=== PATIENT | female | born 1945 | race Caucasian/White ===

== ENCOUNTER 2016-06-09 12:40 | Inpatient (IN) | payer MEDICAID, MEDICARE ==
--- NOTE | 2016-06-09 13:51 | C.PDOC ---
History Of Present Illness <Heather Castillo - Last Filed: 06/09/16 23:10> <Billy Smith - Last Filed: 06/10/16 15:13> 70 y/o female with dm and htn, with hx of poor vascular circulation in lower extremities (has stent in right leg and heart), s/p catheterization of right leg 3 weeks ago at [facility], presents with worsening pain in right foot. pt has had pain and cold feeling in right foot for 3 weeks, not better with Tylenol #3. pt sts she was told she needs an operation in right leg , has no appts set up. (Heather Castillo) History Per: Patient, Family History/Exam Limitations: no limitations Onset/Duration Of Symptoms: Days (21) Recent travel outside of the [place]: No <Heather Castillo - Last Filed: 06/09/16 23:10> <Billy Smith - Last Filed: 06/10/16 15:13> Time Seen by Provider: 06/09/16 13:18 Chief Complaint (Nursing): Lower Extremity Problem/Injury Past Medical History Reviewed: Historical Data, Nursing Documentation, Vital Signs - Medical History PMH: Diabetes, HTN Other PMH: poor circulation Surgical History: Coronary Stent (STENTS B/L LEGS) Other Surgeries: stent in right leg Family History: States: Unknown Family Hx - Social History Hx Tobacco Use: Yes Hx Alcohol Use: No Hx Substance Use: No - Immunization History Hx Tetanus Toxoid Vaccination: Yes Hx Influenza Vaccination: Yes Hx Pneumococcal Vaccination: Yes <Heather Castillo - Last Filed: 06/09/16 23:10> Vital Signs: Last Vital Signs Temp 98.1 F 06/10/16 08:00 Pulse 64 06/10/16 08:00 Resp 20 06/10/16 08:00 BP 132/73 06/10/16 10:10 Pulse Ox 99 06/10/16 08:00 Review Of Systems Constitutional: Negative for: Fever, Chills Cardiovascular: Negative for: Chest Pain Respiratory: Negative for: Cough, Shortness of Breath Gastrointestinal: Negative for: Abdominal Pain Musculoskeletal: Positive for: Foot Pain (right). Negative for: Neck Pain, Leg Pain Skin: Negative for: Rash Neurological: Positive for: Numbness (right leg). Negative for: Weakness <Heather Castillo - Last Filed: 06/09/16 23:10> Physical Exam - Physical Exam Appears: Non-toxic, No Acute Distress Skin: Normal Color, Warm, Dry Head: Atraumatic, Normacephalic Cardiovascular: Rhythm Regular, No Murmur Respiratory: Normal Breath Sounds, No Rales, No Rhonchi, No Wheezing Gastrointestinal/Abdominal: Soft, No Tenderness, No Guarding, No Rebound Extremity: Normal ROM, Other (right foot erythematous, cold, no dp pulse palpated, tender to touch. no right calf tenderness. left lower ext with + 1 dp pulse, normal temp, non tender. ) <Heather Castillo - Last Filed: 06/09/16 23:10> ED Course And Treatment - Laboratory Results Result Diagrams: 06/09/16 14:19 06/09/16 15:08 O2 Sat by Pulse Oximetry: 98 <Heather Castillo - Last Filed: 06/09/16 23:10> - Laboratory Results Result Diagrams: 06/09/16 14:19 06/09/16 15:08 <Billy Smith - Last Filed: 06/10/16 15:13> Medical Decision Making <Heather Castillo - Last Filed: 06/09/16 23:10> <Billy Smith - Last Filed: 06/10/16 15:13> Medical Decision Makin70 y/o female with cold right foot with no palpable pulse; will get arterial and venous duplex studies , labs, vascular consult. vascular has seen patient. discussed with Dr Valadez, will admit to his service with vascular consult (Heather Castillo) Disposition Discussed With : Neftali Malave - Disposition Disposition Time: 18:00 <Heather Castillo - Last Filed: 06/09/16 23:10> <Billy Smith - Last Filed: 06/10/16 15:13> - Disposition Disposition: HOSPITALIZED Condition: SERIOUS - Clinical Impression Clinical Impression: Arterial occlusion, lower extremity
[2016-06-09] MEDS ORDERED: Oxycodone/Acetaminophen 5/325 mg Tab PO STA (13:53)
[2016-06-09 14:14] LABS: VENOUS BLOOD GAS BASE EXCESS 1.5 mmol/L (0.0-2.0); VENOUS BLOOD GAS PCO2 43 mmHg (40-60)
[2016-06-09 14:28] LABS: BASO # 0.1 K/uL (0.0-0.2); EOS # 0.1 K/uL (0.0-0.7); EOS % 0.9 % (0.0-4.0); HEMATOCRIT 43.2 % (34.0-47.0); LYMPH # 1.6 K/uL (1.0-4.3); LYMPH % 22.3 % (20.0-40.0); MEAN CELL VOLUME 78.5 fL (81.0-99.0); MEAN CORPUSCULAR HEMOGLOBIN 25.4 pg (27.0-31.0); MEAN CORPUSCULAR HGB CONC 32.3 g/dL (33.0-37.0); MEAN PLATELET VOLUME 8.8 fL (7.2-11.7); MONO # 0.5 K/uL (0.0-0.8); MONO % 6.8 % (0.0-10.0); RED CELL DISTRIBUTION WIDTH 14.2 % (11.5-14.5); WHITE BLOOD COUNT 7.4 K/uL (4.8-10.8)
[2016-06-09 15:19] LABS: CHLORIDE 97 mmol/L (98-107); POTASSIUM 4.1 mmol/L (3.6-5.2); SODIUM 137 mmol/L (132-148)
[2016-06-09 15:22] LABS: BLOOD UREA NITROGEN 17 mg/dL (7-17); CARBON DIOXIDE 24 mmol/L (22-30); GFR AFRICAN-AMERICAN > 60; GLUCOSE,RANDOM 266 mg/dL (65-105)
[2016-06-09 15:23] LABS: CALCIUM 9.3 mg/dl (8.6-10.4)
[2016-06-09] MEDS ORDERED: Heparin25000 units/250ml 1/2NS 250 ML IV ONE (15:53)
--- NOTE | 2016-06-09 16:47 | CP.PCM.CON ---
History of Present Illness - History of Present Illness History of Present Illness: Surgery Consult note fo Dr. Castillo Pt is a 70yoF with PMHx of Diabetes, HTN, PVD and PSHx: coronary and bilateral lower extremity stents presented to the ED today for worsening pain in the right foot x 3 weeks. Pt states that her foot also feels cold. Three weeks ago she had a catheterization (at [facility]) of right leg and was told she needed an operation to help with blood flow to her leg. Right lower extremity arterial duplex US showed occluded R femoral stent and right popliteal artery. Surgery was consulted to eval for possible treatment for her PVD, arterial occlusions. PMHx: DM, HTN, PVD SHx: coronary and bilateral lower extremity stents Social hx: Smoke 1/2 ppd x 53 yrs (26.5 pack years), drink ETOH occasionally, and denied drug use. 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 Family hx: non contributory PMD: Dr. Carballo Home meds: ASA, Plavix, Genumet, Amaryl, Vorapaxar Allergies: NKDA Review of Systems - Constitutional Constitutional: absent: Chills, Fever - EENT Eyes: absent: Change in Vision Ears: absent: Decreased Hearing - Cardiovascular Cardiovascular: absent: Chest Pain, Chest Pain at Rest, Dyspnea, Dyspnea on Exertion, Leg Edema, Pedal Edema - Respiratory Respiratory: absent: Dyspnea, Dyspnea on Exertion - Gastrointestinal Gastrointestinal: absent: Abdominal Pain, Nausea, Vomiting - Genitourinary Genitourinary: absent: Difficulty Urinating, Dysuria - Musculoskeletal Musculoskeletal: Numbness, Tingling. absent: Muscle Weakness Additional comments: Pain in right toes, that travels up to right calf. Pain worse with walking, but improves with rest. Pt has pain at night when lying in bed, awakens from sleep, improves with dangling over side of bed. Pt states feels cool to touch - Integumentary Integumentary: Change in Hair (decreased hair growth on leg). absent: Rash, Skin Pain Past Patient History - Past Social History Smoking Status: Heavy Smoker > 10 Cigarettes Daily - CARDIAC Hx Hypertension: Yes - ENDOCRINE/METABOLIC Hx Diabetes Mellitus Type 2: Yes - PSYCHIATRIC Hx Substance Use: No - SURGICAL HISTORY Hx Coronary Stent: Yes (STENTS B/L LEGS) - ANESTHESIA Hx Anesthesia Reactions: No Meds Allergies/Adverse Reactions: Allergies Allergy/AdvReac Type Severity Reaction Status Date / Time No Known Allergies Allergy Verified 06/09/16 12:46 - Medications Medications: Current Medications Heparin Sodium/Sodium Chloride (Heparin 87078 Units/250ml 1/2 Normal Saline) 250 mls @ 4.491 mls/hr IV .Q24H ONE PRN Reason: 9 UNITS/KG/HR Stop: 06/10/16 15:52 Last Admin: 06/09/16 16:37 Dose: 4.491 mls/hr Physical Exam - Constitutional Appears: Non-toxic, No Acute Distress - Head Exam Head Exam: ATRAUMATIC, NORMAL INSPECTION, NORMOCEPHALIC - Eye Exam Eye Exam: EOMI Pupil Exam: PERRL - ENT Exam ENT Exam: Mucous Membranes Moist - Respiratory Exam Respiratory Exam: Clear to Auscultation Bilateral, NORMAL BREATHING PATTERN - Cardiovascular Exam Cardiovascular Exam: REGULAR RHYTHM, +S1, +S2 - GI/Abdominal Exam GI & Abdominal Exam: Normal Bowel Sounds, Soft. absent: Tenderness - Extremities Exam Additional comments: Chelo's sign negative. decreased hair growth on right side, cool to touch. Tenderness to palpation all over dorsal foot, worst with palpation of digits. - Neurological Exam Neurological exam: Alert, Oriented x3 Additional comments: Light touch intact throughout both extremities. Sharp/dull intact. Proprioception intact in RLE. - Skin Skin Exam: Dry Additional comments: Cool to touch, decreased hair growth Results - Vital Signs Recent Vital Signs: Last Vital Signs Temp 97.7 F 06/09/16 15:22 Pulse 68 06/09/16 15:22 Resp 18 06/09/16 15:22 BP 139/81 06/09/16 15:22 Pulse Ox 98 06/09/16 15:22 - Labs Result Diagrams: 06/09/16 14:19 06/09/16 15:08 Labs: Laboratory Results - last 24 hr 06/09/16 06/09/16 06/09/16 13:43 14:10 14:19 WBC 7.4 RBC 5.50 H Hgb 14.0 Hct 43.2 MCV 78.5 L MCH 25.4 L MCHC 32.3 L RDW 14.2 Plt Count 332 MPV 8.8 Neut % (Auto) 69.0 Lymph % (Auto) 22.3 Piute % (Auto) 6.8 Eos % (Auto) 0.9 Baso % (Auto) 1.0 Neut # 5.1 Lymph # 1.6 Piute # 0.5 Eos # 0.1 Baso # 0.1 PT INR APTT pO2 42 VBG pH 7.40 VBG pCO2 43 VBG HCO3 25.6 VBG Total CO2 27.9 VBG O2 Sat (Calc) 81.9 H VBG Base Excess 1.5 VBG Potassium 8.7 H* Sodium 132.0 Chloride 104.0 Glucose 319 H Lactate 2.7 H Crit Value Called To fallon Moralez Crit Value Called By stacy Echols,shipping order clerk Crit Value Read Back Y Blood Gas Notified Time 1415 Potassium Carbon Dioxide Anion Gap BUN Creatinine Est GFR ( Amer) Est GFR (Non-Af Amer) POC Glucose (mg/dL) 260 H Random Glucose Calcium Venous Blood Potassium 8.7 H* Stool Occult Blood 06/09/16 06/09/16 15:08 15:54 WBC RBC Hgb Hct MCV MCH MCHC RDW Plt Count MPV Neut % (Auto) Lymph % (Auto) Piute % (Auto) Eos % (Auto) Baso % (Auto) Neut # Lymph # Piute # Eos # Baso # PT 11.2 INR 1.0 APTT 31 pO2 VBG pH VBG pCO2 VBG HCO3 VBG Total CO2 VBG O2 Sat (Calc) VBG Base Excess VBG Potassium Sodium 137 Chloride 97 L Glucose Lactate Crit Value Called To Crit Value Called By Crit Value Read Back Blood Gas Notified Time Potassium 4.1 Carbon Dioxide 24 Anion Gap 20 BUN 17 Creatinine 0.5 L Est GFR ( Amer) > 60 Est GFR (Non-Af Amer) > 60 POC Glucose (mg/dL) Random Glucose 266 H Calcium 9.3 Venous Blood Potassium Stool Occult Blood Negative Assessment & Plan - Assessment and Plan (Free Text) Assessment: 70 yo F with hx of PVD with occluded femoral stent and popliteal arteries. Plan: Admit for observation CT Angio with ileo-femoral runoff. Angiogram tomorrow with possible stenting NPO after midnight
--- NOTE | 2016-06-09 18:02 | CP.PCM.HP ---
History of Present Illness - History of Present Illness History of Present Illness: CC: "my right toes hurt" HPI: Pt is a 70yoF with PMHx of Diabetes, HTN, PVD and PSHx: coronary and bilateral lower extremity stents presented to the ED today for worsening pain in the right foot x 3 weeks. Pt states that her foot also feels cold. Three weeks ago she had a catheterization (at [facility]) of right leg and was told she needed an operation to help with blood flow to her leg. Right lower extremity arterial duplex US showed occluded R femoral stent and right popliteal artery. Surgery was consulted to eval for possible treatment for her PVD, arterial occlusions. Patient denies fever, chills, chest pain, SOB, abdominal pain, nausea, vomiting, diarrhea, constipation, dysuria. PMHx: DM, HTN, PVD SHx: coronary and bilateral lower extremity stents Social hx: Smoke 1/2 ppd x 53 yrs (26.5 pack years), drink ETOH occasionally, and denied drug use. 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 Family hx: non contributory PMD: Dr. Carballo Home meds: ASA, Plavix, Genumet, Amaryl, Vorapaxar Allergies: NKDA Present on Admission - Present on Admission Any Indicators Present on Admission: No Review of Systems - Constitutional Constitutional: absent: Chills, Fever - EENT Eyes: absent: Change in Vision Ears: absent: Dizziness - Cardiovascular Cardiovascular: absent: Chest Pain, Dyspnea - Respiratory Respiratory: absent: Cough, Dyspnea - Gastrointestinal Gastrointestinal: absent: Abdominal Pain, Constipation, Diarrhea, Nausea, Vomiting - Genitourinary Genitourinary: absent: Dysuria - Musculoskeletal Musculoskeletal: absent: Back Pain Additional comments: right toe pain - Integumentary Integumentary: Change in Hair (decreased hair on legs), Dry Skin. absent: Rash - Neurological Neurological: absent: Dizziness, Headaches - Endocrine Endocrine: absent: Fatigue, Palpitations - Hematologic/Lymphatic Hematologic: absent: Easy Bleeding, Easy Bruising Past Patient History - Past Medical History & Family History Past Medical History?: Yes Past Family History: Reviewed and not pertinent - Past Social History Smoking Status: Heavy Smoker > 10 Cigarettes Daily Alcohol: Occasional Drugs: Denies - CARDIAC Hx Hypertension: Yes - ENDOCRINE/METABOLIC Hx Diabetes Mellitus Type 2: Yes - PSYCHIATRIC Hx Substance Use: No - SURGICAL HISTORY Hx Coronary Stent: Yes (STENTS B/L LEGS) - ANESTHESIA Hx Anesthesia Reactions: No Meds Allergies/Adverse Reactions: Allergies Allergy/AdvReac Type Severity Reaction Status Date / Time No Known Allergies Allergy Verified 06/09/16 12:46 Physical Exam - Constitutional Appears: Non-toxic, No Acute Distress - Head Exam Head Exam: NORMAL INSPECTION - Eye Exam Eye Exam: EOMI - ENT Exam ENT Exam: Mucous Membranes Moist - Respiratory Exam Respiratory Exam: Clear to Auscultation Bilateral, NORMAL BREATHING PATTERN. absent: Rales, Rhonchi, Wheezes - Cardiovascular Exam Cardiovascular Exam: REGULAR RHYTHM, +S1, +S2. absent: Gallop, Rubs, Systolic Murmur - GI/Abdominal Exam GI & Abdominal Exam: Normal Bowel Sounds, Soft. absent: Distended, Firm, Guarding, Tenderness - Extremities Exam Extremities exam: Negative for: pedal edema Additional comments: no pedal pulse in right foot Cold right toes Warm left toes Decreased hair growth in both legs No rashes No change in pigmentation - Neurological Exam Neurological exam: Alert, Oriented x3 - Psychiatric Exam Psychiatric exam: Normal Affect, Normal Mood - Skin Skin Exam: Dry, Intact Results - Vital Signs Recent Vital Signs: Last Vital Signs Temp 97.7 F 06/09/16 15:22 Pulse 68 06/09/16 15:22 Resp 18 06/09/16 15:22 BP 139/81 06/09/16 15:22 Pulse Ox 98 06/09/16 17:29 - Labs Result Diagrams: 06/09/16 14:19 06/09/16 15:08 Assessment & Plan - Assessment and Plan (Free Text) Assessment: 1. PVD Right lower extremity arterial duplex ultrasound - occluded right femoral stent and right popliteal artery For Angiogram tomorrow Anticoagulation and vascular management as per vascular surgery No heparin drip per Dr. Anna Castillo - vascular surgery - help appreciated ASA 81mg PO daily Morphine 2mg IVP Q4H PRN pain, moderate NS 50cc/hr 2. Blockage of femoral artery stent and popliteal artery Management as per Dr. Castillo 3. HTN Continue home amlodipine - benazepril 5-20mg PO daily 4. DM Holding home janumet and home glimepiride RISS F/U accuchecks 5. Elevated Lactic Acid LA 2.7 F/U LA in 4 hours 5. Prophylaxis Protonix 40mg PO daily ASA 81mg PO daily DVT prophylaxis per surgery
[2016-06-09] MEDS ORDERED: Iodixanol 320 mg/ml 150 ml Bottle IV ONE (18:31)
[2016-06-09 18:42] VITALS: RESP 20
[2016-06-09] MEDS: Pantoprazole 40 mg EC Tab PO SCH (21:40)
[2016-06-09] MEDS: (Novolin R) Insulin Human Regular 100 units/ml vial SC SCH (21:40)
[2016-06-10] MEDS: (Novolin R) Insulin Human Regular 100 units/ml vial SC SCH ×4 (08:48→22:22)
--- NOTE | 2016-06-10 09:41 | CP.PCM.PN ---
Subjective - Date & Time of Evaluation Date of Evaluation: 06/10/16 Time of Evaluation: 09:41 - Subjective Subjective: PGY-1 note for medicine service Pt seen and examined at bedside. Pt states that her right foot hurts and feels cold still. She has been NPO for procedure today. Denies any other complaints including chest pain, palpitations, sob, nausea or vomiting. Objective - Vital Signs/Intake and Output Vital Signs (last 24 hours): Temp Pulse Resp BP Pulse Ox 98.1 F 64 20 132/73 99 06/10/16 08:00 06/10/16 08:00 06/10/16 08:00 06/10/16 08:00 06/10/16 08:00 Intake and Output: 06/10/16 06/10/16 06:59 18:59 Intake Total 250 Balance 250 - Medications Medications: Current Medications Amlodipine Besylate (Norvasc) 5 mg PO DAILY [facility] Aspirin (Aspirin Chewable) 81 mg PO DAILY [facility] Enalapril Maleate (Vasotec) 10 mg PO DAILY [facility] Insulin Human Regular (Novolin R) 0 unit SC ACHS [facility] PRN Reason: Protocol Last Admin: 06/10/16 08:48 Dose: Not Given Morphine Sulfate (Morphine) 2 mg IVP Q4H PRN PRN Reason: Pain, moderate (4-7) Pantoprazole Sodium (Protonix Ec Tab) 40 mg PO DAILY [facility] Last Admin: 06/09/16 21:40 Dose: 40 mg Rosuvastatin Calcium (Crestor) 5 mg PO HS [facility] Last Admin: 06/09/16 21:43 Dose: 5 mg - Labs Labs: PT 11.2 SECONDS (9.7-12.2) 06/09/16 15:08 INR 1.0 06/09/16 15:08 APTT 31 SECONDS (21-34) 06/09/16 15:08 - Constitutional Appears: Non-toxic, No Acute Distress - Head Exam Head Exam: ATRAUMATIC, NORMOCEPHALIC - Eye Exam Eye Exam: Normal appearance Pupil Exam: PERRL - ENT Exam ENT Exam: Mucous Membranes Moist - Respiratory Exam Respiratory Exam: Clear to Ausculation Bilateral, NORMAL BREATHING PATTERN - GI/Abdominal Exam GI & Abdominal Exam: Soft, Normal Bowel Sounds - Extremities Exam Additional comments: right foot cool to touch and tender to palpation. Sensation intact. Muscle strength 5/5 b/l - Neurological Exam Neurological Exam: Alert, Awake - Skin Skin Exam: Intact, Warm Assessment and Plan - Assessment and Plan (Free Text) Assessment: PVD - Right lower extremity arterial duplex ultrasound (06/09) - occluded right femoral stent and right popliteal artery - CT Angio abd/pelvis with runnoff (06/09) - Occluded superficial femoral artery stent. Widespread vascular disease, please see full report - Vascular surgery (Anna) consulted - help appreciated - No heparin drip - OR today for stent angioplasty vs bypass - ASA 81mg PO daily - Plavix 75 mg Daily - Morphine 2mg IVP Q4H PRN pain, moderate Blockage of femoral artery stent and popliteal artery - Management as per Dr. Castillo - see above HTN - Continue home amlodipine - Added Enalepril 5-20mg PO daily DM - Holding home janumet and home glimepiride - RISS - F/U accuchecks Elevated Lactic Acid - LA 2.7 -> 1.8 Prophylaxis - Protonix 40mg PO daily - ASA 81mg PO daily - DVT prophylaxis per surgery
[2016-06-10] MEDS: Pantoprazole 40 mg EC Tab PO SCH (09:45)
--- NOTE | 2016-06-10 10:44 | RAD ---
HISTORY: pre-op COMPARISON: Chest x-ray performed 11/17/15 TECHNIQUE: Chest, one view. FINDINGS: LUNGS: No focal consolidation. Please note that chest x-ray has limited sensitivity for the detection of pulmonary masses. PLEURA: No significant pleural effusion identified. No definite pneumothorax . CARDIOVASCULAR: Heart size appears within normal limits. OSSEOUS STRUCTURES: Osseous demineralization. Degenerative changes of the spine. Acromioclavicular arthropathy. VISUALIZED UPPER ABDOMEN: Unremarkable. OTHER FINDINGS: None. IMPRESSION: No focal consolidation, significant pleural effusion, or definite pneumothorax identified.
--- NOTE | 2016-06-10 12:38 | CT ---
PROCEDURE: CT Angiography Abdomen, Pelvis and Lower Extremity with Contrast HISTORY: PVD COMPARISON: None. TECHNIQUE: Technique: CT angiography of the abdomen, pelvis and bilateral lower extremities performed in the arterial phase of enhancement. Coronal and sagittal reformats, and well as rotating MIP images of the vessels generated at the workstation. Intravenous contrast dose: 100 cc of Visipaque Radiation dose: Total exam DLP = 1012 mGy-cm. FINDINGS: CT ANGIOGRAPHY: ABDOMINAL AORTA:: The aorta is normal in caliber. There is a moderate amount of aortic calcification. There is no stenosis or aneurysm MAJOR AORTIC BRANCHES: Celiac [place]: Unremarkable. Superior mesenteric artery: Unremarkable. Inferior mesenteric artery: Unremarkable. Renal arteries: Unremarkable. PELVIC ARTERIES: Right Common Iliac: Unremarkable. Right External Iliac: Unremarkable. Right Internal Iliac: Unremarkable. Left Common Iliac: Unremarkable. Left External Iliac: Unremarkable. Left Internal Iliac: Unremarkable. RIGHT LOWER EXTREMITY ARTERIES: Right Common Femoral: Unremarkable. Right Superficial Femoral: There is a femoral graft extending from the femoral bifurcation to the popliteal. There is no enhancement within the lumen of the graft. Right Profunda Femoris: Unremarkable. Right Popliteal:There is reconstitution of the popliteal. Right Anterior Tibial: Segmental occlusion Right Tibioperoneal Trunk: Unremarkable. Right Posterior Tibial: Segmental occlusion Right Peroneal: Segmental occlusion Right dorsalis pedis : Unremarkable. LEFT LOWER EXTREMITY ARTERIES: Left Common Femoral: Unremarkable. Left Superficial Femoral: Multiple short segment distal stenoses can be seen as well as calcifications but there is no evidence of occlusion Left Profunda Femoris: Unremarkable. Left Popliteal: Unremarkable. Left Anterior Tibial: Multiple short segment stenosis or occlusion Left Tibioperoneal Trunk: Unremarkable. Left Posterior Tibial: Multiple short segment occlusions Left Peronea: Unremarkable. Left Dorsalis pedis: Unremarkable. NON-ANGIOGRAPHIC ASPECT OF THE EXAM: LOWER THORAX: Unremarkable. LIVER: Unremarkable. No gross lesion or ductal dilatation. GALLBLADDER AND BILE DUCTS: Unremarkable. PANCREAS: Unremarkable. No gross lesion or ductal dilatation. SPLEEN: Unremarkable. ADRENALS: Unremarkable. No mass. KIDNEYS AND URETERS: Unremarkable. No hydronephrosis. No solid mass. STOMACH AND BOWEL: Unremarkable. No obstruction. No gross mural thickening. APPENDIX: Normal appendix. PERITONEUM: Unremarkable. No free fluid. No free air. LYMPH NODES: Unremarkable. No enlarged lymph nodes. BLADDER: Unremarkable. REPRODUCTIVE: Unremarkable. BONES: No acute fracture. OTHER FINDINGS: None. IMPRESSION: Occluded right femoral popliteal graft Bilateral occlusive disease below the knees. See comments
[2016-06-10] MEDS ORDERED: Propofol 10 mg/ml Inj (20 ML) ONE ×3 (12:41→16:12)
[2016-06-10] MEDS ORDERED: Midazolam 2 MG/2 ML VIAL ONE (12:41)
[2016-06-10] MEDS ORDERED: Lidocaine Hydrochloride 5 ML INJ ONE (12:42)
[2016-06-10] MEDS ORDERED: Iodixanol 320 mg/ml 150 ml Bottle IV ONE (13:47)
--- NOTE | 2016-06-10 14:27 | VASCLAB ---
PROCEDURE: Right Lower Extremity Venous Duplex Exam. HISTORY: Leg pain, diminished pulse PRIORS: None. TECHNIQUE: Right common femoral, femoral, popliteal and posterior tibial, peroneal and great saphenous veins were evaluated. Flow was assessed with color Doppler, compressibility, assessment of phasic flow and augmentation response. Report prepared by ROBBIN Torres, RVT FINDINGS: RIGHT: 1. Common Femoral Vein: 1.1. Compressibility - Fully compressible: Thrombus - None: Flow - Phasic: Augmentation -Normal: Reflux - None. 2. Femoral Vein: 2.1. Compressibility - Fully compressible: Thrombus - None: Flow - Phasic: Augmentation -Normal: Reflux - None. 3. Popliteal Vein: 3.1. Compressibility - Fully compressible: Thrombus - None: Flow - Phasic: Augmentation -Normal: Reflux - None. 4. Posterior Tibial Vein: 4.1. Compressibility - Fully compressible: Thrombus - None: Flow - Phasic: Augmentation -Normal: Reflux - None. 5. Peroneal Vein: 5.1. Compressibility - Fully compressible: Thrombus - None: Flow - Phasic: Augmentation -Normal: Reflux - None. 6. Great Saphenous Vein: 6.1. Compressibility - Fully compressible: Thrombus -None: Flow - Phasic: Augmentation - Normal: Reflux - None. OTHER FINDINGS: IMPRESSION: No evidence of deep or superficial vein thrombosis of the right lower extremity with excellent venous flow. Normal valve function noted of the right side. Normal venous flow noted in the left common femoral vein.
--- NOTE | 2016-06-10 14:31 | VASCLAB ---
PROCEDURE: HISTORY: Right foot cold, no pulse palpated COMPARISON: None available. TECHNIQUE: Grayscale and duplex Doppler evaluation of the right common femoral, femoral, profunda femoral, popliteal, posterior tibial, anterior tibial and dorsalis pedis arteries was performed. Report prepared by Haile Luu, BS, RVT FINDINGS: RIGHT LOWER EXTREMITY: * Common Femoral Artery: Peak Systolic Velocity - 112: Doppler Waveform: Biphasic: Plaque description - Calcific * Profunda Femoral Artery: Peak Systolic Velocity - 199: Doppler Waveform: Biphasic.: Plaque description - Calcific * Femoral Artery o Proximal Segment: Peak Systolic Velocity - 0: Doppler Waveform: Absent: Plaque description - Calcific o Middle Segment: Peak Systolic Velocity - 0: Doppler Waveform: Absent: Plaque description - Calcific o Distal Segment: Peak Systolic Velocity - 0: Doppler Waveform: Absent: Plaque description - Calcific * Popliteal Artery o Proximal Segment: Peak Systolic Velocity - 18: Doppler Waveform: Monophasic: Plaque description - Calcific o Middle Segment: Peak Systolic Velocity - 24: Doppler Waveform: Monophasic: Plaque description - Calcific o Distal Segment: Peak Systolic Velocity - 35: Doppler Waveform: Monophasic: Plaque description - Calcific * Posterior Tibial Artery: Peak Systolic Velocity - 0: Doppler Waveform: Absent: Plaque description - Calcific * Anterior Tibial Artery: Peak Systolic Velocity - 19: Doppler Waveform: Monophasic: Plaque description - Calcific * Dorsalis Pedis Artery: Peak Systolic Velocity - 13: Doppler Waveform: Monophasic: Plaque description - Calcific OTHER FINDINGS: CALLI Castillo notified about the findings. IMPRESSION: RIGHT: Occlusion of right SFA stent with reconstitution of popliteal artery. CT angiogram from 06/09/2016 showed occlusion of right SFA stent to popliteal artery. PT is occluded. However, the peroneal and AT are patent.
--- NOTE | 2016-06-10 16:46 | PCM.SURG1 ---
Surgeon's Initial Post Op Note - Surgeon's Notes Surgeon: martine Rental Clerk Tool And Equipment: 0 Type of Anesthesia: IV Sedation Anesthesia Administered By: sang Pre-Operative Diagnosis: rest pain right foot pvd Operative Findings: occluded stents right leg. open popliteal with only peroneal run off. small PT in foot Post-Operative Diagnosis: same Operation Performed: aortofemoral angio via left groin with selective catherization of right leg. pathway atherectomy and stent right sfa. atherctomy and balloon 2mm right peroneal. perclose left groin. final films showed extravastion in tp trunk Specimen/Specimens Removed: 0 Estimated Blood Loss: EBL {In ML}: 55 Blood Products Given: N/A Drains Used: No Drains Post-Op Condition: Fair Date of Surgery/Procedure: 06/10/16 Time of Surgery/Procedure: 16:47
[2016-06-10] MEDS ORDERED: Dextrose 5%/0.45% NS 1,000 ML IV SCH ×2 (17:00→22:45)
[2016-06-10] MEDS ORDERED: HYDROmorphone 0.5 mg/0.5 ml ISec IVP PRN (17:05)
--- NOTE | 2016-06-10 17:34 | VAS ---
DATE: 06/10/2016 PREOPERATIVE DIAGNOSIS: Severe rest pain, right foot; failed stents, right leg. PROCEDURE CARRIED OUT: Aortofemoral angiogram with selective catheterization of right femoral artery , pathway atherectomy of occluded stents. Balloon angioplasty and stent placement of the right super ficial femoral artery, atherectomy of the tibioperoneal trunk and balloon angioplasty of the tibioper reeves trunk. Perclose closure, left groin. INDICATIONS: The patient is an elderly woman with rest pain in the right foot, severe, requiring her to come to the hospital. OPERATIVE FINDINGS: The previously placed stents were occluded from the origin of the superficial fe moral artery to the popliteal artery distally. Initially, this was crossed relatively easily. The p Ammado atherectomy device was used. There was good result; however, there was persistent and tight s tenosis of the proximal portion of the stents. We deployed a 7 x 20 mm stent here with excellent cos metic results. However, we still had poor flow and at this point, it was showing that there was occl usion of the previously patent peroneal artery distally. We were able to wire this with an 0.014 wir e. I opened this up. We then used an atherectomy device and the initial results were quite good. H owever, on completion films, there was some extravasation in the tibioperoneal trunk. At that point, we abandoned further attempts at the procedure and deployed a Perclose device in the left groin. FINDINGS: The aorta and renal arteries are free of significant occlusive disease. Both common, inte rnal and external iliac arteries were patent. There were minor degrees of stenosis on both sides. T he common femoral artery was then patent on the right as well as on the left. On the left, the super ficial femoral artery, popliteal artery were patent. There was tibial disease, primarily on the left . There is only the peroneal artery being seen distally. On the right side, the peroneal artery was the major vessel to the foot and there was only a twig of a posterior tibial seen at the ankle. Sub sequent to the performance of the diagnostic arteriogram, a stiff-angled guidewire was advanced over the aortic bifurcation and a 7-[place]or[place] sheath positioned where we then carried out the previously ment ioned procedures of the atherectomy, stent placement and variety of other procedures. However, altho ugh we were able to not demonstrate any residual areas of stenosis in the occluded stent area, there was not brisk flow from despite numerous attempts at plain balloons, etc. and atherectomy devices wer e unable to completely get brisk flow through this. Perhaps it was due to sheath which was removed, but still even after this had been removed to a ore proximal location, no good flow. As I said, the final films did show some extravasation in the tibioperoneal trunk which will be treated with close o bservation. OPERATION CARRIED OUT: Aortofemoral angiogram with selective catheterization of right femoral artery . Atherectomy and stenting of the right superficial femoral artery, atherectomy and balloon angiopla sty of the tibioperoneal trunk. Cody Castillo Jr., MD cc: [phone] TT: 06/10/2016 17:33:39 Confirmation # [id number] Dictation # [id number] tn
[2016-06-10] MEDS ORDERED: DiphenhydrAMINE 50 mg/ml Inj IVP PRN (17:39)
[2016-06-10] MEDS ORDERED: Morphine 4 MG/ML VIAL IVP PRN (22:27)
[2016-06-11 07:18] LABS: CHLORIDE 101 mmol/L (98-107); SODIUM 138 mmol/L (132-148)
[2016-06-11 07:19] LABS: POTASSIUM 3.6 mmol/L (3.6-5.2)
[2016-06-11 07:21] LABS: ALB/GLOB RATIO 1.4 (1.0-2.1); ALKALINE PHOSPHATASE 57 U/L (38-126); AST/SGOT 28 U/L (14-36); BILIRUBIN,TOTAL < 0.1 mg/dL (0.2-1.3); BLOOD UREA NITROGEN 14 mg/dL (7-17); CALCIUM 7.8 mg/dl (8.6-10.4); CARBON DIOXIDE 23 mmol/L (22-30); GFR AFRICAN-AMERICAN > 60; GLUCOSE,RANDOM 281 mg/dL (65-105); TOTAL PROTEIN 5.9 g/dL (6.3-8.3)
[2016-06-11 07:22] LABS: ALT/SGPT 21 U/L (9-52)
[2016-06-11 07:41] LABS: BASO % 0.2 % (0.0-2.0); LYMPH # 1.4 K/uL (1.0-4.3); LYMPH % 11.3 % (20.0-40.0); MEAN CELL VOLUME 78.7 fL (81.0-99.0); MEAN CORPUSCULAR HEMOGLOBIN 25.6 pg (27.0-31.0); MEAN CORPUSCULAR HGB CONC 32.5 g/dL (33.0-37.0); MEAN PLATELET VOLUME 8.8 fL (7.2-11.7); MONO # 0.8 K/uL (0.0-0.8); MONO % 6.3 % (0.0-10.0); RED CELL DISTRIBUTION WIDTH 14.2 % (11.5-14.5)
[2016-06-11 07:44] LABS: WHITE BLOOD COUNT 12.8 K/uL (4.8-10.8)
[2016-06-11] MEDS: (Novolin R) Insulin Human Regular 100 units/ml vial SC SCH ×4 (08:15→21:45)
[2016-06-11] MEDS: Sodium Chloride 0.9% 1,000 ML IV SCH ×2 (08:17→08:51)
--- NOTE | 2016-06-11 08:52 | CP.PCM.PN ---
Subjective - Date & Time of Evaluation Date of Evaluation: 06/11/16 Time of Evaluation: 10:35 - Subjective Subjective: PGY-1 note for General Surgery, Dr. Castillo Pt S&E. POD#1 aortofemoral angioplasty. Pt reported increased pain in right lower extremity overnight and was given morphine. Bedside doppler showed good DP /PT pulses overnight. Pt reports pain better controlled this AM. Admits voiding without issue. Denies abdominal pain, N/V/D/C. Objective - Vital Signs/Intake and Output Vital Signs (last 24 hours): Temp Pulse Resp BP Pulse Ox 97.9 F 108 H 20 136/82 97 06/11/16 07:41 06/11/16 07:41 06/11/16 07:41 06/11/16 07:41 06/11/16 07:41 Intake and Output: 06/11/16 06/11/16 06:59 18:59 Intake Total 1420 Output Total 1600 Balance -180 - Medications Medications: Current Medications Amlodipine Besylate (Norvasc) 5 mg PO DAILY [facility] Last Admin: 06/10/16 09:46 Dose: Not Given Aspirin (Aspirin Chewable) 81 mg PO DAILY [facility] Last Admin: 06/10/16 09:44 Dose: Not Given Clopidogrel Bisulfate (Plavix) 75 mg PO DAILY [facility] Enalapril Maleate (Vasotec) 10 mg PO DAILY [facility] Last Admin: 06/10/16 10:10 Dose: 10 mg Sodium Chloride (Sodium Chloride 0.9%) 1,000 mls @ 70 mls/hr IV .[id number] [facility] Last Admin: 06/11/16 08:51 Dose: 70 mls/hr Dextrose/Sodium Chloride (Dextrose 5%/0.45% Ns 1000 Ml) 1,000 mls @ 75 mls/hr IV .[id number] [facility] Last Admin: 06/10/16 22:57 Dose: 75 mls/hr Insulin Human Regular (Novolin R) 0 unit SC ACHS [facility] PRN Reason: Protocol Last Admin: 06/11/16 08:15 Dose: 6 unit Morphine Sulfate (Morphine) 2 mg IVP Q4H PRN PRN Reason: Pain, moderate (4-7) Last Admin: 06/10/16 22:11 Dose: 2 mg Morphine Sulfate (Morphine) 4 mg IVP Q4 PRN PRN Reason: Pain, severe (8-10) Pantoprazole Sodium (Protonix Ec Tab) 40 mg PO DAILY [facility] Last Admin: 06/10/16 09:45 Dose: Not Given Rosuvastatin Calcium (Crestor) 5 mg PO HS [facility] Last Admin: 06/10/16 22:58 Dose: Not Given - Labs Labs: 06/11/16 07:03 06/11/16 07:03 PT 11.2 SECONDS (9.7-12.2) 06/09/16 15:08 INR 1.0 06/09/16 15:08 APTT 31 SECONDS (21-34) 06/09/16 15:08 - Constitutional Appears: Non-toxic, No Acute Distress - Head Exam Head Exam: ATRAUMATIC, NORMOCEPHALIC - Eye Exam Eye Exam: Normal appearance Pupil Exam: PERRL - ENT Exam ENT Exam: Mucous Membranes Moist - Respiratory Exam Respiratory Exam: NORMAL BREATHING PATTERN - GI/Abdominal Exam GI & Abdominal Exam: Soft, Normal Bowel Sounds - Extremities Exam Extremities Exam: Pedal Edema (slight edema on RLE, non-pitting) Additional comments: right foot cool to touch. Dopplers show DP/PT pulses. Sensation intact. muscle strength 5/5 in b/l LE. - Neurological Exam Neurological Exam: Alert, Awake, Oriented x3 Assessment and Plan - Assessment and Plan (Free Text) Assessment: POD#1 angioplasty of RLE Vein mapping of b/l LE ordered. ECHO ordered, spoke with Medical team about needing cardio clearance for potential bypass Follow up cardiac reccommendations David Severino, PGY-1 d/w Dr. Castillo
[2016-06-11] MEDS: Pantoprazole 40 mg EC Tab PO SCH (11:39)
--- NOTE | 2016-06-11 12:55 | CON ---
DATE: 06/11/2016 HISTORY OF PRESENT ILLNESS: This is a 70-year-old female with history of peripheral vascula r disease and has bilateral lower extremity stent ____ in the past. The patient came to the Emergenc y Room with history of severe right leg pain, which was worsening. This has been happening for the l ast 3 weeks. The patient also claimed that her foot was feeling cold. Three weeks ago she had a cat heterization at [facility] for right leg and was told she needed an operation to help with b lood flow to her right leg. Also, arterial duplex ultrasound shows right femoral occluded stent. No history of chest pain or shortness of breath. REVIEW OF SYSTEMS: CARDIOVASCULAR: Negative for chest pain. RESPIRATORY: Negative for shortness of breath. GASTROINTESTINAL: Negative for nausea, vomiting, abdominal pain. CENTRAL NERVOUS SYSTEM: No focal neurological complaints offered. No right leg pain and tenderness present. No swelling. No fever. GENITOURINARY: No urinary complaints. PSYCHIATRIC: The patient is stable. All other systems are negative. PAST MEDICAL HISTORY: History of hypertension, diabetes, peripheral vascular disease. The patient h as coronary and bilateral lower extremity stents. SOCIAL HISTORY: The patient is smoking half pack per day for a long time. Occasional ETOH present. FAMILY HISTORY: No known inherited disease. ALLERGIES: No known allergy. MEDICATIONS: Aspirin, Plavix, Janumet, Amaryl and ____. PHYSICAL EXAMINATION: GENERAL: This is a 70-year-old female, alert, oriented, and comfortable. VITAL SIGNS: Temperature 97.7, pulse 68, respiration 18, and blood pressure 139/81 mmHg, pulse ox is 98% at room air. HEENT: Normal. NECK: JVP is flat. Carotids, no bruit. LUNGS: No rales, no wheezing. HEART: S1, S2 normal. No gallop, no murmur. ABDOMEN: Soft, nontender, no organomegaly. CENTRAL NERVOUS SYSTEM: No focal neurological deficit. EXTREMITIES: Right leg slightly cold. No swelling. No cellulitis. LABORATORY DATA: On admission, blood sugar is 266. White cell count is slightly elevated. EKG is n o acute ST-T changes. Chest x-ray within normal limits. IMPRESSION: Peripheral vascular disease. The right leg femoral artery stent occlusion, possible ear ly gangrene, coronary artery disease, diabetes, hypertension. SUGGESTIONS: Agree with present management. The patient needs echocardiogram prior to the clearance . Other workup as needed. Johnnie Spann MD cc: [phone] TT: 06/11/2016 12:54:08 Confirmation # [id number] Dictation # [id number] mickey
[2016-06-11] MEDS ORDERED: Tramadol 25 mg PO PRN (13:18)
[2016-06-11] MEDS: oxyCODONE 20 mg ER Tab (oxyCONTIN) PO SCH ×2 (14:03→21:43)
--- NOTE | 2016-06-11 17:20 | CP.PCM.PN ---
Subjective - Date & Time of Evaluation Date of Evaluation: 06/11/16 Time of Evaluation: 17:16 - Subjective Subjective: PGY-1 note for medicine service Pt seen and examined at bedside. Pt states that she has some right leg pain and swelling POD#1 from aortofemoral angioplasty. She has no other complaints. Denies fevers, chill, chest pain, sob, nausea or vomiting. Objective - Vital Signs/Intake and Output Vital Signs (last 24 hours): Temp Pulse Resp BP Pulse Ox 97.9 F 108 H 20 136/82 97 06/11/16 07:41 06/11/16 07:41 06/11/16 07:41 06/11/16 11:38 06/11/16 07:41 Intake and Output: 06/11/16 06/11/16 06:59 18:59 Intake Total 1420 810 Output Total 1600 300 Balance -180 510 - Medications Medications: Current Medications Amlodipine Besylate (Norvasc) 5 mg PO DAILY [facility] Last Admin: 06/11/16 11:37 Dose: 5 mg Aspirin (Aspirin Chewable) 81 mg PO DAILY [facility] Last Admin: 06/11/16 11:38 Dose: 81 mg Clopidogrel Bisulfate (Plavix) 75 mg PO DAILY [facility] Last Admin: 06/11/16 11:37 Dose: 75 mg Enalapril Maleate (Vasotec) 10 mg PO DAILY [facility] Last Admin: 06/11/16 11:38 Dose: 10 mg Sodium Chloride (Sodium Chloride 0.9%) 1,000 mls @ 70 mls/hr IV .[id number] [facility] Last Admin: 06/11/16 08:51 Dose: 70 mls/hr Insulin Glargine (Lantus) 10 unit SC [facility] Insulin Human Regular (Novolin R) 0 unit SC [facility] PRN Reason: Protocol Last Admin: 06/11/16 11:33 Dose: 8 unit Oxycodone HCl (Oxycontin Extended Release Tab) 20 mg PO Q12 [facility] Last Admin: 06/11/16 14:03 Dose: 20 mg Pantoprazole Sodium (Protonix Ec Tab) 40 mg PO DAILY [facility] Last Admin: 06/11/16 11:39 Dose: 40 mg Rosuvastatin Calcium (Crestor) 5 mg PO HS [facility] Last Admin: 06/10/16 22:58 Dose: Not Given Tramadol HCl (Ultram) 25 mg PO TID PRN PRN Reason: pain - Labs Labs: 06/11/16 07:03 06/11/16 07:03 PT 11.2 SECONDS (9.7-12.2) 06/09/16 15:08 INR 1.0 06/09/16 15:08 APTT 31 SECONDS (21-34) 06/09/16 15:08 - Constitutional Appears: Non-toxic, No Acute Distress - Head Exam Head Exam: ATRAUMATIC, NORMOCEPHALIC - Eye Exam Eye Exam: Normal appearance - ENT Exam ENT Exam: Mucous Membranes Moist - Respiratory Exam Respiratory Exam: Clear to Ausculation Bilateral, NORMAL BREATHING PATTERN - Cardiovascular Exam Cardiovascular Exam: +S1, +S2 - GI/Abdominal Exam GI & Abdominal Exam: Soft, Normal Bowel Sounds - Extremities Exam Additional comments: Right LE is swollen and tender to palpation. - Neurological Exam Neurological Exam: Alert, Awake - Skin Skin Exam: Dry, Warm Assessment and Plan - Assessment and Plan (Free Text) Assessment: PVD - POD#1 aortofemoral angioplasty - Vascular surgery (Anna) consulted - help appreciated - Vein mapping of b/l LE ordered - Needs cardio clearance for possible bypass - Cardio consulted - Royce - william appreciated - Right lower extremity arterial duplex ultrasound (06/09) - occluded right femoral stent and right popliteal artery - CT Angio abd/pelvis with runnoff (06/09) - Occluded superficial femoral artery stent. Widespread vascular disease, please see full report - ASA 81mg PO daily - Plavix 75 mg Daily - oxycontin 20mg Q12h for pain - Ultram 50mg PRN Blockage of femoral artery stent and popliteal artery - Management as per Dr. Castillo - see above HTN - Continue home amlodipine - Added Enalepril 5-20mg PO daily DM - Holding home janumet and home glimepiride - RISS - Lantus 10 HS - F/U accuchecks Elevated Lactic Acid - LA 2.7 -> 1.8 Prophylaxis - Protonix 40mg PO daily - ASA 81mg PO daily - DVT prophylaxis per surgery
--- NOTE | 2016-06-11 17:25 | VASCLAB ---
PROCEDURE: Lower Extremity Vein mapping. HISTORY: Possible Bypass PRIORS: None. TECHNIQUE: Bilateral common femoral, femoral, popliteal and posterior tibial, peroneal and great saphenous veins were evaluated. Flow was assessed with color Doppler, compressibility, assessment of phasic flow and augmentation response. Report prepared by Haile Luu, ROBBIN, RVT FINDINGS: RIGHT: 1. Common Femoral Vein: Compressibility - Fully compressible: Thrombus - None : Flow - Phasic: Augmentation -Normal: Reflux - None. 2. Femoral Vein:Compressibility - Fully compressible: Thrombus - None 3. Popliteal Vein: Compressibility - Fully compressible: Thrombus - None 4. Posterior Tibial Vein: Compressibility - Fully compressible: Thrombus - None 5. Peroneal Vein:Compressibility - Fully compressible: Thrombus - None 6. Greater Saphenous Vein: Compressibility - Fully compressible: Thrombus - None 6.1. Thigh - Proximal Diameter: 0.66cm. Mid Diameter: 0.33cm. Distal Diameter: 0.28cm. Knee - Diameter 0.31cm 7. 7.1. Calf - Proximal Diameter: 0.21cm. Mid Diameter:0.22cm. Distal Diameter: 0.26cm 7.2. Ankle - Diameter: 0.29cm LEFT: 1. Common Femoral Vein: Compressibility - Fully compressible: Thrombus - None : Flow - Phasic: Augmentation -Normal: Reflux - None. 2. Femoral Vein:Compressibility - Fully compressible: Thrombus - None 3. Popliteal Vein: Compressibility - Fully compressible: Thrombus - None 4. Posterior Tibial Vein: Compressibility - Fully compressible: Thrombus - None 5. Peroneal Vein:Compressibility - Fully compressible: Thrombus - None 6. Greater Saphenous Vein: Compressibility - Fully compressible: Thrombus - None 6.1. Thigh - Proximal Diameter: 0.46cm. Mid Diameter: 0.26cm. Distal Diameter: 0.23cm. Knee - Diameter 0.24cm 7. 7.1. Calf - Proximal Diameter: 0.17cm. Mid Diameter:0.23cm. Distal Diameter: 0.19cm 7.2. Ankle - Diameter: 0.30cm OTHER FINDINGS: Right: None. Left: None. IMPRESSION: Right: Diameter measurements of the right greater saphenous vein are measured between 0.21cm and 0.66cm. Left: Diameter measurements of the left greater saphenous vein are measured between 0.17cm and 0.46cm.
--- NOTE | 2016-06-11 17:42 | CP.PCM.CON ---
History of Present Illness - History of Present Illness History of Present Illness: 70 yo female with long h/o smoking, T2D/HTN/PAD, presented with right leg pain. H/o PAD, s/p right SFA stent placement at [facility] in 2014, occluded on evaluation during this admission. Underwent a peripheral vascular procedure with in-stent [employer]IST and popliteal/peroneal [employer]IST. Single vessel run-off to the right foot with extravasation of contrast from proximal peroneal artery. Plans for fem-peroneal bypass. The patient has not had any cardiac work-up for many years. Prior to developing right leg pain, used to walk without exertional symptoms. Review of Systems - Review of Systems Review of Systems: All others are negative except HPI Past Patient History - Past Medical History & Family History Past Medical History?: Yes - Past Social History Smoking Status: Heavy Smoker > 10 Cigarettes Daily - CARDIAC Hx Hypertension: Yes - ENDOCRINE/METABOLIC Hx Diabetes Mellitus Type 2: Yes - MUSCULOSKELETAL/RHEUMATOLOGICAL Hx Falls: No - PSYCHIATRIC Hx Substance Use: No - SURGICAL HISTORY Hx Coronary Stent: Yes (STENTS B/L LEGS) - ANESTHESIA Hx Anesthesia: Yes Hx Anesthesia Reactions: No Meds Allergies/Adverse Reactions: Allergies Allergy/AdvReac Type Severity Reaction Status Date / Time No Known Allergies Allergy Verified 06/09/16 12:46 - Medications Medications: Current Medications Amlodipine Besylate (Norvasc) 5 mg PO DAILY [facility] Last Admin: 06/11/16 11:37 Dose: 5 mg Aspirin (Aspirin Chewable) 81 mg PO DAILY [facility] Last Admin: 06/11/16 11:38 Dose: 81 mg Clopidogrel Bisulfate (Plavix) 75 mg PO DAILY [facility] Last Admin: 06/11/16 11:37 Dose: 75 mg Enalapril Maleate (Vasotec) 10 mg PO DAILY [facility] Last Admin: 06/11/16 11:38 Dose: 10 mg Sodium Chloride (Sodium Chloride 0.9%) 1,000 mls @ 70 mls/hr IV .[id number] [facility] Last Admin: 06/11/16 08:51 Dose: 70 mls/hr Insulin Glargine (Lantus) 10 unit SC HS [facility] Insulin Human Regular (Novolin R) 0 unit SC ACHS [facility] PRN Reason: Protocol Last Admin: 06/11/16 11:33 Dose: 8 unit Oxycodone HCl (Oxycontin Extended Release Tab) 20 mg PO Q12 [facility] Last Admin: 06/11/16 14:03 Dose: 20 mg Pantoprazole Sodium (Protonix Ec Tab) 40 mg PO DAILY [facility] Last Admin: 06/11/16 11:39 Dose: 40 mg Rosuvastatin Calcium (Crestor) 5 mg PO HS [facility] Last Admin: 06/10/16 22:58 Dose: Not Given Tramadol HCl (Ultram) 25 mg PO TID PRN PRN Reason: pain Physical Exam - Constitutional Appears: Well, Non-toxic, No Acute Distress - Head Exam Head Exam: ATRAUMATIC, NORMOCEPHALIC - Eye Exam Eye Exam: EOMI, PERRL - ENT Exam ENT Exam: Mucous Membranes Moist - Neck Exam Neck exam: Negative for: Lymphadenopathy - Respiratory Exam Respiratory Exam: Clear to Auscultation Bilateral - Cardiovascular Exam Cardiovascular Exam: REGULAR RHYTHM, +S1, +S2. absent: JVD, Systolic Murmur - GI/Abdominal Exam GI & Abdominal Exam: Normal Bowel Sounds. absent: Tenderness - Extremities Exam Extremities exam: Positive for: pedal edema, tenderness (right leg calf tenderness with erythema and trace edema). Negative for: pedal pulses present ( right leg distal pulses non-palp) - Neurological Exam Neurological exam: Alert, CN II-XII Intact, Oriented x3 - Psychiatric Exam Psychiatric exam: Normal Affect, Normal Mood - Skin Skin Exam: Normal Color, Warm Results - Vital Signs Recent Vital Signs: Last Vital Signs Temp 98.5 F 06/11/16 17:00 Pulse 92 H 06/11/16 17:00 Resp 20 06/11/16 17:00 BP 164/72 H 06/11/16 17:00 Pulse Ox 96 06/11/16 17:00 - Labs Result Diagrams: 06/11/16 07:03 06/11/16 07:03 Labs: Laboratory Results - last 24 hr 06/10/16 06/10/16 06/11/16 18:19 21:33 07:03 WBC 12.8 H D RBC 4.44 Hgb 11.4 D Hct 35.0 MCV 78.7 L MCH 25.6 L MCHC 32.5 L RDW 14.2 Plt Count 274 MPV 8.8 Neut % (Auto) 82.2 H Lymph % (Auto) 11.3 L [place] % (Auto) 6.3 Eos % (Auto) 0.0 Baso % (Auto) 0.2 Neut # 10.6 H Lymph # 1.4 [place] # 0.8 Eos # 0.0 Baso # 0.0 Sodium 138 Potassium 3.6 Chloride 101 Carbon Dioxide 23 Anion Gap 18 BUN 14 Creatinine 0.5 L Est GFR ( Amer) > 60 Est GFR (Non-Af Amer) > 60 POC Glucose (mg/dL) 232 H 374 H Random Glucose 281 H Calcium 7.8 L Total Bilirubin < 0.1 L AST 28 ALT 21 Alkaline Phosphatase 57 Total Protein 5.9 L Albumin 3.4 L D Globulin 2.5 Albumin/Globulin Ratio 1.4 06/11/16 06/11/16 06/11/16 07:10 11:12 16:56 WBC RBC Hgb Hct MCV MCH MCHC RDW Plt Count MPV Neut % (Auto) Lymph % (Auto) [place] % (Auto) Eos % (Auto) Baso % (Auto) Neut # Lymph # [place] # Eos # Baso # Sodium Potassium Chloride Carbon Dioxide Anion Gap BUN Creatinine Est GFR ( Amer) Est GFR (Non-Af Amer) POC Glucose (mg/dL) 305 H 375 H 146 H Random Glucose Calcium Total Bilirubin AST ALT Alkaline Phosphatase Total Protein Albumin Globulin Albumin/Globulin Ratio Assessment & Plan (1) Arterial occlusion, lower extremity Assessment and Plan: Cont with current management Plan for fem-peroneal bypass Status: Acute (2) Preoperative cardiovascular examination Assessment and Plan: Patient with risk factors for CAD CAD equivalent with PAD Heavy smoker T2D Will order nuclear stress test for risk stratification F/u echo Status: Acute
[2016-06-11] MEDS: (Lantus) Insulin Glargine, Recombinant SC SCH ×2 (21:45→21:50)
--- NOTE | 2016-06-12 07:55 | CP.PCM.PN ---
Subjective - Date & Time of Evaluation Date of Evaluation: 06/12/16 Time of Evaluation: 07:53 - Subjective Subjective: Vasc Sx: Dr Castillo Pt S&E. [place]. Still complaining of right leg pain. No other complaints. Pt scheduled for nuclear stress test for cardiac risk assessment Objective - Vital Signs/Intake and Output Vital Signs (last 24 hours): Temp Pulse Resp BP Pulse Ox 98.7 F 90 20 135/76 95 06/11/16 23:23 06/12/16 01:46 06/11/16 23:23 06/11/16 23:23 06/11/16 23:23 Intake and Output: 06/12/16 06/12/16 06:59 18:59 Intake Total 0 Balance 0 - Medications Medications: Current Medications Amlodipine Besylate (Norvasc) 5 mg PO DAILY [facility] Last Admin: 06/11/16 11:37 Dose: 5 mg Aspirin (Aspirin Chewable) 81 mg PO DAILY [facility] Last Admin: 06/11/16 11:38 Dose: 81 mg Clopidogrel Bisulfate (Plavix) 75 mg PO DAILY [facility] Last Admin: 06/11/16 11:37 Dose: 75 mg Enalapril Maleate (Vasotec) 10 mg PO DAILY [facility] Last Admin: 06/11/16 11:38 Dose: 10 mg Sodium Chloride (Sodium Chloride 0.9%) 1,000 mls @ 70 mls/hr IV .[id number] [facility] Last Admin: 06/11/16 08:51 Dose: 70 mls/hr Insulin Glargine (Lantus) 10 unit SC HS [facility] Last Admin: 06/11/16 21:50 Dose: 5 u Insulin Human Regular (Novolin R) 0 unit SC ACHS [facility] PRN Reason: Protocol Last Admin: 06/11/16 21:45 Dose: Not Given Oxycodone HCl (Oxycontin Extended Release Tab) 20 mg PO Q12 [facility] Last Admin: 06/11/16 21:43 Dose: 20 mg Pantoprazole Sodium (Protonix Ec Tab) 40 mg PO DAILY [facility] Last Admin: 06/11/16 11:39 Dose: 40 mg Rosuvastatin Calcium (Crestor) 5 mg PO HS [facility] Last Admin: 06/11/16 21:46 Dose: 5 mg Tramadol HCl (Ultram) 25 mg PO TID PRN PRN Reason: pain - Labs Labs: 06/11/16 07:03 06/11/16 07:03 PT 11.2 SECONDS (9.7-12.2) 06/09/16 15:08 INR 1.0 06/09/16 15:08 APTT 31 SECONDS (21-34) 06/09/16 15:08 - Constitutional Appears: Non-toxic, No Acute Distress - Respiratory Exam Respiratory Exam: absent: Accessory Muscle Use, Respiratory Distress - GI/Abdominal Exam GI & Abdominal Exam: Soft. absent: Distended - Extremities Exam Additional comments: right LE tenderness unaffected by palpation - Neurological Exam Neurological Exam: Alert, Awake, Oriented x3 Assessment and Plan - Assessment and Plan (Free Text) Assessment: 70F w/ acute thrombosis s/p R fem stent Plan: pt for nuclear stress test for pre-op risk assessment will need venous mapping - ordered plan for fem-peroneal bypass sometime next week will d/w Dr Anna Cortez, PGY2
[2016-06-12] MEDS: (Novolin R) Insulin Human Regular 100 units/ml vial SC SCH ×4 (08:11→21:55)
[2016-06-12] MEDS: Pantoprazole 40 mg EC Tab PO SCH (10:40)
[2016-06-12] MEDS: oxyCODONE 20 mg ER Tab (oxyCONTIN) PO SCH ×2 (10:40→21:52)
--- NOTE | 2016-06-12 11:18 | CP.PCM.PN ---
Subjective - Date & Time of Evaluation Date of Evaluation: 06/12/16 Time of Evaluation: 11:16 - Subjective Subjective: CONDITION REMAINS SAME. PVD. DM. Objective - Vital Signs/Intake and Output Vital Signs (last 24 hours): Temp Pulse Resp BP Pulse Ox 98.4 F 94 H 20 138/64 96 06/12/16 08:38 06/12/16 08:38 06/12/16 08:38 06/12/16 10:41 06/12/16 08:38 Intake and Output: 06/12/16 06/12/16 06:59 18:59 Intake Total 0 Balance 0 - Medications Medications: Current Medications Amlodipine Besylate (Norvasc) 5 mg PO DAILY [facility] Last Admin: 06/12/16 10:40 Dose: 5 mg Aspirin (Aspirin Chewable) 81 mg PO DAILY [facility] Last Admin: 06/12/16 10:41 Dose: 81 mg Clopidogrel Bisulfate (Plavix) 75 mg PO DAILY [facility] Last Admin: 06/12/16 10:41 Dose: 75 mg Enalapril Maleate (Vasotec) 10 mg PO DAILY [facility] Last Admin: 06/12/16 10:41 Dose: 10 mg Sodium Chloride (Sodium Chloride 0.9%) 1,000 mls @ 70 mls/hr IV .[id number] [facility] Last Admin: 06/11/16 08:51 Dose: 70 mls/hr Insulin Glargine (Lantus) 10 unit SC HS [facility] Last Admin: 06/11/16 21:50 Dose: 5 u Insulin Human Regular (Novolin R) 0 unit SC ACHS [facility] PRN Reason: Protocol Last Admin: 06/12/16 08:11 Dose: 3 unit Oxycodone HCl (Oxycontin Extended Release Tab) 20 mg PO Q12 [facility] Last Admin: 06/12/16 10:40 Dose: 20 mg Pantoprazole Sodium (Protonix Ec Tab) 40 mg PO DAILY [facility] Last Admin: 06/12/16 10:40 Dose: 40 mg Rosuvastatin Calcium (Crestor) 5 mg PO HS [facility] Last Admin: 06/11/16 21:46 Dose: 5 mg Tramadol HCl (Ultram) 25 mg PO TID PRN PRN Reason: pain - Labs Labs: 06/11/16 07:03 06/11/16 07:03 PT 11.2 SECONDS (9.7-12.2) 06/09/16 15:08 INR 1.0 06/09/16 15:08 APTT 31 SECONDS (21-34) 06/09/16 15:08 - Constitutional Appears: No Acute Distress, Chronically Ill - Eye Exam Eye Exam: Normal appearance, PERRL - ENT Exam ENT Exam: Normal Exam - Respiratory Exam Respiratory Exam: Clear to Ausculation Bilateral, NORMAL BREATHING PATTERN - Cardiovascular Exam Cardiovascular Exam: REGULAR RHYTHM, +S1, +S2 - GI/Abdominal Exam GI & Abdominal Exam: Soft, Normal Bowel Sounds - Extremities Exam Extremities Exam: Full ROM, Normal Capillary Refill, Normal Inspection. absent : Joint Swelling, Pedal Edema - Back Exam Back Exam: NORMAL INSPECTION - Neurological Exam Neurological Exam: Alert, Awake, CN II-XII Intact, Normal Gait, Oriented x3 - Psychiatric Exam Psychiatric exam: Normal Affect, Normal Mood Assessment and Plan - Assessment and Plan (Free Text) Assessment: PVD. CAD. Plan: CHECK ECHO.
[2016-06-12] MEDS ORDERED: (Lantus) Insulin Glargine, Recombinant SC SCH (13:05)
--- NOTE | 2016-06-12 13:51 | CP.PCM.PN ---
Subjective - Date & Time of Evaluation Date of Evaluation: 06/12/16 Time of Evaluation: 08:45 - Subjective Subjective: Medicine Note- Hospitalist Service Patient was seen and examined at bedside. Patient reports that she has very severe pain in her right foot, constant 10/10 pain. No additional acute complaints at this time. No events overnight, per nursing. Objective - Vital Signs/Intake and Output Vital Signs (last 24 hours): Temp Pulse Resp BP Pulse Ox 98.4 F 94 H 20 138/64 96 06/12/16 08:38 06/12/16 08:38 06/12/16 08:38 06/12/16 10:41 06/12/16 08:38 Intake and Output: 06/12/16 06/12/16 06:59 18:59 Intake Total 0 Balance 0 - Medications Medications: Current Medications Amlodipine Besylate (Norvasc) 5 mg PO DAILY [facility] Last Admin: 06/12/16 10:40 Dose: 5 mg Aspirin (Aspirin Chewable) 81 mg PO DAILY [facility] Last Admin: 06/12/16 10:41 Dose: 81 mg Clopidogrel Bisulfate (Plavix) 75 mg PO DAILY [facility] Last Admin: 06/12/16 10:41 Dose: 75 mg Enalapril Maleate (Vasotec) 10 mg PO DAILY [facility] Last Admin: 06/12/16 10:41 Dose: 10 mg Sodium Chloride (Sodium Chloride 0.9%) 1,000 mls @ 70 mls/hr IV .[id number] [facility] Last Admin: 06/11/16 08:51 Dose: 70 mls/hr Insulin Glargine (Lantus) 12 unit SC HS [facility] Insulin Human Regular (Novolin R) 0 unit SC ACHS [facility] PRN Reason: Protocol Last Admin: 06/12/16 11:57 Dose: 3 unit Oxycodone HCl (Oxycontin Extended Release Tab) 20 mg PO Q12 [facility] Last Admin: 06/12/16 10:40 Dose: 20 mg Pantoprazole Sodium (Protonix Ec Tab) 40 mg PO DAILY [facility] Last Admin: 06/12/16 10:40 Dose: 40 mg Rosuvastatin Calcium (Crestor) 5 mg PO HS [facility] Last Admin: 06/11/16 21:46 Dose: 5 mg Tramadol HCl (Ultram) 25 mg PO TID PRN PRN Reason: pain - Labs Labs: 06/11/16 07:03 06/11/16 07:03 PT 11.2 SECONDS (9.7-12.2) 06/09/16 15:08 INR 1.0 06/09/16 15:08 APTT 31 SECONDS (21-34) 06/09/16 15:08 - Constitutional Appears: Non-toxic, No Acute Distress - Head Exam Head Exam: ATRAUMATIC, NORMAL INSPECTION, NORMOCEPHALIC - Eye Exam Pupil Exam: NORMAL ACCOMODATION - ENT Exam ENT Exam: Mucous Membranes Moist - Respiratory Exam Respiratory Exam: Clear to Ausculation Bilateral, NORMAL BREATHING PATTERN. absent: Prolonged Expiratory Phase, Rales, Rhonchi, Wheezes - Cardiovascular Exam Cardiovascular Exam: REGULAR RHYTHM, +S1, +S2 - GI/Abdominal Exam GI & Abdominal Exam: Soft, Normal Bowel Sounds. absent: Tenderness, Diminished Bowel Sounds, Hypoactive Bowel Sounds, Pulsatile Mass - Extremities Exam Extremities Exam: Normal Capillary Refill Additional comments: r lower extremity tender to palpation, erythematous compared to left. - Neurological Exam Neurological Exam: Alert, Awake, CN II-XII Intact, Oriented x3 - Psychiatric Exam Psychiatric exam: Normal Affect, Normal Mood - Skin Skin Exam: Dry, Intact, Normal Color, Warm Assessment and Plan - Assessment and Plan (Free Text) Assessment: PVD - POD#2 aortofemoral angioplasty - Vascular surgery (Anna) consulted - help appreciated - Vein mapping of b/l LE ordered - Needs cardio clearance for possible bypass- scheduled for Nuclear Stress test on Tuesday, f/u Echo - Cardio consulted - Royce - william appreciated - Right lower extremity arterial duplex ultrasound (06/09) - occluded right femoral stent and right popliteal artery - CT Angio abd/pelvis with runnoff (06/09) - Occluded superficial femoral artery stent. Widespread vascular disease, please see full report - ASA 81mg PO daily - Plavix 75 mg Daily - oxycontin 20mg Q12h for pain - Ultram 50mg Q8h PRN Blockage of femoral artery stent and popliteal artery - Management as per Dr. Castillo - see above HTN - Continue home amlodipine - Enalapril 10mg PO Daily DM - Holding home janumet and home glimepiride - RISS- changed RISS to high dose protocol - Increased Lantus to 12U HS - F/U accuchecks Elevated Lactic Acid - LA 2.7 -> 1.8 Prophylaxis - Protonix 40mg PO daily - ASA 81mg PO daily - DVT prophylaxis per surgery
[2016-06-12] MEDS: Sodium Chloride 0.9% 1,000 ML IV SCH (15:25)
[2016-06-12] MEDS: POLYETHYLENE GLYCOL 3350 17 GM/Dose PACKET PO SCH (17:40)
--- NOTE | 2016-06-13 01:37 | CP.PCM.PN ---
<Monse Diaz - Last Filed: 06/13/16 01:34> Subjective - Date & Time of Evaluation Date of Evaluation: 06/13/16 Time of Evaluation: 01:34 - Subjective Subjective: Internal medicine progress note for Dr. Malave-Monse Diaz, PGY-1 Pt S & E at bedside. Pt reports continued, severe R lower extremity pain, no other complaints at this time. Is eating ok. Sleeping ok. Denies N/V/F/C, SOB, CP, abdominal pain. No events per nursing. Objective - Vital Signs/Intake and Output Vital Signs (last 24 hours): Temp Pulse Resp BP Pulse Ox 98.2 F 90 20 140/62 97 06/12/16 16:00 06/12/16 16:00 06/12/16 16:00 06/12/16 16:00 06/12/16 16:00 Intake and Output: 06/12/16 06/13/16 18:59 06:59 Intake Total 300 300 Balance 300 300 - Medications Medications: Current Medications Amlodipine Besylate (Norvasc) 5 mg PO DAILY [facility] Last Admin: 06/12/16 10:40 Dose: 5 mg Aspirin (Aspirin Chewable) 81 mg PO DAILY [facility] Last Admin: 06/12/16 10:41 Dose: 81 mg Clopidogrel Bisulfate (Plavix) 75 mg PO DAILY [facility] Last Admin: 06/12/16 10:41 Dose: 75 mg Enalapril Maleate (Vasotec) 10 mg PO DAILY [facility] Last Admin: 06/12/16 10:41 Dose: 10 mg Sodium Chloride (Sodium Chloride 0.9%) 1,000 mls @ 70 mls/hr IV .[id number] [facility] Last Admin: 06/12/16 15:25 Dose: Not Given Insulin Glargine (Lantus) 12 unit SC HS [facility] Last Admin: 06/12/16 21:56 Dose: 12 unit Insulin Human Regular (Novolin R) 0 unit SC ACHS [facility] PRN Reason: Protocol Last Admin: 06/12/16 21:55 Dose: Not Given Oxycodone HCl (Oxycontin Extended Release Tab) 20 mg PO Q12 [facility] Last Admin: 06/12/16 21:52 Dose: 20 mg Pantoprazole Sodium (Protonix Ec Tab) 40 mg PO DAILY [facility] Last Admin: 06/12/16 10:40 Dose: 40 mg Polyethylene Glycol (Miralax) 17 gm PO DAILY [facility] Last Admin: 06/12/16 17:40 Dose: 17 gm Rosuvastatin Calcium (Crestor) 5 mg PO HS [facility] Last Admin: 06/12/16 21:53 Dose: 5 mg Tramadol HCl (Ultram) 50 mg PO Q8H PRN PRN Reason: pain - Labs Labs: 06/11/16 07:03 06/11/16 07:03 PT 11.2 SECONDS (9.7-12.2) 06/09/16 15:08 INR 1.0 06/09/16 15:08 APTT 31 SECONDS (21-34) 06/09/16 15:08 - Constitutional Appears: Non-toxic, No Acute Distress - Head Exam Head Exam: ATRAUMATIC, NORMAL INSPECTION, NORMOCEPHALIC - Eye Exam Eye Exam: EOMI, Normal appearance, PERRL Pupil Exam: NORMAL ACCOMODATION, PERRL - ENT Exam ENT Exam: Mucous Membranes Moist, Normal Exam - Neck Exam Neck Exam: Full ROM, Normal Inspection - Respiratory Exam Respiratory Exam: Clear to Ausculation Bilateral, NORMAL BREATHING PATTERN. absent: Accessory Muscle Use, Chest Wall Tenderness, Rales, Rhonchi, Wheezes - Cardiovascular Exam Cardiovascular Exam: REGULAR RHYTHM, +S1, +S2 - GI/Abdominal Exam GI & Abdominal Exam: Soft, Normal Bowel Sounds. absent: Tenderness - Extremities Exam Extremities Exam: Normal Capillary Refill, Tenderness (over right lower extremity) - Neurological Exam Neurological Exam: Alert, Awake, CN II-XII Intact, Oriented x3 - Psychiatric Exam Psychiatric exam: Normal Affect, Normal Mood - Skin Skin Exam: Dry, Intact, Normal Color, Warm Assessment and Plan - Assessment and Plan (Free Text) Assessment: PVD - POD#3 aortofemoral angioplasty - Right lower extremity arterial duplex ultrasound (06/09) - occluded right femoral stent and right popliteal artery - CT Angio abd/pelvis with runnoff (06/09) - Occluded superficial femoral artery stent. Widespread vascular disease, please see full report - ASA 81mg PO daily - Plavix 75 mg Daily - oxycontin 20mg Q12h for pain - Ultram 50mg Q8h PRN - Cards rec- FU Echo- report pending - Surgery recs- nuclear stress test for pre-op risk assessment, venous mapping, plan for fem-peroneal bypass next week (wk of 06/14) - Venous mapping w/findings of R greater saphenous vein diameter b/w 0.21cm - 0.66cm; L greater saphenous vein diameter b/w 0.17cm - 0.46 cm- please see full report for details Blockage of femoral artery stent and popliteal artery - Management as per Dr. Castillo - see above HTN - Continue home amlodipine - Enalapril 10mg PO Daily DM - Holding home janumet and home glimepiride - RISS- changed RISS to high dose protocol - Increased Lantus to 12U HS - F/U accuchecks Elevated Lactic Acid - LA 2.7 -> 1.8 Prophylaxis - Protonix 40mg PO daily - ASA 81mg PO daily - DVT prophylaxis per surgery Will DW attending <Cadence Silver V - Last Filed: 06/14/16 08:29> Objective - Vital Signs/Intake and Output Vital Signs (last 24 hours): Temp Pulse Resp BP Pulse Ox 98 F 78 20 135/68 99 06/14/16 00:00 06/14/16 00:00 06/14/16 00:00 06/14/16 00:00 06/14/16 00:00 Intake and Output: 06/14/16 06/14/16 06:59 18:59 Intake Total 350 Balance 350 - Medications Medications: Current Medications Amlodipine Besylate (Norvasc) 5 mg PO DAILY [facility] Last Admin: 06/13/16 10:07 Dose: 5 mg Aspirin (Aspirin Chewable) 81 mg PO DAILY [facility] Last Admin: 06/13/16 10:07 Dose: 81 mg Clopidogrel Bisulfate (Plavix) 75 mg PO DAILY [facility] Last Admin: 06/13/16 10:06 Dose: 75 mg Enalapril Maleate (Vasotec) 10 mg PO DAILY [facility] Last Admin: 06/13/16 10:06 Dose: 10 mg Insulin Glargine (Lantus) 12 unit SC HS [facility] Last Admin: 06/12/16 21:56 Dose: 12 unit Insulin Human Regular (Novolin R) 0 unit SC ACHS [facility] PRN Reason: Protocol Last Admin: 06/14/16 07:56 Dose: Not Given Oxycodone HCl (Oxycontin Extended Release Tab) 20 mg PO Q12 [facility] Last Admin: 06/13/16 22:20 Dose: 20 mg Pantoprazole Sodium (Protonix Ec Tab) 40 mg PO DAILY [facility] Last Admin: 06/13/16 10:07 Dose: 40 mg Polyethylene Glycol (Miralax) 17 gm PO DAILY [facility] Last Admin: 06/13/16 10:07 Dose: 17 gm Rosuvastatin Calcium (Crestor) 5 mg PO HS [facility] Last Admin: 06/13/16 22:20 Dose: 5 mg Tramadol HCl (Ultram) 50 mg PO Q8H PRN PRN Reason: pain - Labs Labs: 06/11/16 07:03 06/11/16 07:03 PT 11.2 SECONDS (9.7-12.2) 06/09/16 15:08 INR 1.0 06/09/16 15:08 APTT 31 SECONDS (21-34) 06/09/16 15:08 Attending/Attestation - Attestation I have personally seen and examined this patient.: Yes I have fully participated in the care of the patient.: Yes I have reviewed all pertinent clinical information, including history, physical exam and plan: Yes Notes (Text): This is a late computer entry for 06/13/16. Patient seen, examined, and case discussed with day time resident. Patient is NPO for nuclear stress test for preop assessment. Cardiology (dr Thompson) on the case; Dr Kelsy kumar (cardiology) is not consulted on the case nor part of Dr Crane's group; ignore his clearance since patient is going for stress test in AM. Echo: EF is normal; mild-mod pulm HTN. Lantus in anticipation for stress test tomorrow. Assessment/Plan Peripheral Vascular Disease - POD#3 aortofemoral angioplasty - Right lower extremity arterial duplex ultrasound (06/09) - occluded right femoral stent and right popliteal artery - CT Angio abd/pelvis with runnoff (06/09) - Occluded superficial femoral artery stent. Widespread vascular disease, please see full report - ASA 81mg PO daily - Plavix 75 mg Daily - oxycontin 20mg Q12h for pain - Ultram 50mg Q8h PRN - Cardiology (Dr. Thompson) on the case; ignore Dr. Kelsy Kumar; not part of the group. - Surgery recs- nuclear stress test for pre-op risk assessment tomorrow, venous mapping, plan for fem-peroneal bypass next week if medically cleared - Venous mapping w/findings of R greater saphenous vein diameter b/w 0.21cm - 0.66cm; L greater saphenous vein diameter b/w 0.17cm - 0.46 cm- please see full report for details Blockage of femoral artery stent and popliteal artery - Management as per Dr. Castillo - see above Hypertension - Norvasc 5mg PO daily - Enalapril 10mg PO Daily Diabetes mellitus - Held home janumet and home glimepiride - RISS- changed RISS to high dose protocol - held Lantus to 12U HS for stress test tomorrow: resume after completion of test - F/U accuchecks Elevated Lactic Acid - LA 2.7 -> 1.8 Prophylaxis - Protonix 40mg PO daily - ASA 81mg PO daily - DVT prophylaxis per surgery
[2016-06-13] MEDS: Sodium Chloride 0.9% 1,000 ML IV SCH ×2 (02:50→17:40)
[2016-06-13] MEDS: (Novolin R) Insulin Human Regular 100 units/ml vial SC SCH ×4 (08:10→22:22)
--- NOTE | 2016-06-13 08:42 | CARD ---
APPROVED REPORT EXAM: Two-dimensional and M-mode echocardiogram with Doppler and color Doppler. Other Information Quality : GoodRhythm : INDICATION Dizziness and Vertigo Pre-Op RISK FACTORS Hypertension M-Mode DIMENSIONS RVDd0.62 (2.1-3.2cm)Left Atrium (MM)3.09 (2.5-4.0cm) IVSd0.52 (0.7-1.1cm)Aortic Root2.51 (2.2-3.7cm) LVDd4.56 (4.0-5.6cm)Aortic Cusp Exc.1.66 (1.5-2.0cm) PWd0.78 (0.7-1.1cm)FS (%) 41 % LVDs2.67 (2.0-3.8cm)LVEF (%)72 (>50%) Mitral Valve MV E Iilhvxct14.0cm/sMV A Lvzhklnt279.3cm/sE/A ratio0.6 TDI E/Lateral E'0.0E/Medial E'0.0 Tricuspid Valve TR Peak Ochxdviu343ih/sTR Peak Gr.[id number] LEFT VENTRICLE The left ventricle is normal size. There is normal left ventricular wall thickness. The left ventricular function is normal. The left ventricular ejection fraction is within the normal range. There is normal LV segmental wall motion. Transmitral Doppler flow pattern is Grade I-abnormal relaxation pattern. No left ventricle thrombus noted on this study. There is no ventricular septal defect visualized. There is no left ventricular aneurysm. There is no mass noted in the left ventricle. RIGHT VENTRICLE The right ventricle is normal size. There is normal right ventricular wall thickness. The right ventricular systolic function is normal. ATRIA The left atrium size is normal. The right atrium size is normal. The interatrial septum is intact with no evidence for an atrial septal defect. AORTIC VALVE The AV is NWV No aortic regurgitation is present. There is no aortic valvular stenosis. There is no aortic valvular vegetation. MITRAL VALVE The mitral valve is normal in structure. There is no evidence of mitral valve prolapse. There is no mitral valve stenosis. Mitral regurgitation is trace. TRICUSPID VALVE The tricuspid valve is normal in structure and function. There is trace to mild tricuspid regurgitation. There is mild pulmonary hypertension. PAP is 40-45 There is no tricuspid valve prolapse or vegetation. There is no tricuspid valve stenosis. PULMONIC VALVE The pulmonary valve is normal in structure. There is mild pulmonic valvular regurgitation. There is no pulmonic valvular stenosis. GREAT VESSELS The aortic root is normal in size. The ascending aorta is normal in size. The pulmonary artery is normal. The IVC is normal in size and collapses >50% with inspiration. PERICARDIAL EFFUSION The pericardium appears normal. There is no pleural effusion. <Conclusion> The left ventricular ejection fraction is within the normal range. Transmitral Doppler flow pattern is Grade I-abnormal relaxation pattern. The AV is NWV Mitral regurgitation is trace. There is trace to mild tricuspid regurgitation. There is mild pulmonary hypertension. PAP is 40-45 There is mild pulmonic valvular regurgitation.
--- NOTE | 2016-06-13 09:19 | CARD ---
APPROVED REPORT EKG Measurement Heart [id number] NM [id number] <Conclusion> Normal sinus rhythm Normal ECG
[2016-06-13] MEDS: oxyCODONE 20 mg ER Tab (oxyCONTIN) PO SCH ×2 (10:06→22:20)
[2016-06-13] MEDS: Pantoprazole 40 mg EC Tab PO SCH (10:07)
[2016-06-13] MEDS: POLYETHYLENE GLYCOL 3350 17 GM/Dose PACKET PO SCH (10:07)
--- NOTE | 2016-06-13 10:33 | CP.PCM.PN ---
Subjective - Date & Time of Evaluation Date of Evaluation: 06/13/16 Time of Evaluation: 08:00 - Subjective Subjective: Vascular Surgery Pt S&E, NAEO. R LE pain improved, less swelling per Pt. No other C/O. Objective - Vital Signs/Intake and Output Vital Signs (last 24 hours): Temp Pulse Resp BP Pulse Ox 98.4 F 82 20 132/68 96 06/13/16 08:03 06/13/16 08:03 06/13/16 08:03 06/13/16 10:06 06/13/16 08:03 Intake and Output: 06/13/16 06/13/16 06:59 18:59 Intake Total 420 Balance 420 - Medications Medications: Current Medications Amlodipine Besylate (Norvasc) 5 mg PO DAILY [facility] Last Admin: 06/13/16 10:07 Dose: 5 mg Aspirin (Aspirin Chewable) 81 mg PO DAILY [facility] Last Admin: 06/13/16 10:07 Dose: 81 mg Clopidogrel Bisulfate (Plavix) 75 mg PO DAILY [facility] Last Admin: 06/13/16 10:06 Dose: 75 mg Enalapril Maleate (Vasotec) 10 mg PO DAILY [facility] Last Admin: 06/13/16 10:06 Dose: 10 mg Sodium Chloride (Sodium Chloride 0.9%) 1,000 mls @ 70 mls/hr IV .[id number] [facility] Last Admin: 06/13/16 02:50 Dose: Not Given Insulin Glargine (Lantus) 12 unit SC [facility] Last Admin: 06/12/16 21:56 Dose: 12 unit Insulin Human Regular (Novolin R) 0 unit SC [facility] PRN Reason: Protocol Last Admin: 06/13/16 08:10 Dose: 2 unit Oxycodone HCl (Oxycontin Extended Release Tab) 20 mg PO Q12 [facility] Last Admin: 06/13/16 10:06 Dose: 20 mg Pantoprazole Sodium (Protonix Ec Tab) 40 mg PO DAILY [facility] Last Admin: 06/13/16 10:07 Dose: 40 mg Polyethylene Glycol (Miralax) 17 gm PO DAILY [facility] Last Admin: 06/13/16 10:07 Dose: 17 gm Rosuvastatin Calcium (Crestor) 5 mg PO HS [facility] Last Admin: 06/12/16 21:53 Dose: 5 mg Tramadol HCl (Ultram) 50 mg PO Q8H PRN PRN Reason: pain - Labs Labs: 06/11/16 07:03 06/11/16 07:03 PT 11.2 SECONDS (9.7-12.2) 06/09/16 15:08 INR 1.0 06/09/16 15:08 APTT 31 SECONDS (21-34) 06/09/16 15:08 - Constitutional Appears: Non-toxic, No Acute Distress - Head Exam Head Exam: ATRAUMATIC, NORMOCEPHALIC - Eye Exam Eye Exam: EOMI - Respiratory Exam Respiratory Exam: NORMAL BREATHING PATTERN. absent: Respiratory Distress - GI/Abdominal Exam GI & Abdominal Exam: Soft. absent: Distended - Back Exam Additional comments: Mild edema of R LE, and tenderness unaffected by palpation - Neurological Exam Neurological Exam: Alert, Awake - Skin Skin Exam: Dry, Warm Assessment and Plan - Assessment and Plan (Free Text) Assessment: 70F w/ acute thrombosis s/p R fem stent Plan: Pt for nuclear stress test for pre-op risk assessment F/U venous mapping Planing for fem-peroneal bypass sometime this coming week if cleared D/W Dr. Anna Reddy PGY3
--- NOTE | 2016-06-13 16:49 | CP.PCM.PN ---
Subjective - Date & Time of Evaluation Date of Evaluation: 06/13/16 Time of Evaluation: 12:30 - Subjective Subjective: CARDIAC STABLE. PVD. ECHO WNL. CLEARED FOR SURGERY. Objective - Vital Signs/Intake and Output Vital Signs (last 24 hours): Temp Pulse Resp BP Pulse Ox 97.8 F 71 20 135/66 96 06/13/16 16:00 06/13/16 16:00 06/13/16 16:00 06/13/16 16:00 06/13/16 16:00 Intake and Output: 06/13/16 06/13/16 06:59 18:59 Intake Total 420 350 Balance 420 350 - Medications Medications: Current Medications Amlodipine Besylate (Norvasc) 5 mg PO DAILY [facility] Last Admin: 06/13/16 10:07 Dose: 5 mg Aspirin (Aspirin Chewable) 81 mg PO DAILY [facility] Last Admin: 06/13/16 10:07 Dose: 81 mg Clopidogrel Bisulfate (Plavix) 75 mg PO DAILY [facility] Last Admin: 06/13/16 10:06 Dose: 75 mg Enalapril Maleate (Vasotec) 10 mg PO DAILY [facility] Last Admin: 06/13/16 10:06 Dose: 10 mg Sodium Chloride (Sodium Chloride 0.9%) 1,000 mls @ 70 mls/hr IV .[id number] [facility] Last Admin: 06/13/16 02:50 Dose: Not Given Insulin Glargine (Lantus) 12 unit SC HS [facility] Last Admin: 06/12/16 21:56 Dose: 12 unit Insulin Human Regular (Novolin R) 0 unit SC ACHS [facility] PRN Reason: Protocol Last Admin: 06/13/16 12:20 Dose: 10 unit Oxycodone HCl (Oxycontin Extended Release Tab) 20 mg PO Q12 [facility] Last Admin: 06/13/16 10:06 Dose: 20 mg Pantoprazole Sodium (Protonix Ec Tab) 40 mg PO DAILY [facility] Last Admin: 06/13/16 10:07 Dose: 40 mg Polyethylene Glycol (Miralax) 17 gm PO DAILY [facility] Last Admin: 06/13/16 10:07 Dose: 17 gm Rosuvastatin Calcium (Crestor) 5 mg PO HS [facility] Last Admin: 06/12/16 21:53 Dose: 5 mg Tramadol HCl (Ultram) 50 mg PO Q8H PRN PRN Reason: pain - Labs Labs: 06/11/16 07:03 06/11/16 07:03 PT 11.2 SECONDS (9.7-12.2) 06/09/16 15:08 INR 1.0 06/09/16 15:08 APTT 31 SECONDS (21-34) 06/09/16 15:08 - Constitutional Appears: Chronically Ill - Eye Exam Eye Exam: Normal appearance, PERRL - ENT Exam ENT Exam: Normal Exam - Respiratory Exam Respiratory Exam: Clear to Ausculation Bilateral, NORMAL BREATHING PATTERN - Cardiovascular Exam Cardiovascular Exam: REGULAR RHYTHM, +S1, +S2 - GI/Abdominal Exam GI & Abdominal Exam: Soft, Normal Bowel Sounds - Neurological Exam Neurological Exam: Alert, Awake, CN II-XII Intact, Normal Gait, Oriented x3 - Psychiatric Exam Psychiatric exam: Normal Affect, Normal Mood Assessment and Plan - Assessment and Plan (Free Text) Assessment: CAD STABLE. PVD. Plan: CLEARED FOR SURGERY.
[2016-06-14] MEDS ORDERED: Aminophylline 25 mg/ml Inj ONE (07:37)
[2016-06-14] MEDS: (Novolin R) Insulin Human Regular 100 units/ml vial SC SCH ×4 (07:56→21:48)
--- NOTE | 2016-06-14 08:34 | CP.PCM.PN ---
Subjective - Date & Time of Evaluation Date of Evaluation: 06/14/16 Time of Evaluation: 08:31 - Subjective Subjective: PGY-1 note for General Surgery, Dr. Castillo Pt S&E, NAEO. RLE pain markedly decreased per patient. She also reports swelling in the extremity has also improved. She denies other complaints at this time. Objective - Vital Signs/Intake and Output Vital Signs (last 24 hours): Temp Pulse Resp BP Pulse Ox 98 F 78 20 135/68 99 06/14/16 00:00 06/14/16 00:00 06/14/16 00:00 06/14/16 00:00 06/14/16 00:00 Intake and Output: 06/14/16 06/14/16 06:59 18:59 Intake Total 350 Balance 350 - Medications Medications: Current Medications Amlodipine Besylate (Norvasc) [address] [facility] Last Admin: 06/13/16 10:07 Dose: 5 mg Aspirin (Aspirin Chewable) [address] [facility] Last Admin: 06/13/16 10:07 Dose: 81 mg Clopidogrel Bisulfate (Plavix) [address] [facility] Last Admin: 06/13/16 10:06 Dose: 75 mg Enalapril Maleate (Vasotec) [address] [facility] Last Admin: 06/13/16 10:06 Dose: 10 mg Insulin Glargine (Lantus) [address] [facility] Last Admin: 06/12/16 21:56 Dose: 12 unit Insulin Human Regular (Novolin R) 0 unit SC [facility] PRN Reason: Protocol Last Admin: 06/14/16 07:56 Dose: Not Given Oxycodone HCl (Oxycontin Extended Release Tab) [address] [facility] Last Admin: 06/13/16 22:20 Dose: 20 mg Pantoprazole Sodium (Protonix Ec Tab) [address] [facility] Last Admin: 06/13/16 10:07 Dose: 40 mg Polyethylene Glycol (Miralax) [address] [facility] Last Admin: 06/13/16 10:07 Dose: 17 gm Rosuvastatin Calcium (Crestor) [address] [facility] Last Admin: 06/13/16 22:20 Dose: 5 mg Tramadol HCl (Ultram) 50 mg PO Q8H PRN PRN Reason: pain - Labs Labs: 06/11/16 07:03 06/11/16 07:03 PT 11.2 SECONDS (9.7-12.2) 06/09/16 15:08 INR 1.0 06/09/16 15:08 APTT 31 SECONDS (21-34) 06/09/16 15:08 - Constitutional Appears: Non-toxic, No Acute Distress - Head Exam Head Exam: ATRAUMATIC, NORMAL INSPECTION, NORMOCEPHALIC - Eye Exam Eye Exam: EOMI, Normal appearance - Respiratory Exam Respiratory Exam: NORMAL BREATHING PATTERN - GI/Abdominal Exam GI & Abdominal Exam: Soft. absent: Tenderness - Extremities Exam Additional comments: Mild edema in right lower extremity, with tenderness to palpation. Both improved since admission. DP and PT pulses intact - Neurological Exam Neurological Exam: Alert, Awake, Oriented x3 - Skin Skin Exam: Dry, Warm Assessment and Plan - Assessment and Plan (Free Text) Assessment: Pt for nuclear stress test this AM Awaiting final clearance per Cardiology. Planning for fem-peroneal bypass this week will D/W Dr. Anna Severino, PGY-1
[2016-06-14 08:43] LABS: BASO % 0.4 % (0.0-2.0); EOS # 0.2 K/uL (0.0-0.7); EOS % 1.8 % (0.0-4.0); HEMATOCRIT 28.6 % (34.0-47.0); LYMPH # 1.2 K/uL (1.0-4.3); LYMPH % 12.9 % (20.0-40.0); MEAN CELL VOLUME 78.7 fL (81.0-99.0); MEAN CORPUSCULAR HEMOGLOBIN 26.2 pg (27.0-31.0); MEAN CORPUSCULAR HGB CONC 33.3 g/dL (33.0-37.0); MEAN PLATELET VOLUME 8.8 fL (7.2-11.7); MONO # 0.9 K/uL (0.0-0.8); MONO % 9.7 % (0.0-10.0); RED CELL DISTRIBUTION WIDTH 13.7 % (11.5-14.5); WHITE BLOOD COUNT 9.4 K/uL (4.8-10.8)
[2016-06-14 08:59] LABS: CHLORIDE 96 mmol/L (98-107); POTASSIUM 3.7 mmol/L (3.6-5.2); SODIUM 137 mmol/L (132-148)
[2016-06-14 09:02] LABS: ALB/GLOB RATIO 1.3 (1.0-2.1); ALKALINE PHOSPHATASE 61 U/L (38-126); AST/SGOT 120 U/L (14-36); BILIRUBIN,TOTAL 0.4 mg/dL (0.2-1.3); BLOOD UREA NITROGEN 17 mg/dL (7-17); CALCIUM 8.5 mg/dl (8.6-10.4); CARBON DIOXIDE 24 mmol/L (22-30); GFR AFRICAN-AMERICAN > 60; GLUCOSE,RANDOM 156 mg/dL (65-105); TOTAL PROTEIN 6.5 g/dL (6.3-8.3)
[2016-06-14 09:03] LABS: ALT/SGPT 44 U/L (9-52)
--- NOTE | 2016-06-14 09:56 | CP.PCM.PN ---
Subjective - Date & Time of Evaluation Date of Evaluation: 06/14/16 Time of Evaluation: 09:54 - Subjective Subjective: Complains of leg pain, for stress test. Objective - Vital Signs/Intake and Output Vital Signs (last 24 hours): Temp Pulse Resp BP Pulse Ox 98 F 78 20 135/68 99 06/14/16 00:00 06/14/16 00:00 06/14/16 00:00 06/14/16 00:00 06/14/16 00:00 Intake and Output: 06/14/16 06/14/16 06:59 18:59 Intake Total 350 Balance 350 - Medications Medications: Current Medications Amlodipine Besylate (Norvasc) 5 mg PO DAILY [facility] Last Admin: 06/13/16 10:07 Dose: 5 mg Aspirin (Aspirin Chewable) 81 mg PO DAILY [facility] Last Admin: 06/13/16 10:07 Dose: 81 mg Clopidogrel Bisulfate (Plavix) 75 mg PO DAILY [facility] Last Admin: 06/13/16 10:06 Dose: 75 mg Enalapril Maleate (Vasotec) 10 mg PO DAILY [facility] Last Admin: 06/13/16 10:06 Dose: 10 mg Insulin Glargine (Lantus) 12 unit SC HS [facility] Last Admin: 06/12/16 21:56 Dose: 12 unit Insulin Human Regular (Novolin R) 0 unit SC [facility] PRN Reason: Protocol Last Admin: 06/14/16 07:56 Dose: Not Given Oxycodone HCl (Oxycontin Extended Release Tab) 20 mg PO Q12 [facility] Last Admin: 06/13/16 22:20 Dose: 20 mg Pantoprazole Sodium (Protonix Ec Tab) 40 mg PO DAILY [facility] Last Admin: 06/13/16 10:07 Dose: 40 mg Polyethylene Glycol (Miralax) 17 gm PO DAILY [facility] Last Admin: 06/13/16 10:07 Dose: 17 gm Rosuvastatin Calcium (Crestor) 5 mg PO HS [facility] Last Admin: 06/13/16 22:20 Dose: 5 mg Tramadol HCl (Ultram) 50 mg PO Q8H PRN PRN Reason: pain - Labs Labs: 06/14/16 08:30 06/14/16 08:30 PT 11.2 SECONDS (9.7-12.2) 06/09/16 15:08 INR 1.0 06/09/16 15:08 APTT 31 SECONDS (21-34) 06/09/16 15:08 - Constitutional Appears: Older Than Stated Age - Head Exam Head Exam: ATRAUMATIC - Eye Exam Eye Exam: EOMI Pupil Exam: NORMAL ACCOMODATION - ENT Exam ENT Exam: Mucous Membranes Moist - Neck Exam Neck Exam: Normal Inspection - Respiratory Exam Respiratory Exam: Clear to Ausculation Bilateral, NORMAL BREATHING PATTERN - Cardiovascular Exam Cardiovascular Exam: REGULAR RHYTHM - Exam External exam: NORMAL EXTERNAL EXAM - Extremities Exam Extremities Exam: Full ROM, Normal Inspection - Back Exam Back Exam: NORMAL INSPECTION - Neurological Exam Neurological Exam: Alert, Awake, CN II-XII Intact - Psychiatric Exam Psychiatric exam: Anxious Assessment and Plan - Assessment and Plan (Free Text) Assessment: 1. Pt underwent nuclear stress tet. Iages pending. 2. BP is good. 3. PAD, for surgery if stress test is not very abnormal. On plavvix.
[2016-06-14] MEDS: Pantoprazole 40 mg EC Tab PO SCH (11:48)
[2016-06-14] MEDS: oxyCODONE 20 mg ER Tab (oxyCONTIN) PO SCH ×2 (11:49→21:52)
[2016-06-14] MEDS: POLYETHYLENE GLYCOL 3350 17 GM/Dose PACKET PO SCH (11:51)
--- NOTE | 2016-06-14 12:50 | CP.PCM.PN ---
Subjective - Date & Time of Evaluation Date of Evaluation: 06/14/16 Time of Evaluation: 12:48 - Subjective Subjective: CAD. PVD. STRESS TEST DONE TODAY BY DR. MORENO Objective - Vital Signs/Intake and Output Vital Signs (last 24 hours): Temp Pulse Resp BP Pulse Ox 98 F 78 20 135/68 99 06/14/16 00:00 06/14/16 00:00 06/14/16 00:00 06/14/16 11:48 06/14/16 00:00 Intake and Output: 06/14/16 06/14/16 06:59 18:59 Intake Total 350 Balance 350 - Medications Medications: Current Medications Amlodipine Besylate (Norvasc) 5 mg PO DAILY [facility] Last Admin: 06/14/16 11:48 Dose: 5 mg Aspirin (Aspirin Chewable) 81 mg PO DAILY [facility] Last Admin: 06/14/16 11:48 Dose: 81 mg Clopidogrel Bisulfate (Plavix) 75 mg PO DAILY [facility] Last Admin: 06/14/16 11:49 Dose: 75 mg Enalapril Maleate (Vasotec) 10 mg PO DAILY [facility] Last Admin: 06/14/16 11:48 Dose: 10 mg Insulin Glargine (Lantus) 12 unit SC HS [facility] Last Admin: 06/12/16 21:56 Dose: 12 unit Insulin Human Regular (Novolin R) 0 unit SC A[facility]S [facility] PRN Reason: Protocol Last Admin: 06/14/16 11:57 Dose: 10 unit Oxycodone HCl (Oxycontin Extended Release Tab) 20 mg PO Q12 [facility] Last Admin: 06/14/16 11:49 Dose: 20 mg Pantoprazole Sodium (Protonix Ec Tab) 40 mg PO DAILY [facility] Last Admin: 06/14/16 11:48 Dose: 40 mg Polyethylene Glycol (Miralax) 17 gm PO DAILY [facility] Last Admin: 06/14/16 11:51 Dose: Not Given Rosuvastatin Calcium (Crestor) 5 mg PO HS [facility] Last Admin: 06/13/16 22:20 Dose: 5 mg Tramadol HCl (Ultram) 50 mg PO Q8H PRN PRN Reason: pain - Labs Labs: 06/14/16 08:30 06/14/16 08:30 PT 11.2 SECONDS (9.7-12.2) 06/09/16 15:08 INR 1.0 06/09/16 15:08 APTT 31 SECONDS (21-34) 06/09/16 15:08 - Constitutional Appears: No Acute Distress, Chronically Ill - Eye Exam Eye Exam: Normal appearance, PERRL - ENT Exam ENT Exam: Normal Exam - Respiratory Exam Respiratory Exam: Clear to Ausculation Bilateral, NORMAL BREATHING PATTERN - Cardiovascular Exam Cardiovascular Exam: REGULAR RHYTHM, +S1, +S2 - GI/Abdominal Exam GI & Abdominal Exam: Soft, Normal Bowel Sounds - Back Exam Back Exam: NORMAL INSPECTION - Neurological Exam Neurological Exam: Alert, Awake, CN II-XII Intact, Normal Gait, Oriented x3 Assessment and Plan - Assessment and Plan (Free Text) Assessment: PVD. CAD. Plan: STRESS REPORT AWAITING.
--- NOTE | 2016-06-14 13:42 | CP.PCM.PN ---
<Brad Painting - Last Filed: 06/14/16 17:06> Subjective - Date & Time of Evaluation Date of Evaluation: 06/14/16 Time of Evaluation: 13:40 - Subjective Subjective: PGY-1 note for medicine service Pt seen and examined at bedside. She is for stress test today. Pt very irritated by current situation, refused exam at first. Admits to less pain in the RLE. Denies chest pain, sob, palpitations, nausea or vomiting. Objective - Vital Signs/Intake and Output Vital Signs (last 24 hours): Temp Pulse Resp BP Pulse Ox 98 F 78 20 135/68 99 06/14/16 00:00 06/14/16 00:00 06/14/16 00:00 06/14/16 11:48 06/14/16 00:00 Intake and Output: 06/14/16 06/14/16 06:59 18:59 Intake Total 350 Balance 350 - Medications Medications: Current Medications Amlodipine Besylate (Norvasc) 5 mg PO DAILY [facility] Last Admin: 06/14/16 11:48 Dose: 5 mg Aspirin (Aspirin Chewable) 81 mg PO DAILY [facility] Last Admin: 06/14/16 11:48 Dose: 81 mg Clopidogrel Bisulfate (Plavix) 75 mg PO DAILY [facility] Last Admin: 06/14/16 11:49 Dose: 75 mg Enalapril Maleate (Vasotec) 10 mg PO DAILY [facility] Last Admin: 06/14/16 11:48 Dose: 10 mg Insulin Glargine (Lantus) 12 unit SC [facility] Last Admin: 06/12/16 21:56 Dose: 12 unit Insulin Human Regular (Novolin R) 0 unit SC [facility] PRN Reason: Protocol Last Admin: 06/14/16 11:57 Dose: 10 unit Oxycodone HCl (Oxycontin Extended Release Tab) 20 mg PO Q12 [facility] Last Admin: 06/14/16 11:49 Dose: 20 mg Pantoprazole Sodium (Protonix Ec Tab) 40 mg PO DAILY [facility] Last Admin: 06/14/16 11:48 Dose: 40 mg Polyethylene Glycol (Miralax) 17 gm PO DAILY [facility] Last Admin: 06/14/16 11:51 Dose: Not Given Rosuvastatin Calcium (Crestor) 5 mg PO [facility] Last Admin: 06/13/16 22:20 Dose: 5 mg Tramadol HCl (Ultram) 50 mg PO Q8H PRN PRN Reason: pain - Labs Labs: 06/14/16 08:30 06/14/16 08:30 PT 11.2 SECONDS (9.7-12.2) 06/09/16 15:08 INR 1.0 06/09/16 15:08 APTT 31 SECONDS (21-34) 06/09/16 15:08 - Constitutional Appears: Non-toxic - Head Exam Head Exam: ATRAUMATIC, NORMOCEPHALIC - ENT Exam ENT Exam: Mucous Membranes Moist - Respiratory Exam Respiratory Exam: Clear to Ausculation Bilateral, NORMAL BREATHING PATTERN - Cardiovascular Exam Cardiovascular Exam: +S1, +S2 - GI/Abdominal Exam GI & Abdominal Exam: Soft, Normal Bowel Sounds - Extremities Exam Additional comments: Some swelling and tender to palpation over RLE - Neurological Exam Neurological Exam: Alert, Awake - Skin Skin Exam: Dry, Warm Assessment and Plan - Assessment and Plan (Free Text) Assessment: PVD - POD#4 aortofemoral angioplasty - Surgery (Tiffanie recs- venous mapping, plan for fem-peroneal bypass this week pending cardio clearance - Cardiology consult ( Kelsy Crane) - Nuclear stress test today - Cleared for surgery if stress test not too abnormal per cardio - ASA 81mg PO daily - Plavix 75 mg Daily - oxycontin 20mg Q12h for pain - Ultram 50mg Q8h PRN Imaging - Right lower extremity arterial duplex ultrasound (06/09) - occluded right femoral stent and right popliteal artery - CT Angio abd/pelvis with runnoff (06/09) - Occluded superficial femoral artery stent. Widespread vascular disease, please see full report - Venous mapping w/findings of R greater saphenous vein diameter b/w 0.21cm - 0.66cm; L greater saphenous vein diameter b/w 0.17cm - 0.46 cm- please see full report for details Blockage of femoral artery stent and popliteal artery - Management as per Dr. Castillo - see above HTN - Continue home amlodipine - Enalapril 10mg PO Daily DM - Holding home janumet and home glimepiride - RISS- changed RISS to high dose protocol - Increased Lantus to 12U HS - F/U accuchecks Elevated Lactic Acid - LA 2.7 -> 1.8 Prophylaxis - Protonix 40mg PO daily - ASA 81mg PO daily - Plavix <Macedo,Peter H - Last Filed: 06/14/16 17:13> Objective - Vital Signs/Intake and Output Vital Signs (last 24 hours): Temp Pulse Resp BP Pulse Ox 97.9 F 94 H 20 106/66 100 06/14/16 15:00 06/14/16 15:00 06/14/16 15:00 06/14/16 15:00 06/14/16 15:00 Intake and Output: 06/14/16 06/14/16 06:59 18:59 Intake Total 350 250 Balance 350 250 - Medications Medications: Current Medications Amlodipine Besylate (Norvasc) 5 mg PO DAILY [facility] Last Admin: 06/14/16 11:48 Dose: 5 mg Aspirin (Aspirin Chewable) 81 mg PO DAILY [facility] Last Admin: 06/14/16 11:48 Dose: 81 mg Clopidogrel Bisulfate (Plavix) 75 mg PO DAILY [facility] Last Admin: 06/14/16 11:49 Dose: 75 mg Enalapril Maleate (Vasotec) 10 mg PO DAILY [facility] Last Admin: 06/14/16 11:48 Dose: 10 mg Insulin Aspart (Novolog) 10 unit SC ACTID [facility] Insulin Glargine (Lantus) 12 unit SC HS [facility] Last Admin: 06/12/16 21:56 Dose: 12 unit Insulin Human Regular (Novolin R) 0 unit SC ACHS [facility] PRN Reason: Protocol Last Admin: 06/14/16 11:57 Dose: 10 unit Oxycodone HCl (Oxycontin Extended Release Tab) 20 mg PO Q12 [facility] Last Admin: 06/14/16 11:49 Dose: 20 mg Pantoprazole Sodium (Protonix Ec Tab) 40 mg PO DAILY [facility] Last Admin: 06/14/16 11:48 Dose: 40 mg Polyethylene Glycol (Miralax) 17 gm PO DAILY [facility] Last Admin: 06/14/16 11:51 Dose: Not Given Rosuvastatin Calcium (Crestor) 5 mg PO HS [facility] Last Admin: 06/13/16 22:20 Dose: 5 mg Tramadol HCl (Ultram) 50 mg PO Q8H PRN PRN Reason: pain - Labs Labs: 06/14/16 08:30 06/14/16 08:30 PT 11.2 SECONDS (9.7-12.2) 06/09/16 15:08 INR 1.0 06/09/16 15:08 APTT 31 SECONDS (21-34) 06/09/16 15:08 Attending/Attestation - Attestation I have personally seen and examined this patient.: Yes I have fully participated in the care of the patient.: Yes I have reviewed all pertinent clinical information, including history, physical exam and plan: Yes Notes (Text): Medical Attending: Patient was seen and examined by me. Agree with the above note by the resident. The patient was with family members when we saw her. She was not in any acute distress. Reviewed previous notes, she is currently pending the results of nuclear stress test. If the results are ok she may be able to undergo further surgical treatment for the severe PVD she has of the right lower extremity. From what I understand she may need a fem-peroneal bypass sometime this coming week. thank you Duglas Macedo
[2016-06-14] MEDS: (Novolog) Insulin Aspart, Recombinant 100 u/ml 10 ml vial SC SCH (17:14)
--- NOTE | 2016-06-14 22:25 | CARD ---
APPROVED REPORT Protocol: PHARMACOLOGICAL Test Type: LEXISCAN Test Indications: CP Target HR: 152 bpm Resting ECG: LOW VOLTAGE, NSR Resting Heart Rate: 80 bpm Resting Blood Pressure: 140/78mmHg submaximum (85%): 129 bpm TEST SUMMARY [id number]:01..1.071/.0. PREINFSNHYPERV.17:[id number]/78.0. INFUSIONDOSE 101:000.00.01.0109/.0. INFUSIONDOSE 201:000.00.01.0118/.0. INFUSIONDOSE 301:000.00.01.0110/.0. INFUSIONDOSE 401:[id number]/78.0. INFUSIONDOSE 500:[id number]/78.0. [id number]:470.00.01.086/.0. PROCEDURE Pharmacologic stress testing was performed using Dobutamine with a maximal infusion of mcg/mg/min. Reversal agent aminophyline 100 mg, given intravenously for Headache. POST EXERCISE Reason for Termination: END OF PROTOCOL Target HR: No Max HR: 100 bpm 77% of Maximum Predicted HR: 152 bpm Exercise duration: 04:20 min:sec, 0 Stage Exercise capacity: 1.0METs Max Blood Pressure: 140/78mmHg Blood Pressure response to exercise: BLUNTED Heart Rate response to exercise: GOOD Chest Pain: No, none Angina index: 0 Arrhythmia: No, none ST Change: No, none Deviation: 0 mm EXAM: Myocardial Perfusion REST/STRESS Imaging Protocol The imaging protocol used to acquire images was Rest Tc-99m/stress Tc-99m 1 day Rest Spect myocardial perfusion imaging was performed in supine position 45 minutes following the injection of 12.8 mCi of Tc-99 Myoview. Gated Stress Spect was performed 45 minutes after intravenous 32.6 mCi Tc-99 Myoview injection. The images were gated to evaluate regional wall motion and calculate ventricular ejection fraction.Images were reconstructed using backfilter projection method in short horizontal and verticle long axis. Spect slices were generated. RESTING DATA EDV38.97opLA6.50L/min ESV5.00mlMyocardial Mass80.00g Av. Heart Rate74.00bpm EF87.00% STRESS DATA EDV40.72eyOS1.40L/min ESV2.00mlMyocardial Mass82.00g EF95.00% Regional WT score at stress:0.00 Regional WM score at stress:0.00 Summed WT score at stress:0.00 Av. Heart Rate88.00bpmSummed WM score at stress:0.00 LV Perf. Quant 17 Seg. SSS0.00 17 Seg. SRS1.00 17 Seg. SDS0.00 Stress Defect Extent (% LAD)0.00Rest Defect Extent (% LAD)0.00Rev. Defect Extent (% LAD)0.00 Stress Defect Extent (% LCX)0.00Rest Defect Extent (% LCX)0.00Rev. Defect Extent (% LCX)0.00 Stress Defect Extent (% RCA)0.00Rest Defect Extent (% RCA)0.00Rev. Defect Extent (% RCA)0.00 Stress Defect Extent (% BRANDY)0.00Rest Defect Extent (% BRANDY)0.00Rev. Defect Extent (% BRANDY)0.00 Conclusion 1. Good technical quality 2. Post stress and resting imaging demonstrated normal left ventricular myocardial perfusion. 3. Gated SPECT demonstrated normal LV systolic function. The EF of 95% is an error due to a small LV Cavity. 4. Impression: Normal nuclear stress test.
[2016-06-15 07:08] LABS: BASO % 0.5 % (0.0-2.0); EOS # 0.2 K/uL (0.0-0.7); EOS % 2.9 % (0.0-4.0); HEMATOCRIT 27.5 % (34.0-47.0); LYMPH # 1.8 K/uL (1.0-4.3); LYMPH % 24.9 % (20.0-40.0); MEAN CELL VOLUME 79.3 fL (81.0-99.0); MEAN CORPUSCULAR HEMOGLOBIN 25.5 pg (27.0-31.0); MEAN CORPUSCULAR HGB CONC 32.2 g/dL (33.0-37.0); MEAN PLATELET VOLUME 8.2 fL (7.2-11.7); MONO # 0.9 K/uL (0.0-0.8); MONO % 13.1 % (0.0-10.0); NRBC % 0.1 % (0.0-2.0); RED CELL DISTRIBUTION WIDTH 13.6 % (11.5-14.5); WHITE BLOOD COUNT 7.1 K/uL (4.8-10.8)
[2016-06-15 07:34] LABS: CHLORIDE 95 mmol/L (98-107)
[2016-06-15 07:35] LABS: POTASSIUM 4.4 mmol/L (3.6-5.2); SODIUM 136 mmol/L (132-148)
[2016-06-15 07:37] LABS: ALB/GLOB RATIO 1.1 (1.0-2.1); ALKALINE PHOSPHATASE 55 U/L (38-126); ALT/SGPT 47 U/L (9-52); AST/SGOT 84 U/L (14-36); BILIRUBIN,TOTAL 0.3 mg/dL (0.2-1.3); BLOOD UREA NITROGEN 15 mg/dL (7-17); CARBON DIOXIDE 29 mmol/L (22-30); GFR AFRICAN-AMERICAN > 60; GLUCOSE,RANDOM 240 mg/dL (65-105); TOTAL PROTEIN 6.1 g/dL (6.3-8.3)
[2016-06-15 07:38] LABS: CALCIUM 8.1 mg/dl (8.6-10.4)
[2016-06-15] MEDS: (Novolog) Insulin Aspart, Recombinant 100 u/ml 10 ml vial SC SCH ×3 (08:16→16:40)
[2016-06-15] MEDS: (Novolin R) Insulin Human Regular 100 units/ml vial SC SCH ×4 (08:34→22:00)
--- NOTE | 2016-06-15 08:50 | CP.PCM.PN ---
Subjective - Date & Time of Evaluation Date of Evaluation: 06/15/16 Time of Evaluation: 08:48 - Subjective Subjective: Surgery: Dr. Castillo Patient doing well today. No pain in the right leg. She has not underwent repeat arterial duplex. Objective - Vital Signs/Intake and Output Vital Signs (last 24 hours): Temp Pulse Resp BP Pulse Ox 98 F 82 20 126/77 97 06/15/16 07:41 06/15/16 07:41 06/15/16 07:41 06/15/16 07:41 06/15/16 07:41 Intake and Output: 06/15/16 06/15/16 06:59 18:59 Intake Total 150 Balance 150 - Medications Medications: Current Medications Amlodipine Besylate (Norvasc) 5 mg PO DAILY [facility] Last Admin: 06/14/16 11:48 Dose: 5 mg Aspirin (Aspirin Chewable) 81 mg PO DAILY [facility] Last Admin: 06/14/16 11:48 Dose: 81 mg Clopidogrel Bisulfate (Plavix) 75 mg PO DAILY [facility] Last Admin: 06/14/16 11:49 Dose: 75 mg Enalapril Maleate (Vasotec) 10 mg PO DAILY [facility] Last Admin: 06/14/16 11:48 Dose: 10 mg Insulin Aspart (Novolog) 10 unit SC ACTID [facility] Last Admin: 06/15/16 08:16 Dose: Not Given Insulin Glargine (Lantus) 12 unit SC HS [facility] Last Admin: 06/12/16 21:56 Dose: 12 unit Insulin Human Regular (Novolin R) 0 unit SC ACHS [facility] PRN Reason: Protocol Last Admin: 06/15/16 08:34 Dose: 6 unit Oxycodone HCl (Oxycontin Extended Release Tab) 20 mg PO Q12 [facility] Last Admin: 06/14/16 21:52 Dose: 20 mg Pantoprazole Sodium (Protonix Ec Tab) 40 mg PO DAILY [facility] Last Admin: 06/14/16 11:48 Dose: 40 mg Polyethylene Glycol (Miralax) 17 gm PO DAILY [facility] Last Admin: 06/14/16 11:51 Dose: Not Given Rosuvastatin Calcium (Crestor) 5 mg PO HS [facility] Last Admin: 06/14/16 21:53 Dose: 5 mg Tramadol HCl (Ultram) 50 mg PO Q8H PRN PRN Reason: pain - Labs Labs: 06/15/16 07:02 06/15/16 07:02 PT 11.2 SECONDS (9.7-12.2) 06/09/16 15:08 INR 1.0 06/09/16 15:08 APTT 31 SECONDS (21-34) 06/09/16 15:08 - Constitutional Appears: Non-toxic, No Acute Distress - Head Exam Head Exam: ATRAUMATIC, NORMOCEPHALIC - Eye Exam Eye Exam: EOMI, Normal appearance - ENT Exam ENT Exam: Mucous Membranes Moist - Respiratory Exam Respiratory Exam: NORMAL BREATHING PATTERN. absent: Respiratory Distress - Cardiovascular Exam Cardiovascular Exam: REGULAR RHYTHM. absent: Tachycardia - Extremities Exam Extremities Exam: Normal Inspection. absent: Calf Tenderness, Tenderness Additional comments: faint palpable popliteal pulse on right - Neurological Exam Neurological Exam: Alert, Awake - Psychiatric Exam Psychiatric exam: Normal Affect, Normal Mood - Skin Skin Exam: Dry, Normal Color, Warm Assessment and Plan - Assessment and Plan (Free Text) Assessment: 70 y/o F w/ thromobosis of RLE stent s/p angio Plan: -f/u repeat duplex study -pending result, may postpone bypass surgery -popliteal artery appears patent on bedside u/s -cont NV checks Q8hr -f/u cardiac clearance -further recs per Dr. Anna Pfeiffer PGY1
[2016-06-15] MEDS ORDERED: Iodixanol 320 MG/ML 200 ML BOTTLE IV ONE (09:11)
--- NOTE | 2016-06-15 10:59 | CP.PCM.PN ---
Subjective - Date & Time of Evaluation Date of Evaluation: 06/15/16 Time of Evaluation: 10:57 - Subjective Subjective: Pt complains of leg pain. She is waiting for a ct Objective - Vital Signs/Intake and Output Vital Signs (last 24 hours): Temp Pulse Resp BP Pulse Ox 98 F 82 20 126/77 97 06/15/16 07:41 06/15/16 07:41 06/15/16 07:41 06/15/16 07:41 06/15/16 07:41 Intake and Output: 06/15/16 06/15/16 06:59 18:59 Intake Total 150 Balance 150 - Medications Medications: Current Medications Amlodipine Besylate (Norvasc) 5 mg PO DAILY [facility] Last Admin: 06/14/16 11:48 Dose: 5 mg Aspirin (Aspirin Chewable) 81 mg PO DAILY [facility] Last Admin: 06/14/16 11:48 Dose: 81 mg Clopidogrel Bisulfate (Plavix) 75 mg PO DAILY [facility] Last Admin: 06/14/16 11:49 Dose: 75 mg Enalapril Maleate (Vasotec) 10 mg PO DAILY [facility] Last Admin: 06/14/16 11:48 Dose: 10 mg Insulin Aspart (Novolog) 10 unit SC ACTID [facility] Last Admin: 06/15/16 08:16 Dose: Not Given Insulin Glargine (Lantus) 12 unit SC HS [facility] Last Admin: 06/12/16 21:56 Dose: 12 unit Insulin Human Regular (Novolin R) 0 unit SC ACHS [facility] PRN Reason: Protocol Last Admin: 06/15/16 08:34 Dose: 6 unit Oxycodone HCl (Oxycontin Extended Release Tab) 20 mg PO Q12 [facility] Last Admin: 06/14/16 21:52 Dose: 20 mg Pantoprazole Sodium (Protonix Ec Tab) 40 mg PO DAILY [facility] Last Admin: 06/14/16 11:48 Dose: 40 mg Polyethylene Glycol (Miralax) 17 gm PO DAILY [facility] Last Admin: 06/14/16 11:51 Dose: Not Given Rosuvastatin Calcium (Crestor) 5 mg PO HS [facility] Last Admin: 06/14/16 21:53 Dose: 5 mg Tramadol HCl (Ultram) 50 mg PO Q8H PRN PRN Reason: pain - Labs Labs: 06/15/16 07:02 06/15/16 07:02 PT 11.2 SECONDS (9.7-12.2) 06/09/16 15:08 INR 1.0 06/09/16 15:08 APTT 31 SECONDS (21-34) 06/09/16 15:08 - Constitutional Appears: Chronically Ill - Head Exam Head Exam: NORMAL INSPECTION - Eye Exam Eye Exam: EOMI, Normal appearance - ENT Exam ENT Exam: Mucous Membranes Moist - Neck Exam Neck Exam: Full ROM - Respiratory Exam Respiratory Exam: Clear to Ausculation Bilateral, NORMAL BREATHING PATTERN - GI/Abdominal Exam GI & Abdominal Exam: Normal Bowel Sounds - Extremities Exam Extremities Exam: Full ROM - Back Exam Back Exam: Full ROM - Neurological Exam Neurological Exam: Alert, Awake, CN II-XII Intact - Psychiatric Exam Psychiatric exam: Normal Mood - Skin Skin Exam: Dry Assessment and Plan - Assessment and Plan (Free Text) Assessment: 1. Nuclear stress was normal. 2. Normal LV EF mild lvh 3. Pt is cleared for vascular surgery.
[2016-06-15] MEDS: oxyCODONE 20 mg ER Tab (oxyCONTIN) PO SCH (11:08)
[2016-06-15] MEDS: Pantoprazole 40 mg EC Tab PO SCH (11:08)
[2016-06-15] MEDS: POLYETHYLENE GLYCOL 3350 17 GM/Dose PACKET PO SCH (11:11)
--- NOTE | 2016-06-15 14:52 | CT ---
PROCEDURE: CT Angiography Abdomen, Pelvis and Lower Extremity with Contrast HISTORY: post op re stenosis COMPARISON: None. TECHNIQUE: Technique: CT angiography of the abdomen, pelvis and bilateral lower extremities performed in the arterial phase of enhancement. Coronal and sagittal reformats, and well as rotating MIP images of the vessels generated at the workstation. Intravenous contrast dose: 150 milliliters Visipaque 320 Radiation dose: Total exam DLP = 1012.57 MGy-cm. FINDINGS: CT ANGIOGRAPHY: ABDOMINAL AORTA:: The abdominal was unremarkable. MAJOR AORTIC BRANCHES: Celiac [place]: Moderate calcific plaque at the origin with no significant stenosis Superior mesenteric artery: Unremarkable. Inferior mesenteric artery: Unremarkable. Renal arteries: Unremarkable. PELVIC ARTERIES: Right Common Iliac: Unremarkable. Right External Iliac: Unremarkable. Right Internal Iliac: Unremarkable. Left Common Iliac: Unremarkable. Left External Iliac: Unremarkable. Left Internal Iliac: Unremarkable. RIGHT LOWER EXTREMITY ARTERIES: Right Common Femoral: Bulky calcific plaque posterior mid common femoral artery with 30 percent stenosis. Right Superficial Femoral: Previously stented SFA is patent. Stent extends to the popliteal artery. Right Profunda Femoris: Unremarkable. Right Popliteal:Popliteal artery stent is unremarkable. Right Anterior Tibial: Unremarkable. Right Tibioperoneal Trunk: Unremarkable. Right Posterior Tibial: Posterior tibial artery occludes in the proximal segment. Right Peroneal: Unremarkable. Right dorsalis pedis : Unremarkable. LEFT LOWER EXTREMITY ARTERIES: Left Common Femoral: Occluded common femoral artery with reconstitution of the distal common femoral artery via collaterals. . Left Superficial Femoral: The SFA is diffusely stenotic with greater than 70 percent stenosis throughout. Left Profunda Femoris: Stenosis proximally. Left Popliteal: Diffusely stenotic, 60 percent Left Anterior Tibial: Unremarkable. Left Tibioperoneal Trunk: Unremarkable. Left Posterior Tibial: Appears occluded at the origin. Left Peroneal: Unremarkable. Left Dorsalis pedis: Unremarkable. NON-ANGIOGRAPHIC ASPECT OF THE EXAM: LOWER THORAX: Emphysematous changes. LIVER: Unremarkable. No gross lesion or ductal dilatation. GALLBLADDER AND BILE DUCTS: Unremarkable. PANCREAS: Unremarkable. No gross lesion or ductal dilatation. SPLEEN: Unremarkable. ADRENALS: Unremarkable. No mass. KIDNEYS AND URETERS: Unremarkable. No hydronephrosis. No solid mass. STOMACH AND BOWEL: Unremarkable. No obstruction. No gross mural thickening. APPENDIX: Normal appendix. PERITONEUM: Unremarkable. No free fluid. No free air. LYMPH NODES: Unremarkable. No enlarged lymph nodes. BLADDER: Unremarkable. REPRODUCTIVE: Unremarkable. BONES: No acute fracture. OTHER FINDINGS: None. IMPRESSION: A) CT ANGIOGRAM ABDOMEN/ PELVIS: 1. Essentially unremarkable CT angiogram of the abdomen pelvis. B) LEFT LOWER EXTREMITY CT ANGIOGRAM: 1. Occlusion of the common femoral artery with brief reconstitution distally via collaterals. 2. SFA is diffusely stenotic with greater than 70 percent stenosis throughout. 3. Popliteal artery 60 percent stenosis. 4. Left runoff shows a patent peroneal artery. Anterior tibial artery has flow but is small in caliber. The posterior tibial artery is occluded. C) RIGHT LOWER EXTREMITY CT ANGIOGRAM: 1. Bulky calcific plaque posterior mid common femoral artery with mild stenosis. 2. Previously stented SFA is patent. Popliteal artery stent is patent. 3. Right runoff shows a patent peroneal artery and anterior tibial artery. The posterior tibial artery appears occluded in the proximal segment with no reconstitution.
--- NOTE | 2016-06-15 15:10 | VASCLAB ---
PROCEDURE: HISTORY: comparison s/p angio of right LE COMPARISON: None available. TECHNIQUE: Grayscale and duplex Doppler evaluation of the right common femoral, femoral, profunda femoral, popliteal, posterior tibial, anterior tibial and dorsalis pedis arteries was performed. Report prepared by Haile Luu, BS, RVT FINDINGS: RIGHT LOWER EXTREMITY: * Common Femoral Artery: Peak Systolic Velocity - 129: Doppler Waveform: Biphasic: Plaque description - Calcific * Profunda Femoral Artery: Peak Systolic Velocity - 245: Doppler Waveform: Biphasic.: Plaque description - Calcific * Femoral Artery o Proximal Segment: Peak Systolic Velocity - 136: Doppler Waveform: Biphasic: Plaque description - Calcific o Middle Segment: Peak Systolic Velocity - 95: Doppler Waveform: Biphasic: Plaque description - Calcific o Distal Segment: Peak Systolic Velocity - 73: Doppler Waveform: Biphasic: Plaque description - Calcific * Popliteal Artery o Proximal Segment: Peak Systolic Velocity - 125: Doppler Waveform: Biphasic: Plaque description - Calcific o Middle Segment: Peak Systolic Velocity - 129: Doppler Waveform: Biphasic: Plaque description - Calcific o Distal Segment: Peak Systolic Velocity - 112: Doppler Waveform: Biphasic: Plaque description - Calcific * Posterior Tibial Artery: Peak Systolic Velocity - 0: Doppler Waveform: Biphasic: Plaque description - Calcific * Anterior Tibial Artery: Peak Systolic Velocity - 62: Doppler Waveform: Biphasic: Plaque description - Calcific * Dorsalis Pedis Artery: Peak Systolic Velocity - 21: Doppler Waveform: Biphasic: Plaque description - Calcific OTHER FINDINGS: IMPRESSION: RIGHT: Significant increase in perfusion noted in the right superficial femoral artery post angio compared to the last study of 06/09/2016. Occlusion of the right posterior tibial artery. 50-75% stenosis of the right proximal profunda femoral artery.
--- NOTE | 2016-06-15 15:45 | CP.PCM.PN ---
<Brad Painting - Last Filed: 06/15/16 15:42> Subjective - Date & Time of Evaluation Date of Evaluation: 06/15/16 Time of Evaluation: 15:42 - Subjective Subjective: PGY-1 note for medicine service Pt seen and examined at bedside. Pt states that symptomatically she feels better today with less pain and swelling in her RLE. Pt has no other complaints. Denies fevers, chills, chest pain, sob, nausea, vomiting. Objective - Vital Signs/Intake and Output Vital Signs (last 24 hours): Temp Pulse Resp BP Pulse Ox 98 F 82 20 126/77 97 06/15/16 07:41 06/15/16 07:41 06/15/16 07:41 06/15/16 11:07 06/15/16 07:41 Intake and Output: 06/15/16 06/15/16 06:59 18:59 Intake Total 150 350 Balance 150 350 - Medications Medications: Current Medications Amlodipine Besylate (Norvasc) 5 mg PO DAILY [facility] Last Admin: 06/15/16 11:07 Dose: 5 mg Aspirin (Aspirin Chewable) 81 mg PO DAILY [facility] Last Admin: 06/15/16 11:08 Dose: 81 mg Clopidogrel Bisulfate (Plavix) 75 mg PO DAILY [facility] Last Admin: 06/15/16 11:08 Dose: 75 mg Enalapril Maleate (Vasotec) 10 mg PO DAILY [facility] Last Admin: 06/15/16 11:07 Dose: 10 mg Insulin Aspart (Novolog) 10 unit SC ACTID [facility] Last Admin: 06/15/16 12:32 Dose: 10 unit Insulin Glargine (Lantus) 12 unit SC HS [facility] Last Admin: 06/12/16 21:56 Dose: 12 unit Insulin Human Regular (Novolin R) 0 unit SC ACHS [facility] PRN Reason: Protocol Last Admin: 06/15/16 11:21 Dose: 6 unit Pantoprazole Sodium (Protonix Ec Tab) 40 mg PO DAILY [facility] Last Admin: 06/15/16 11:08 Dose: 40 mg Polyethylene Glycol (Miralax) 17 gm PO DAILY [facility] Last Admin: 06/15/16 11:11 Dose: 17 gm Rosuvastatin Calcium (Crestor) 5 mg PO HS [facility] Last Admin: 06/14/16 21:53 Dose: 5 mg Tramadol HCl (Ultram) 50 mg PO Q8H PRN PRN Reason: pain - Labs Labs: 06/15/16 07:02 06/15/16 07:02 PT 11.2 SECONDS (9.7-12.2) 06/09/16 15:08 INR 1.0 06/09/16 15:08 APTT 31 SECONDS (21-34) 06/09/16 15:08 - Constitutional Appears: Non-toxic, No Acute Distress - Head Exam Head Exam: ATRAUMATIC, NORMOCEPHALIC - Eye Exam Eye Exam: Normal appearance Pupil Exam: PERRL - ENT Exam ENT Exam: Mucous Membranes Moist - Respiratory Exam Respiratory Exam: Clear to Ausculation Bilateral, NORMAL BREATHING PATTERN - Cardiovascular Exam Cardiovascular Exam: +S1, +S2 - GI/Abdominal Exam GI & Abdominal Exam: Soft, Normal Bowel Sounds - Extremities Exam Additional comments: RLE - mild swelling and some pain to palpation. Warm - Neurological Exam Neurological Exam: Alert, Awake - Skin Skin Exam: Dry, Warm Assessment and Plan - Assessment and Plan (Free Text) Assessment: PVD - POD#5 aortofemoral angioplasty - Surgery ([facility]) recs- venous mapping, plan for possible fem-peroneal bypass this week pending cardio clearance and CT results - F/U further recs - Cardiology consult ( Kelsy Crane) - Nuclear stress test - unremarkable - Cleared for vascular surgery - ASA 81mg PO daily - Plavix 75 mg Daily - oxycontin 20mg Q12h for pain - Ultram 50mg Q8h PRN Imaging - 06/15 CT Angiography Abdomen, Pelvis and Lower Extremity with Contrast - A) CT ANGIOGRAM ABDOMEN/ PELVIS: 1. Essentially unremarkable CT angiogram of the abdomen pelvis. B) LEFT LOWER EXTREMITY CT ANGIOGRAM: 1. Occlusion of the common femoral artery with brief reconstitution distally via collaterals. 2. SFA is diffusely stenotic with greater than 70 percent stenosis throughout. 3. Popliteal artery 60 percent stenosis. 4. Left runoff shows a patent peroneal artery. Anterior tibial artery has flow but is small in caliber. The posterior tibial artery is occluded. C) RIGHT LOWER EXTREMITY CT ANGIOGRAM: 1. Bulky calcific plaque posterior mid common femoral artery with mild stenosis. 2. Previously stented SFA is patent. Popliteal artery stent is patent. 3. Right runoff shows a patent peroneal artery and anterior tibial artery. The posterior tibial artery appears occluded in the proximal segment with no reconstitution. - Right lower extremity arterial duplex ultrasound (06/09) - occluded right femoral stent and right popliteal artery - CT Angio abd/pelvis with runnoff (06/09) - Occluded superficial femoral artery stent. Widespread vascular disease, please see full report - Venous mapping w/findings of R greater saphenous vein diameter b/w 0.21cm - 0.66cm; L greater saphenous vein diameter b/w 0.17cm - 0.46 cm- please see full report for details Blockage of femoral artery stent and popliteal artery - Management as per Dr. Castillo - see above Anemia, acute - Unknown cause, no evidence of bleeding - Hgb on admission 14.0 -> 8.8 - Stool occult negative - Continue to monitor, may need transfusion if she goes for procedure HTN - Continue home amlodipine - Enalapril 10mg PO Daily DM - Holding home janumet and home glimepiride - RISS- changed RISS to high dose protocol - Increased Lantus to 12U HS - F/U accuchecks Elevated Lactic Acid - LA 2.7 -> 1.8 Prophylaxis - Protonix 40mg PO daily - ASA 81mg PO daily - Plavix <Duglas Macedo H - Last Filed: 06/15/16 16:25> Objective - Vital Signs/Intake and Output Vital Signs (last 24 hours): Temp Pulse Resp BP Pulse Ox 98 F 82 20 126/77 97 06/15/16 07:41 06/15/16 07:41 06/15/16 07:41 06/15/16 11:07 06/15/16 07:41 Intake and Output: 06/15/16 06/15/16 06:59 18:59 Intake Total 150 350 Balance 150 350 - Medications Medications: Current Medications Amlodipine Besylate (Norvasc) 5 mg PO DAILY [facility] Last Admin: 06/15/16 11:07 Dose: 5 mg Aspirin (Aspirin Chewable) 81 mg PO DAILY [facility] Last Admin: 06/15/16 11:08 Dose: 81 mg Clopidogrel Bisulfate (Plavix) 75 mg PO DAILY [facility] Last Admin: 06/15/16 11:08 Dose: 75 mg Enalapril Maleate (Vasotec) 10 mg PO DAILY [facility] Last Admin: 06/15/16 11:07 Dose: 10 mg Insulin Aspart (Novolog) 10 unit SC ACTID [facility] Last Admin: 06/15/16 12:32 Dose: 10 unit Insulin Glargine (Lantus) 12 unit SC HS [facility] Last Admin: 06/12/16 21:56 Dose: 12 unit Insulin Human Regular (Novolin R) 0 unit SC ACHS [facility] PRN Reason: Protocol Last Admin: 06/15/16 11:21 Dose: 6 unit Pantoprazole Sodium (Protonix Ec Tab) 40 mg PO DAILY [facility] Last Admin: 06/15/16 11:08 Dose: 40 mg Polyethylene Glycol (Miralax) 17 gm PO DAILY [facility] Last Admin: 06/15/16 11:11 Dose: 17 gm Rosuvastatin Calcium (Crestor) 5 mg PO HS [facility] Last Admin: 06/14/16 21:53 Dose: 5 mg Tramadol HCl (Ultram) 50 mg PO Q8H PRN PRN Reason: pain - Labs Labs: 06/15/16 07:02 06/15/16 07:02 PT 11.2 SECONDS (9.7-12.2) 06/09/16 15:08 INR 1.0 06/09/16 15:08 APTT 31 SECONDS (21-34) 06/09/16 15:08 Attending/Attestation - Attestation I have personally seen and examined this patient.: Yes I have fully participated in the care of the patient.: Yes I have reviewed all pertinent clinical information, including history, physical exam and plan: Yes Notes (Text): 06/15/16 16:23 Patient was seen and examined by me as well. Agree with the above note by the resident. The patient had a repeat duplex study to reassess the lower extremity and depending on the results surgery may or may not proceed with bypass surgery Otherwise the patient reported no other acute complaints. She completed nuclear stress test yesterday. thank you Duglas Macedo
--- NOTE | 2016-06-15 15:46 | RAD ---
HISTORY: preop COMPARISON: No prior. TECHNIQUE: Chest PA and lateral FINDINGS: LUNGS: No poor inspiration with low lung volumes, mild crowded bronchovascular markings and mild bibasilar atelectasis. Vague tiny density seen in the right lateral lower lung field overlying the right anterior 5th rib which of uncertain etiology though could represent overlying artifact however tiny parenchymal nodule or calcified granuloma not excluded. PLEURA: No significant pleural effusion identified. No pneumothorax apparent. CARDIOVASCULAR: Normal. OSSEOUS STRUCTURES: No significant abnormalities. VISUALIZED UPPER ABDOMEN: Normal. OTHER FINDINGS: None. IMPRESSION: Minor bibasilar atelectasis.
--- NOTE | 2016-06-15 16:46 | CP.PCM.PN ---
Subjective - Date & Time of Evaluation Date of Evaluation: 06/15/16 Time of Evaluation: 16:45 - Subjective Subjective: dictated note re plans and FU Objective - Vital Signs/Intake and Output Vital Signs (last 24 hours): Temp Pulse Resp BP Pulse Ox 97.9 F 94 H 20 129/56 L 95 06/15/16 16:31 06/15/16 16:31 06/15/16 16:31 06/15/16 16:31 06/15/16 16:31 Intake and Output: 06/15/16 06/15/16 06:59 18:59 Intake Total 150 350 Balance 150 350 - Medications Medications: Current Medications Amlodipine Besylate (Norvasc) 5 mg PO DAILY [facility] Last Admin: 06/15/16 11:07 Dose: 5 mg Aspirin (Aspirin Chewable) 81 mg PO DAILY [facility] Last Admin: 06/15/16 11:08 Dose: 81 mg Clopidogrel Bisulfate (Plavix) 75 mg PO DAILY [facility] Last Admin: 06/15/16 11:08 Dose: 75 mg Enalapril Maleate (Vasotec) 10 mg PO DAILY [facility] Last Admin: 06/15/16 11:07 Dose: 10 mg Insulin Aspart (Novolog) 10 unit SC ACTID [facility] Last Admin: 06/15/16 12:32 Dose: 10 unit Insulin Glargine (Lantus) 12 unit SC HS [facility] Last Admin: 06/12/16 21:56 Dose: 12 unit Insulin Human Regular (Novolin R) 0 unit SC ACHS [facility] PRN Reason: Protocol Last Admin: 06/15/16 11:21 Dose: 6 unit Pantoprazole Sodium (Protonix Ec Tab) 40 mg PO DAILY [facility] Last Admin: 06/15/16 11:08 Dose: 40 mg Polyethylene Glycol (Miralax) 17 gm PO DAILY [facility] Last Admin: 06/15/16 11:11 Dose: 17 gm Rosuvastatin Calcium (Crestor) 5 mg PO HS [facility] Last Admin: 06/14/16 21:53 Dose: 5 mg Tramadol HCl (Ultram) 50 mg PO Q8H PRN PRN Reason: pain - Labs Labs: 06/15/16 07:02 06/15/16 07:02 PT 11.2 SECONDS (9.7-12.2) 06/09/16 15:08 INR 1.0 03/15/17 15:08 APTT 31 SECONDS (21-34) 06/09/16 15:08
[2016-06-16 07:08] LABS: BASO % 0.5 % (0.0-2.0); EOS # 0.2 K/uL (0.0-0.7); EOS % 2.4 % (0.0-4.0); HEMATOCRIT 27.9 % (34.0-47.0); LYMPH # 1.4 K/uL (1.0-4.3); LYMPH % 20.8 % (20.0-40.0); MEAN CELL VOLUME 78.4 fL (81.0-99.0); MEAN CORPUSCULAR HEMOGLOBIN 25.2 pg (27.0-31.0); MEAN CORPUSCULAR HGB CONC 32.1 g/dL (33.0-37.0); MONO # 0.9 K/uL (0.0-0.8); MONO % 13.6 % (0.0-10.0); NRBC % 0.1 % (0.0-2.0); WHITE BLOOD COUNT 6.9 K/uL (4.8-10.8)
[2016-06-16 07:10] LABS: CHLORIDE 95 mmol/L (98-107)
[2016-06-16 07:11] LABS: POTASSIUM 4.3 mmol/L (3.6-5.2); SODIUM 134 mmol/L (132-148)
[2016-06-16 07:13] LABS: AST/SGOT 76 U/L (14-36); BILIRUBIN,TOTAL 0.4 mg/dL (0.2-1.3); CARBON DIOXIDE 28 mmol/L (22-30); GFR AFRICAN-AMERICAN > 60
[2016-06-16 07:14] LABS: ALB/GLOB RATIO 1.2 (1.0-2.1); ALKALINE PHOSPHATASE 60 U/L (38-126); ALT/SGPT 51 U/L (9-52); BLOOD UREA NITROGEN 12 mg/dL (7-17); CALCIUM 8.4 mg/dl (8.6-10.4); GLUCOSE,RANDOM 190 mg/dL (65-105); TOTAL PROTEIN 6.3 g/dL (6.3-8.3)
[2016-06-16 08:07] VITALS: PULSE 82; TEMP 98.1
[2016-06-16] MEDS: (Novolog) Insulin Aspart, Recombinant 100 u/ml 10 ml vial SC SCH ×2 (08:07→11:28)
[2016-06-16] MEDS: (Novolin R) Insulin Human Regular 100 units/ml vial SC SCH ×2 (08:07→11:28)
--- NOTE | 2016-06-16 09:32 | PN ---
DATE: 06/15/2016 FOLLOWUP NOTE The patient had been scheduled to undergo revascularization of her right lower extremity tomorrow. S ubsequent evaluation review showed that the previously treated area in her stents is widely patent wi th good blood flow down into the popliteal and down into the tibial vessels. There are no signs of c ontinued extravasation or problems of that nature. Thus, she has relatively good perfusion into her foot and does not require revascularization of her lower extremity at this time. The need for carefu l followup, the need for maintenance of her antiplatelet agents, particularly in view of the previous events where this was treated 2 years ago and has restenosed or re-occluded was also reviewed. The second problem that we have to face is the issue of the imaging today, which showed an occlusion of h er common femoral artery in the groin. This is at the puncture site where the Perclose device was us ed. At present, she has no symptoms related to it, I cautioned her. I informed her, (1) of the find ing, (2) of her options and she preferred to continue to see how this progressed. She is aware of th e fact that this may require intervention in the future. At this time, there are no plans for interv ention on that leg urgently. The third problem was results of her stress test which appear to be nor mal and she does not require any intervention on her heart and should she require surgical interventi on she is prepared to undergo some. The need to stop smoking was reviewed at some length; she is both aware and accepting of this. Our p savannah is to discharge the patient. She is to remain on antiplatelet agents. She is to follow up with me in the office within a week. The treatment regarding her left groin problem as well as long-term treatment of her right leg were all reviewed and discussed with her. Cody Castillo Jr., MD cc: [id number] TT: 06/15/2016 20:17:30 Confirmation # [id number] Dictation # [id number] mn
[2016-06-16] MEDS: POLYETHYLENE GLYCOL 3350 17 GM/Dose PACKET PO SCH (10:43)
[2016-06-16] MEDS: Pantoprazole 40 mg EC Tab PO SCH (10:43)
[2016-06-16 12:50] VITALS: BP 137/64; O2SAT 95
--- NOTE | 2016-06-16 21:37 | CP.PCM.DIS ---
<Brad Painting - Last Filed: 06/16/16 21:37> Provider - Provider Date of Admission: 06/09/16 17:26 Attending physician: Neftali Malave MD Primary care physician: Haris Consults: Vascular surgery: Anna Cardio: Royce Time Spent in preparation of Discharge (in minutes): 31 Hospital Course - Lab Results Lab Results: Most Recent Lab Values WBC 6.9 K/uL (4.8-10.8) 06/16/16 06:30 RBC 3.56 Mil/uL (3.80-5.20) L 06/16/16 06:30 Hgb 9.0 g/dL (11.0-16.0) L 06/16/16 06:30 Hct 27.9 % (34.0-47.0) L 06/16/16 06:30 MCV 78.4 fL (81.0-99.0) L 06/16/16 06:30 MCH 25.2 pg (27.0-31.0) L 06/16/16 06:30 MCHC 32.1 g/dL (33.0-37.0) L 06/16/16 06:30 RDW 14.0 % (11.5-14.5) 06/16/16 06:30 Plt Count 326 K/uL (130-400) 06/16/16 06:30 MPV 8.0 fL (7.2-11.7) 06/16/16 06:30 Neut % (Auto) 62.7 % (50.0-75.0) 06/16/16 06:30 Lymph % (Auto) 20.8 % (20.0-40.0) 06/16/16 06:30 Lane % (Auto) 13.6 % (0.0-10.0) H 06/16/16 06:30 Eos % (Auto) 2.4 % (0.0-4.0) 06/16/16 06:30 Baso % (Auto) 0.5 % (0.0-2.0) 06/16/16 06:30 Neut # 4.3 K/uL (1.8-7.0) 06/16/16 06:30 Lymph # 1.4 K/uL (1.0-4.3) 06/16/16 06:30 Lane # 0.9 K/uL (0.0-0.8) H 06/16/16 06:30 Eos # 0.2 K/uL (0.0-0.7) 06/16/16 06:30 Baso # 0.0 K/uL (0.0-0.2) 06/16/16 06:30 PT 11.2 SECONDS (9.7-12.2) 06/09/16 15:08 INR 1.0 06/09/16 15:08 APTT 31 SECONDS (21-34) 06/09/16 15:08 pO2 42 mm/Hg (30-55) 06/09/16 14:10 VBG pH 7.40 (7.32-7.43) 06/09/16 14:10 VBG pCO2 43 mmHg (40-60) 06/09/16 14:10 VBG HCO3 25.6 mmol/L 06/09/16 14:10 VBG Total CO2 27.9 mmol/L (22-28) 06/09/16 14:10 VBG O2 Sat (Calc) 81.9 % (40-65) H 06/09/16 14:10 VBG Base Excess 1.5 mmol/L (0.0-2.0) 06/09/16 14:10 VBG Potassium 8.7 mmol/L (3.6-5.2) H* 06/09/16 14:10 Sodium 132.0 mmol/l (132-148) 06/09/16 14:10 Chloride 104.0 mmol/L (98-107) 06/09/16 14:10 Glucose 319 mg/dl (65-105) H 06/09/16 14:10 Lactate 2.7 mmol/L (0.7-2.1) H 06/09/16 14:10 Crit Value Called To fallon Moralez 06/09/16 14:10 Crit Value Called By stacy Echols,smeller 06/09/16 14:10 Crit Value Read Back Y 06/09/16 14:10 Blood Gas Notified Time 1415 06/09/16 14:10 Sodium 134 mmol/L (132-148) 06/16/16 06:30 Potassium 4.3 mmol/L (3.6-5.2) 06/16/16 06:30 Chloride 95 mmol/L (98-107) L 06/16/16 06:30 Carbon Dioxide 28 mmol/L (22-30) 06/16/16 06:30 Anion Gap 15 (10-20) 06/16/16 06:30 BUN 12 mg/dL (7-17) 06/16/16 06:30 Creatinine 0.5 MG/DL (0.7-1.2) L 06/16/16 06:30 Est GFR ( Amer) > 60 06/16/16 06:30 Est GFR (Non-Af Amer) > 60 06/16/16 06:30 POC Glucose (mg/dL) 215 mg/dL (65-110) H 06/16/16 07:12 Random Glucose 190 mg/dL (65-105) H 06/16/16 06:30 Lactic Acid 1.8 mmol/L (0.7-2.1) 06/09/16 19:50 Calcium 8.4 mg/dl (8.6-10.4) L 06/16/16 06:30 Total Bilirubin 0.4 mg/dL (0.2-1.3) 06/16/16 06:30 AST 76 U/L (14-36) H 06/16/16 06:30 ALT 51 U/L (9-52) 06/16/16 06:30 Alkaline Phosphatase 60 U/L (38-126) 06/16/16 06:30 Total Protein 6.3 g/dL (6.3-8.3) 06/16/16 06:30 Albumin 3.4 g/dL (3.5-5.0) L 06/16/16 06:30 Globulin 2.8 gm/dL (2.2-3.9) 06/16/16 06:30 Albumin/Globulin Ratio 1.2 (1.0-2.1) 06/16/16 06:30 Venous Blood Potassium 8.7 mmol/L (3.6-5.2) H* 06/09/16 14:10 Stool Occult Blood Negative (NEGATIVE) 06/09/16 15:54 - Hospital Course Hospital Course: On hospital admission Pt is a 70yoF with PMHx of Diabetes, HTN, PVD and PSHx: coronary and bilateral lower extremity stents presented to the ED today for worsening pain in the right foot x 3 weeks. Pt states that her foot also feels cold. Three weeks ago she had a catheterization (at [facility]) of right leg and was told she needed an operation to help with blood flow to her leg. Right lower extremity arterial duplex US showed occluded R femoral stent and right popliteal artery. Surgery was consulted to eval for possible treatment for her PVD, arterial occlusions. Patient denies fever, chills, chest pain, SOB, abdominal pain, nausea, vomiting, diarrhea, constipation, dysuria. On hospital course Pt was admitted for right foot pain for the last 3 weeks. She was found to have an occluded right femoral stent and right popliteal artery via US. Vascular surgery was consulted and attempted to re-establish flow to the RLE with an aortofemoral angioplasty. Cardiology was consulted for pre-op cardiac clearance. Vascular surgery was able to open up the occlusion, however, this did not establish flow to the RLE initially. The plan was for a possible bypass , however, over the next following days, the pt improved symptomatically. A repeat CT angiogram was completed which showed an improvement in flow to the extremity. Pt was cleared for discharge per surgery with instruction to f/u. Pt was discharged in stable condition with instructions to resume home medications in addition to the following new medications: Aspirin [Aspirin Chewable] 81 mg PO DAILY #30 chew Clopidogrel [Plavix] 75 mg PO DAILY #30 tab Diagnoses Peripheral vascular disease Anemia, acute Hypertension Diabetes mellitus - Date & Time of H&P Date of H&P: 06/09/16 Time of H&P: 17:58 Discharge Exam - Head Exam Head Exam: ATRAUMATIC, NORMOCEPHALIC - Eye Exam Eye Exam: Normal appearance, PERRL - Respiratory Exam Respiratory Exam: Clear to PA & Lateral, NORMAL BREATHING PATTERN - Cardiovascular Exam Cardiovascular Exam: +S1, +S2 - GI/Abdominal Exam GI & Abdominal Exam: Normal Bowel Sounds, Unremarkable - Neurological Exam Neurological exam: Alert, Oriented x3 - Skin Skin Exam: Dry, Warm Discharge Plan - Discharge Medications Prescriptions: Aspirin [Aspirin Chewable] 81 mg PO DAILY #30 chew Clopidogrel [Plavix] 75 mg PO DAILY #30 tab - Follow Up Plan Condition: SERIOUS Disposition: HOME/ ROUTINE Instructions: Aspirin (By mouth), Clopidogrel (By mouth), Diabetes Mellitus Type 2 in Adults (DC), Peripheral Vascular Disease (DC), Meal Planning with Diabetes Exchanges (DC) Referrals: [facility] at [facility] [Outside] Neftali Malave MD [Staff Provider] - Cody Castillo Jr., MD [Staff Provider] - <Duglas Macedo - Last Filed: 06/17/16 07:23> Provider - Provider Date of Admission: 06/09/16 17:26 Attending physician: Neftali Malave MD Hospital Course - Lab Results Lab Results: Most Recent Lab Values WBC 6.9 K/uL (4.8-10.8) 06/16/16 06:30 RBC 3.56 Mil/uL (3.80-5.20) L 06/16/16 06:30 Hgb 9.0 g/dL (11.0-16.0) L 06/16/16 06:30 Hct 27.9 % (34.0-47.0) L 06/16/16 06:30 MCV 78.4 fL (81.0-99.0) L 06/16/16 06:30 MCH 25.2 pg (27.0-31.0) L 06/16/16 06:30 MCHC 32.1 g/dL (33.0-37.0) L 06/16/16 06:30 RDW 14.0 % (11.5-14.5) 06/16/16 06:30 Plt Count 326 K/uL (130-400) 06/16/16 06:30 MPV 8.0 fL (7.2-11.7) 06/16/16 06:30 Neut % (Auto) 62.7 % (50.0-75.0) 06/16/16 06:30 Lymph % (Auto) 20.8 % (20.0-40.0) 06/16/16 06:30 Lane % (Auto) 13.6 % (0.0-10.0) H 06/16/16 06:30 Eos % (Auto) 2.4 % (0.0-4.0) 06/16/16 06:30 Baso % (Auto) 0.5 % (0.0-2.0) 06/16/16 06:30 Neut # 4.3 K/uL (1.8-7.0) 06/16/16 06:30 Lymph # 1.4 K/uL (1.0-4.3) 06/16/16 06:30 Lane # 0.9 K/uL (0.0-0.8) H 06/16/16 06:30 Eos # 0.2 K/uL (0.0-0.7) 06/16/16 06:30 Baso # 0.0 K/uL (0.0-0.2) 06/16/16 06:30 PT 11.2 SECONDS (9.7-12.2) 06/09/16 15:08 INR 1.0 06/09/16 15:08 APTT 31 SECONDS (21-34) 06/09/16 15:08 pO2 42 mm/Hg (30-55) 06/09/16 14:10 VBG pH 7.40 (7.32-7.43) 06/09/16 14:10 VBG pCO2 43 mmHg (40-60) 06/09/16 14:10 VBG HCO3 25.6 mmol/L 06/09/16 14:10 VBG Total CO2 27.9 mmol/L (22-28) 06/09/16 14:10 VBG O2 Sat (Calc) 81.9 % (40-65) H 06/09/16 14:10 VBG Base Excess 1.5 mmol/L (0.0-2.0) 06/09/16 14:10 VBG Potassium 8.7 mmol/L (3.6-5.2) H* 06/09/16 14:10 Sodium 132.0 mmol/l (132-148) 06/09/16 14:10 Chloride 104.0 mmol/L (98-107) 06/09/16 14:10 Glucose 319 mg/dl (65-105) H 06/09/16 14:10 Lactate 2.7 mmol/L (0.7-2.1) H 06/09/16 14:10 Crit Value Called To fallon Moralez 06/09/16 14:10 Crit Value Called By stacy Echols,smeller 06/09/16 14:10 Crit Value Read Back Y 06/09/16 14:10 Blood Gas Notified Time 1415 06/09/16 14:10 Sodium 134 mmol/L (132-148) 06/16/16 06:30 Potassium 4.3 mmol/L (3.6-5.2) 06/16/16 06:30 Chloride 95 mmol/L (98-107) L 06/16/16 06:30 Carbon Dioxide 28 mmol/L (22-30) 06/16/16 06:30 Anion Gap 15 (10-20) 06/16/16 06:30 BUN 12 mg/dL (7-17) 06/16/16 06:30 Creatinine 0.5 MG/DL (0.7-1.2) L 06/16/16 06:30 Est GFR ( Amer) > 60 06/16/16 06:30 Est GFR (Non-Af Amer) > 60 06/16/16 06:30 POC Glucose (mg/dL) 215 mg/dL (65-110) H 06/16/16 07:12 Random Glucose 190 mg/dL (65-105) H 06/16/16 06:30 Lactic Acid 1.8 mmol/L (0.7-2.1) 06/09/16 19:50 Calcium 8.4 mg/dl (8.6-10.4) L 06/16/16 06:30 Total Bilirubin 0.4 mg/dL (0.2-1.3) 06/16/16 06:30 AST 76 U/L (14-36) H 06/16/16 06:30 ALT 51 U/L (9-52) 06/16/16 06:30 Alkaline Phosphatase 60 U/L (38-126) 06/16/16 06:30 Total Protein 6.3 g/dL (6.3-8.3) 06/16/16 06:30 Albumin 3.4 g/dL (3.5-5.0) L 06/16/16 06:30 Globulin 2.8 gm/dL (2.2-3.9) 06/16/16 06:30 Albumin/Globulin Ratio 1.2 (1.0-2.1) 06/16/16 06:30 Venous Blood Potassium 8.7 mmol/L (3.6-5.2) H* 06/09/16 14:10 Stool Occult Blood Negative (NEGATIVE) 06/09/16 15:54 Attending/Attestation - Attestation I have personally seen and examined this patient.: Yes I have fully participated in the care of the patient.: Yes I have reviewed all pertinent clinical information, including history, physical exam and plan: Yes Notes (Text): Medical Attending: Patient was seen and examined by me. Agree with the above note by the resident. The patient ed right femoral stent and right popliteal artery via US. Vascular surgery was consulted and attempted to re-establish flow to the RLE with an aortofemoral angioplasty. After this first procedure it was intially thought she would require bypass surgery to be done, however a repeat arterial ultrasound study showed that flow was indeed re-established via the aortofemoral angioplasty. While here, the patient was evaluated by cardiology as
== END 2016-06-16 12:19 | disposition home or self-care (01) | DRG 271 ==
LOC: C.ER 12:40 → C.9E 17:26 → C.3T 17:52
PROVIDERS: ADMIT Internal Medicine; ATTEND Internal Medicine
PROC: 04CK3ZZ Extirpation of Matter from Right Femoral Artery, Percutaneous Approach (ICD-10-PCS; 2016-06-10)
PROC: 047T3ZZ Dilation of Right Peroneal Artery, Percutaneous Approach (ICD-10-PCS; 2016-06-10)
PROC: 04CT3ZZ Extirpation of Matter from Right Peroneal Artery, Percutaneous Approach (ICD-10-PCS; 2016-06-10)
PROC: 047K34Z Dilation of Right Femoral Artery with Drug-eluting Intraluminal Device, Percutaneous Approach (ICD-10-PCS; principal; 2016-06-10 13:30)
DX: E11.51 Type 2 diabetes mellitus with diabetic peripheral angiopathy without gangrene (principal); T82.858A Stenosis of other vascular prosthetic devices, implants and grafts, initial encounter; I70.221 Atherosclerosis of native arteries of extremities with rest pain, right leg; I10 Essential (primary) hypertension; I25.10 Atherosclerotic heart disease of native coronary artery without angina pectoris; F17.210 Nicotine dependence, cigarettes, uncomplicated; Z95.5 Presence of coronary angioplasty implant and graft; Z79.4 Long term (current) use of insulin

== ENCOUNTER 2016-07-29 09:43 | Inpatient (IN) | payer MEDICARE, OTHER ==
[2016-07-27 11:16] VITALS: BMI 21.4
[~2016-07-29 09:43] MED LIST: Midazolam 2 MG/2 ML VIAL ONE; Propofol 10 mg/ml Inj (20 ML) ONE; ceFAZolin IV 1 gm in Dextrose 1 GM/50 ML BAG IVPB ONE
[2016-07-29] MEDS ORDERED: HEPARIN-NS 5,000 UNITS/500 ML 5,000 UNIT/500 ML BAG IV ONE (10:38)
[2016-07-29] MEDS ORDERED: Lactated Ringer's 1,000 ML IV ONE (11:05)
[2016-07-29] MEDS ORDERED: Bacitracin 50,000 UNIT in Sodium Chloride 0.9% Irrig 1,000 ML IR SCH (11:16)
[2016-07-29] MEDS ORDERED: HYDROmorphone 0.5 mg/0.5 ml ISec IVP PRN (12:13)
[2016-07-29] MEDS ORDERED: Thrombin Topical 20,000 Intl Units Spray Kit TOP ONE (13:25)
[2016-07-29] MEDS ORDERED: Rocuronium 10 mg/ml (5 ml) ONE (13:38)
[2016-07-29] MEDS ORDERED: Sodium Chloride 0.9% 500 ML IV ONE (14:05)
--- NOTE | 2016-07-29 14:12 | PCM.SURG1 ---
Surgeon's Initial Post Op Note - Surgeon's Notes Surgeon: Anna Decorating Supervisor: Jose PGY2, Bre PGY2 Type of Anesthesia: General Endo Pre-Operative Diagnosis: Stenosis of left common femoral artery Operative Findings: stenosed Left common femoral artery Post-Operative Diagnosis: same Operation Performed: repair of left common femoral endarterectomy w. patch angioplasty Specimen/Specimens Removed: plaque Estimated Blood Loss: EBL {In ML}: 100 Blood Products Given: N/A Drains Used: No Drains Post-Op Condition: Good Date of Surgery/Procedure: 07/29/16 Time of Surgery/Procedure: 14:12
[2016-07-29] MEDS ORDERED: Nitroglycerin 2% Ointment Foilpak UD TOP PRN (14:23)
[2016-07-29] MEDS ORDERED: HYDROmorphone 0.5 mg/0.5 ml ISec IVP ONE (16:23)
[2016-07-29] MEDS ORDERED: Sodium Chloride 0.9% 1,000 ML IV ONE (16:30)
[2016-07-29] MEDS: Sodium Chloride 0.9% 1,000 ML IV SCH (18:15)
--- NOTE | 2016-07-29 18:17 | OP ---
PROCEDURE DATE: 07/29/2016 PREOPERATIVE DIAGNOSIS: Left common femoral artery occlusion. Recent intervention via left groin. PROCEDURE CARRIED OUT: Left common femoral endarterectomy with patch angioplasty using bovine perica rdial patch. SURGEON: Cody Castillo Jr., MD FIRST AID ATTENDANT: Dr. Garcia and Dr. Díaz, residents. ANESTHESIOLOGIST: Dedra ____ JUNIOR. INDICATIONS: The patient is an older middle-aged woman with a history of smoking, previous intervent ions on the right leg during her recent acute episode where she developed ischemia of the right leg. Intervention was taken off of the left groin. Postoperatively, she developed occlusion of the left common femoral artery. She was diagnosed, discussed with the patient and managed expectantly. Now s he is walking more, the symptoms have recurred and become worse. OPERATIVE FINDINGS: 1. There was a Perclose suture here right at the common femoral artery in an area of atherosclerosis . 2. The rest of the intraoperative findings were unremarkable. PROCEDURE: The patient was given local anesthesia and incision was made at the groin, ____ skin was prepped and draped ____ placed. Antibiotics were given. The vessel was dissected free from the karolina rounding tissues with control of the common femoral above and below the site of the suture, as well a s control of any additional vessels with the use of Ofelia balloon catheters. We gave heparin over the vessel, applied a patch. There is diffuse atherosclerosis of the vessel. After this had been do ne and tacking sutures were placed distally. We then carried out the endarterectomy and the specimen was submitted and then we placed a patch on top of this. There was good flow through this and good pulse distal to it. Good Doppler signals. We then closed the wound after obtaining hemostasis which took some time as the patient remains on aspirin and Plavix. After this had been done, we then clos ed the skin with skin clips and nylon sutures. The patient tolerated the procedure well. Blood loss for the procedure was approximately 150 mL. The patient did not have Doppler signals in the left fo ot at the end of the procedure, however we rechecked with ultrasound and there was pulsatile flow mona n to the popliteal artery and distal to the endarterectomy site. General condition is satisfactory. Cody Castillo Jr., MD cc:Lesley Carballo MD 56 TT: 07/29/2016 18:16:55 jn
--- NOTE | 2016-07-29 19:50 | CP.PCM.CON ---
<Ollie Johnson - Last Filed: 07/29/16 20:16> History of Present Illness - History of Present Illness History of Present Illness: HPI: Pt is a 70F with PMHx of Diabetes, HTN, and PVD. Pt is s/p Focal Occlusion of Left Femoral Artery Endarterectomy. Earlier in May of this year, she had an occluded right femoral stent and right popliteal vasc dz which need to have flow reestablished via aortofemoral angioplasty. They used her left femoral artery to gain access. After closing/healing of the left femoral access, it became partially occluded. When she began to walk again, she became symptomatic and had to have an endarterectomy on the left side. Pt. was examined in the PACU and did not have any complaints and denies headache, fever chills, chest pain, difficulty breathing, abdominal pain, nausea, vomiting or diarrhea. PMHx: DM, HTN, PVD SHx: coronary and bilateral lower extremity stents Social hx: Smoke 1/2 ppd x 53 yrs (26.5 pack years), drink ETOH occasionally, and denied drug use. 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 Family hx: non contributory PMD: Dr. Carballo Home meds: ASA, Plavix, Genumet, Amaryl, Vorapaxar Allergies: NKDA Review of Systems - Constitutional Constitutional: absent: Fever, Headache, Weakness - EENT Eyes: absent: Blurred Vision, Change in Vision Nose/Mouth/Throat: absent: Epistaxis, Lip Swelling, Sore Throat, Throat Swelling , Tongue Swelling, Neck Pain - Breasts Breasts: absent: Pain, Skin Changes - Cardiovascular Cardiovascular: absent: Chest Pain, Chest Pain at Rest, Diaphoresis, Dyspnea, Irregular Heart Rhythm - Respiratory Respiratory: Cough (dry). absent: Dyspnea - Gastrointestinal Gastrointestinal: absent: Abdominal Pain, Constipation, Diarrhea, Heartburn, Nausea, Vomiting - Genitourinary Genitourinary: absent: Difficulty Urinating, Dysuria, Pyuria - Musculoskeletal Musculoskeletal: absent: Back Pain, Neck Pain, Numbness, Stiffness, Tingling - Integumentary Integumentary: absent: Rash, Skin Pain, Swelling, Wounds - Neurological Neurological: absent: Abnormal Hearing, Abnormal Movements, Dizziness, Numbness - Endocrine Endocrine: absent: Fatigue, Palpitations, Polyphagia, Polyuria Past Patient History - Past Medical History & Family History Past Medical History?: Yes - Past Social History Smoking Status: Heavy Smoker > 10 Cigarettes Daily Alcohol: Occasional Drugs: Denies - CARDIAC Hx Hypertension: Yes Hx Peripheral Edema: Yes Hx Peripheral Vascular Disease: Yes - PULMONARY Hx Respiratory Disorders: Yes Hx Bronchitis: Yes - NEUROLOGICAL Hx Neurological Disorder: No Hx Dizziness: Yes - HEENT Hx HEENT Problems: Yes Other/Comment: wear eyeglasses for reading - RENAL Hx Chronic Kidney Disease: No - ENDOCRINE/METABOLIC Hx Endocrine Disorders: Yes Hx Diabetes Mellitus Type 2: Yes - HEMATOLOGICAL/ONCOLOGICAL Hx Blood Disorders: No - INTEGUMENTARY Hx Dermatological Problems: No - MUSCULOSKELETAL/RHEUMATOLOGICAL Hx Musculoskeletal Disorders: Yes Hx Arthritis: Yes Hx Back Pain: Yes Hx Falls: No - GASTROINTESTINAL Hx Gastrointestinal Disorders: No - GENITOURINARY/GYNECOLOGICAL Hx Genitourinary Disorders: No - PSYCHIATRIC Hx Psychophysiologic Disorder: No Hx Substance Use: No - SURGICAL HISTORY Hx Surgeries: Yes Hx Angiogram: Yes Hx Angioplasty: Yes (Bilateral stenting lower extremities) Hx Coronary Stent: Yes (STENTS B/L LEGS) Other/Comment: ANGELLVFADI PTX MEDICATION RELEASING STENT TO R LEG AT [facility] 09/02 - ANESTHESIA Hx Anesthesia: Yes Hx Anesthesia Reactions: No Hx Malignant Hyperthermia: No Has any member of the family had a problem w/ anesthesia?: No Meds Allergies/Adverse Reactions: Allergies Allergy/AdvReac Type Severity Reaction Status Date / Time No Known Allergies Allergy Verified 06/09/16 12:46 - Medications Medications: Current Medications Acetaminophen (Tylenol 325mg Tab) 650 mg PO Q6 PRN PRN Reason: Fever >100.4 F Amlodipine Besylate (Norvasc) 5 mg PO DAILY [facility] Aspirin (Aspirin Chewable) 81 mg PO DAILY [facility] Clopidogrel Bisulfate (Plavix) 75 mg PO DAILY [facility] Enalapril Maleate (Vasotec) 10 mg PO DAILY [facility] Famotidine (Pepcid) 20 mg PO BID [facility] Glimepiride (Amaryl) 4 mg PO DAILY@0800 [facility] Heparin Sodium (Porcine) (Heparin) 5,000 units SC Q8 [facility] Home Med (Vorapaxar Sulfate [Zontivity]) 2.08 mg PO DAILY [facility] Hydromorphone HCl (Dilaudid) 0.5 mg IVP Q4H PRN PRN Reason: Pain, moderate (4-7) Sodium Chloride (Sodium Chloride 0.9%) 1,000 mls @ 50 mls/hr IV .Q20H [facility] Last Admin: 07/29/16 18:15 Dose: 50 mls/hr Insulin Aspart (Novolog) 0 unit SC ACHS [facility] PRN Reason: Protocol Metformin HCl (Glucophage) 500 mg PO BIDCC [facility] Nitroglycerin (Nitro-Bid 2% Oint) 0 ea TOP Q8 PRN PRN Reason: Other Ondansetron HCl (Zofran Inj) 4 mg IVP Q4 PRN PRN Reason: Nausea/Vomiting Pioglitazone HCl (Actos) 30 mg PO DAILY [facility] Rosuvastatin Calcium (Crestor) 5 mg PO DAILY [facility] Sitagliptin Phosphate (Januvia) 50 mg PO BID [facility] Physical Exam - Constitutional Appears: Non-toxic, No Acute Distress - Head Exam Head Exam: ATRAUMATIC, NORMOCEPHALIC - Eye Exam Eye Exam: EOMI, Normal appearance - ENT Exam ENT Exam: Mucous Membranes Moist - Neck Exam Neck exam: Positive for: Full Rom. Negative for: Lymphadenopathy, Thyromegaly - Respiratory Exam Respiratory Exam: Clear to Auscultation Bilateral, NORMAL BREATHING PATTERN. absent: Rhonchi, Wheezes - Cardiovascular Exam Cardiovascular Exam: REGULAR RHYTHM, +S1, +S2. absent: JVD - GI/Abdominal Exam GI & Abdominal Exam: Normal Bowel Sounds, Soft. absent: Tenderness - Extremities Exam Extremities exam: Positive for: pedal pulses present (pedal pules present with doppler on left leg). Negative for: joint swelling, pedal edema - Expanded Upper Extremities Exam Left Vascular exam: radial pulse Right General: normal inspection. absent: foreign body, laceration Shoulder exam: absent: abrasion, crepitus, deformity, laceration Vascular exam: radial pulse - Expanded Lower Extremities Exam Left Neuro vacular tendon exam: no vascular compromise Gait: not tested/not observed Right Neuro vacular tendon exam: no vascular compromise Gait: not tested/not observed - Neurological Exam Neurological exam: Alert, Oriented x3 - Psychiatric Exam Psychiatric exam: Normal Affect, Normal Mood - Skin Skin Exam: Dry, Intact, Normal Color, Warm Results - Vital Signs Recent Vital Signs: Last Vital Signs Temp 97.8 F 07/29/16 18:37 Pulse 90 07/29/16 18:37 Resp 20 07/29/16 18:37 BP 140/83 07/29/16 18:37 Pulse Ox 97 07/29/16 18:37 - Labs Labs: Laboratory Results - last 24 hr 07/29/16 07/29/16 10:41 12:00 POC Glucose (mg/dL) 209 H Blood Type A POSITIVE Antibody Screen Negative Assessment & Plan - Assessment and Plan (Free Text) Plan: 1. repair of left common femoral endarterectomy w. patch angioplasty -Will follow surgery recs -Dilaudid .5mg q4 prn pain 2. DM2 -Amaryl 4mg PO daily -Metformin 500 BID -Actos 30mg PO daily 3. HTN -Amlodapine 5mg PO daily -Enalapril 10mg PO daily 4. PVD Plavix 75mg daily ASA 81mg Vorapaxar Sulfate 2.08mg PO daily 5. HLD Crestor 5mg PO daily 6. Nicotine addiction Nicoderm PPX -Zofran nausea -Heparin 5000SC q8h - Date & Time Date: 07/29/16 Time: 04:00 <Tyson Spann - Last Filed: 07/30/16 10:12> Meds - Medications Medications: Current Medications Acetaminophen (Tylenol 325mg Tab) 650 mg PO Q6 PRN PRN Reason: Fever >100.4 F Last Admin: 07/30/16 01:25 Dose: 650 mg Amlodipine Besylate (Norvasc) 5 mg PO DAILY [facility] Last Admin: 07/30/16 09:15 Dose: 5 mg Aspirin (Aspirin Chewable) 81 mg PO DAILY [facility] Last Admin: 07/30/16 09:14 Dose: 81 mg Clopidogrel Bisulfate (Plavix) 75 mg PO DAILY [facility] Last Admin: 07/30/16 09:14 Dose: 75 mg Docusate Sodium (Colace) 100 mg PO BID [facility] Last Admin: 07/30/16 09:14 Dose: 100 mg Enalapril Maleate (Vasotec) 10 mg PO DAILY [facility] Last Admin: 07/30/16 09:14 Dose: 10 mg Famotidine (Pepcid) 20 mg PO BID [facility] Last Admin: 07/30/16 09:14 Dose: 20 mg Glimepiride (Amaryl) 4 mg PO DAILY@0800 [facility] Last Admin: 07/30/16 08:13 Dose: 4 mg Heparin Sodium (Porcine) (Heparin) 5,000 units SC Q8 [facility] Home Med (Vorapaxar Sulfate [Zontivity]) 2.08 mg PO DAILY [facility] Hydromorphone HCl (Dilaudid) 0.5 mg IVP Q4H PRN PRN Reason: Pain, moderate (4-7) Stop: 07/31/16 07:00 Last Admin: 07/30/16 07:41 Dose: 0.5 mg Insulin Aspart (Novolog) 0 unit SC ACHS [facility] PRN Reason: Protocol Last Admin: 07/30/16 09:15 Dose: 1 [facility] Last Admin: 07/30/16 08:13 Dose: 500 mg Nicotine (Nicoderm Cq) 1 patch TD DAILY [facility] Last Admin: 07/30/16 09:15 Dose: 1 patch Nitroglycerin (Nitro-Bid 2% Oint) 0 ea TOP Q8 PRN PRN Reason: Other Ondansetron HCl (Zofran Inj) 4 mg IVP Q4 PRN PRN Reason: Nausea/Vomiting Last Admin: 07/30/16 07:46 Dose: 4 mg Oxycodone/Acetaminophen (Percocet 5/325 Mg Tab) 1 tab PO Q6H PRN PRN Reason: Pain, moderate (4-7) Stop: 08/03/16 07:01 Pioglitazone HCl (Actos) 30 mg PO DAILY [facility] Last Admin: 07/30/16 09:15 Dose: 30 mg Rosuvastatin Calcium (Crestor) 5 mg PO HS [facility] Sitagliptin Phosphate (Januvia) 50 mg PO BID [facility] Last Admin: 07/30/16 09:15 Dose: 50 mg Results - Vital Signs Recent Vital Signs: Last Vital Signs Temp 98.5 F 07/30/16 07:00 Pulse 99 H 07/30/16 07:00 Resp 18 07/30/16 07:00 BP 150/70 07/30/16 09:14 Pulse Ox 96 07/30/16 07:00 - Labs Result Diagrams: 07/30/16 06:20 07/30/16 06:20 Labs: Laboratory Results - last 24 hr 07/29/16 07/29/16 07/29/16 10:41 12:00 21:04 WBC RBC Hgb Hct MCV MCH MCHC RDW Plt Count MPV Sodium Potassium Chloride Carbon Dioxide Anion Gap BUN Creatinine Est GFR ( Amer) Est GFR (Non-Af Amer) POC Glucose (mg/dL) 209 H 141 H Random Glucose Calcium Blood Type A POSITIVE Antibody Screen Negative 07/30/16 07/30/16 07/30/16 06:12 06:20 06:20 WBC 6.5 RBC 3.74 L Hgb 9.4 L D Hct 28.9 L MCV 77.5 L MCH 25.1 L MCHC 32.4 L RDW 14.6 H Plt Count 371 MPV 8.4 Sodium 136 Potassium 3.3 L Chloride 101 Carbon Dioxide 26 Anion Gap 12 BUN 13 Creatinine 0.5 L Est GFR ( Amer) > 60 Est GFR (Non-Af Amer) > 60 POC Glucose (mg/dL) 151 H Random Glucose 139 H Calcium 7.5 L Blood Type Antibody Screen Attending/Attestation - Attestation I have personally seen and examined this patient.: Yes I have fully participated in the care of the patient.: Yes I have reviewed all pertinent clinical information: Yes Notes (Text): 07/30/16 10:12 This patient was seen and examined at 6 PM History, Physical, and Assessment and Plan were thoroughly gone over with the [employer]. Tyson Spann D.O.
[2016-07-29] MEDS: (Novolog) Insulin Aspart, Recombinant 100 u/ml 10 ml vial SC SCH (21:18)
[2016-07-29] MEDS: HYDROmorphone 0.5 mg/0.5 ml ISec IVP PRN (22:30)
[2016-07-30] MEDS: HYDROmorphone 0.5 mg/0.5 ml ISec IVP PRN ×6 (03:00→23:57)
[2016-07-30 06:29] LABS: HEMATOCRIT 28.9 % (34.0-47.0); MEAN CELL VOLUME 77.5 fL (81.0-99.0); MEAN CORPUSCULAR HEMOGLOBIN 25.1 pg (27.0-31.0); MEAN CORPUSCULAR HGB CONC 32.4 g/dL (33.0-37.0); MEAN PLATELET VOLUME 8.4 fL (7.2-11.7); RED CELL DISTRIBUTION WIDTH 14.6 % (11.5-14.5); WHITE BLOOD COUNT 6.5 K/uL (4.8-10.8)
[2016-07-30 06:37] LABS: CHLORIDE 101 mmol/L (98-107); POTASSIUM 3.3 mmol/L (3.6-5.2); SODIUM 136 mmol/L (132-148)
[2016-07-30 06:39] LABS: GFR AFRICAN-AMERICAN > 60
[2016-07-30 06:40] LABS: BLOOD UREA NITROGEN 13 mg/dL (7-17); CALCIUM 7.5 mg/dl (8.6-10.4); CARBON DIOXIDE 26 mmol/L (22-30); GLUCOSE,RANDOM 139 mg/dL (65-105)
[2016-07-30] MEDS: Sodium Chloride 0.9% 1,000 ML IV SCH (06:40)
--- NOTE | 2016-07-30 08:43 | CP.PCM.PN ---
Subjective - Date & Time of Evaluation Date of Evaluation: 07/30/16 Time of Evaluation: 08:40 - Subjective Subjective: Surgery Dr. Castillo Pt seen and examined. Resting comfortably in bed. Pain controlled. Low grade fever overnight. Otherwise no complaints. Objective - Vital Signs/Intake and Output Vital Signs (last 24 hours): Temp Pulse Resp BP Pulse Ox 98.5 F 99 H 18 154/74 H 96 07/30/16 07:00 07/30/16 07:00 07/30/16 07:00 07/30/16 07:00 07/30/16 07:00 Intake and Output: 07/30/16 07/30/16 06:59 18:59 Intake Total 370 520 Output Total 500 Balance -130 520 - Medications Medications: Current Medications Acetaminophen (Tylenol 325mg Tab) 650 mg PO Q6 PRN PRN Reason: Fever >100.4 F Last Admin: 07/30/16 01:25 Dose: 650 mg Amlodipine Besylate (Norvasc) 5 mg PO DAILY [facility] Aspirin (Aspirin Chewable) 81 mg PO DAILY [facility] Clopidogrel Bisulfate (Plavix) 75 mg PO DAILY [facility] Docusate Sodium (Colace) 100 mg PO BID [facility] Enalapril Maleate (Vasotec) 10 mg PO DAILY [facility] Famotidine (Pepcid) 20 mg PO BID [facility] Last Admin: 07/29/16 18:30 Dose: Not Given Glimepiride (Amaryl) 4 mg PO DAILY@0800 [facility] Last Admin: 07/30/16 08:13 Dose: 4 mg Heparin Sodium (Porcine) (Heparin) 5,000 units SC Q8 [facility] Home Med (Vorapaxar Sulfate [Zontivity]) 2.08 mg PO DAILY [facility] Hydromorphone HCl (Dilaudid) 0.5 mg IVP Q4H PRN PRN Reason: Pain, moderate (4-7) Stop: 07/31/16 07:00 Last Admin: 07/30/16 07:41 Dose: 0.5 mg Insulin Aspart (Novolog) 0 unit SC ACHS [facility] PRN Reason: Protocol Last Admin: 07/29/16 21:18 Dose: Not Given [facility] Last Admin: 07/30/16 08:13 Dose: 500 mg Nicotine (Nicoderm Cq) 1 patch TD DAILY [facility] Nitroglycerin (Nitro-Bid 2% Oint) 0 ea TOP Q8 PRN PRN Reason: Other Ondansetron HCl (Zofran Inj) 4 mg IVP Q4 PRN PRN Reason: Nausea/Vomiting Last Admin: 07/30/16 07:46 Dose: 4 mg Oxycodone/Acetaminophen (Percocet 5/325 Mg Tab) 1 tab PO Q6H PRN PRN Reason: Pain, moderate (4-7) Stop: 08/03/16 07:01 Pioglitazone HCl (Actos) 30 mg PO DAILY [facility] Rosuvastatin Calcium (Crestor) 5 mg PO HS [facility] Sitagliptin Phosphate (Januvia) 50 mg PO BID [facility] Last Admin: 07/29/16 18:30 Dose: Not Given - Labs Labs: 07/30/16 06:20 07/30/16 06:20 - Constitutional Appears: Non-toxic, No Acute Distress - Head Exam Head Exam: ATRAUMATIC, NORMOCEPHALIC - Eye Exam Eye Exam: EOMI - ENT Exam ENT Exam: Mucous Membranes Moist - Neck Exam Neck Exam: Full ROM - Respiratory Exam Respiratory Exam: NORMAL BREATHING PATTERN. absent: Accessory Muscle Use, Respiratory Distress - GI/Abdominal Exam GI & Abdominal Exam: Soft. absent: Distended, Firm, Guarding, Rigid, Tenderness - Extremities Exam Additional comments: LLE, distal pulse not palpable or dopplerable, LE is warm to touch, sensation and motor fxn intact, no signs of compromised circulation, groin dressing is C/D /I - Neurological Exam Neurological Exam: Alert, Awake, Oriented x3 Assessment and Plan - Assessment and Plan (Free Text) Assessment: 70F w. stenosis of L common femoral artery, s/p repair of left common femoral endarterectomy w. patch angioplasty, POD#1 -D/C david -D/C IVF -OOB to chair w. assistance -PT -neurovascular checks -pain management -c/w medical management -d/w attending Jose PGY2
[2016-07-30] MEDS: (Novolog) Insulin Aspart, Recombinant 100 u/ml 10 ml vial SC SCH ×4 (09:15→22:08)
[2016-07-30] MEDS: VORAPAXAR SULFATE 2.08 MG PO SCH (10:51)
[2016-07-30] MEDS ORDERED: Potassium Chloride 20 mEq ER Tab PO ONE (11:15)
--- NOTE | 2016-07-30 20:49 | CP.PCM.PN ---
Subjective - Date & Time of Evaluation Date of Evaluation: 07/30/16 Time of Evaluation: 07:40 - Subjective Subjective: Pt is a 70F with PMHx of Diabetes, HTN, and PVD. Pt is s/p Focal Occlusion of Left Femoral Artery Endarterectomy. Overnight, she complained of "pins and needles on her left leg and had a fever of 11.04 which was relieved with Tylenol. Today, shes has no complaints and denies headache, fever chills, chest pain, difficulty breathing, abdominal pain, nausea, vomiting or diarrhea. Objective - Vital Signs/Intake and Output Vital Signs (last 24 hours): Temp Pulse Resp BP Pulse Ox 98.5 F 100 H 20 125/75 98 07/30/16 15:39 07/30/16 15:39 07/30/16 15:39 07/30/16 15:39 07/30/16 15:39 Intake and Output: 07/30/16 07/31/16 18:59 06:59 Intake Total 1400 Output Total 600 Balance 800 - Medications Medications: Current Medications Acetaminophen (Tylenol 325mg Tab) 650 mg PO Q6 PRN PRN Reason: Fever >100.4 F Last Admin: 07/30/16 01:25 Dose: 650 mg Amlodipine Besylate (Norvasc) 5 mg PO DAILY [facility] Last Admin: 07/30/16 09:15 Dose: 5 mg Aspirin (Aspirin Chewable) 81 mg PO DAILY [facility] Last Admin: 07/30/16 09:14 Dose: 81 mg Clopidogrel Bisulfate (Plavix) 75 mg PO DAILY [facility] Last Admin: 07/30/16 09:14 Dose: 75 mg Docusate Sodium (Colace) 100 mg PO BID [facility] Last Admin: 07/30/16 17:22 Dose: 100 mg Enalapril Maleate (Vasotec) 10 mg PO DAILY [facility] Last Admin: 07/30/16 09:14 Dose: 10 mg Famotidine (Pepcid) 20 mg PO BID [facility] Last Admin: 07/30/16 17:21 Dose: 20 mg Glimepiride (Amaryl) 4 mg PO DAILY@0800 [facility] Last Admin: 07/30/16 08:13 Dose: 4 mg Heparin Sodium (Porcine) (Heparin) 5,000 units SC Q8 [facility] Last Admin: 07/30/16 14:00 Dose: 5,000 units Home Med (Vorapaxar Sulfate [Zontivity]) 2.08 mg PO DAILY [facility] Last Admin: 07/30/16 10:51 Dose: 2.08 mg Hydromorphone HCl (Dilaudid) 0.5 mg IVP Q4H PRN PRN Reason: Pain, moderate (4-7) Stop: 07/31/16 07:00 Last Admin: 07/30/16 19:37 Dose: 0.5 mg Insulin Aspart (Novolog) 0 unit SC ACHS [facility] PRN Reason: Protocol Last Admin: 07/30/16 17:22 Dose: Not Given [facility]) [facility] Last Admin: 07/30/16 17:21 Dose: 500 mg Nicotine (Nicoderm Cq) 1 patch TD DAILY [facility] Last Admin: 07/30/16 09:15 Dose: 1 patch Nitroglycerin (Nitro-Bid 2% Oint) 0 ea TOP Q8 PRN PRN Reason: Other Ondansetron HCl (Zofran Inj) 4 mg IVP Q4 PRN PRN Reason: Nausea/Vomiting Last Admin: 07/30/16 07:46 Dose: 4 mg Oxycodone/Acetaminophen (Percocet 5/325 Mg Tab) 1 tab PO Q6H PRN PRN Reason: Pain, moderate (4-7) Stop: 08/03/16 07:01 Pioglitazone HCl (Actos) 30 mg PO DAILY [facility] Last Admin: 07/30/16 09:15 Dose: 30 mg Rosuvastatin Calcium (Crestor) 5 mg PO [facility] Sitagliptin Phosphate (Januvia) 50 mg PO BID [facility] Last Admin: 07/30/16 17:22 Dose: 50 mg - Labs Labs: 07/30/16 06:20 07/30/16 06:20 - Constitutional Appears: Non-toxic, No Acute Distress - Head Exam Head Exam: ATRAUMATIC, NORMOCEPHALIC - Eye Exam Eye Exam: EOMI - ENT Exam ENT Exam: Mucous Membranes Moist - Respiratory Exam Respiratory Exam: Clear to Ausculation Bilateral, NORMAL BREATHING PATTERN - Cardiovascular Exam Cardiovascular Exam: REGULAR RHYTHM, RRR, +S1, +S2. absent: JVD - GI/Abdominal Exam GI & Abdominal Exam: Soft, Normal Bowel Sounds. absent: Tenderness - Extremities Exam Extremities Exam: absent: Joint Swelling, Pedal Edema - Neurological Exam Neurological Exam: Alert, Awake, Oriented x3 - Psychiatric Exam Psychiatric exam: Normal Affect, Normal Mood - Skin Skin Exam: Dry, Intact, Normal Color, Warm Assessment and Plan - Assessment and Plan (Free Text) Plan: 1. repair of left common femoral endarterectomy w. patch angioplasty -Will follow surgery recs -D/C david -D/C IVF -OOB to chair w. assistance -PT -neurovascular checks -Dilaudid .5mg q4 prn pain 2. DM2 -Amaryl 4mg PO daily -Metformin 500 BID -Actos 30mg PO daily 3. HTN -Amlodapine 5mg PO daily -Enalapril 10mg PO daily 4. PVD Plavix 75mg daily ASA 81mg Vorapaxar Sulfate 2.08mg PO daily 5. HLD Crestor 5mg PO daily 6. Nicotine addiction Nicoderm PPX -Zofran nausea -Heparin 5000SC q8h
--- NOTE | 2016-07-31 04:04 | CP.PCM.PN ---
Subjective - Date & Time of Evaluation Date of Evaluation: 07/31/16 Time of Evaluation: 03:57 - Subjective Subjective: PGY 1 Medicine Note- Hospitalist service- Dr. Malave's service Pt seen and examined in no acute distress. Patient reported leg pain and receiving pain medications as needed. She denies headaches, chest pain, shortness of breath, paresthesias, subjective fevers or chills at this time. Objective - Vital Signs/Intake and Output Vital Signs (last 24 hours): Temp Pulse Resp BP Pulse Ox 98.3 F 111 H 20 124/76 96 07/30/16 23:00 07/30/16 23:00 07/30/16 23:00 07/30/16 23:00 07/30/16 23:00 Intake and Output: 07/30/16 07/31/16 18:59 06:59 Intake Total 1400 400 Output Total 600 Balance 800 400 - Medications Medications: Current Medications Acetaminophen (Tylenol 325mg Tab) 650 mg PO Q6 PRN PRN Reason: Fever >100.4 F Last Admin: 07/30/16 01:25 Dose: 650 mg Amlodipine Besylate (Norvasc) 5 mg PO DAILY [facility] Last Admin: 07/30/16 09:15 Dose: 5 mg Aspirin (Aspirin Chewable) 81 mg PO DAILY [facility] Last Admin: 07/30/16 09:14 Dose: 81 mg Clopidogrel Bisulfate (Plavix) 75 mg PO DAILY [facility] Last Admin: 07/30/16 09:14 Dose: 75 mg Docusate Sodium (Colace) 100 mg PO BID [facility] Last Admin: 07/30/16 17:22 Dose: 100 mg Enalapril Maleate (Vasotec) 10 mg PO DAILY [facility] Last Admin: 07/30/16 09:14 Dose: 10 mg Famotidine (Pepcid) 20 mg PO BID [facility] Last Admin: 07/30/16 17:21 Dose: 20 mg Glimepiride (Amaryl) 4 mg PO DAILY@0800 [facility] Last Admin: 07/30/16 08:13 Dose: 4 mg Heparin Sodium (Porcine) (Heparin) 5,000 units SC Q8 [facility] Last Admin: 07/30/16 22:08 Dose: 5,000 units Home Med (Vorapaxar Sulfate [Zontivity]) 2.08 mg PO DAILY [facility] Last Admin: 07/30/16 10:51 Dose: 2.08 mg Hydromorphone HCl (Dilaudid) 0.5 mg IVP Q4H PRN PRN Reason: Pain, moderate (4-7) Stop: 07/31/16 07:00 Last Admin: 07/30/16 23:57 Dose: 0.5 mg Insulin Aspart (Novolog) 0 unit SC ACHS [facility] PRN Reason: Protocol Last Admin: 07/30/16 22:08 Dose: Not Given [facility] Last Admin: 07/30/16 17:21 Dose: 500 mg Nicotine (Nicoderm Cq) 1 patch TD DAILY [facility] Last Admin: 07/30/16 09:15 Dose: 1 patch Nitroglycerin (Nitro-Bid 2% Oint) 0 ea TOP Q8 PRN PRN Reason: Other Ondansetron HCl (Zofran Inj) 4 mg IVP Q4 PRN PRN Reason: Nausea/Vomiting Last Admin: 07/30/16 07:46 Dose: 4 mg Oxycodone/Acetaminophen (Percocet 5/325 Mg Tab) 1 tab PO Q6H PRN PRN Reason: Pain, moderate (4-7) Stop: 08/03/16 07:01 Pioglitazone HCl (Actos) 30 mg PO DAILY [facility] Last Admin: 07/30/16 09:15 Dose: 30 mg Rosuvastatin Calcium (Crestor) 5 mg PO HS [facility] Last Admin: 07/30/16 22:07 Dose: 5 mg Sitagliptin Phosphate (Januvia) 50 mg PO BID [facility] Last Admin: 07/30/16 17:22 Dose: 50 mg - Labs Labs: 07/30/16 06:20 07/30/16 06:20 - Constitutional Appears: Non-toxic, No Acute Distress - Head Exam Head Exam: ATRAUMATIC, NORMAL INSPECTION, NORMOCEPHALIC - Eye Exam Eye Exam: EOMI, Normal appearance, PERRL Pupil Exam: NORMAL ACCOMODATION - ENT Exam ENT Exam: Mucous Membranes Moist - Neck Exam Neck Exam: Full ROM - Respiratory Exam Respiratory Exam: NORMAL BREATHING PATTERN. absent: Decreased Breath Sounds, Wheezes - Cardiovascular Exam Cardiovascular Exam: +S1, +S2 - GI/Abdominal Exam GI & Abdominal Exam: Soft - Extremities Exam Extremities Exam: Full ROM. absent: Pedal Edema Additional comments: sensation and motor function appreciated - Back Exam Back Exam: Full ROM - Neurological Exam Neurological Exam: Alert, Awake, CN II-XII Intact, Oriented x3 - Psychiatric Exam Psychiatric exam: Flat Affect - Skin Skin Exam: Dry, Intact, Normal Color, Warm Assessment and Plan - Assessment and Plan (Free Text) Assessment: Repair of left common femoral endarterectomy w. patch angioplasty -Will follow surgery recs -D/C david -D/C IVF -OOB to chair w. assistance -PT -neurovascular checks -Dilaudid 0.5mg q4 prn pain/ Percocet PRN DM2 -Amaryl 4mg PO daily -Metformin 500 BID -Actos 30mg PO daily -Accuchecks HTN -Amlodipine 5mg PO daily -Enalapril 10mg PO daily -Normotensive. Continue to monitor PVD Plavix 75mg daily ASA 81mg Vorapaxar Sulfate 2.08mg PO daily HLD Crestor 5mg PO daily Nicotine addiction Nicoderm Counseled on cessation PPX -Zofran nausea -Heparin 5000SC q8h -Contraindications for SCDs due to PVD
[2016-07-31] MEDS: HYDROmorphone 0.5 mg/0.5 ml ISec IVP PRN (04:35)
[2016-07-31 06:57] LABS: CHLORIDE 100 mmol/L (98-107); POTASSIUM 3.7 mmol/L (3.6-5.2); SODIUM 135 mmol/L (132-148)
[2016-07-31 06:59] LABS: BILIRUBIN,TOTAL 0.5 mg/dL (0.2-1.3); CARBON DIOXIDE 25 mmol/L (22-30); GFR AFRICAN-AMERICAN > 60
[2016-07-31 07:00] LABS: ALKALINE PHOSPHATASE 72 U/L (38-126); ALT/SGPT 17 U/L (9-52); AST/SGOT 19 U/L (14-36); BLOOD UREA NITROGEN 12 mg/dL (7-17); CALCIUM 7.6 mg/dl (8.6-10.4); GLUCOSE,RANDOM 119 mg/dL (65-105); MAGNESIUM 1.3 mg/dL (1.6-2.3); PHOSPHOROUS 2.9 mg/dL (2.5-4.5)
[2016-07-31] MEDS ORDERED: Oxycodone/Acetaminophen 5/325 mg Tab PO PRN (07:00)
[2016-07-31 07:01] LABS: BASO % 0.5 % (0.0-2.0); EOS # 0.1 K/uL (0.0-0.7); EOS % 2.2 % (0.0-4.0); HEMATOCRIT 27.1 % (34.0-47.0); MEAN CELL VOLUME 77.9 fL (81.0-99.0); MEAN CORPUSCULAR HEMOGLOBIN 25.3 pg (27.0-31.0); MEAN CORPUSCULAR HGB CONC 32.4 g/dL (33.0-37.0); MEAN PLATELET VOLUME 8.7 fL (7.2-11.7); MONO # 0.9 K/uL (0.0-0.8); MONO % 13.9 % (0.0-10.0); RED CELL DISTRIBUTION WIDTH 14.4 % (11.5-14.5); WHITE BLOOD COUNT 6.5 K/uL (4.8-10.8)
[2016-07-31] MEDS: (Novolog) Insulin Aspart, Recombinant 100 u/ml 10 ml vial SC SCH ×5 (08:20→22:12)
--- NOTE | 2016-07-31 09:23 | CP.PCM.PN ---
Subjective - Date & Time of Evaluation Date of Evaluation: 07/31/16 Time of Evaluation: 07:00 - Subjective Subjective: VASCULAR SURGERY PROGRESS NOTE FOR DR. LEVIN Patient seen and examined at bedside. She reports pain in the left foot. Per the nurse, the patient was refusing the Percocet that was ordered because it makes her vomit. Objective - Vital Signs/Intake and Output Vital Signs (last 24 hours): Temp Pulse Resp BP Pulse Ox 98.4 F 72 18 132/70 94 L 07/31/16 07:00 07/31/16 07:00 07/31/16 07:00 07/31/16 07:00 07/31/16 07:00 Intake and Output: 07/31/16 07/31/16 06:59 18:59 Intake Total 510 Output Total 300 Balance 210 - Medications Medications: Current Medications Acetaminophen (Tylenol 325mg Tab) 650 mg PO Q6 PRN PRN Reason: Fever >100.4 F Last Admin: 07/30/16 01:25 Dose: 650 mg Acetaminophen/Codeine Phosphate (Tylenol/Codeine 300 Mg/30 Mg) 1 ea PO Q4 PRN PRN Reason: Pain, moderate (4-7) Amlodipine Besylate (Norvasc) 5 mg PO DAILY [facility] Last Admin: 07/30/16 09:15 Dose: 5 mg Aspirin (Aspirin Chewable) 81 mg PO DAILY [facility] Last Admin: 07/30/16 09:14 Dose: 81 mg Clopidogrel Bisulfate (Plavix) 75 mg PO DAILY [facility] Last Admin: 07/30/16 09:14 Dose: 75 mg Docusate Sodium (Colace) 100 mg PO BID [facility] Last Admin: 07/30/16 17:22 Dose: 100 mg Enalapril Maleate (Vasotec) 10 mg PO DAILY [facility] Last Admin: 07/30/16 09:14 Dose: 10 mg Famotidine (Pepcid) 20 mg PO BID [facility] Last Admin: 07/30/16 17:21 Dose: 20 mg Glimepiride (Amaryl) 4 mg PO DAILY@0800 [facility] Last Admin: 07/31/16 09:10 Dose: 4 mg Heparin Sodium (Porcine) (Heparin) 5,000 units SC Q8 [facility] Last Admin: 07/31/16 05:37 Dose: 5,000 units Home Med (Vorapaxar Sulfate [Zontivity]) 2.08 mg PO DAILY [facility] Last Admin: 07/30/16 10:51 Dose: 2.08 mg Insulin Aspart (Novolog) 0 unit SC ACHS [facility] PRN Reason: Protocol Last Admin: 07/31/16 08:20 Dose: Not Given Metformin HCl (Glucophage) 500 mg PO BIDCC [facility] Last Admin: 07/31/16 09:10 Dose: 500 mg Nicotine (Nicoderm Cq) 1 patch TD DAILY [facility] Last Admin: 07/30/16 09:15 Dose: 1 patch Nitroglycerin (Nitro-Bid 2% Oint) 0 ea TOP Q8 PRN PRN Reason: Other Ondansetron HCl (Zofran Inj) 4 mg IVP Q4 PRN PRN Reason: Nausea/Vomiting Last Admin: 07/30/16 07:46 Dose: 4 mg Pioglitazone HCl (Actos) 30 mg PO DAILY [facility] Last Admin: 07/30/16 09:15 Dose: 30 mg Rosuvastatin Calcium (Crestor) 5 mg PO HS [facility] Last Admin: 07/30/16 22:07 Dose: 5 mg Sitagliptin Phosphate (Januvia) 50 mg PO BID [facility] Last Admin: 07/31/16 09:10 Dose: 50 mg - Labs Labs: 07/31/16 06:27 07/31/16 06:27 - Constitutional Appears: Non-toxic, No Acute Distress - Respiratory Exam Respiratory Exam: NORMAL BREATHING PATTERN. absent: Respiratory Distress - Cardiovascular Exam Cardiovascular Exam: +S1, +S2 - Extremities Exam Additional comments: Left groin pressure dressing from OR, clean/dry/intact Left foot warm, Dopplerable DP pulse - Neurological Exam Neurological Exam: Alert, Awake - Psychiatric Exam Psychiatric exam: Normal Affect, Normal Mood Assessment and Plan - Assessment and Plan (Free Text) Assessment: 70yo F with stenosis of L common femoral artery, s/p repair of left common femoral endarterectomy w. patch angioplasty, POD#2 - Afebrile, VSS - OOB to chair w. assistance - PT - Right DP doppler signal present - Ordered Tylenol #3 with Codeine which patient stated she would prefer over Percocet - Will discuss plan with Dr. Anna Díaz PGY-2
--- NOTE | 2016-07-31 10:27 | CP.PCM.PN ---
Subjective - Date & Time of Evaluation Date of Evaluation: 07/31/16 Time of Evaluation: 10:25 - Subjective Subjective: doing well continues with some foot pain and has warm foot with audible dopplers- not present earlier Objective - Vital Signs/Intake and Output Vital Signs (last 24 hours): Temp Pulse Resp BP Pulse Ox 98.4 F 72 18 132/70 94 L 07/31/16 07:00 07/31/16 07:00 07/31/16 07:00 07/31/16 07:00 07/31/16 07:00 Intake and Output: 07/31/16 07/31/16 06:59 18:59 Intake Total 510 Output Total 300 Balance 210 - Medications Medications: Current Medications Acetaminophen (Tylenol 325mg Tab) 650 mg PO Q6 PRN PRN Reason: Fever >100.4 F Last Admin: 07/30/16 01:25 Dose: 650 mg Acetaminophen/Codeine Phosphate (Tylenol/Codeine 300 Mg/30 Mg) 1 ea PO Q4 PRN PRN Reason: Pain, moderate (4-7) Amlodipine Besylate (Norvasc) 5 mg PO DAILY [facility] Last Admin: 07/30/16 09:15 Dose: 5 mg Aspirin (Aspirin Chewable) 81 mg PO DAILY [facility] Last Admin: 07/30/16 09:14 Dose: 81 mg Clopidogrel Bisulfate (Plavix) 75 mg PO DAILY [facility] Last Admin: 07/30/16 09:14 Dose: 75 mg Docusate Sodium (Colace) 100 mg PO BID [facility] Last Admin: 07/30/16 17:22 Dose: 100 mg Enalapril Maleate (Vasotec) 10 mg PO DAILY [facility] Last Admin: 07/30/16 09:14 Dose: 10 mg Famotidine (Pepcid) 20 mg PO BID [facility] Last Admin: 07/30/16 17:21 Dose: 20 mg Glimepiride (Amaryl) 4 mg PO DAILY@0800 [facility] Last Admin: 07/31/16 09:10 Dose: 4 mg Heparin Sodium (Porcine) (Heparin) 5,000 units SC Q8 [facility] Last Admin: 07/31/16 05:37 Dose: 5,000 units Home Med (Vorapaxar Sulfate [Zontivity]) 2.08 mg PO DAILY [facility] Last Admin: 07/30/16 10:51 Dose: 2.08 mg Insulin Aspart (Novolog) 0 unit SC ACHS [facility] PRN Reason: Protocol Last Admin: 07/31/16 08:20 Dose: Not Given Metformin HCl (Glucophage) 500 mg PO BIDCC [facility] Last Admin: 07/31/16 09:10 Dose: 500 mg Nicotine (Nicoderm Cq) 1 patch TD DAILY [facility] Last Admin: 07/30/16 09:15 Dose: 1 patch Nitroglycerin (Nitro-Bid 2% Oint) 0 ea TOP Q8 PRN PRN Reason: Other Ondansetron HCl (Zofran Inj) 4 mg IVP Q4 PRN PRN Reason: Nausea/Vomiting Last Admin: 07/30/16 07:46 Dose: 4 mg Pioglitazone HCl (Actos) 30 mg PO DAILY [facility] Last Admin: 07/30/16 09:15 Dose: 30 mg Rosuvastatin Calcium (Crestor) 5 mg PO HS [facility] Last Admin: 07/30/16 22:07 Dose: 5 mg Sitagliptin Phosphate (Januvia) 50 mg PO BID [facility] Last Admin: 07/31/16 09:10 Dose: 50 mg - Labs Labs: 07/31/16 06:27 07/31/16 06:27
[2016-07-31] MEDS: Acetaminophen-Codeine 300/30 mg Tab PO PRN ×3 (10:31→22:11)
[2016-07-31] MEDS: VORAPAXAR SULFATE 2.08 MG PO SCH (10:33)
[2016-07-31] MEDS: Docusate-Senna 50 mg-8.6 mg Tab PO SCH (18:02)
--- NOTE | 2016-08-01 01:10 | CP.PCM.PN ---
Subjective - Date & Time of Evaluation Date of Evaluation: 08/01/16 Time of Evaluation: 01:04 - Subjective Subjective: PGY 1 Medicine Note- Dr. Malave's service Pt seen and examined in no acute distress. Patient reported decreased leg pain . Patient observed ambulating in room and in hallway. Patient states that she uses the 4-point walker to ambulate. She anticipates discharge soon. She denies headaches, chest pain, shortness of breath, paresthesias, subjective fevers or chills at this time. Objective - Vital Signs/Intake and Output Vital Signs (last 24 hours): Temp Pulse Resp BP Pulse Ox 98.1 F 99 H 20 111/61 100 07/31/16 23:00 07/31/16 23:00 07/31/16 23:00 07/31/16 23:00 07/31/16 23:00 Intake and Output: 07/31/16 08/01/16 18:59 06:59 Intake Total 240 Balance 240 - Medications Medications: Current Medications Acetaminophen (Tylenol 325mg Tab) 650 mg PO Q6 PRN PRN Reason: Fever >100.4 F Last Admin: 07/30/16 01:25 Dose: 650 mg Acetaminophen/Codeine Phosphate (Tylenol/Codeine 300 Mg/30 Mg) 1 ea PO Q4 PRN PRN Reason: Pain, moderate (4-7) Last Admin: 07/31/16 22:11 Dose: 1 ea Amlodipine Besylate (Norvasc) 5 mg PO DAILY [facility] Last Admin: 07/31/16 10:32 Dose: 5 mg Aspirin (Aspirin Chewable) 81 mg PO DAILY [facility] Last Admin: 07/31/16 10:32 Dose: 81 mg Clopidogrel Bisulfate (Plavix) 75 mg PO DAILY [facility] Last Admin: 07/31/16 10:32 Dose: 75 mg Enalapril Maleate (Vasotec) 10 mg PO DAILY [facility] Last Admin: 07/31/16 10:31 Dose: 10 mg Famotidine (Pepcid) 20 mg PO BID [facility] Last Admin: 07/31/16 18:02 Dose: 20 mg Glimepiride (Amaryl) 4 mg PO DAILY@0800 [facility] Last Admin: 07/31/16 09:10 Dose: 4 mg Heparin Sodium (Porcine) (Heparin) 5,000 units SC Q8 [facility] Last Admin: 07/31/16 22:13 Dose: 5,000 units Home Med (Vorapaxar Sulfate [Zontivity]) 2.08 mg PO DAILY [facility] Last Admin: 07/31/16 10:33 Dose: 2.08 mg Insulin Aspart (Novolog) 0 unit SC ACHS [facility] PRN Reason: Protocol Last Admin: 07/31/16 22:12 Dose: Not Given Metformin HCl (Glucophage) 500 mg PO BIDCC [facility] Last Admin: 07/31/16 18:00 Dose: 500 mg Nicotine (Nicoderm Cq) 1 patch TD DAILY [facility] Last Admin: 07/31/16 10:33 Dose: 1 patch Nitroglycerin (Nitro-Bid 2% Oint) 0 ea TOP Q8 PRN PRN Reason: Other Ondansetron HCl (Zofran Inj) 4 mg IVP Q4 PRN PRN Reason: Nausea/Vomiting Last Admin: 07/30/16 07:46 Dose: 4 mg Pioglitazone HCl (Actos) 30 mg PO DAILY [facility] Last Admin: 07/31/16 13:18 Dose: 30 mg Rosuvastatin Calcium (Crestor) 5 mg PO [facility] Last Admin: 07/31/16 22:11 Dose: 5 mg Senna/Docusate Sodium (Senokot S 50 Mg-8.6 Mg) 1 tab PO BID [facility] Stop: 08/01/16 10:01 Last Admin: 07/31/16 18:02 Dose: 1 tab Sitagliptin Phosphate (Januvia) 50 mg PO BID [facility] Last Admin: 07/31/16 18:02 Dose: 50 mg - Labs Labs: 07/31/16 06:27 07/31/16 06:27 - Constitutional Appears: Non-toxic, No Acute Distress - Head Exam Head Exam: ATRAUMATIC, NORMAL INSPECTION, NORMOCEPHALIC - Eye Exam Eye Exam: EOMI, Normal appearance, PERRL Pupil Exam: NORMAL ACCOMODATION - ENT Exam ENT Exam: Mucous Membranes Moist - Neck Exam Neck Exam: Full ROM - Respiratory Exam Respiratory Exam: Clear to Ausculation Bilateral. absent: Wheezes - Cardiovascular Exam Cardiovascular Exam: +S1, +S2 - GI/Abdominal Exam GI & Abdominal Exam: Soft, Normal Bowel Sounds - Extremities Exam Extremities Exam: Full ROM, Normal Capillary Refill, Normal Inspection Additional comments: left heel tenderness - Neurological Exam Neurological Exam: Alert, Awake, Oriented x3 - Psychiatric Exam Psychiatric exam: Normal Affect, Normal Mood - Skin Skin Exam: Dry, Intact, Normal Color, Warm Assessment and Plan - Assessment and Plan (Free Text) Assessment: Repair of left common femoral endarterectomy w. patch angioplasty -Will follow surgery recs -OOB to chair w. assistance - Right DP doppler signal present -PT- F/U recommendations -neurovascular checks -Tylenol with codeine DM2 -Amaryl 4mg PO daily -Metformin 500 BID -Actos 30mg PO daily -Accuchecks HTN -Amlodipine 5mg PO daily -Enalapril 10mg PO daily -Normotensive. Continue to monitor PVD Plavix 75mg daily ASA 81mg Vorapaxar Sulfate 2.08mg PO daily HLD Crestor 5mg PO daily Nicotine addiction Nicoderm Counseled on cessation PPX -Zofran nausea -Heparin 5000SC q8h -Contraindications for SCDs due to PVD -PT/OT suggested
[2016-08-01] MEDS: Acetaminophen-Codeine 300/30 mg Tab PO PRN ×3 (05:21→22:30)
[2016-08-01 06:55] LABS: BASO % 0.4 % (0.0-2.0); EOS # 0.2 K/uL (0.0-0.7); HEMATOCRIT 26.6 % (34.0-47.0); LYMPH # 0.8 K/uL (1.0-4.3); LYMPH % 13.6 % (20.0-40.0); MEAN CELL VOLUME 78.1 fL (81.0-99.0); MEAN CORPUSCULAR HEMOGLOBIN 25.3 pg (27.0-31.0); MEAN CORPUSCULAR HGB CONC 32.4 g/dL (33.0-37.0); MEAN PLATELET VOLUME 8.5 fL (7.2-11.7); MONO # 0.7 K/uL (0.0-0.8); MONO % 13.3 % (0.0-10.0); RED CELL DISTRIBUTION WIDTH 14.4 % (11.5-14.5); WHITE BLOOD COUNT 5.6 K/uL (4.8-10.8)
[2016-08-01 07:04] LABS: CHLORIDE 101 mmol/L (98-107); SODIUM 134 mmol/L (132-148)
[2016-08-01 07:05] LABS: POTASSIUM 3.2 mmol/L (3.6-5.2)
[2016-08-01 07:06] LABS: GFR AFRICAN-AMERICAN > 60
[2016-08-01 07:07] LABS: ALB/GLOB RATIO 0.9 (1.0-2.1); ALKALINE PHOSPHATASE 68 U/L (38-126); ALT/SGPT 28 U/L (9-52); AST/SGOT 17 U/L (14-36); BILIRUBIN,TOTAL 0.3 mg/dL (0.2-1.3); BLOOD UREA NITROGEN 11 mg/dL (7-17); CALCIUM 8.2 mg/dl (8.6-10.4); CARBON DIOXIDE 23 mmol/L (22-30); GLUCOSE,RANDOM 85 mg/dL (65-105); PHOSPHOROUS 3.6 mg/dL (2.5-4.5)
[2016-08-01 07:08] LABS: MAGNESIUM 1.2 mg/dL (1.6-2.3)
[2016-08-01] MEDS: (Novolog) Insulin Aspart, Recombinant 100 u/ml 10 ml vial SC SCH ×4 (08:03→22:26)
[2016-08-01] MEDS ORDERED: Potassium Chloride 20 mEq ER Tab PO SCH (09:45)
[2016-08-01] MEDS: Docusate-Senna 50 mg-8.6 mg Tab PO SCH (10:15)
[2016-08-01] MEDS: VORAPAXAR SULFATE 2.08 MG PO SCH (10:23)
[2016-08-01] MEDS: Sodium Chloride Nasal 0.65% Soln (30ml) NAS SCH ×3 (13:35→22:30)
[2016-08-01 15:25] VITALS: RESP 20
--- NOTE | 2016-08-01 22:59 | CP.PCM.PN ---
Subjective - Date & Time of Evaluation Date of Evaluation: 08/01/16 Time of Evaluation: 09:00 - Subjective Subjective: VASCULAR SURGERY PROGRESS NOTE FOR DR. LEVIN Patient seen and examined at bedside. She reports that the pain in her left foot is much improved since yesterday, although she still has some mild pain. She is ambulating in the hallways. Objective - Vital Signs/Intake and Output Vital Signs (last 24 hours): Temp Pulse Resp BP Pulse Ox 98.0 F 98 H 20 151/81 H 97 08/01/16 15:24 08/01/16 15:24 08/01/16 15:24 08/01/16 15:24 08/01/16 15:24 Intake and Output: 08/01/16 08/02/16 18:59 06:59 Intake Total 400 240 Output Total 2 Balance 398 240 - Medications Medications: Current Medications Acetaminophen (Tylenol 325mg Tab) 650 mg PO Q6 PRN PRN Reason: Fever >100.4 F Last Admin: 07/30/16 01:25 Dose: 650 mg Acetaminophen/Codeine Phosphate (Tylenol/Codeine 300 Mg/30 Mg) 1 ea PO Q4 PRN PRN Reason: Pain, moderate (4-7) Last Admin: 08/01/16 22:30 Dose: 1 ea Amlodipine Besylate (Norvasc) 5 mg PO DAILY [facility] Last Admin: 08/01/16 10:15 Dose: 5 mg Aspirin (Aspirin Chewable) 81 mg PO DAILY [facility] Last Admin: 08/01/16 10:18 Dose: 81 mg Clopidogrel Bisulfate (Plavix) 75 mg PO DAILY [facility] Last Admin: 08/01/16 10:16 Dose: 75 mg Enalapril Maleate (Vasotec) 10 mg PO DAILY [facility] Last Admin: 08/01/16 10:16 Dose: 10 mg Famotidine (Pepcid) 20 mg PO BID [facility] Last Admin: 08/01/16 17:13 Dose: 20 mg Glimepiride (Amaryl) 4 mg PO DAILY@0800 [facility] Last Admin: 08/01/16 08:20 Dose: 4 mg Heparin Sodium (Porcine) (Heparin) 5,000 units SC Q8 [facility] Last Admin: 08/01/16 22:25 Dose: 5,000 units Home Med (Vorapaxar Sulfate [Zontivity]) 2.08 mg PO DAILY [facility] Last Admin: 08/01/16 10:23 Dose: 2.08 mg Insulin Aspart (Novolog) 0 unit SC ACHS [facility] PRN Reason: Protocol Last Admin: 08/01/16 22:26 Dose: Not Given Metformin HCl (Glucophage) 500 mg PO BIDCC [facility] Last Admin: 08/01/16 17:13 Dose: 500 mg Nicotine (Nicoderm Cq) 1 patch TD DAILY [facility] Last Admin: 08/01/16 10:15 Dose: 1 patch Nitroglycerin (Nitro-Bid 2% Oint) 0 ea TOP Q8 PRN PRN Reason: Other Ondansetron HCl (Zofran Inj) 4 mg IVP Q4 PRN PRN Reason: Nausea/Vomiting Last Admin: 07/30/16 07:46 Dose: 4 mg Pioglitazone HCl (Actos) 30 mg PO DAILY [facility] Last Admin: 08/01/16 10:15 Dose: 30 mg Rosuvastatin Calcium (Crestor) 5 mg PO HS [facility] Last Admin: 08/01/16 22:25 Dose: 5 mg Sitagliptin Phosphate (Januvia) 50 mg PO BID [facility] Last Admin: 08/01/16 17:13 Dose: 50 mg Sodium Chloride ([place] Baby Saline 30 Ml) 0 ml JAVIER TID [facility] Stop: 08/03/16 14:01 Last Admin: 08/01/16 22:30 Dose: 1 spray - Labs Labs: 08/01/16 06:50 08/01/16 06:50 - Constitutional Appears: Non-toxic, No Acute Distress - Respiratory Exam Respiratory Exam: NORMAL BREATHING PATTERN. absent: Respiratory Distress - Cardiovascular Exam Cardiovascular Exam: +S1, +S2 - Extremities Exam Additional comments: Left foot warm and well perfused, doppler signal not heard Dressing to left groin clean/dry/intact - Neurological Exam Neurological Exam: Alert, Awake, Normal Gait, Oriented x3 Assessment and Plan - Assessment and Plan (Free Text) Assessment: 70yo F with stenosis of L common femoral artery, s/p repair of left common femoral endarterectomy w. patch angioplasty, POD#3 - Afebrile, VSS - OOB to chair w. assistance - PT - Left DP doppler signal not heard today (was heard yesterday), however, foot warm and well perfused - Discussed plan with Dr. Anna Díaz PGY-2
[2016-08-02] MEDS: Acetaminophen-Codeine 300/30 mg Tab PO PRN ×2 (05:19→11:41)
[2016-08-02] MEDS: (Novolog) Insulin Aspart, Recombinant 100 u/ml 10 ml vial SC SCH ×3 (08:08→17:30)
[2016-08-02] MEDS ORDERED: Potassium Chloride 20 mEq ER Tab PO ONE (09:34)
[2016-08-02] MEDS ORDERED: VORAPAXAR SULFATE 2.08 MG PO SCH (10:00)
[2016-08-02 11:36] VITALS: BP 127/75; PULSE 99
[2016-08-02] MEDS: Sodium Chloride Nasal 0.65% Soln (30ml) NAS SCH ×2 (11:40→14:26)
[2016-08-02] MEDS: Magnesium Sulfate 1 gm in D5W 1 GM/100 ML BAG IVPB SCH ×2 (11:47→12:56)
[2016-08-02 12:01] VITALS: TEMP 97.9; O2SAT 98
[2016-08-02] MEDS ORDERED: ZONTIVITY 2.08 MG PO SCH (12:30)
--- NOTE | 2016-08-02 16:27 | CP.PCM.PN ---
Subjective - Date & Time of Evaluation Date of Evaluation: 08/02/16 Time of Evaluation: 16:25 - Subjective Subjective: Surgery: Dr. Castillo Pt seen and examined. Resting comfortably in bed. Pain controlled. No complaints. Objective - Vital Signs/Intake and Output Vital Signs (last 24 hours): Temp Pulse Resp BP Pulse Ox 97.9 F 99 H 20 127/75 98 08/02/16 11:36 08/02/16 11:36 08/02/16 11:36 08/02/16 11:38 08/02/16 11:36 Intake and Output: 08/02/16 08/02/16 06:59 18:59 Intake Total 240 550 Balance 240 550 - Medications Medications: Current Medications Acetaminophen (Tylenol 325mg Tab) 650 mg PO Q6 PRN PRN Reason: Fever >100.4 F Last Admin: 07/30/16 01:25 Dose: 650 mg Acetaminophen/Codeine Phosphate (Tylenol/Codeine 300 Mg/30 Mg) 1 ea PO Q4 PRN PRN Reason: Pain, moderate (4-7) Last Admin: 08/02/16 11:41 Dose: 1 ea Amlodipine Besylate (Norvasc) 5 mg PO DAILY [facility] Last Admin: 08/02/16 11:39 Dose: 5 mg Aspirin (Aspirin Chewable) 81 mg PO DAILY [facility] Last Admin: 08/02/16 11:40 Dose: 81 mg Clopidogrel Bisulfate (Plavix) 75 mg PO DAILY [facility] Last Admin: 08/02/16 11:40 Dose: 75 mg Docusate Sodium (Colace) 100 mg PO BID [facility] Last Admin: 08/02/16 11:39 Dose: 100 mg Enalapril Maleate (Vasotec) 10 mg PO DAILY [facility] Last Admin: 08/02/16 11:38 Dose: 10 mg Famotidine (Pepcid) 20 mg PO BID [facility] Last Admin: 08/02/16 11:39 Dose: 20 mg Glimepiride (Amaryl) 4 mg PO DAILY@0800 [facility] Last Admin: 08/02/16 09:00 Dose: Not Given Home Med (Patient's Own Medication) 1 tab PO DAILY [facility] Last Admin: 08/02/16 12:58 Dose: 1 tab Insulin Aspart (Novolog) 0 unit SC [facility] PRN Reason: Protocol Last Admin: 08/02/16 12:56 Dose: 1 unit Metformin HCl (Glucophage) 500 mg PO BIDCC [facility] Last Admin: 08/02/16 09:00 Dose: Not Given Nicotine (Nicoderm Cq) 1 patch TD DAILY [facility] Last Admin: 08/02/16 11:40 Dose: 1 patch Nitroglycerin (Nitro-Bid 2% Oint) 0 ea TOP Q8 PRN PRN Reason: Other Ondansetron HCl (Zofran Inj) 4 mg IVP Q4 PRN PRN Reason: Nausea/Vomiting Last Admin: 08/02/16 09:01 Dose: 4 mg Pioglitazone HCl (Actos) 30 mg PO DAILY [facility] Last Admin: 08/02/16 11:46 Dose: Not Given Rosuvastatin Calcium (Crestor) 5 mg PO HS [facility] Last Admin: 08/01/16 22:25 Dose: 5 mg Sitagliptin Phosphate (Januvia) 50 mg PO BID [facility] Last Admin: 08/02/16 11:47 Dose: Not Given Sodium Chloride ([place] Baby Saline 30 Ml) 0 ml JAVIER TID [facility] Stop: 08/03/16 14:01 Last Admin: 08/02/16 14:26 Dose: 1 spray - Labs Labs: 08/01/16 06:50 08/01/16 06:50 - Constitutional Appears: Non-toxic, No Acute Distress - Head Exam Head Exam: ATRAUMATIC, NORMOCEPHALIC - Eye Exam Eye Exam: EOMI. absent: Scleral icterus - ENT Exam ENT Exam: Mucous Membranes Moist - Neck Exam Neck Exam: Full ROM - Respiratory Exam Respiratory Exam: NORMAL BREATHING PATTERN. absent: Accessory Muscle Use, Respiratory Distress - GI/Abdominal Exam GI & Abdominal Exam: Soft. absent: Tenderness - Extremities Exam Additional comments: LLE warm to touch, sensation and motor fxn intact, DP dopplerable - Neurological Exam Neurological Exam: Alert, Awake, Oriented x3 Assessment and Plan - Assessment and Plan (Free Text) Assessment: 70F w. stenosed L femoral artery, s/p repair of L common femoral endarterectomy w. patch angioplasty, POD#4 -Pt doing well -clear for d/c from surgical standpoint -to f/u w. Dr. Castillo in 1-2 weeks -d.w attending Jose PGY2
--- NOTE | 2016-08-02 17:05 | CP.PCM.PN ---
<OfeliaDamaso - Last Filed: 08/02/16 20:56> Subjective - Date & Time of Evaluation Date of Evaluation: 08/02/16 Time of Evaluation: 08:05 - Subjective Subjective: Pt seen and examined. Pt reports that she has some pain in her left leg. Pt is ambulating. Pt denies fever, chills, chest pain, shortness of breath, paresthesias. Objective - Vital Signs/Intake and Output Vital Signs (last 24 hours): Temp Pulse Resp BP Pulse Ox 97.9 F 99 H 20 127/75 98 08/02/16 11:36 08/02/16 11:36 08/02/16 11:36 08/02/16 11:38 08/02/16 11:36 Intake and Output: 08/02/16 08/02/16 06:59 18:59 Intake Total 240 550 Balance 240 550 - Medications Medications: Current Medications Acetaminophen (Tylenol 325mg Tab) 650 mg PO Q6 PRN PRN Reason: Fever >100.4 F Last Admin: 07/30/16 01:25 Dose: 650 mg Acetaminophen/Codeine Phosphate (Tylenol/Codeine 300 Mg/30 Mg) 1 ea PO Q4 PRN PRN Reason: Pain, moderate (4-7) Last Admin: 08/02/16 11:41 Dose: 1 ea Amlodipine Besylate (Norvasc) 5 mg PO DAILY [facility] Last Admin: 08/02/16 11:39 Dose: 5 mg Aspirin (Aspirin Chewable) 81 mg PO DAILY [facility] Last Admin: 08/02/16 11:40 Dose: 81 mg Clopidogrel Bisulfate (Plavix) 75 mg PO DAILY [facility] Last Admin: 08/02/16 11:40 Dose: 75 mg Docusate Sodium (Colace) 100 mg PO BID [facility] Last Admin: 08/02/16 11:39 Dose: 100 mg Enalapril Maleate (Vasotec) 10 mg PO DAILY [facility] Last Admin: 08/02/16 11:38 Dose: 10 mg Famotidine (Pepcid) 20 mg PO BID [facility] Last Admin: 08/02/16 11:39 Dose: 20 mg Glimepiride (Amaryl) 4 mg PO DAILY@0800 [facility] Last Admin: 08/02/16 09:00 Dose: Not Given Home Med (Patient's Own Medication) 1 tab PO DAILY [facility] Last Admin: 08/02/16 12:58 Dose: 1 tab Insulin Aspart (Novolog) 0 unit SC ACHS [facility] PRN Reason: Protocol Last Admin: 08/02/16 12:56 Dose: 1 unit Metformin HCl (Glucophage) 500 mg PO BIDCC [facility] Last Admin: 08/02/16 09:00 Dose: Not Given Nicotine (Nicoderm Cq) 1 patch TD DAILY [facility] Last Admin: 08/02/16 11:40 Dose: 1 patch Nitroglycerin (Nitro-Bid 2% Oint) 0 ea TOP Q8 PRN PRN Reason: Other Ondansetron HCl (Zofran Inj) 4 mg IVP Q4 PRN PRN Reason: Nausea/Vomiting Last Admin: 08/02/16 09:01 Dose: 4 mg Pioglitazone HCl (Actos) 30 mg PO DAILY [facility] Last Admin: 08/02/16 11:46 Dose: Not Given Rosuvastatin Calcium (Crestor) 5 mg PO HS [facility] Last Admin: 08/01/16 22:25 Dose: 5 mg Sitagliptin Phosphate (Januvia) 50 mg PO BID [facility] Last Admin: 08/02/16 11:47 Dose: Not Given Sodium Chloride ([place] Baby Saline 30 Ml) 0 ml JAVIER TID [facility] Stop: 08/03/16 14:01 Last Admin: 08/02/16 14:26 Dose: 1 spray - Labs Labs: 08/01/16 06:50 08/01/16 06:50 - Constitutional Appears: No Acute Distress - Head Exam Head Exam: ATRAUMATIC, NORMOCEPHALIC - Eye Exam Eye Exam: PERRL - ENT Exam ENT Exam: Mucous Membranes Moist - Respiratory Exam Respiratory Exam: Clear to Ausculation Bilateral. absent: Rales, Rhonchi, Wheezes - Cardiovascular Exam Cardiovascular Exam: +S1, +S2. absent: Gallop, Rubs, Murmur - GI/Abdominal Exam GI & Abdominal Exam: Soft, Normal Bowel Sounds. absent: Distended, Tenderness - Extremities Exam Extremities Exam: Full ROM, Normal Capillary Refill. absent: Pedal Edema Additional comments: Left pedal pulse nonpalpable - Neurological Exam Neurological Exam: Alert, Awake - Psychiatric Exam Psychiatric exam: Normal Affect, Normal Mood - Skin Skin Exam: Normal Color, Warm Assessment and Plan - Assessment and Plan (Free Text) Assessment: Left common femoral endarterectomy w. patch angioplasty -Pt pending discharge as per surgery -PT- F/U recommendations -neurovascular checks -Tylenol with codeine DM2 -Amaryl 4mg PO daily -Metformin 500 BID -Actos 30mg PO daily -Accuchecks HTN -Amlodipine 5mg PO daily -Enalapril 10mg PO daily -Normotensive. Continue to monitor PVD Plavix 75mg daily ASA 81mg Vorapaxar Sulfate 2.08mg PO daily [facility] Crestor 5mg PO daily Nicotine addiction Nicoderm Counseled on cessation PPX -Zofran nausea -Heparin 5000SC q8h -Contraindications for SCDs due to PVD -PT/OT suggested <Omer Arriaza - Last Filed: 08/03/16 17:34> Objective - Vital Signs/Intake and Output Vital Signs (last 24 hours): Temp Pulse Resp BP Pulse Ox 97.9 F 99 H 20 127/75 98 08/02/16 11:36 08/02/16 11:36 08/02/16 11:36 08/02/16 11:38 08/02/16 11:36 - Labs Labs: 08/01/16 06:50 08/01/16 06:50 Attending/Attestation - Attestation I have personally seen and examined this patient.: Yes I have fully participated in the care of the patient.: Yes I have reviewed all pertinent clinical information, including history, physical exam and plan: Yes Notes (Text): 08/03/16 17:34 Patient was seen and examined at bedside with the resident I discussed the plan of care with the resident and agree with the above history and physical and assessment/plan. Discharge planning as per the primary team
== END 2016-08-02 17:45 | disposition home or self-care (01) | DRG 254 ==
LOC: C.9S 09:43 → C.6T 18:17
PROVIDERS: ADMIT Surgery Vascular Surgery; ATTEND Surgery Vascular Surgery
PROC: 047L0ZZ Dilation of Left Femoral Artery, Open Approach (ICD-10-PCS; 2016-07-29)
PROC: 04UL0JZ Supplement Left Femoral Artery with Synthetic Substitute, Open Approach (ICD-10-PCS; 2016-07-29)
PROC: 04CL0ZZ Extirpation of Matter from Left Femoral Artery, Open Approach (ICD-10-PCS; principal; 2016-07-29 10:30)
DX: I74.8 Embolism and thrombosis of other arteries (principal); E11.51 Type 2 diabetes mellitus with diabetic peripheral angiopathy without gangrene; I10 Essential (primary) hypertension; F17.200 Nicotine dependence, unspecified, uncomplicated; I70.202 Unspecified atherosclerosis of native arteries of extremities, left leg; E78.5 Hyperlipidemia, unspecified; Z79.02 Long term (current) use of antithrombotics/antiplatelets

== ENCOUNTER 2016-08-13 21:01 | Emergency (ER) | payer MEDICARE ==
[2016-08-13 21:02] VITALS: BMI 21.4
[2016-08-13 21:34] VITALS: BP 144/70; PULSE 99; TEMP 97.9; O2SAT 96
--- NOTE | 2016-08-13 22:05 | C.PDOC ---
History Of Present Illness 70 y.o female with PMHx of Diabetes, HTN, PVD presents to ED with complaints of anxiety. She states she feel nervous and alone at home has been more emotional and tearful for the past 2 days. She quit smoking last year after 53 years and has the urge to smoke again. She admits to drinking alcohol socially. She states she just has running thoughts and pains in her body from old age. Denies any suicidal or homicidal ideation. Family member at bedside. Time Seen by Provider: 08/13/16 22:01 Chief Complaint (Nursing): Anxiety History Per: Patient History/Exam Limitations: no limitations Onset/Duration Of Symptoms: Days Current Symptoms Are (Timing): Still Present Suicide/Self Injury Attempted (Context): None Severity: Mild Associated Symptoms: Anxiety. denies: Suicidal Thoughts, Suicidal Plan Involuntary Hold By: None Recent travel outside of the [place]: No Additional History Per: Patient Past Medical History Reviewed: Historical Data, Nursing Documentation, Vital Signs Vital Signs: Last Vital Signs Temp 97.9 F 08/13/16 21:32 Pulse 99 H 08/13/16 21:32 Resp 20 08/13/16 22:31 BP 144/70 08/13/16 21:32 Pulse Ox 96 08/14/16 11:31 - Medical History PMH: Arthritis, Bronchitis, Diabetes, HTN, Peripheral Edema Denies: Chronic Kidney Disease Surgical History: Coronary Stent - [facility] Procedures DILATION OF LEFT FEMORAL ARTERY, OPEN APPROACH (07/29/16) DILATION OF R FEM ART WITH DRUG-ELUT INTRA, PERC APPROACH (06/09/16) DILATION OF RIGHT PERONEAL ARTERY, PERCUTANEOUS APPROACH (06/09/16) EXTIRPATION OF MATTER FROM L FEM ART, OPEN APPROACH (07/29/16) EXTIRPATION OF MATTER FROM R FEM ART, PERC APPROACH (06/09/16) EXTIRPATION OF MATTER FROM R PERONEAL ART, PERC APPROACH (06/09/16) SUPPLEMENT LEFT FEMORAL ARTERY WITH SYNTH SUB, OPEN APPROACH (07/29/16) Family History: States: Unknown Family Hx - Social History Hx Tobacco Use: Yes (Quit last year) Hx Alcohol Use: Yes (Socially) Hx Substance Use: No - Immunization History Hx Tetanus Toxoid Vaccination: Yes Hx Influenza Vaccination: Yes Hx Pneumococcal Vaccination: Yes Review Of Systems Except As Marked, All Systems Reviewed And Found Negative. Psych: Positive for: Anxiety. Negative for: Suicidal ideation, Other ( Homicidal ideation) Physical Exam - Physical Exam Appears: Non-toxic, Other (Tearful, anxious mood) Skin: Warm, Dry, No Diaphoretic, No Pale, No Rash Head: Atraumatic, Normacephalic Eye(s): bilateral: Normal Inspection, PERRL, EOMI Neck: Normal ROM Cardiovascular: Rhythm Regular, No Murmur Respiratory: Normal Breath Sounds, No Rales, No Rhonchi, No Wheezing Gastrointestinal/Abdominal: Soft, No Tenderness Extremity: Normal ROM, No Deformity, No Swelling Neurological/Psych: Oriented x3, Normal Speech, Other (No focal deficit) ED Course And Treatment O2 Sat by Pulse Oximetry: 96 (RA) Pulse Ox Interpretation: Normal Medical Decision Making Medical Decision Making: Impression: 70 y/o c/o anxiety for 2 days Plans: -Xanax -Reassess and disposition Patient with symptoms of anxiety Xanax PO given in ED with moderate relief of symptoms. 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 She wants medication to help her sleep. I recommend Benadryl for sleep and can prescribe Atarax. Disposition Counseled Patient/Family Regarding: Diagnosis, Need For Followup, Rx Given - Disposition Referrals: Non [facility] Provider, [Primary Care Provider] - Disposition: HOME/ ROUTINE Disposition Time: 22:20 Condition: IMPROVED Additional Instructions: Please [facility] at [address] [place] [address]. Please call [phone] or ext [phone] to arrange appointment. If you need to speak to someone immediately call Crisis Hotline [phone] Prescriptions: hydrOXYzine HCl [Atarax] 25 mg PO Q6H #24 tab Instructions: Anxiety (ED) Print Language: EMIRATI - POA Present On Arrival: None - Clinical Impression Clinical Impression: Anxiety - Scribe Statement The provider has reviewed the documentation as recorded by the Scribe Beverly garcia All medical record entries made by the Scribe were at my direction and personally dictated by me. I have reviewed the chart and agree that the record accurately reflects my personal performance of the history, physical exam, medical decision making, and the department course for this patient. I have also personally directed, reviewed, and agree with the discharge instructions and disposition.
[2016-08-13 22:32] VITALS: RESP 20
== END 2016-08-13 22:31 | disposition home or self-care (01) ==
LOC: C.ER 21:01 → SUPCPDRO 21:01 → C.ER 22:31
DX: F41.9 Anxiety disorder, unspecified (principal)

== ENCOUNTER 2016-11-17 10:47 | Inpatient (IN) | payer MEDICARE, MEDICAID ==
[2016-11-17 10:47] VITALS: BMI 21.4
[2016-11-17] MEDS ORDERED: Sodium Chloride 0.9% 1,000 ML IV ONE (11:48)
--- NOTE | 2016-11-17 11:58 | C.PDOC ---
History Of Present Illness 71 year old female with a history of diabetes presents to the ED for evaluation of areas of pain and redness to the left occipital area and left calf that she noticed two days ago. She denies fever, nausea, vomiting, or other associated symptoms. Time Seen by Provider: 11/17/16 11:16 Chief Complaint (Nursing): Abnormal Skin Integrity History Per: Patient History/Exam Limitations: no limitations Onset/Duration Of Symptoms: Days (2 days) Current Symptoms Are (Timing): Still Present Recent travel outside of the [place]: No Past Medical History Reviewed: Historical Data, Nursing Documentation, Vital Signs Vital Signs: Last Vital Signs Temp 98.2 F 11/17/16 10:51 Pulse 89 11/17/16 15:05 Resp 16 11/17/16 15:05 BP 146/70 11/17/16 15:05 Pulse Ox 98 11/17/16 16:07 - Medical History PMH: Arthritis, Bronchitis, Diabetes, HTN, Peripheral Edema Surgical History: Coronary Stent - [facility] Procedures DILATION OF LEFT FEMORAL ARTERY, OPEN APPROACH (07/29/16) DILATION OF R FEM ART WITH DRUG-ELUT INTRA, PERC APPROACH (06/09/16) DILATION OF RIGHT PERONEAL ARTERY, PERCUTANEOUS APPROACH (06/09/16) EXTIRPATION OF MATTER FROM L FEM ART, OPEN APPROACH (07/29/16) EXTIRPATION OF MATTER FROM R FEM ART, PERC APPROACH (06/09/16) EXTIRPATION OF MATTER FROM R PERONEAL ART, PERC APPROACH (06/09/16) SUPPLEMENT LEFT FEMORAL ARTERY WITH SYNTH SUB, OPEN APPROACH (07/29/16) Family History: States: Unknown Family Hx - Social History Hx Tobacco Use: Yes (Quit last year) Hx Alcohol Use: Yes (Socially) Hx Substance Use: No - Immunization History Hx Tetanus Toxoid Vaccination: Yes Hx Influenza Vaccination: Yes Hx Pneumococcal Vaccination: Yes Review Of Systems Constitutional: Negative for: Fever, Chills Cardiovascular: Negative for: Chest Pain, Palpitations Respiratory: Negative for: Cough, Shortness of Breath Gastrointestinal: Negative for: Nausea, Vomiting Skin: Positive for: Other (area of pain and redness to left occipital and left calf ) Physical Exam - Physical Exam Appears: Non-toxic, No Acute Distress Skin: Warm, Dry, Other (4 cm area of erythema and tenderness with two pustules to the left occipital region) Head: Atraumatic Eye(s): bilateral: Normal Inspection, EOMI Oral Mucosa: Moist Throat: Normal Neck: Supple, Other (erythema, tenderness left posterior neck) Chest: Symmetrical, No Deformity Cardiovascular: Rhythm Regular Respiratory: Normal Breath Sounds, No Rhonchi, No Wheezing Rectal: Heme Negative Extremity: Normal ROM, Tenderness (1cm area of tenderness on left calf. No erythema.), No Calf Tenderness, Capillary Refill (good capillary refill, less than two seconds), No Swelling Neurological/Psych: Oriented x3, Normal Speech, Normal Cognition Gait: Steady ED Course And Treatment - Laboratory Results Result Diagrams: 11/17/16 12:05 11/17/16 12:05 Lab Interpretation: Abnormal O2 Sat by Pulse Oximetry: 98 (room air ) Pulse Ox Interpretation: Normal Progress Note: Labs and UA were ordered. Patient was given ceFAZolin IVPB, Toradol, and IV fluids. Reassessment Condition: Unchanged - Physician Consult Information Physician Contacted: Duglas Macedo Outcome Of Conversation: admit Disposition Discussed With : Duglas Macedo Doctor Will See Patient In The: Hospital - Disposition Disposition: HOSPITALIZED Disposition Time: 14:00 Condition: STABLE - POA Present On Arrival: None - Clinical Impression Clinical Impression: Cellulitis, Abscess, Anemia - Scribe Statement The provider has reviewed the documentation as recorded by the Scribe Jalyn Estrada All medical record entries made by the Sandhyaibefrain were at my direction and personally dictated by me. I have reviewed the chart and agree that the record accurately reflects my personal performance of the history, physical exam, medical decision making, and the department course for this patient. I have also personally directed, reviewed, and agree with the discharge instructions and disposition. Decision To Admit - Pt Status Changed To: Hospital Disposition Of: Inpatient - Admit Certification Admit to Inpatient:: After my assessment, the patient will require hospitalization for at least two midnights. This is because of the severity of symptoms shown, intensity of services needed, and/or the medical risk in this patient being treated as an outpatient. - InPatient: Physician Admission Certification: I certify that this patient requires 2 or more midnights of care for the following reason:: Cellulitis/abscess. DM. Anemia - . Bed Request Type: Regular Admitting Physician: Duglas Macedo Patient Diagnosis: Anemia, Cellulitis, Abscess
[2016-11-17] MEDS ORDERED: ceFAZolin IV 1 gm in Dextrose 1 GM/50 ML BAG IVPB SCH (12:00)
[2016-11-17] MEDS ORDERED: ceFAZolin 1 gm FROZEN Premix 1 GM/50 ML ML IVPB ONE (12:08)
[2016-11-17 12:10] LABS: BASO % 0.4 % (0.0-2.0); EOS # 0.2 K/uL (0.0-0.7); EOS % 1.9 % (0.0-4.0); HEMATOCRIT 25.1 % (34.0-47.0); LYMPH # 0.9 K/uL (1.0-4.3); LYMPH % 9.7 % (20.0-40.0); MEAN CELL VOLUME 66.1 fL (81.0-99.0); MEAN CORPUSCULAR HEMOGLOBIN 20.4 pg (27.0-31.0); MEAN CORPUSCULAR HGB CONC 30.8 g/dL (33.0-37.0); MEAN PLATELET VOLUME 8.9 fL (7.2-11.7); MONO # 0.6 K/uL (0.0-0.8); MONO % 6.2 % (0.0-10.0); NRBC % 0.1 % (0.0-2.0); PLATELET COUNT 374 K/uL (130-400); RED CELL DISTRIBUTION WIDTH 18.2 % (11.5-14.5); WHITE BLOOD COUNT 9.6 K/uL (4.8-10.8)
[2016-11-17 12:34] LABS: CHLORIDE 103 mmol/L (98-107); EOSINOPHIL 1 % (0-4); NEUTROPHIL 80 % (50-75); POTASSIUM 3.9 mmol/L (3.6-5.2); SODIUM 143 mmol/L (132-148); TOTAL CELLS COUNTED 100
[2016-11-17 12:36] LABS: AST/SGOT 20 U/L (14-36); BILIRUBIN,TOTAL 0.3 mg/dL (0.2-1.3); CARBON DIOXIDE 22 mmol/L (22-30); GFR AFRICAN-AMERICAN > 60
[2016-11-17 12:37] LABS: ALKALINE PHOSPHATASE 104 U/L (38-126); ALT/SGPT 22 U/L (9-52); BLOOD UREA NITROGEN 22 mg/dL (7-17); CALCIUM 9.1 mg/dl (8.6-10.4); GLUCOSE,RANDOM 212 mg/dL (65-105); TOTAL PROTEIN 7.3 g/dL (6.3-8.3)
[2016-11-17 14:42] LABS: RBC URINE 1 /hpf (0-3); URINE BILIRUBIN NEGATIVE (NEGATIVE); URINE BLOOD NEGATIVE (NEGATIVE); URINE COLOR Straw (YELLOW); URINE GLUCOSE (UA) 1+ mg/dL (Normal); URINE KETONE NEGATIVE (NEGATIVE); URINE LEUKOCYTE ESTERASE NEG Leu/uL (Negative); URINE PROTEIN NEGATIVE (NEGATIVE); URINE UROBILINOGEN NORMAL mg/dL (0.2-1.0); WBC URINE 1 /hpf (0-5)
[2016-11-17] MEDS ORDERED: Piperacillin/Tazobact 3.375 gm 100 ML IVPB ONE (16:08)
[2016-11-17] MEDS: Piperacillin/Tazobact 3.375 GM in Sodium Chloride 100 ML IVPB SCH ×2 (16:19→21:55)
--- NOTE | 2016-11-17 16:31 | CP.PCM.HP ---
<Itz Davis - Last Filed: 11/17/16 16:16> History of Present Illness - History of Present Illness History of Present Illness: PGY-1 H&P for Dr. Macedo This is a 71 year old female with PMHx PVD, DM, HTN, HLD who presented with complaint of occipital and right posterior calf cellulitis. Patient states that this began about 1 week ago and has been worsening since then. It is associated with pain and swelling. Patient unable to describe the pain but states that it is constant at 7/10 intensity. There is no radiation of pain. Patient denies trauma to the affected regions, but stated that she thinks a mosquito might have bit her in the head. Patient is not very reliable. Patient complaining of poor appetite. Denies fever, chills, headaches, dizziness, lightheadedness, chest pain, palpitations, SOB, abdominal pain, n/v/c/d, dysuria, changes in stool, blood in the stool, dark stools. PMHx: DM, HTN, PVD, HLD PSHx: Bilateral lower extremity stents. Per EMR, also coronary stents but patient denies. Allergies: NKDA Social hx: Former smoker, quit 5 months ago. Previously smoked 1/2 ppd for 53 years, drinks alcohol occasionally, and denied drug use. 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 Family hx: denies PMD: Dr. Carballo (though patient denied) Home Medications (called [facility], 90 day supply last filled in September 2016): Aspirin 81 mg PO daily, Plavix 75 mg PO daily, Omeprazole 40 mg PO daily , Klonopin 0.5 mg PO daily [facility], Janumet (Sitagliptin/Metformin) 50/500 mg PO BID , Gabapentin 600 mg TID, Actos 30 mg PO daily, Glimepiride 4 mg PO BID, Simvastatin 20 mg PO daily Present on Admission - Present on Admission Any Indicators Present on Admission: No Review of Systems - Constitutional Constitutional: absent: Chills, Fever, Headache, Weakness - EENT Eyes: absent: Change in Vision Ears: absent: Decreased Hearing Nose/Mouth/Throat: absent: Nasal Congestion - Cardiovascular Cardiovascular: absent: Chest Pain, Lightheadedness, Pedal Edema - Respiratory Respiratory: absent: Cough, Dyspnea, Wheezing - Gastrointestinal Gastrointestinal: absent: Abdominal Pain, Change in Stool Character, Constipation, Diarrhea, Hematochezia, Nausea, Vomiting - Genitourinary Genitourinary: absent: Dysuria, Hematuria - Integumentary Integumentary: Lesions (occiput and right posterior leg) - Neurological Neurological: absent: Dizziness, Numbness, Headaches, Tingling, Weakness - Endocrine Endocrine: absent: Palpitations Past Patient History - Past Medical History & Family History Past Medical History?: Yes - Past Social History Smoking Status: Former Smoker - CARDIAC Hx Hypertension: Yes Hx Peripheral Edema: Yes - PULMONARY Hx Bronchitis: Yes - NEUROLOGICAL Hx Neurological Disorder: No Hx Dizziness: Yes - HEENT Hx HEENT Problems: Yes Other/Comment: wear eyeglasses for reading - RENAL Hx Chronic Kidney Disease: No - ENDOCRINE/METABOLIC Hx Diabetes Mellitus Type 2: Yes - HEMATOLOGICAL/ONCOLOGICAL Hx Blood Disorders: No - INTEGUMENTARY Hx Dermatological Problems: No - MUSCULOSKELETAL/RHEUMATOLOGICAL Hx Arthritis: Yes - GASTROINTESTINAL Hx Gastrointestinal Disorders: No - GENITOURINARY/GYNECOLOGICAL Hx Genitourinary Disorders: No - PSYCHIATRIC Hx Substance Use: No - SURGICAL HISTORY Hx Coronary Stent: Yes - ANESTHESIA Hx Anesthesia: Yes Hx Anesthesia Reactions: No Hx Malignant Hyperthermia: No Meds Allergies/Adverse Reactions: Allergies Allergy/AdvReac Type Severity Reaction Status Date / Time No Known Allergies Allergy Verified 11/17/16 10:51 Physical Exam - Constitutional Appears: No Acute Distress, Chronically Ill - Head Exam Head Exam: ATRAUMATIC, NORMAL INSPECTION, NORMOCEPHALIC - Eye Exam Eye Exam: EOMI, PERRL - ENT Exam ENT Exam: Mucous Membranes Moist - Respiratory Exam Respiratory Exam: Clear to Auscultation Bilateral. absent: Rales, Rhonchi, Wheezes - Cardiovascular Exam Cardiovascular Exam: REGULAR RHYTHM, +S1, +S2 - GI/Abdominal Exam GI & Abdominal Exam: Normal Bowel Sounds, Soft. absent: Tenderness - Extremities Exam Extremities exam: Positive for: pedal pulses present. Negative for: pedal edema , tenderness - Neurological Exam Neurological exam: Alert, CN II-XII Intact, Oriented x3 Additional comments: Sensations intact bilaterally upper and lower extremities with exception of diminished sensations in both feet. - Skin Skin Exam: Dry, Warm Results - Vital Signs Recent Vital Signs: Last Vital Signs Temp 98.2 F 11/17/16 10:51 Pulse 89 08/23/17 15:05 Resp 16 11/17/16 15:05 BP 146/70 11/17/16 15:05 Pulse Ox 98 11/17/16 16:10 - Labs Result Diagrams: 11/17/16 12:05 11/17/16 12:05 Labs: Laboratory Results - last 24 hr 11/17/16 14:33 Urine Color Straw Urine Clarity Clear Urine pH 5.0 Ur Specific [place] 1.014 Urine Protein Negative Urine Glucose (UA) 1+ Urine Ketones Negative Urine Blood Negative Urine Nitrate Negative Urine Bilirubin Negative Urine Urobilinogen Normal Ur Leukocyte Esterase Neg Urine WBC (Auto) 1 Urine RBC (Auto) 1 Ur Squamous Epith Cells < 1 Assessment & Plan - Assessment and Plan (Free Text) Plan: Cellulitis F/u Blood cultures Vancomycin 1 gm Q24H Zosyn 3.375 Q6H Low Hemoglobin Hemoglobin 7.7 Prior admission hemoglobin ranging between 9-11. Heme negative from rectal exam per ED F/u stool occult Type and screen ordered. Will hold off decision to transfuse until tomorrow AM since patient currently asymptomatic. History of Peripheral Vascular Disease Restarted home meds: Aspirin 81 mg PO daily Plavix 75 mg PO daily History of Diabetes Restarted home meds: Sitagliptin 50 mg PO BID Metformin 500 mg PO BID Actos 30 mg PO daily Held home Amaryl and instead added Regular ISS F/u Hemoglobin A1C History of Hypertension Vasotec 10 mg PO daily History of Hyperlipidemia Crestor 5 mg PO HS F/u Lipid Panel Prophylactic Measure Restarted home meds: Klonopin 0.5 mg PO daily [facility] Cymbalta 30 mg PO BID Gabapentin 600 mg PO TID Heart Healthy Diet with Mod consistent CHO AM Labs including CBC, CMP, Mag, Phos Case DW Dr. Hellen Davis PGY-1 - Date & Time Date: 11/17/16 Time: 16:30 <Duglas Macedo H - Last Filed: 11/18/16 07:33> Results - Vital Signs Recent Vital Signs: Last Vital Signs Temp 99.2 F 11/18/16 00:00 Pulse 102 H 11/18/16 00:00 Resp 20 11/18/16 00:00 BP 144/69 11/18/16 00:00 Pulse Ox 97 11/18/16 00:00 - Labs Result Diagrams: 11/18/16 06:00 11/17/16 12:05 Labs: Laboratory Results - last 24 hr 11/17/16 11/17/16 11/17/16 14:33 18:38 21:25 WBC RBC Hgb Hct MCV MCH MCHC RDW Plt Count MPV Neut % (Auto) Lymph % (Auto) [place] % (Auto) Eos % (Auto) Baso % (Auto) Neut # Lymph # [place] # Eos # Baso # POC Glucose (mg/dL) 159 H 105 Urine Color Straw Urine Clarity Clear Urine pH 5.0 Ur Specific [place] 1.014 Urine Protein Negative Urine Glucose (UA) 1+ Urine Ketones Negative Urine Blood Negative Urine Nitrate Negative Urine Bilirubin Negative Urine Urobilinogen Normal Ur Leukocyte Esterase Neg Urine WBC (Auto) 1 Urine RBC (Auto) 1 Ur Squamous Epith Cells < 1 11/18/16 06:00 WBC 10.7 RBC 3.87 Hgb 7.9 L Hct 25.1 L MCV 64.7 L MCH 20.3 L MCHC 31.4 L RDW 18.2 H Plt Count 397 MPV 8.7 Neut % (Auto) 79.4 H Lymph % (Auto) 11.7 L [place] % (Auto) 7.7 Eos % (Auto) 0.8 Baso % (Auto) 0.4 Neut # 8.5 H Lymph # 1.2 [place] # 0.8 Eos # 0.1 Baso # 0.0 POC Glucose (mg/dL) Urine Color Urine Clarity Urine pH Ur Specific [place] Urine Protein Urine Glucose (UA) Urine Ketones Urine Blood Urine Nitrate Urine Bilirubin Urine Urobilinogen Ur Leukocyte Esterase Urine WBC (Auto) Urine RBC (Auto) Ur Squamous Epith Cells Attending/Attestation - Attestation I have personally seen and examined this patient.: Yes I have fully participated in the care of the patient.: Yes I have reviewed all pertinent clinical information: Yes Notes (Text): Medical attending: Patient was seen and examined by me, agrees the above note by medical coding auditor. As reported above the resident note the patient has had ongoing about 2 weeks now of a small right occipital area lesion that has now turned into small mass that is painful to her. It is erythematous. She denies any fevers or chills. On physical exam it does not seem readily apparent that it is something that can be incised. The area was marked off with a marker. Furthermore she has another area hind her knee. That is also red erythematous skin area that was also marked with a marker. So at this time will start IV antibiotics blood cultures were not taken in the ER before antibiotics were started however will still go ahead and get blood cultures. When I asked the patient how these could've happened if she could've been bitten by insect the patient explains that she is not entirely sure. The area behind the head might of been a pilonidal cyst that started initially gotten worse her the area behind the knee more difficult to explain that could' ve been insect bite. In the patient's recent history she's had a lot of vascular surgery interventions for her lower extremities due to peripheral vascular disease. When I felt her feet they were warm to touch she did not report there were cold. She was here due to her chief complaint of the area behind her right occipital as well as her right knee with the erythema and swelling there were currently getting IV antibiotics were. Furthermore will have to watch her hemoglobin as it is only 7.7. She denies having any blood in her stools. Regular check a fecal occult blood. She is on aspirin and Plavix for now her to continue this only because she's had a lot of vascular medical history. So unless her hemoglobin drops down again will continue with the aspirin and Plavix. Thank you very much, Duglas Macedo
[2016-11-17] MEDS ORDERED: Vancomycin 1 GM 1 GM/250 ML BAG IVPB ONE (18:30)
[2016-11-17] MEDS: Vancomycin 1 gm/NS 200 ml 1 GM/200 ML BAG IVPB SCH (18:37)
[2016-11-17] MEDS ORDERED: (Novolin R) Insulin Human Regular 100 units/ml vial ONE (18:45)
[2016-11-17] MEDS: (Novolin R) Insulin Human Regular 100 units/ml vial SC SCH ×2 (18:49→21:56)
[2016-11-17] MEDS ORDERED: Tramadol 25 mg PO SCH (21:13)
[2016-11-17] MEDS: Tramadol 25 mg PO SCH (22:06)
[2016-11-18] MEDS: Piperacillin/Tazobact 3.375 GM in Sodium Chloride 100 ML IVPB SCH ×4 (03:46→21:51)
[2016-11-18 06:12] LABS: BASO % 0.4 % (0.0-2.0); EOS # 0.1 K/uL (0.0-0.7); EOS % 0.8 % (0.0-4.0); HEMATOCRIT 25.1 % (34.0-47.0); LYMPH # 1.2 K/uL (1.0-4.3); LYMPH % 11.7 % (20.0-40.0); MEAN CELL VOLUME 64.7 fL (81.0-99.0); MEAN CORPUSCULAR HEMOGLOBIN 20.3 pg (27.0-31.0); MEAN CORPUSCULAR HGB CONC 31.4 g/dL (33.0-37.0); MEAN PLATELET VOLUME 8.7 fL (7.2-11.7); MONO # 0.8 K/uL (0.0-0.8); MONO % 7.7 % (0.0-10.0); RED CELL DISTRIBUTION WIDTH 18.2 % (11.5-14.5); WHITE BLOOD COUNT 10.7 K/uL (4.8-10.8)
[2016-11-18 07:33] LABS: CHLORIDE 103 mmol/L (98-107); SODIUM 138 mmol/L (132-148)
[2016-11-18 07:34] LABS: POTASSIUM 3.5 mmol/L (3.6-5.2)
[2016-11-18 07:35] LABS: CHOLESTEROL 124 mg/dL (0-199); GFR AFRICAN-AMERICAN > 60
[2016-11-18 07:36] LABS: ALKALINE PHOSPHATASE 98 U/L (38-126); ALT/SGPT 22 U/L (9-52); AST/SGOT 21 U/L (14-36); BILIRUBIN,TOTAL 0.5 mg/dL (0.2-1.3); BLOOD UREA NITROGEN 19 mg/dL (7-17); CARBON DIOXIDE 23 mmol/L (22-30); GLUCOSE,RANDOM 52 mg/dL (65-105); PHOSPHOROUS 4.7 mg/dL (2.5-4.5)
[2016-11-18 07:37] LABS: MAGNESIUM 1.5 mg/dL (1.6-2.3)
[2016-11-18] MEDS: (Novolin R) Insulin Human Regular 100 units/ml vial SC SCH ×4 (08:22→21:54)
--- NOTE | 2016-11-18 09:59 | CP.PCM.PN ---
<Itz Davis - Last Filed: 11/18/16 13:52> Subjective - Date & Time of Evaluation Date of Evaluation: 11/18/16 Time of Evaluation: 07:00 - Subjective Subjective: PGY-[address] Maceod Patient seen and examined at bedside. Patient complaining of pain and swelling in the occipital area and behind the right leg. There is no radiation of pain. Patient denies fever, chills, headache, dizziness, chest pain, SOB, abdominal pain, dysuria. Objective - Vital Signs/Intake and Output Vital Signs (last 24 hours): Temp Pulse Resp BP Pulse Ox 98.1 F 84 20 129/71 96 11/18/16 07:56 11/18/16 07:56 11/18/16 07:56 11/18/16 07:56 11/18/16 07:56 Intake and Output: 11/18/16 11/18/16 06:59 18:59 Intake Total 500 Balance 500 - Medications Medications: Current Medications Aspirin (Aspirin Chewable) 81 mg PO DAILY [facility] Clonazepam (Klonopin) 0.5 mg PO DAILY [facility] Clopidogrel Bisulfate (Plavix) 75 mg PO DAILY [facility] Duloxetine HCl (Cymbalta) 30 mg PO BID [facility] Last Admin: 11/17/16 19:07 Dose: 30 mg Famotidine (Pepcid) 20 mg PO BID [facility] Last Admin: 11/17/16 19:08 Dose: 20 mg Gabapentin (Neurontin) 600 mg PO TID [facility] Last Admin: 11/17/16 19:07 Dose: 600 mg Heparin Sodium (Porcine) (Heparin) 5,000 units SC Q8 [facility] Last Admin: 11/18/16 06:03 Dose: 5,000 units Piperacillin Sod/Tazobactam (Sod 3.375 gm/ Sodium Chloride) 100 mls @ 200 mls/ hr IVPB Q6H [facility] Last Admin: 11/18/16 03:46 Dose: 200 mls/hr Vancomycin/Sodium Chloride (Vancocin) 1 gm in 200 mls @ 133.333 mls/hr IVPB Q24H [facility] Stop: 11/22/16 16:01 Last Admin: 11/17/16 18:37 Dose: 133.333 mls/hr Magnesium Sulfate/Dextrose (Magnesium Sulfate 1 Gm/100 Ml D5w) 1 gm in 100 mls @ 200 mls/hr IVPB Q30M [facility] Stop: 11/18/16 10:29 Insulin Human Regular (Novolin R) 0 unit SC ACHS [facility] PRN Reason: Protocol Last Admin: 11/18/16 08:22 Dose: 2 unit Metformin HCl (Glucophage) 500 mg PO BID [facility] Last Admin: 11/17/16 19:07 Dose: 500 mg Pioglitazone HCl (Actos) 30 mg PO DAILY [facility] Rosuvastatin Calcium (Crestor) 5 mg PO HS [facility] Last Admin: 11/17/16 21:56 Dose: 5 mg Sitagliptin Phosphate (Januvia) 50 mg PO DAILY [facility] Tramadol HCl (Ultram) 25 mg PO TID [facility] Last Admin: 11/17/16 22:06 Dose: 25 mg - Labs Labs: 11/18/16 06:00 11/18/16 06:00 - Constitutional Appears: No Acute Distress, Chronically Ill - Head Exam Head Exam: ATRAUMATIC Additional comments: Occipital lesion seems almost ready to start draining purulent fluid. Area of swelling has expanded slightly, now going closer to the right ear. - Eye Exam Eye Exam: EOMI, PERRL - ENT Exam ENT Exam: Mucous Membranes Moist - Respiratory Exam Respiratory Exam: Clear to Ausculation Bilateral. absent: Rales, Rhonchi, Wheezes - Cardiovascular Exam Cardiovascular Exam: REGULAR RHYTHM, +S1, +S2 - GI/Abdominal Exam GI & Abdominal Exam: Soft, Normal Bowel Sounds. absent: Tenderness - Extremities Exam Extremities Exam: absent: Pedal Edema Additional comments: Right posterior leg lesion with dried blood. Unchanged in size from yesterday. - Neurological Exam Neurological Exam: Alert, Awake, Oriented x3 - Skin Skin Exam: Normal Color, Warm Assessment and Plan - Assessment and Plan (Free Text) Plan: Cellulitis F/u Blood cultures Vancomycin 1 gm Q24H Zosyn 3.[address] Castillo, surgery consulted. Help appreciated. Low Hemoglobin Asymptomatic Hemoglobin 7.9 improved from admission 7.7 Prior admission hemoglobin ranging between 9-11. Heme negative from rectal exam per ED F/u stool occult Abnormal RBC indices likely indicating Iron Deficiency Anemia F/u Iron, TIBC, % saturation, Ferritin in AM History of Peripheral Vascular Disease Restarted home meds: Aspirin 81 mg PO daily Plavix 75 mg PO daily History of Diabetes Restarted home meds: Sitagliptin 50 mg PO BID Metformin 500 mg PO BID Actos 30 mg PO daily Held home Amaryl and instead added Regular ISS Hemoglobin A1C 8.2 History of Hypertension Vasotec 10 mg PO daily History of Hyperlipidemia Crestor 5 mg PO HS Lipid Panel WNL Prophylactic Measure Restarted home meds: Klonopin 0.5 mg PO daily [facility] Cymbalta 30 mg PO BID Gabapentin 600 mg PO TID Heart Healthy Diet with Mod consistent CHO AM Labs including CBC, CMP, Mag, Phos Mag and potassium replaced on 11/[address] Hellen Shawed PGY-1 <Duglas Macedo H - Last Filed: 11/18/16 17:13> Objective - Vital Signs/Intake and Output Vital Signs (last 24 hours): Temp Pulse Resp BP Pulse Ox 98.1 F 84 20 129/71 96 11/18/16 07:56 11/18/16 07:56 11/18/16 07:56 11/18/16 07:56 11/18/16 07:56 Intake and Output: 11/18/16 11/18/16 06:59 18:59 Intake Total 500 490 Balance 500 490 - Medications Medications: Current Medications Acetaminophen (Tylenol 325mg Tab) 650 mg PO Q6 PRN PRN Reason: Pain, Mild (1-3) Last Admin: 11/18/16 12:01 Dose: 650 mg Aspirin (Aspirin Chewable) 81 mg PO DAILY [facility] Last Admin: 11/18/16 10:06 Dose: 81 mg Clonazepam (Klonopin) 0.5 mg PO DAILY [facility] Last Admin: 11/18/16 10:06 Dose: 0.5 mg Clopidogrel Bisulfate (Plavix) 75 mg PO DAILY [facility] Last Admin: 11/18/16 10:07 Dose: 75 mg Duloxetine HCl (Cymbalta) 30 mg PO BID [facility] Last Admin: 11/18/16 10:07 Dose: 30 mg Famotidine (Pepcid) 20 mg PO BID [facility] Last Admin: 11/18/16 10:11 Dose: 20 mg Gabapentin (Neurontin) 600 mg PO TID [facility] Last Admin: 11/18/16 13:35 Dose: 600 mg Heparin Sodium (Porcine) (Heparin) 5,000 units SC Q8 [facility] Last Admin: 11/18/16 13:36 Dose: 5,000 units Piperacillin Sod/Tazobactam (Sod 3.375 gm/ Sodium Chloride) 100 mls @ 200 mls/ hr IVPB Q6H [facility] Last Admin: 11/18/16 15:00 Dose: 200 mls/hr Vancomycin/Sodium Chloride (Vancocin) 1 gm in 200 mls @ 133.333 mls/hr IVPB Q24H [facility] Stop: 11/22/16 16:01 Last Admin: 11/18/16 16:56 Dose: 133.333 mls/hr Insulin Human Regular (Novolin R) 0 unit SC ACHS [facility] PRN Reason: Protocol Last Admin: 11/18/16 16:52 Dose: 2 unit Metformin HCl (Glucophage) 500 mg PO BID [facility] Last Admin: 11/18/16 10:06 Dose: 500 mg Pioglitazone HCl (Actos) 30 mg PO DAILY [facility] Last Admin: 11/18/16 10:11 Dose: 30 mg Potassium Chloride (K-Dur 20 Meq Er Tab) 40 meq PO DAILY [facility] Last Admin: 11/18/16 13:35 Dose: 40 meq Rosuvastatin Calcium (Crestor) 5 mg PO HS [facility] Last Admin: 11/17/16 21:56 Dose: 5 mg Sitagliptin Phosphate (Januvia) 50 mg PO DAILY [facility] Last Admin: 11/18/16 10:06 Dose: 50 mg - Labs Labs: 11/18/16 06:00 11/18/16 06:00 Attending/Attestation - Attestation I have personally seen and examined this patient.: Yes I have fully participated in the care of the patient.: Yes I have reviewed all pertinent clinical information, including history, physical exam and plan: Yes Notes (Text): 11/18/16 17:11 Medical Attending: Patient was seen and examined by me. Agree with the above note by the resident The patient was not able to sleep well overnight from the pain behind the right occipital area. Per exam it appears unchanged from before. It is batch or continuous still operator on exam and was not actively draining any fluid. The area behind her leg also remains erethematous as well and did not appear grossly changed from before thank you Duglas Macedo
[2016-11-18] MEDS ORDERED: Tramadol 25 mg PO SCH (10:00)
[2016-11-18] MEDS: Magnesium Sulfate 1 gm in D5W 1 GM/100 ML BAG IVPB SCH ×2 (10:07→11:07)
[2016-11-18] MEDS: Tramadol 25 mg PO SCH (10:09)
[2016-11-18] MEDS: Potassium Chloride 20 mEq ER Tab PO SCH (13:35)
--- NOTE | 2016-11-18 14:37 | CP.PCM.CON ---
History of Present Illness - History of Present Illness History of Present Illness: Surgery Consult Note HPI: Patient is a 71 year old female with past medical history of PVD, HTN, DM, HLD, who was admitted for complaint of occipital and right posterior calf cellulitis that has been on-going for a week after an insect bite. Patient states that her symptom has been worsening. Surgical consult was placed for evaluation of the right occipital and right posterior calf cellullitis. Patient denies fever, chills, nausea, vomiting, headache and visual disturbances PMHx: HTN, HLD, DM, PVD PSHx: Denies FHx: Mother: HTN and DM (). Father: Prostate cancer () Allergies: None Social History: denies current or former tobacco, alcohol, and illicit drug use Review of Systems - Constitutional Constitutional: absent: Chills, Fever, Headache, Malaise - EENT Eyes: absent: Blurred Vision, Change in Vision Ears: absent: Dizziness - Cardiovascular Cardiovascular: absent: Chest Pain, Chest Pain at Rest, Diaphoresis, Dyspnea - Respiratory Respiratory: absent: Dyspnea - Gastrointestinal Gastrointestinal: absent: Abdominal Pain, Nausea, Vomiting - Integumentary Integumentary: Lesions Additional comments: 7cm by 4cm Right occipital lesion, warm, hard and indurated 1.8cm by 1.5cm draining right calf lesion, warm. 4x4 dressing, clean, dry and intact - Neurological Neurological: absent: Dizziness, Headaches, Loss of Vision Past Patient History - Past Medical History & Family History Past Medical History?: Yes - Past Social History Smoking Status: Former Smoker - CARDIAC Hx Hypertension: Yes Hx Peripheral Edema: Yes - PULMONARY Hx Bronchitis: Yes - NEUROLOGICAL Hx Neurological Disorder: No Hx Dizziness: No - HEENT Hx HEENT Problems: Yes Other/Comment: wear eyeglasses for reading - RENAL Hx Chronic Kidney Disease: No - ENDOCRINE/METABOLIC Hx Diabetes Mellitus Type 2: Yes - HEMATOLOGICAL/ONCOLOGICAL Hx Blood Disorders: No - INTEGUMENTARY Hx Dermatological Problems: No - MUSCULOSKELETAL/RHEUMATOLOGICAL Hx Arthritis: Yes Hx Falls: No - GASTROINTESTINAL Hx Gastrointestinal Disorders: No - GENITOURINARY/GYNECOLOGICAL Hx Genitourinary Disorders: No - PSYCHIATRIC Hx Substance Use: No - SURGICAL HISTORY Hx Coronary Stent: Yes - ANESTHESIA Hx Anesthesia: Yes Hx Anesthesia Reactions: No Hx Malignant Hyperthermia: No Has any member of the family had a problem w/ anesthesia?: No Meds Allergies/Adverse Reactions: Allergies Allergy/AdvReac Type Severity Reaction Status Date / Time No Known Allergies Allergy Verified 11/17/16 10:51 - Medications Medications: Current Medications Acetaminophen (Tylenol 325mg Tab) 650 mg PO Q6 PRN PRN Reason: Pain, Mild (1-3) Last Admin: 11/18/16 12:01 Dose: 650 mg Aspirin (Aspirin Chewable) 81 mg PO DAILY [facility] Last Admin: 11/18/16 10:06 Dose: 81 mg Clonazepam (Klonopin) 0.5 mg PO DAILY [facility] Last Admin: 11/18/16 10:06 Dose: 0.5 mg Clopidogrel Bisulfate (Plavix) 75 mg PO DAILY [facility] Last Admin: 11/18/16 10:07 Dose: 75 mg Duloxetine HCl (Cymbalta) 30 mg PO BID [facility] Last Admin: 11/18/16 10:07 Dose: 30 mg Famotidine (Pepcid) 20 mg PO BID [facility] Last Admin: 11/18/16 10:11 Dose: 20 mg Gabapentin (Neurontin) 600 mg PO TID [facility] Last Admin: 11/18/16 13:35 Dose: 600 mg Heparin Sodium (Porcine) (Heparin) 5,000 units SC Q8 [facility] Last Admin: 11/18/16 13:36 Dose: 5,000 units Piperacillin Sod/Tazobactam (Sod 3.375 gm/ Sodium Chloride) 100 mls @ 200 mls/ hr IVPB Q6H [facility] Last Admin: 11/18/16 11:05 Dose: 200 mls/hr Vancomycin/Sodium Chloride (Vancocin) 1 gm in 200 mls @ 133.333 mls/hr IVPB Q24H [facility] Stop: 11/22/16 16:01 Last Admin: 11/17/16 18:37 Dose: 133.333 mls/hr Insulin Human Regular (Novolin R) 0 unit SC ACHS [facility] PRN Reason: Protocol Last Admin: 11/18/16 12:31 Dose: 4 unit Metformin HCl (Glucophage) 500 mg PO BID [facility] Last Admin: 11/18/16 10:06 Dose: 500 mg Pioglitazone HCl (Actos) 30 mg PO DAILY [facility] Last Admin: 11/18/16 10:11 Dose: 30 mg Potassium Chloride (K-Dur 20 Meq Er Tab) 40 meq PO DAILY [facility] Last Admin: 11/18/16 13:35 Dose: 40 meq Rosuvastatin Calcium (Crestor) 5 mg PO HS [facility] Last Admin: 11/17/16 21:56 Dose: 5 mg Sitagliptin Phosphate (Januvia) 50 mg PO DAILY [facility] Last Admin: 11/18/16 10:06 Dose: 50 mg Physical Exam - Constitutional Appears: Well, No Acute Distress - Head Exam Additional comments: 7cm by 4cm Right occipital lesion, warm, hard and indurated - Eye Exam Eye Exam: EOMI, Normal appearance - ENT Exam ENT Exam: Mucous Membranes Moist, Normal Exam - Respiratory Exam Respiratory Exam: Clear to Auscultation Bilateral, NORMAL BREATHING PATTERN - Cardiovascular Exam Cardiovascular Exam: REGULAR RHYTHM, +S1, +S2 - GI/Abdominal Exam GI & Abdominal Exam: Normal Bowel Sounds, Soft - Extremities Exam Extremities exam: Positive for: calf tenderness Additional comments: 1.8cm by 1.5cm draining right calf lesion, warm. 4x4 dressing, clean, dry and intact - Neurological Exam Neurological exam: Alert, Oriented x3 - Psychiatric Exam Psychiatric exam: Normal Affect, Normal Mood Results - Vital Signs Recent Vital Signs: Last Vital Signs Temp 98.1 F 11/18/16 07:56 Pulse 84 11/18/16 07:56 Resp 20 11/18/16 07:56 BP 129/71 11/18/16 07:56 Pulse Ox 96 11/18/16 07:56 - Labs Result Diagrams: 11/18/16 06:00 11/18/16 06:00 Labs: Laboratory Results - last 24 hr 11/17/16 11/17/16 11/17/16 14:33 18:38 21:25 WBC RBC Hgb Hct MCV MCH MCHC RDW Plt Count MPV Neut % (Auto) Lymph % (Auto) [place] % (Auto) Eos % (Auto) Baso % (Auto) Neut # Lymph # [place] # Eos # Baso # Sodium Potassium Chloride Carbon Dioxide Anion Gap BUN Creatinine Est GFR ( Amer) Est GFR (Non-Af Amer) POC Glucose (mg/dL) 159 H 105 Random Glucose Hemoglobin A1c Calcium Phosphorus Magnesium Total Bilirubin AST ALT Alkaline Phosphatase Total Protein Albumin Globulin Albumin/Globulin Ratio Triglycerides Cholesterol LDL Cholesterol Direct HDL Cholesterol Urine Color Straw Urine Clarity Clear Urine pH 5.0 Ur Specific [place] 1.014 Urine Protein Negative Urine Glucose (UA) 1+ Urine Ketones Negative Urine Blood Negative Urine Nitrate Negative Urine Bilirubin Negative Urine Urobilinogen Normal Ur Leukocyte Esterase Neg Urine WBC (Auto) 1 Urine RBC (Auto) 1 Ur Squamous Epith Cells < 1 11/18/16 11/18/16 11/18/16 06:00 06:00 06:00 WBC 10.7 RBC 3.87 Hgb 7.9 L Hct 25.1 L MCV 64.7 L MCH 20.3 L MCHC 31.4 L RDW 18.2 H Plt Count 397 MPV 8.7 Neut % (Auto) 79.4 H Lymph % (Auto) 11.7 L [place] % (Auto) 7.7 Eos % (Auto) 0.8 Baso % (Auto) 0.4 Neut # 8.5 H Lymph # 1.2 [place] # 0.8 Eos # 0.1 Baso # 0.0 Sodium 138 Potassium 3.5 L Chloride 103 Carbon Dioxide 23 Anion Gap 16 BUN 19 H Creatinine 0.6 L Est GFR ( Amer) > 60 Est GFR (Non-Af Amer) > 60 POC Glucose (mg/dL) Random Glucose 52 L Hemoglobin A1c 8.2 H Calcium 9.0 Phosphorus 4.7 H Magnesium 1.5 L Total Bilirubin 0.5 AST 21 ALT 22 Alkaline Phosphatase 98 Total Protein 7.0 Albumin 3.5 Globulin 3.5 Albumin/Globulin Ratio 1.0 Triglycerides 69 Cholesterol 124 LDL Cholesterol Direct 50 HDL Cholesterol 50 Urine Color Urine Clarity Urine pH Ur Specific [place] Urine Protein Urine Glucose (UA) Urine Ketones Urine Blood Urine Nitrate Urine Bilirubin Urine Urobilinogen Ur Leukocyte Esterase Urine WBC (Auto) Urine RBC (Auto) Ur Squamous Epith Cells 11/18/16 11/18/16 07:48 11:05 WBC RBC Hgb Hct MCV MCH MCHC RDW Plt Count MPV Neut % (Auto) Lymph % (Auto) [place] % (Auto) Eos % (Auto) Baso % (Auto) Neut # Lymph # [place] # Eos # Baso # Sodium Potassium Chloride Carbon Dioxide Anion Gap BUN Creatinine Est GFR ( Amer) Est GFR (Non-Af Amer) POC Glucose (mg/dL) 162 H 218 H Random Glucose Hemoglobin A1c Calcium Phosphorus Magnesium Total Bilirubin AST ALT Alkaline Phosphatase Total Protein Albumin Globulin Albumin/Globulin Ratio Triglycerides Cholesterol LDL Cholesterol Direct HDL Cholesterol Urine Color Urine Clarity Urine pH Ur Specific [place] Urine Protein Urine Glucose (UA) Urine Ketones Urine Blood Urine Nitrate Urine Bilirubin Urine Urobilinogen Ur Leukocyte Esterase Urine WBC (Auto) Urine RBC (Auto) Ur Squamous Epith Cells Assessment & Plan - Assessment and Plan (Free Text) Assessment: 71 year old female with right occipital abscess and right calf abscess ( cellulitis) Plan: - Apply warm compress to right occipital abscess - Dressing changing for the right calf lesion - Further recommendation per Dr. Anna Restrepo, PGY-1
[2016-11-18] MEDS: Vancomycin 1 gm/NS 200 ml 1 GM/200 ML BAG IVPB SCH (16:56)
[2016-11-19] MEDS: Piperacillin/Tazobact 3.375 GM in Sodium Chloride 100 ML IVPB SCH ×4 (03:53→21:31)
[2016-11-19] MEDS: (Novolin R) Insulin Human Regular 100 units/ml vial SC SCH ×4 (08:09→21:26)
--- NOTE | 2016-11-19 08:38 | CP.PCM.PN ---
Subjective - Date & Time of Evaluation Date of Evaluation: 11/19/16 Time of Evaluation: 07:30 - Subjective Subjective: General Surgery Note Patient was seen and examined at bedside. Patient denies fever, chills, headache , visual changes, nausea and vomiting. Patient does admits to moderate right occipital region pain ( as the abscess is located there). Patient has no new complaints. Objective - Vital Signs/Intake and Output Vital Signs (last 24 hours): Temp Pulse Resp BP Pulse Ox 98.8 F 96 H 20 142/80 98 11/19/16 07:38 11/19/16 07:38 11/19/16 07:38 11/19/16 07:38 11/19/16 07:38 Intake and Output: 11/19/16 11/19/16 06:59 18:59 Intake Total 540 Balance 540 - Medications Medications: Current Medications Acetaminophen (Tylenol 325mg Tab) 650 mg PO Q6 PRN PRN Reason: Pain, Mild (1-3) Last Admin: 11/18/16 21:49 Dose: 650 mg Aspirin (Aspirin Chewable) 81 mg PO DAILY [facility] Last Admin: 11/18/16 10:06 Dose: 81 mg Clonazepam (Klonopin) 0.5 mg PO DAILY [facility] Last Admin: 11/18/16 10:06 Dose: 0.5 mg Clopidogrel Bisulfate (Plavix) 75 mg PO DAILY [facility] Last Admin: 11/18/16 10:07 Dose: 75 mg Duloxetine HCl (Cymbalta) 30 mg PO BID [facility] Last Admin: 11/18/16 18:49 Dose: 30 mg Famotidine (Pepcid) 20 mg PO BID [facility] Last Admin: 11/18/16 18:49 Dose: 20 mg Gabapentin (Neurontin) 600 mg PO TID [facility] Last Admin: 11/18/16 18:49 Dose: 600 mg Heparin Sodium (Porcine) (Heparin) 5,000 units SC Q8 [facility] Last Admin: 11/18/16 21:54 Dose: Not Given Piperacillin Sod/Tazobactam (Sod 3.375 gm/ Sodium Chloride) 100 mls @ 200 mls/ hr IVPB Q6H [facility] Last Admin: 11/19/16 03:53 Dose: 200 mls/hr Vancomycin/Sodium Chloride (Vancocin) 1 gm in 200 mls @ 133.333 mls/hr IVPB Q24H [facility] Stop: 11/22/16 16:01 Last Admin: 11/18/16 16:56 Dose: 133.333 mls/hr Insulin Human Regular (Novolin R) 0 unit SC ACHS [facility] PRN Reason: Protocol Last Admin: 11/19/16 08:09 Dose: Not Given Metformin HCl (Glucophage) 500 mg PO BID [facility] Last Admin: 11/18/16 18:49 Dose: 500 mg Pioglitazone HCl (Actos) 30 mg PO DAILY [facility] Last Admin: 11/18/16 10:11 Dose: 30 mg Potassium Chloride (K-Dur 20 Meq Er Tab) 40 meq PO DAILY [facility] Last Admin: 11/18/16 13:35 Dose: 40 meq Rosuvastatin Calcium (Crestor) 5 mg PO HS [facility] Last Admin: 11/18/16 21:50 Dose: 5 mg Sitagliptin Phosphate (Januvia) 50 mg PO DAILY [facility] Last Admin: 11/18/16 10:06 Dose: 50 mg - Labs Labs: 11/18/16 06:00 11/18/16 06:00 Assessment and Plan - Assessment and Plan (Free Text) Assessment: 71 year old female with right occipital abscess and right calf abscess ( cellulitis) Plan: - Frequent application of warm compress to right occipital abscess for drainage - Dressing changing for the right calf lesion -Continue antibiotics regimen -F/u right calf wound culture - Further recommendation per Dr. Anna Restrepo, PGY-1
[2016-11-19] MEDS: Potassium Chloride 20 mEq ER Tab PO SCH (09:51)
[2016-11-19 11:19] LABS: BASO # 0.1 K/uL (0.0-0.2); BASO % 0.8 % (0.0-2.0); EOS # 0.2 K/uL (0.0-0.7); EOS % 2.4 % (0.0-4.0); HEMATOCRIT 24.2 % (34.0-47.0); LYMPH # 0.9 K/uL (1.0-4.3); LYMPH % 10.1 % (20.0-40.0); MEAN CELL VOLUME 65.3 fL (81.0-99.0); MEAN CORPUSCULAR HEMOGLOBIN 20.2 pg (27.0-31.0); MEAN PLATELET VOLUME 8.8 fL (7.2-11.7); MONO # 0.7 K/uL (0.0-0.8); NRBC % 0.1 % (0.0-2.0); RED CELL DISTRIBUTION WIDTH 18.2 % (11.5-14.5); WHITE BLOOD COUNT 8.5 K/uL (4.8-10.8)
[2016-11-19 11:47] LABS: CHLORIDE 99 mmol/L (98-107)
[2016-11-19 11:48] LABS: POTASSIUM 4.4 mmol/L (3.6-5.2); SODIUM 137 mmol/L (132-148)
[2016-11-19 11:50] LABS: ALB/GLOB RATIO 0.9 (1.0-2.1); ALKALINE PHOSPHATASE 99 U/L (38-126); ALT/SGPT 22 U/L (9-52); AST/SGOT 18 U/L (14-36); BILIRUBIN,TOTAL 0.3 mg/dL (0.2-1.3); BLOOD UREA NITROGEN 13 mg/dL (7-17); CARBON DIOXIDE 24 mmol/L (22-30); GFR AFRICAN-AMERICAN > 60; GLUCOSE,RANDOM 203 mg/dL (65-105)
[2016-11-19 11:51] LABS: IRON 20 ug/dL (37-170); MAGNESIUM 1.7 mg/dL (1.6-2.3); PHOSPHOROUS 3.3 mg/dL (2.5-4.5)
--- NOTE | 2016-11-19 15:41 | CP.PCM.PN ---
<Renard Barboza - Last Filed: 11/19/16 15:39> Subjective - Date & Time of Evaluation Date of Evaluation: 11/19/16 Time of Evaluation: 09:00 - Subjective Subjective: PGY1 progress note for Dr. Macedo Patient seen and examined at bedside. Patient complaining of pain and swelling in the base of the occiput on the right side and the backside of her right calf. There is no radiation of pain. Patient is not in a good mood this morning and states that she wants to leave. Patient denies f/c, n/v, d/c, sob, cp, headache, dizziness, abdominal pain or dysuria. Objective - Vital Signs/Intake and Output Vital Signs (last 24 hours): Temp Pulse Resp BP Pulse Ox 98.8 F 96 H 20 142/80 98 11/19/16 07:38 11/19/16 07:38 11/19/16 07:38 11/19/16 07:38 11/19/16 07:38 Intake and Output: 11/19/16 11/19/16 06:59 18:59 Intake Total 540 Balance 540 - Medications Medications: Current Medications Acetaminophen (Tylenol 325mg Tab) 650 mg PO Q6 PRN PRN Reason: Pain, Mild (1-3) Last Admin: 11/19/16 14:49 Dose: 650 mg Aspirin (Aspirin Chewable) 81 mg PO DAILY [facility] Last Admin: 11/19/16 09:48 Dose: 81 mg Clonazepam (Klonopin) 0.5 mg PO DAILY [facility] Last Admin: 11/19/16 09:49 Dose: 0.5 mg Clopidogrel Bisulfate (Plavix) 75 mg PO DAILY [facility] Last Admin: 11/19/16 09:49 Dose: 75 mg Duloxetine HCl (Cymbalta) 30 mg PO BID [facility] Last Admin: 11/19/16 09:48 Dose: 30 mg Famotidine (Pepcid) 20 mg PO BID [facility] Last Admin: 11/19/16 09:49 Dose: 20 mg Gabapentin (Neurontin) 600 mg PO TID [facility] Last Admin: 11/19/16 14:49 Dose: 600 mg Heparin Sodium (Porcine) (Heparin) 5,000 units SC Q8 [facility] Last Admin: 11/19/16 14:48 Dose: Not Given Piperacillin Sod/Tazobactam (Sod 3.375 gm/ Sodium Chloride) 100 mls @ 200 mls/ hr IVPB Q6H [facility] Last Admin: 11/19/16 14:50 Dose: 200 mls/hr Vancomycin/Sodium Chloride (Vancocin) 1 gm in 200 mls @ 133.333 mls/hr IVPB Q24H [facility] Stop: 11/22/16 16:01 Last Admin: 11/18/16 16:56 Dose: 133.333 mls/hr Insulin Human Regular (Novolin R) 0 unit SC ACHS [facility] PRN Reason: Protocol Last Admin: 11/19/16 12:48 Dose: 2 unit Metformin HCl (Glucophage) 500 mg PO BID [facility] Last Admin: 11/19/16 09:49 Dose: 500 mg Pioglitazone HCl (Actos) 30 mg PO DAILY [facility] Last Admin: 11/19/16 09:49 Dose: 30 mg Potassium Chloride (K-Dur 20 Meq Er Tab) 40 meq PO DAILY [facility] Last Admin: 11/19/16 09:51 Dose: 40 meq Rosuvastatin Calcium (Crestor) 5 mg PO HS [facility] Last Admin: 11/18/16 21:50 Dose: 5 mg Sitagliptin Phosphate (Januvia) 50 mg PO DAILY [facility] Last Admin: 11/19/16 09:48 Dose: 50 mg - Labs Labs: 11/19/16 11:07 11/19/16 11:07 - Head Exam Head Exam: ATRAUMATIC Additional comments: The left, inferior boarder of the occipital lesion appears to be shrinking in comparison to outline drawn yesterday. The right side of the lesion appears to be migrating closer to the patient's right ear. The lesion is currently dry, but it appears it may have been draining overnight according to the stains on the patient's pillow. - Eye Exam Eye Exam: EOMI, Normal appearance - ENT Exam ENT Exam: Mucous Membranes Moist - Respiratory Exam Respiratory Exam: Clear to Ausculation Bilateral, NORMAL BREATHING PATTERN - Cardiovascular Exam Cardiovascular Exam: REGULAR RHYTHM, +S1, +S2 - GI/Abdominal Exam GI & Abdominal Exam: Soft, Normal Bowel Sounds. absent: Distended, Guarding, Tenderness - Extremities Exam Extremities Exam: Tenderness (lesion on right calf tender to palpation.). absent: Calf Tenderness, Pedal Edema Additional comments: Right posterior calf lesion unchanged in size from outline boarder drawn yesterday. - Neurological Exam Neurological Exam: Alert, Awake, Oriented x3 - Psychiatric Exam Psychiatric exam: Normal Affect, Normal Mood - Skin Skin Exam: Dry, Normal Color, Warm Assessment and Plan - Assessment and Plan (Free Text) Plan: Cellulitis Right calf wound culture grew Gram + Cocci - f/u sensitivity Vancomycin 1 gm Q24H [facility] 3.[address] Castillo, surgery consulted. Help appreciated. Low Hemoglobin Asymptomatic Hemoglobin 7.5 from admission 7.7 will continue to monitor Prior admission hemoglobin ranging between 9-11. Heme negative from rectal exam per ED F/u stool occult Abnormal RBC indices likely indicating Iron Deficiency Anemia F/u Iron, TIBC, % saturation, Ferritin in AM History of Peripheral Vascular Disease Restarted home meds: Aspirin 81 mg PO daily Plavix 75 mg PO daily History of Diabetes Restarted home meds: Sitagliptin 50 mg PO BID Metformin 500 mg PO BID Actos 30 mg PO daily Held home Amaryl and instead added Regular ISS Hemoglobin A1C 8.2 History of Hypertension Vasotec 10 mg PO daily History of Hyperlipidemia Crestor 5 mg PO HS Lipid Panel WNL Prophylactic Measure Restarted home meds: Klonopin 0.5 mg PO daily [facility] Cymbalta 30 mg PO BID Gabapentin 600 mg PO TID Heart Healthy Diet with Mod consistent CHO AM Labs including CBC, CMP, Mag, Phos Mag and potassium replaced on 11/18 Patient stated multiple times that she wanted to leave because she did not feel that the antibiotics were working. Dr. Macedo and I informed that patient that it was her right to refuse treatment and that she would be allowed to leave if she wanted to but that is not what we were recommending. We recommended that she stays to continue to get IV abx and to use warm compresses on the lesions. We instructed the patient that if she wanted to leave, we would request that she sign an Against Medical Advice form. She stated that she would stay for now. If patient decides to leave, we will give her a script for Augmentin for 7 days. Case discussed with Dr. Hellen Barboza <Duglas Macedo - Last Filed: 11/19/16 16:23> Objective - Vital Signs/Intake and Output Vital Signs (last 24 hours): Temp Pulse Resp BP Pulse Ox 98.8 F 96 H 20 142/80 98 11/19/16 07:38 11/19/16 07:38 11/19/16 07:38 11/19/16 07:38 11/19/16 07:38 Intake and Output: 11/19/16 11/19/16 06:59 18:59 Intake Total 540 560 Balance 540 560 - Medications Medications: Current Medications Acetaminophen (Tylenol 325mg Tab) 650 mg PO Q6 PRN PRN Reason: Pain, Mild (1-3) Last Admin: 11/19/16 14:49 Dose: 650 mg Aspirin (Aspirin Chewable) 81 mg PO DAILY [facility] Last Admin: 11/19/16 09:48 Dose: 81 mg Clonazepam (Klonopin) 0.5 mg PO DAILY [facility] Last Admin: 11/19/16 09:49 Dose: 0.5 mg Clopidogrel Bisulfate (Plavix) 75 mg PO DAILY [facility] Last Admin: 11/19/16 09:49 Dose: 75 mg Duloxetine HCl (Cymbalta) 30 mg PO BID [facility] Last Admin: 11/19/16 09:48 Dose: 30 mg Famotidine (Pepcid) 20 mg PO BID [facility] Last Admin: 11/19/16 09:49 Dose: 20 mg Gabapentin (Neurontin) 600 mg PO TID [facility] Last Admin: 11/19/16 14:49 Dose: 600 mg Heparin Sodium (Porcine) (Heparin) 5,000 units SC Q8 [facility] Last Admin: 11/19/16 14:48 Dose: Not Given Piperacillin Sod/Tazobactam (Sod 3.375 gm/ Sodium Chloride) 100 mls @ 200 mls/ hr IVPB Q6H [facility] Last Admin: 11/19/16 14:50 Dose: 200 mls/hr Vancomycin/Sodium Chloride (Vancocin) 1 gm in 200 mls @ 133.333 mls/hr IVPB Q24H [facility] Stop: 11/22/16 16:01 Last Admin: 11/18/16 16:56 Dose: 133.333 mls/hr Insulin Human Regular (Novolin R) 0 unit SC ACHS [facility] PRN Reason: Protocol Last Admin: 11/19/16 12:48 Dose: 2 unit Metformin HCl (Glucophage) 500 mg PO BID [facility] Last Admin: 11/19/16 09:49 Dose: 500 mg Pioglitazone HCl (Actos) 30 mg PO DAILY [facility] Last Admin: 11/19/16 09:49 Dose: 30 mg Potassium Chloride (K-Dur 20 Meq Er Tab) 40 meq PO DAILY [facility] Last Admin: 11/19/16 09:51 Dose: 40 meq Rosuvastatin Calcium (Crestor) 5 mg PO HS [facility] Last Admin: 11/18/16 21:50 Dose: 5 mg Sitagliptin Phosphate (Januvia) 50 mg PO DAILY [facility] Last Admin: 11/19/16 09:48 Dose: 50 mg - Labs Labs: 11/19/16 11:07 11/19/16 11:07 Attending/Attestation - Attestation I have personally seen and examined this patient.: Yes I have fully participated in the care of the patient.: Yes I have reviewed all pertinent clinical information, including history, physical exam and plan: Yes Notes (Text): 11/19/16 16:22 Medical Attending: Patient was seen and examined by me. Agree with the above note by the resident. Ideally the patient needs to stay further as the occipital area still is swollen , tender, and rather firm to press. However she was not happy being here in the hospital and was borderline on leaving [place]. Later she decided to stay thank you Duglas Macedo
[2016-11-19] MEDS: Vancomycin 1 gm/NS 200 ml 1 GM/200 ML BAG IVPB SCH (16:05)
[2016-11-20] MEDS: Piperacillin/Tazobact 3.375 GM in Sodium Chloride 100 ML IVPB SCH ×4 (02:57→21:00)
[2016-11-20 07:14] LABS: BASO # 0.1 K/uL (0.0-0.2); BASO % 0.9 % (0.0-2.0); EOS # 0.2 K/uL (0.0-0.7); EOS % 3.2 % (0.0-4.0); HEMATOCRIT 25.7 % (34.0-47.0); LYMPH # 1.3 K/uL (1.0-4.3); LYMPH % 18.5 % (20.0-40.0); MEAN CELL VOLUME 65.5 fL (81.0-99.0); MEAN CORPUSCULAR HGB CONC 30.6 g/dL (33.0-37.0); MEAN PLATELET VOLUME 8.5 fL (7.2-11.7); MONO # 0.8 K/uL (0.0-0.8); MONO % 11.3 % (0.0-10.0); WHITE BLOOD COUNT 7.1 K/uL (4.8-10.8)
[2016-11-20] MEDS ORDERED: Propofol 10 mg/ml Inj (20 ML) ONE (07:36)
[2016-11-20] MEDS ORDERED: Midazolam 2 MG/2 ML VIAL ONE (07:36)
[2016-11-20] MEDS: (Novolin R) Insulin Human Regular 100 units/ml vial SC SCH ×4 (07:54→21:19)
[2016-11-20 07:57] LABS: CHLORIDE 101 mmol/L (98-107); POTASSIUM 4.4 mmol/L (3.6-5.2); SODIUM 138 mmol/L (132-148)
[2016-11-20 07:59] LABS: ALKALINE PHOSPHATASE 99 U/L (38-126); AST/SGOT 27 U/L (14-36); BILIRUBIN,TOTAL 0.3 mg/dL (0.2-1.3); CARBON DIOXIDE 25 mmol/L (22-30); GFR AFRICAN-AMERICAN > 60; TOTAL PROTEIN 7.3 g/dL (6.3-8.3)
[2016-11-20 08:00] LABS: ALT/SGPT 22 U/L (9-52); BLOOD UREA NITROGEN 13 mg/dL (7-17); CALCIUM 9.2 mg/dl (8.6-10.4); GLUCOSE,RANDOM 115 mg/dL (65-105); MAGNESIUM 1.6 mg/dL (1.6-2.3); PHOSPHOROUS 4.7 mg/dL (2.5-4.5)
[2016-11-20] MEDS ORDERED: Lactated Ringer's 1,000 ML IV ONE (08:10)
--- NOTE | 2016-11-20 09:05 | PCM.SURG1 ---
Surgeon's Initial Post Op Note - Surgeon's Notes Surgeon: Dr. Castillo Prosthetic Aide: Dr. De Paz PGY1 Type of Anesthesia: General LMA Pre-Operative Diagnosis: Posterior neck Abscess Operative Findings: see operative report Post-Operative Diagnosis: Posterior neck Abscess Operation Performed: I&D Posterior neck Abscess Specimen/Specimens Removed: wound culture Estimated Blood Loss: EBL {In ML}: 5 Blood Products Given: N/A Drains Used: No Drains Post-Op Condition: Good Date of Surgery/Procedure: 11/20/16 Time of Surgery/Procedure: 08:15
[2016-11-20] MEDS: Lactated Ringer's 1,000 ML IV SCH ×2 (10:00→23:10)
[2016-11-20] MEDS: Potassium Chloride 20 mEq ER Tab PO SCH (10:50)
[2016-11-20] MEDS ORDERED: Magnesium Sulfate 1 gm in D5W 1 GM/100 ML BAG IVPB ONE ×2 (10:51→16:00)
--- NOTE | 2016-11-20 11:10 | CP.PCM.PN ---
Subjective - Date & Time of Evaluation Date of Evaluation: 11/20/16 Time of Evaluation: 10:30 - Subjective Subjective: Patient was seen and examined by me. Family members present at bedside. Patient was ok with this. Patient is S/P returning from OR for the right occipital area abscess. Currently not in any acute distress. Today the patient is not agitated. MRSA + from the leg culture. Continue with IV abx Vancomycin and Zosyn Awaiting culture from occipital area. Objective - Vital Signs/Intake and Output Vital Signs (last 24 hours): Temp Pulse Resp BP Pulse Ox 98.2 F 73 14 158/72 H 100 11/20/16 09:45 11/20/16 10:00 11/20/16 10:00 11/20/16 10:00 11/20/16 10:00 Intake and Output: 11/20/16 11/20/16 06:59 18:59 Intake Total 50 Balance 50 - Medications Medications: Current Medications Acetaminophen (Tylenol 325mg Tab) 650 mg PO Q6 PRN PRN Reason: Pain, Mild (1-3) Last Admin: 11/19/16 14:49 Dose: 650 mg Aspirin (Aspirin Chewable) 81 mg PO DAILY [facility] Last Admin: 11/20/16 10:46 Dose: 81 mg Clonazepam (Klonopin) 0.5 mg PO DAILY [facility] Last Admin: 11/20/16 10:46 Dose: 0.5 mg Clopidogrel Bisulfate (Plavix) 75 mg PO DAILY [facility] Last Admin: 11/20/16 10:46 Dose: 75 mg Duloxetine HCl (Cymbalta) 30 mg PO BID [facility] Last Admin: 11/20/16 10:46 Dose: 30 mg Famotidine (Pepcid) 20 mg PO BID [facility] Last Admin: 11/19/16 17:38 Dose: 20 mg Gabapentin (Neurontin) 600 mg PO TID [facility] Last Admin: 11/20/16 10:47 Dose: 600 mg Heparin Sodium (Porcine) (Heparin) 5,000 units SC Q8 [facility] Last Admin: 11/19/16 21:26 Dose: Not Given Piperacillin Sod/Tazobactam (Sod 3.375 gm/ Sodium Chloride) 100 mls @ 200 mls/ hr IVPB Q6H [facility] Last Admin: 11/20/16 09:02 Dose: 100 mls Vancomycin/Sodium Chloride (Vancocin) 1 gm in 200 mls @ 133.333 mls/hr IVPB Q24H [facility] Stop: 11/22/16 16:01 Last Admin: 11/19/16 16:05 Dose: 133.333 mls/hr Lactated Ringer's (Lactated Ringer's) 1,000 mls @ 70 mls/hr IV .[id number] [facility] Magnesium Sulfate/Dextrose (Magnesium Sulfate 1 Gm/100 Ml D5w) 1 gm in 100 mls @ 200 mls/hr IVPB ONCE ONE Stop: 11/20/16 11:20 Magnesium Sulfate/Dextrose (Magnesium Sulfate 1 Gm/100 Ml D5w) 1 gm in 100 mls @ 200 mls/hr IVPB ONCE ONE Stop: 11/20/16 16:29 Insulin Human Regular (Novolin R) 0 unit SC ACHS [facility] PRN Reason: Protocol Last Admin: 11/20/16 07:54 Dose: Not Given Metformin HCl (Glucophage) 500 mg PO BID [facility] Last Admin: 11/20/16 10:47 Dose: 500 mg Pioglitazone HCl (Actos) 30 mg PO DAILY [facility] Last Admin: 11/20/16 10:47 Dose: 30 mg Potassium Chloride (K-Dur 20 Meq Er Tab) 40 meq PO DAILY [facility] Last Admin: 11/20/16 10:50 Dose: 40 meq Rosuvastatin Calcium (Crestor) 5 mg PO HS [facility] Last Admin: 11/19/16 21:25 Dose: 5 mg Sitagliptin Phosphate (Januvia) 50 mg PO DAILY [facility] Last Admin: 11/20/16 10:46 Dose: 50 mg - Labs Labs: 11/20/16 07:11 11/20/16 07:11 PT 11.5 SECONDS (9.7-12.2) 11/20/16 07:11 INR 1.0 11/20/16 07:11 APTT 30 SECONDS (21-34) 11/20/16 07:11 - Constitutional Appears: Well, No Acute Distress - Head Exam Additional comments: Right occiput area covered with gauze and dressing - Eye Exam Eye Exam: EOMI, Normal appearance - ENT Exam ENT Exam: Mucous Membranes Moist - Respiratory Exam Respiratory Exam: Clear to Ausculation Bilateral, NORMAL BREATHING PATTERN - Cardiovascular Exam Cardiovascular Exam: REGULAR RHYTHM - GI/Abdominal Exam GI & Abdominal Exam: Soft, Normal Bowel Sounds - Neurological Exam Neurological Exam: Alert, Awake, Normal Gait, Oriented x3 Neuro motor strength exam: Left Upper Extremity: 5, Right Upper Extremity: 5, Left Lower Extremity: 5, Right Lower Extremity: 5 - Psychiatric Exam Psychiatric exam: Normal Affect, Normal Mood - Skin Skin Exam: Normal Color, Warm Assessment and Plan - Assessment and Plan (Free Text) Assessment: Right Occiptal area abbcess and cellulitis 11/20: Status post drainage of occipital area abscess. Continue with IV abx. Pain is controlled at this time. Wait on cultures from the abscess. The culture from the leg wound was positive for MRSA. Vancomycin 1 gm Q24H Zosyn 3.[address] Castillo, surgery consulted. Help appreciated. Low Hemoglobin 11/20: Again patient is asymptomatic. This morning was 7.9 Hemoglobin 7.5 from admission 7.7 will continue to monitor Prior admission hemoglobin ranging between 9-11. Heme negative from rectal exam per ED Abnormal RBC indices likely indicating Iron Deficiency Anemia F/u Iron, TIBC, % saturation, Ferritin in AM History of Peripheral Vascular Disease Restarted home meds: Aspirin 81 mg PO daily Plavix 75 mg PO daily History of Diabetes Restarted home meds: Sitagliptin 50 mg PO BID Metformin 500 mg PO BID Actos 30 mg PO daily Held home Amaryl and instead added Regular ISS Hemoglobin A1C 8.2 History of Hypertension 11/20: Continue Vasotec 10 mg PO daily, if remains high then will add on additional medication History of Hyperlipidemia Crestor 5 mg PO HS Lipid Panel WNL Prophylactic Measure Restarted home meds: Klonopin 0.5 mg PO daily [facility] Cymbalta 30 mg PO BID Gabapentin 600 mg PO TID Heart Healthy Diet with Mod consistent CHO AM Labs including CBC, CMP, Mag, Phos
[2016-11-20 15:50] VITALS: RESP 20
[2016-11-20] MEDS: Vancomycin 1 gm/NS 200 ml 1 GM/200 ML BAG IVPB SCH (15:54)
--- NOTE | 2016-11-20 18:20 | OP ---
PROCEDURE DATE: 11/20/2016 PREOPERATIVE DIAGNOSIS: Abscess of right-sided neck, mastoid area. PROCEDURE CARRIED OUT: Incision and drainage. SURGEON: Cody Castillo Jr., MD POWDER LOADER: Dr. William, Resident. ANESTHESIOLOGIST: Dr. Nguyen. INDICATIONS: The patient is an older woman with a history of extensive peripheral vascular disease, who presents with large abscess of neck. Initially treated with antibiotics, however, it has not resolved. After the findings approximately 10 to 15 mL of pus was drained. This was sent for culture. The wound was intact to open, if the Hemostasis was obtained and was properly irrigated. The operation carried out is incision and drainage of large abscess right mastoid area. Raman Ramirez Jr.
[2016-11-21] MEDS: Piperacillin/Tazobact 3.375 GM in Sodium Chloride 100 ML IVPB SCH ×2 (03:00→09:45)
[2016-11-21] MEDS: (Novolin R) Insulin Human Regular 100 units/ml vial SC SCH ×5 (07:55→21:56)
--- NOTE | 2016-11-21 10:28 | CP.PCM.PN ---
Subjective - Date & Time of Evaluation Date of Evaluation: 11/21/16 Time of Evaluation: 08:00 - Subjective Subjective: Surgery note for Dr. Castillo Patient was seen and examined at bedside. Resting comfortably in NAD. Denies any issues overnight. This morning, patient admits to mild pain overlying the occipital incision site. The packing was removed and the abscess was no longer draining fluid. Patient currently denies signs of chest pain, SOB, n/v, d, abdominal pain, fever or chills. No other complaints are noted. Objective - Vital Signs/Intake and Output Vital Signs (last 24 hours): Temp Pulse Resp BP Pulse Ox 208.0 F H 98 H 20 138/72 96 11/21/16 07:15 11/21/16 07:15 11/21/16 07:15 11/21/16 07:15 11/21/16 07:15 Intake and Output: 11/21/16 11/21/16 06:59 18:59 Intake Total 1740 Balance 1740 - Medications Medications: Current Medications Acetaminophen (Tylenol 325mg Tab) 650 mg PO Q6 PRN PRN Reason: Pain, Mild (1-3) Last Admin: 11/20/16 21:28 Dose: 650 mg Aspirin (Aspirin Chewable) 81 mg PO DAILY [facility] Last Admin: 11/20/16 10:46 Dose: 81 mg Clindamycin HCl (Cleocin) 300 mg PO Q6H [facility] Clonazepam (Klonopin) 0.5 mg PO DAILY [facility] Last Admin: 11/20/16 10:46 Dose: 0.5 mg Clopidogrel Bisulfate (Plavix) 75 mg PO DAILY [facility] Last Admin: 11/20/16 10:46 Dose: 75 mg Duloxetine HCl (Cymbalta) 30 mg PO BID [facility] Last Admin: 11/20/16 17:07 Dose: 30 mg Famotidine (Pepcid) 20 mg PO BID [facility] Last Admin: 11/20/16 17:07 Dose: 20 mg Gabapentin (Neurontin) 600 mg PO TID [facility] Last Admin: 11/20/16 17:07 Dose: 600 mg Heparin Sodium (Porcine) (Heparin) 5,000 units SC Q8 [facility] Last Admin: 11/21/16 06:35 Dose: Not Given Insulin Human Regular (Novolin R) 0 unit SC ACHS [facility] PRN Reason: Protocol Last Admin: 11/21/16 08:17 Dose: Not Given Metformin HCl (Glucophage) 500 mg PO BID [facility] Last Admin: 11/20/16 17:07 Dose: 500 mg Pioglitazone HCl (Actos) 30 mg PO DAILY [facility] Last Admin: 11/20/16 10:47 Dose: 30 mg Potassium Chloride (K-Dur 20 Meq Er Tab) 40 meq PO DAILY [facility] Last Admin: 11/20/16 10:50 Dose: 40 meq Rosuvastatin Calcium (Crestor) 5 mg PO HS [facility] Last Admin: 11/20/16 21:24 Dose: 5 mg Sitagliptin Phosphate (Januvia) 50 mg PO DAILY [facility] Last Admin: 11/20/16 10:46 Dose: 50 mg - Labs Labs: 11/20/16 07:11 11/20/16 07:11 PT 11.5 SECONDS (9.7-12.2) 11/20/16 07:11 INR 1.0 11/20/16 07:11 APTT 30 SECONDS (21-34) 11/20/16 07:11 - Constitutional Appears: Non-toxic, No Acute Distress - Neck Exam Additional comments: HEENT: Incision site was C/D/I. Wound margins were slightly erythematous. No serosanguinous or purulent fluided noted. New dressings applied. - Respiratory Exam Respiratory Exam: Clear to Ausculation Bilateral, NORMAL BREATHING PATTERN - Cardiovascular Exam Cardiovascular Exam: REGULAR RHYTHM, +S1, +S2 Assessment and Plan - Assessment and Plan (Free Text) Assessment: 71F who is POD#1 from I&D of occipital abscess - Packing removed and dressings changed - Patient stable, no further surgical intervention Further recs discuss with Dr Anna Siddiqui, PGY2
[2016-11-21] MEDS: Potassium Chloride 20 mEq ER Tab PO SCH (10:48)
--- NOTE | 2016-11-21 15:49 | CP.PCM.PN ---
<Renard Barboza - Last Filed: 11/21/16 15:37> Subjective - Date & Time of Evaluation Date of Evaluation: 11/21/16 Time of Evaluation: 09:45 - Subjective Subjective: PGY [address] Macedo Patient seen and examined this morning at bedside. Patient states that she is feeling a lot of relief today. She has a little bit of pain in the back of her head but it is very tolerable. The patient is tolerating her diet. Denies f/c, n /v, d/c, sob, cp, lightheadedness or dizziness. Objective - Vital Signs/Intake and Output Vital Signs (last 24 hours): Temp Pulse Resp BP Pulse Ox 208.0 F H 98 H 20 138/72 96 11/21/16 07:15 11/21/16 07:15 11/21/16 07:15 11/21/16 07:15 11/21/16 07:15 Intake and Output: 11/21/16 11/21/16 06:59 18:59 Intake Total 1740 480 Balance 1740 480 - Medications Medications: Current Medications Acetaminophen (Tylenol 325mg Tab) 650 mg PO Q6 PRN PRN Reason: Pain, Mild (1-3) Last Admin: 11/20/16 21:28 Dose: 650 mg Aspirin (Aspirin Chewable) 81 mg PO DAILY [facility] Last Admin: 11/21/16 10:48 Dose: 81 mg Clindamycin HCl (Cleocin) 300 mg PO Q6H [facility] Last Admin: 11/21/16 14:56 Dose: 300 mg Clonazepam (Klonopin) 0.5 mg PO DAILY [facility] Last Admin: 11/21/16 10:48 Dose: 0.5 mg Clopidogrel Bisulfate (Plavix) 75 mg PO DAILY [facility] Last Admin: 11/21/16 10:48 Dose: 75 mg Duloxetine HCl (Cymbalta) 30 mg PO BID [facility] Last Admin: 11/21/16 10:48 Dose: 30 mg Famotidine (Pepcid) 20 mg PO BID [facility] Last Admin: 11/21/16 10:48 Dose: 20 mg Gabapentin (Neurontin) 600 mg PO TID [facility] Last Admin: 11/21/16 14:38 Dose: 600 mg Heparin Sodium (Porcine) (Heparin) 5,000 units SC Q8 [facility] Last Admin: 11/21/16 14:38 Dose: Not Given Insulin Human Regular (Novolin R) 0 unit SC ACHS [facility] PRN Reason: Protocol Last Admin: 11/21/16 12:29 Dose: 6 unit Metformin HCl (Glucophage) 500 mg PO BID [facility] Last Admin: 11/21/16 10:48 Dose: 500 mg Pioglitazone HCl (Actos) 30 mg PO DAILY [facility] Last Admin: 11/21/16 10:48 Dose: 30 mg Potassium Chloride (K-Dur 20 Meq Er Tab) 40 meq PO DAILY [facility] Last Admin: 11/21/16 10:48 Dose: Not Given Rosuvastatin Calcium (Crestor) 5 mg PO HS [facility] Last Admin: 11/20/16 21:24 Dose: 5 mg Sitagliptin Phosphate (Januvia) 50 mg PO DAILY [facility] Last Admin: 11/21/16 10:48 Dose: 50 mg - Labs Labs: 11/20/16 07:11 11/20/16 07:11 PT 11.5 SECONDS (9.7-12.2) 11/20/16 07:11 INR 1.0 11/20/16 07:11 APTT 30 SECONDS (21-34) 11/20/16 07:11 - Constitutional Appears: Non-toxic, No Acute Distress - Head Exam Head Exam: ATRAUMATIC, NORMOCEPHALIC Additional comments: POD 1 s/p I and D of occipital wound. Packing removed by anesthesia resident today. - Eye Exam Eye Exam: EOMI, Normal appearance - ENT Exam ENT Exam: Mucous Membranes Moist - Respiratory Exam Respiratory Exam: Clear to Ausculation Bilateral, NORMAL BREATHING PATTERN. absent: Accessory Muscle Use, Rales, Wheezes, Respiratory Distress - Cardiovascular Exam Cardiovascular Exam: REGULAR RHYTHM, +S1, +S2 - GI/Abdominal Exam GI & Abdominal Exam: Soft, Normal Bowel Sounds. absent: Distended, Guarding, Rigid, Tenderness - Extremities Exam Extremities Exam: absent: Calf Tenderness, Pedal Edema Additional comments: Wound on the back of right calf improving. Area of induration and inflammation has decreased. Wound improving. - Neurological Exam Neurological Exam: Alert, Awake, Normal Gait, Oriented x3 - Psychiatric Exam Psychiatric exam: Normal Affect, Normal Mood - Skin Skin Exam: Dry, Normal Color, Warm Assessment and Plan - Assessment and Plan (Free Text) Plan: Right Occiptal/Right Calf areas abscesses and cellulitis 11/21: POD 1, pain controlled. Culture grew gram + cocci. awaiting sensitivities. 11/20: Status post drainage of occipital area abscess. Continue with IV abx. Pain is controlled at this time. Wait on cultures from the abscess. The culture from the leg wound was positive for MRSA. Patient lost IV access over the night: DC'd Vancomycin 1 gm Q24H DC'd Zosyn 3.375 Q6H Started on Clindamycin 300mg PO Q6H Dr. Castillo, surgery consulted. Help appreciated. Low Hemoglobin 11/21: Patient refused labs this morning. 11/20: Again patient is asymptomatic. This morning was 7.9 Hemoglobin 7.5 from admission 7.7 will continue to monitor Prior admission hemoglobin ranging between 9-11. Heme negative from rectal exam per ED Abnormal RBC indices likely indicating Iron Deficiency Anemia F/u Iron, TIBC, % saturation, Ferritin in AM History of Peripheral Vascular Disease Restarted home meds: Aspirin 81 mg PO daily Plavix 75 mg PO daily History of Diabetes Restarted home meds: Sitagliptin 50 mg PO BID Metformin 500 mg PO BID Actos 30 mg PO daily Held home Amaryl and instead added Regular ISS Hemoglobin A1C 8.2 History of Hypertension 11/20: Continue Vasotec 10 mg PO daily, if remains high then will add on additional medication History of Hyperlipidemia Crestor 5 mg PO HS Lipid Panel WNL Prophylactic Measure Restarted home meds: Klonopin 0.5 mg PO daily [facility] Cymbalta 30 mg PO BID Gabapentin 600 mg PO TID Heart Healthy Diet with Mod consistent CHO AM Labs including CBC, CMP, Mag, Phos Patient refused all labs this morning Case discussed with Dr. Hellen Marroquinn PGY1 <Duglas Macedo H - Last Filed: 11/21/16 16:16> Objective - Vital Signs/Intake and Output Vital Signs (last 24 hours): Temp Pulse Resp BP Pulse Ox 208.0 F H 98 H 20 138/72 96 11/21/16 07:15 11/21/16 07:15 11/21/16 07:15 11/21/16 07:15 11/21/16 07:15 Intake and Output: 11/21/16 11/21/16 06:59 18:59 Intake Total 1740 480 Balance 1740 480 - Medications Medications: Current Medications Acetaminophen (Tylenol 325mg Tab) 650 mg PO Q6 PRN PRN Reason: Pain, Mild (1-3) Last Admin: 11/20/16 21:28 Dose: 650 mg Aspirin (Aspirin Chewable) 81 mg PO DAILY [facility] Last Admin: 11/21/16 10:48 Dose: 81 mg Clindamycin HCl (Cleocin) 300 mg PO Q6H [facility] Last Admin: 11/21/16 14:56 Dose: 300 mg Clonazepam (Klonopin) 0.5 mg PO DAILY [facility] Last Admin: 11/21/16 10:48 Dose: 0.5 mg Clopidogrel Bisulfate (Plavix) 75 mg PO DAILY [facility] Last Admin: 11/21/16 10:48 Dose: 75 mg Duloxetine HCl (Cymbalta) 30 mg PO BID [facility] Last Admin: 11/21/16 10:48 Dose: 30 mg Famotidine (Pepcid) 20 mg PO BID [facility] Last Admin: 11/21/16 10:48 Dose: 20 mg Gabapentin (Neurontin) 600 mg PO TID [facility] Last Admin: 11/21/16 14:38 Dose: 600 mg Heparin Sodium (Porcine) (Heparin) 5,000 units SC Q8 [facility] Last Admin: 11/21/16 14:38 Dose: Not Given Insulin Human Regular (Novolin R) 0 unit SC ACHS [facility] PRN Reason: Protocol Last Admin: 11/21/16 12:29 Dose: 6 unit Metformin HCl (Glucophage) 500 mg PO BID [facility] Last Admin: 11/21/16 10:48 Dose: 500 mg Pioglitazone HCl (Actos) 30 mg PO DAILY [facility] Last Admin: 11/21/16 10:48 Dose: 30 mg Potassium Chloride (K-Dur 20 Meq Er Tab) 40 meq PO DAILY [facility] Last Admin: 11/21/16 10:48 Dose: Not Given Rosuvastatin Calcium (Crestor) 5 mg PO HS [facility] Last Admin: 11/20/16 21:24 Dose: 5 mg Sitagliptin Phosphate (Januvia) 50 mg PO DAILY [facility] Last Admin: 11/21/16 10:48 Dose: 50 mg - Labs Labs: 11/20/16 07:11 11/20/16 07:11 PT 11.5 SECONDS (9.7-12.2) 11/20/16 07:11 INR 1.0 11/20/16 07:11 APTT 30 SECONDS (21-34) 11/20/16 07:11 Attending/Attestation - Attestation I have personally seen and examined this patient.: Yes I have fully participated in the care of the patient.: Yes I have reviewed all pertinent clinical information, including history, physical exam and plan: Yes Notes (Text): 11/21/16 16:12 Medical Attending: Patient was seen and examined by me. Agree with the above note by the resident. The patient had I an D yesterday of the occiput area. The pain was much better. Earlier today the packing was removed by surgery. Remains on antibiotics. Currently on Clindamycin PO. Will need to have a home visiting nurse as she lives by herself - and it would be difficult for the patient to clean and apply dressing to the back side of her head by herself thank you Duglas Macedo
[2016-11-22 08:04] VITALS: BP 145/72; TEMP 97.9
[2016-11-22] MEDS: (Novolin R) Insulin Human Regular 100 units/ml vial SC SCH ×2 (08:06→12:25)
--- NOTE | 2016-11-22 08:31 | CP.PCM.PN ---
Objective - Vital Signs/Intake and Output Vital Signs (last 24 hours): Temp Pulse Resp BP Pulse Ox 97.9 F 76 20 145/72 96 11/22/16 08:03 11/22/16 08:03 11/22/16 08:03 11/22/16 08:03 11/22/16 08:03 Intake and Output: 11/22/16 11/22/16 06:59 18:59 Intake Total 450 Balance 450 - Medications Medications: Current Medications Acetaminophen (Tylenol 325mg Tab) 650 mg PO Q6 PRN PRN Reason: Pain, Mild (1-3) Last Admin: 11/21/16 21:53 Dose: 650 mg Aspirin (Aspirin Chewable) 81 mg PO DAILY [facility] Last Admin: 11/21/16 10:48 Dose: 81 mg Clindamycin HCl (Cleocin) 300 mg PO Q6H [facility] Last Admin: 11/22/16 03:35 Dose: 300 mg Clonazepam (Klonopin) 0.5 mg PO DAILY [facility] Last Admin: 11/21/16 10:48 Dose: 0.5 mg Clopidogrel Bisulfate (Plavix) 75 mg PO DAILY [facility] Last Admin: 11/21/16 10:48 Dose: 75 mg Duloxetine HCl (Cymbalta) 30 mg PO BID [facility] Last Admin: 11/21/16 17:46 Dose: 30 mg Famotidine (Pepcid) 20 mg PO BID [facility] Last Admin: 11/21/16 17:46 Dose: 20 mg Gabapentin (Neurontin) 600 mg PO TID [facility] Last Admin: 11/21/16 17:46 Dose: 600 mg Heparin Sodium (Porcine) (Heparin) 5,000 units SC Q8 [facility] Last Admin: 11/22/16 05:07 Dose: Not Given Insulin Human Regular (Novolin R) 0 unit SC ACHS [facility] PRN Reason: Protocol Last Admin: 11/22/16 08:06 Dose: 2 unit Metformin HCl (Glucophage) 500 mg PO BID [facility] Last Admin: 11/21/16 17:46 Dose: 500 mg Pioglitazone HCl (Actos) 30 mg PO DAILY [facility] Last Admin: 11/21/16 10:48 Dose: 30 mg Potassium Chloride (K-Dur 20 Meq Er Tab) 40 meq PO DAILY [facility] Last Admin: 11/21/16 10:48 Dose: Not Given Rosuvastatin Calcium (Crestor) 5 mg PO HS [facility] Last Admin: 11/21/16 21:50 Dose: 5 mg Sitagliptin Phosphate (Januvia) 50 mg PO DAILY [facility] Last Admin: 11/21/16 10:48 Dose: 50 mg - Labs Labs: 11/20/16 07:11 11/20/16 07:11 PT 11.5 SECONDS (9.7-12.2) 11/20/16 07:11 INR 1.0 11/20/16 07:11 APTT 30 SECONDS (21-34) 11/20/16 07:11
[2016-11-22] MEDS: Potassium Chloride 20 mEq ER Tab PO SCH (09:53)
[2016-11-22 11:53] LABS: BASO % 0.9 % (0.0-2.0); EOS # 0.2 K/uL (0.0-0.7); EOS % 4.6 % (0.0-4.0); HEMATOCRIT 24.5 % (34.0-47.0); LYMPH # 1.1 K/uL (1.0-4.3); LYMPH % 24.6 % (20.0-40.0); MEAN CELL VOLUME 65.9 fL (81.0-99.0); MEAN CORPUSCULAR HEMOGLOBIN 20.4 pg (27.0-31.0); MEAN CORPUSCULAR HGB CONC 30.9 g/dL (33.0-37.0); MEAN PLATELET VOLUME 8.5 fL (7.2-11.7); MONO # 0.5 K/uL (0.0-0.8); NRBC % 0.1 % (0.0-2.0); RED CELL DISTRIBUTION WIDTH 18.5 % (11.5-14.5); WHITE BLOOD COUNT 4.5 K/uL (4.8-10.8)
[2016-11-22 12:05] VITALS: PULSE 84; O2SAT 100
[2016-11-22 12:07] LABS: CHLORIDE 98 mmol/L (98-107)
[2016-11-22 12:08] LABS: POTASSIUM 4.8 mmol/L (3.6-5.2); SODIUM 137 mmol/L (132-148)
[2016-11-22 12:10] LABS: ALKALINE PHOSPHATASE 85 U/L (38-126); AST/SGOT 21 U/L (14-36); BILIRUBIN,TOTAL 0.3 mg/dL (0.2-1.3); CARBON DIOXIDE 27 mmol/L (22-30); GFR AFRICAN-AMERICAN > 60; TOTAL PROTEIN 7.1 g/dL (6.3-8.3)
[2016-11-22 12:11] LABS: ALT/SGPT 30 U/L (9-52); BLOOD UREA NITROGEN 17 mg/dL (7-17); CALCIUM 9.3 mg/dl (8.6-10.4); GLUCOSE,RANDOM 230 mg/dL (65-105); MAGNESIUM 1.5 mg/dL (1.6-2.3); PHOSPHOROUS 3.8 mg/dL (2.5-4.5)
--- NOTE | 2016-11-22 13:02 | CP.PCM.DIS ---
<Javon Muñizsssuzie Cabral - Last Filed: 11/22/16 17:05> Provider - Provider Date of Admission: 11/17/16 13:49 Attending physician: Duglas Macedo DO Time Spent in preparation of Discharge (in minutes): 45 Diagnosis - Discharge Diagnosis (1) Abscess Status: Resolved Comment: Refer to hospital course summary (2) Cellulitis Status: Resolved Comment: Refer to hospital course summary Hospital Course - Lab Results Lab Results: Micro Results 11/20/16 10:11 Head Gram Stain - Final 11/20/16 10:11 Head Wound Culture - Final Methicillin Resistant S Aureus 11/18/16 16:00 Calf - Calf-Right Gram Stain - Final 11/18/16 16:00 Calf - Calf-Right Wound Culture - Final Staphylococcus Aureus Most Recent Lab Values WBC 4.5 K/uL (4.8-10.8) L 11/22/16 11:40 RBC 3.72 Mil/uL (3.80-5.20) L 11/22/16 11:40 Hgb 7.6 g/dL (11.0-16.0) L 11/22/16 11:40 Hct 24.5 % (34.0-47.0) L 11/22/16 11:40 MCV 65.9 fL (81.0-99.0) L 11/22/16 11:40 MCH 20.4 pg (27.0-31.0) L 11/22/16 11:40 MCHC 30.9 g/dL (33.0-37.0) L 11/22/16 11:40 RDW 18.5 % (11.5-14.5) H 11/22/16 11:40 Plt Count 471 K/uL (130-400) H 11/22/16 11:40 MPV 8.5 fL (7.2-11.7) 11/22/16 11:40 Neut % (Auto) 57.9 % (50.0-75.0) 11/22/16 11:40 Lymph % (Auto) 24.6 % (20.0-40.0) 11/22/16 11:40 [place] % (Auto) 12.0 % (0.0-10.0) H 11/22/16 11:40 Eos % (Auto) 4.6 % (0.0-4.0) H 11/22/16 11:40 Baso % (Auto) 0.9 % (0.0-2.0) 11/22/16 11:40 Neut # 2.6 K/uL (1.8-7.0) 11/22/16 11:40 Lymph # 1.1 K/uL (1.0-4.3) 11/22/16 11:40 [place] # 0.5 K/uL (0.0-0.8) 11/22/16 11:40 Eos # 0.2 K/uL (0.0-0.7) 11/22/16 11:40 Baso # 0.0 K/uL (0.0-0.2) 11/22/16 11:40 Neutrophils % (Manual) 80 % (50-75) H 11/17/16 12:05 Lymphocytes % (Manual) 15 % (20-40) L 11/17/16 12:05 Monocytes % (Manual) 4 % (0-10) 11/17/16 12:05 Eosinophils % (Manual) 1 % (0-4) 11/17/16 12:05 Differential Comment 11/19/16 11:07 Platelet Estimate Normal (NORMAL) 11/17/16 12:05 Polychromasia Slight 11/17/16 12:05 Hypochromasia (manual) Moderate 11/17/16 12:05 Anisocytosis (manual) Slight 11/17/16 12:05 Microcytosis (manual) Slight 11/17/16 12:05 Target Cells Slight 11/17/16 12:05 PT 11.5 SECONDS (9.7-12.2) 11/20/16 07:11 INR 1.0 11/20/16 07:11 APTT 30 SECONDS (21-34) 11/20/16 07:11 Sodium 137 mmol/L (132-148) 11/22/16 11:40 Potassium 4.8 mmol/L (3.6-5.2) 11/22/16 11:40 Chloride 98 mmol/L (98-107) 11/22/16 11:40 Carbon Dioxide 27 mmol/L (22-30) 11/22/16 11:40 Anion Gap 17 (10-20) 11/22/16 11:40 BUN 17 mg/dL (7-17) 11/22/16 11:40 Creatinine 0.6 MG/DL (0.7-1.2) L 11/22/16 11:40 Est GFR ( Amer) > 60 11/22/16 11:40 Est GFR (Non-Af Amer) > 60 11/22/16 11:40 POC Glucose (mg/dL) 270 mg/dL (65-110) H 11/22/16 10:46 Random Glucose 230 mg/dL (65-105) H 11/22/16 11:40 Hemoglobin A1c 8.2 % (4.2-6.5) H 11/18/16 06:00 Calcium 9.3 mg/dl (8.6-10.4) 11/22/16 11:40 Phosphorus 3.8 mg/dL (2.5-4.5) 11/22/16 11:40 Magnesium 1.5 mg/dL (1.6-2.3) L 11/22/16 11:40 Iron 20 ug/dL (37-170) L 11/19/16 11:07 TIBC 399 ug/dL (250-450) 11/19/16 11:07 % Saturation 5 (20-55) L 11/19/16 11:07 Ferritin 10.4 ng/mL 11/19/16 11:07 Total Bilirubin 0.3 mg/dL (0.2-1.3) 11/22/16 11:40 AST 21 U/L (14-36) 11/22/16 11:40 ALT 30 U/L (9-52) 11/22/16 11:40 Alkaline Phosphatase 85 U/L (38-126) 11/22/16 11:40 Total Protein 7.1 g/dL (6.3-8.3) 11/22/16 11:40 Albumin 3.6 g/dL (3.5-5.0) 11/22/16 11:40 Globulin 3.5 gm/dL (2.2-3.9) 11/22/16 11:40 Albumin/Globulin Ratio 1.0 (1.0-2.1) 11/22/16 11:40 Triglycerides 69 mg/dL (0-149) 11/18/16 06:00 Cholesterol 124 mg/dL (0-199) 11/18/16 06:00 LDL Cholesterol Direct 50 mg/dL (0-129) 11/18/16 06:00 HDL Cholesterol 50 mg/dL (30-70) 11/18/16 06:00 Beta HCG, Quant 2.57 mIU/ML 11/20/16 07:11 Urine Color Straw (YELLOW) 11/17/16 14:33 Urine Clarity Clear (Clear) 11/17/16 14:33 Urine pH 5.0 (5.0-8.0) 11/17/16 14:33 Ur Specific [place] 1.014 (1.003-1.030) 11/17/16 14:33 Urine Protein Negative mg/dL (NEGATIVE) 11/17/16 14:33 Urine Glucose (UA) 1+ mg/dL (Normal) 11/17/16 14:33 Urine Ketones Negative mg/dL (NEGATIVE) 11/17/16 14:33 Urine Blood Negative (NEGATIVE) 11/17/16 14:33 Urine Nitrate Negative (NEGATIVE) 11/17/16 14:33 Urine Bilirubin Negative (NEGATIVE) 11/17/16 14:33 Urine Urobilinogen Normal mg/dL (0.2-1.0) 11/17/16 14:33 Ur Leukocyte Esterase Neg Omar/uL (Negative) 11/17/16 14:33 Urine WBC (Auto) 1 /hpf (0-5) 11/17/16 14:33 Urine RBC (Auto) 1 /hpf (0-3) 11/17/16 14:33 Ur Squamous Epith Cells < 1 /hpf (0-5) 11/17/16 14:33 - Hospital Course Hospital Course: This is a 71 year old female with PMHx PVD, DM, HTN, HLD who presented with complaint of occipital and right posterior calf cellulitis. Patient states that this began about 1 week ago and has been worsening since then. It is associated with pain and swelling. Patient unable to describe the pain but states that it is constant at 7/10 intensity. There is no radiation of pain. Patient denies trauma to the affected regions, but stated that she thinks a mosquito might have bit her in the head. Patient is not very reliable. Patient complaining of poor appetite. Denies fever, chills, headaches, dizziness, lightheadedness, chest pain, palpitations, SOB, abdominal pain, n/v/c/d, dysuria, changes in stool, blood in the stool, dark stools. During hospitalization: Patient had incision and drainage of the occipital area abscess with vascular physician Dr. Castillo on 11/20/16. The packing was removed on 11/21 and the dressings were changed. Per surgery the patient was stable and no further surgical intervention was needed. Patient was placed on Vancomycin and Zosyn. Patient's right calf culture grew Staphylococcus Aureus and patient's head culture grew MRSA. Upon receiving the cultures the patient was placed on Clindamycin 200mg PO Q6H. Patient's hemoglobin was monitored as it was 7.5 on admission and upon discharge 7.6. Patient was continued on her home medications (Aspirin and Plavix) for history of peripheral vascular disease. Patient was continued on her home medications for diabetes (sitagliptin, metformin, actos) and the patient's hemoglobin A1C was found to be 8.2. Patient's home medication for history of hypertension (vasotec), hyperlipidemia (Crestor) were continued. Patient was cleared for discharge as per Dr. Arriaza. Patient instructed to follow up with PMD after discharge. Patient also instructed to follow up with Dr. Castillo after discharge. Patient instructed to keep the wound clean and dry. Patient also instructed to change the dressing once per day. [place] Medication: 300mg Clindamycin TID for 7 days This is a brief summary of the patients hospital course. Please review EMR for complete record. Discharge Exam - Head Exam Head Exam: ATRAUMATIC, NORMOCEPHALIC. absent: NORMAL INSPECTION (occipital abcess s/p incision and drainage ) - Eye Exam Eye Exam: EOMI, Normal appearance, PERRL Pupil Exam: NORMAL ACCOMODATION, PERRL - ENT Exam ENT Exam: Mucous Membranes Moist - Respiratory Exam Respiratory Exam: Clear to PA & Lateral, NORMAL BREATHING PATTERN. absent: Rales, Rhonchi, Wheezes, Stridor - Cardiovascular Exam Cardiovascular Exam: REGULAR RHYTHM, RRR, +S1, +S2 - GI/Abdominal Exam GI & Abdominal Exam: Normal Bowel Sounds, Soft. absent: Tenderness - Extremities Exam Extremities exam: normal inspection Additional comments: right calf small healing abscess - Neurological Exam Neurological exam: Alert, Oriented x3 - Psychiatric Exam Psychiatric exam: Normal Affect, Normal Mood - Skin Skin Exam: Dry, Intact, Warm Discharge Plan - Discharge Medications Prescriptions: Clindamycin [Cleocin] 300 mg PO TID #21 cap - Follow Up Plan Condition: STABLE Disposition: HOME/ ROUTINE Instructions: Clindamycin (By mouth), Cellulitis (DC), Anemia (DC) Referrals: Lesley Carballo MD [Staff Provider] - <Omer Arriaza - Last Filed: 11/23/16 09:48> Provider - Provider Date of Admission: 11/17/16 13:49 Attending physician: Omer Arriaza MD Hospital Course - Lab Results Lab Results: Micro Results 11/20/16 10:11 Head Gram Stain - Final 11/20/16 10:11 Head Wound Culture - Final Methicillin Resistant S Aureus 11/18/16 16:00 Calf - Calf-Right Gram Stain - Final 11/18/16 16:00 Calf - Calf-Right Wound Culture - Final Staphylococcus Aureus Most Recent Lab Values WBC 4.5 K/uL (4.8-10.8) L 11/22/16 11:40 RBC 3.72 Mil/uL (3.80-5.20) L 11/22/16 11:40 Hgb 7.6 g/dL (11.0-16.0) L 11/22/16 11:40 Hct 24.5 % (34.0-47.0) L 11/22/16 11:40 MCV 65.9 fL (81.0-99.0) L 11/22/16 11:40 MCH 20.4 pg (27.0-31.0) L 11/22/16 11:40 MCHC 30.9 g/dL (33.0-37.0) L 11/22/16 11:40 RDW 18.5 % (11.5-14.5) H 11/22/16 11:40 Plt Count 471 K/uL (130-400) H 11/22/16 11:40 MPV 8.5 fL (7.2-11.7) 11/22/16 11:40 Neut % (Auto) 57.9 % (50.0-75.0) 11/22/16 11:40 Lymph % (Auto) 24.6 % (20.0-40.0) 11/22/16 11:40 Hod[place]eman % (Auto) 12.0 % (0.0-10.0) H 11/22/16 11:40 Eos % (Auto) 4.6 % (0.0-4.0) H 11/22/16 11:40 Baso % (Auto) 0.9 % (0.0-2.0) 11/22/16 11:40 Neut # 2.6 K/uL (1.8-7.0) 11/22/16 11:40 Lymph # 1.1 K/uL (1.0-4.3) 11/22/16 11:40 [place] # 0.5 K/uL (0.0-0.8) 11/22/16 11:40 Eos # 0.2 K/uL (0.0-0.7) 11/22/16 11:40 Baso # 0.0 K/uL (0.0-0.2) 11/22/16 11:40 Neutrophils % (Manual) 80 % (50-75) H 11/17/16 12:05 Lymphocytes % (Manual) 15 % (20-40) L 11/17/16 12:05 Monocytes % (Manual) 4 % (0-10) 11/17/16 12:05 Eosinophils % (Manual) 1 % (0-4) 11/17/16 12:05 Differential Comment 11/19/16 11:07 Platelet Estimate Normal (NORMAL) 11/17/16 12:05 Polychromasia Slight 11/17/16 12:05 Hypochromasia (manual) Moderate 11/17/16 12:05 Anisocytosis (manual) Slight 11/17/16 12:05 Microcytosis (manual) Slight 11/17/16 12:05 Target Cells Slight 11/17/16 12:05 PT 11.5 SECONDS (9.7-12.2) 11/20/16 07:11 INR 1.0 11/20/16 07:11 APTT 30 SECONDS (21-34) 11/20/16 07:11 Sodium 137 mmol/L (132-148) 11/22/16 11:40 Potassium 4.8 mmol/L (3.6-5.2) 11/22/16 11:40 Chloride 98 mmol/L (98-107) 11/22/16 11:40 Carbon Dioxide 27 mmol/L (22-30) 11/22/16 11:40 Anion Gap 17 (10-20) 11/22/16 11:40 BUN 17 mg/dL (7-17) 11/22/16 11:40 Creatinine 0.6 MG/DL (0.7-1.2) L 11/22/16 11:40 Est GFR ( Amer) > 60 11/22/16 11:40 Est GFR (Non-Af Amer) > 60 11/22/16 11:40 POC Glucose (mg/dL) 270 mg/dL (65-110) H 11/22/16 10:46 Random Glucose 230 mg/dL (65-105) H 11/22/16 11:40 Hemoglobin A1c 8.2 % (4.2-6.5) H 11/18/16 06:00 Calcium 9.3 mg/dl (8.6-10.4) 11/22/16 11:40 Phosphorus 3.8 mg/dL (2.5-4.5) 11/22/16 11:40 Magnesium 1.5 mg/dL (1.6-2.3) L 11/22/16 11:40 Iron 20 ug/dL (37-170) L 11/19/16 11:07 TIBC 399 ug/dL (250-450) 11/19/16 11:07 % Saturation 5 (20-55) L 11/19/16 11:07 Ferritin 10.4 ng/mL 11/19/16 11:07 Total Bilirubin 0.3 mg/dL (0.2-1.3) 11/22/16 11:40 AST 21 U/L (14-36) 11/22/16 11:40 ALT 30 U/L (9-52) 11/22/16 11:40 Alkaline Phosphatase 85 U/L (38-126) 11/22/16 11:40 Total Protein 7.1 g/dL (6.3-8.3) 11/22/16 11:40 Albumin 3.6 g/dL (3.5-5.0) 11/22/16 11:40 Globulin 3.5 gm/dL (2.2-3.9) 11/22/16 11:40 Albumin/Globulin Ratio 1.0 (1.0-2.1) 11/22/16 11:40 Triglycerides 69 mg/dL (0-149) 11/18/16 06:00 Cholesterol 124 mg/dL (0-199) 11/18/16 06:00 LDL Cholesterol Direct 50 mg/dL (0-129) 11/18/16 06:00 HDL Cholesterol 50 mg/dL (30-70) 11/18/16 06:00 Beta HCG, Quant 2.57 mIU/ML 11/20/16 07:11 Urine Color Straw (YELLOW) 11/17/16 14:33 Urine Clarity Clear (Clear) 11/17/16 14:33 Urine pH 5.0 (5.0-8.0) 11/17/16 14:33 Ur Specific [place] 1.014 (1.003-1.030) 11/17/16 14:33 Urine Protein Negative mg/dL (NEGATIVE) 11/17/16 14:33 Urine Glucose (UA) 1+ mg/dL (Normal) 11/17/16 14:33 Urine Ketones Negative mg/dL (NEGATIVE) 11/17/16 14:33 Urine Blood Negative (NEGATIVE) 11/17/16 14:33 Urine Nitrate Negative (NEGATIVE) 11/17/16 14:33 Urine Bilirubin Negative (NEGATIVE) 11/17/16 14:33 Urine Urobilinogen Normal mg/dL (0.2-1.0) 11/17/16 14:33 Ur Leukocyte Esterase Neg Omar/uL (Negative) 11/17/16 14:33 Urine WBC (Auto) 1 /hpf (0-5) 11/17/16 14:33 Urine RBC (Auto) 1 /hpf (0-3) 11/17/16 14:33 Ur Squamous Epith Cells < 1 /hpf (0-5) 11/17/16 14:33 Attending/Attestation - Attestation I have personally seen and examined this patient.: Yes I have fully participated in the care of the patient.: Yes I have reviewed all pertinent clinical information, including history, physical exam and plan: Yes Notes (Text): 11/23/16 09:48 Patient was seen and examined at bedside with the resident Patient is feeling much better and is anxious for discharge Patient is cleared by surgery. We will discharge the patient on oral antibiotics and she will follow-up with surgery as outpatient I discussed the plan of care with the resident and agree with the discharge note by the resident.
== END 2016-11-22 15:51 | disposition home or self-care (01) | DRG 153 ==
LOC: C.ER 10:47 → C.9E 13:49 → C.3T 19:11
PROVIDERS: ADMIT Internal Medicine; ATTEND Internal Medicine
PROC: 0H94XZZ Drainage of Neck Skin, External Approach (ICD-10-PCS; principal; 2016-11-20 08:00)
DX: H70.001 Acute mastoiditis without complications, right ear (principal); E11.51 Type 2 diabetes mellitus with diabetic peripheral angiopathy without gangrene; L02.11 Cutaneous abscess of neck; L03.115 Cellulitis of right lower limb; B95.62 Methicillin resistant Staphylococcus aureus infection as the cause of diseases classified elsewhere; I10 Essential (primary) hypertension; E78.5 Hyperlipidemia, unspecified; D50.9 Iron deficiency anemia, unspecified; Z95.5 Presence of coronary angioplasty implant and graft; Z87.891 Personal history of nicotine dependence

== ENCOUNTER 2017-05-19 10:56 | Inpatient (IN) | payer MEDICARE, MEDICAID ==
[2017-05-19 10:56] VITALS: BMI 21.4
--- NOTE | 2017-05-19 11:43 | C.PDOC ---
History Of Present Illness 71 y/o F c PMHx HTN, anemia, DM p/w anemia. Patient with routine scheduled PMD visit with Dr. Carballo, called today for Hb 6 and told to go to ER. Patient denies chest pain, palpitations, dyspnea, lightheadedness, vaginal bleeding, bloody or black stool, skin color changes. Time Seen by Provider: 05/19/17 11:11 Chief Complaint (Nursing): Medical Clearance Past Medical History Vital Signs: Last Vital Signs Temp 98.1 F 05/19/17 11:02 Pulse 100 H 05/19/17 11:02 Resp 20 05/19/17 11:02 BP Pulse Ox 99 05/19/17 14:42 - Medical History PMH: Anemia, Arthritis, Bronchitis, Diabetes, HTN, Peripheral Edema Denies: Chronic Kidney Disease Surgical History: Coronary Stent - [facility] Procedures DILATION OF LEFT FEMORAL ARTERY, OPEN APPROACH (07/29/16) DILATION OF R FEM ART WITH DRUG-ELUT INTRA, PERC APPROACH (06/09/16) DILATION OF RIGHT PERONEAL ARTERY, PERCUTANEOUS APPROACH (06/09/16) DRAINAGE OF NECK SKIN, EXTERNAL APPROACH (11/17/16) EXTIRPATION OF MATTER FROM L FEM ART, OPEN APPROACH (07/29/16) EXTIRPATION OF MATTER FROM R FEM ART, PERC APPROACH (06/09/16) EXTIRPATION OF MATTER FROM R PERONEAL ART, PERC APPROACH (06/09/16) SUPPLEMENT LEFT FEMORAL ARTERY WITH SYNTH SUB, OPEN APPROACH (07/29/16) Family History: States: Unknown Family Hx - Social History Hx Tobacco Use: Yes (Quit last year) Hx Alcohol Use: No Hx Substance Use: No - Immunization History Hx Tetanus Toxoid Vaccination: Yes Hx Influenza Vaccination: Yes Hx Pneumococcal Vaccination: Yes Review Of Systems Except As Marked, All Systems Reviewed And Found Negative. Cardiovascular: Negative for: Chest Pain Respiratory: Negative for: Shortness of Breath Physical Exam - Physical Exam Additional Physical Exam Comments: Gen: NAD Head: NC Eyes: No conjunctival pallor ENT: MMM Neck: Supple CV: Regular rate Resp: No accessory muscle use : External hemorrhoid, not actively bleeding. Stool brown, small speck of bright red blood. Guaiac positive. Female tube tester nurse Bren. Skin: Pallor Neuro: Alert, no focal deficit ED Course And Treatment - Laboratory Results Result Diagrams: 05/19/17 12:02 05/19/17 12:02 ECG: Interpreted By Me, Viewed By Me ECG Rhythm: Sinus Rhythm ECG Interpretation: No Acute Changes Rate From EC O2 Sat by Pulse Oximetry: 99 (RA) Pulse Ox Interpretation: Normal Medical Decision Making Medical Decision Making: IMPRESSION: No focal consolidation identified. Dr. Spann accepts patient to hospitalist service, will consult GI and Heme/Onc. Disposition - Disposition Disposition: HOSPITALIZED Disposition Time: 14:38 Condition: FAIR Forms: [facility] (Scottish) - Clinical Impression Clinical Impression: Severe anemia
[2017-05-19 12:07] LABS: MEAN CORPUSCULAR HEMOGLOBIN 16.9 pg (27.0-31.0); MEAN PLATELET VOLUME 8.8 fL (7.2-11.7); RBC 3.82 Mil/uL (3.80-5.20); RED CELL DISTRIBUTION WIDTH 22.8 % (11.5-14.5); WHITE BLOOD COUNT 6.3 K/uL (4.8-10.8)
[2017-05-19 12:16] LABS: HEMOGLOBIN 6.4 g/dL (11.0-16.0); MEAN CELL VOLUME 56.3 fL (81.0-99.0)
[2017-05-19 12:21] LABS: ALB/GLOB RATIO 1.2 (1.0-2.1); ALBUMIN 4.1 g/dL (3.5-5.0); ALT/SGPT 18 U/L (9-52); AST/SGOT 35 U/L (14-36); BLOOD UREA NITROGEN 14 mg/dL (7-17); CALCIUM 9.1 mg/dl (8.6-10.4); GFR AFRICAN-AMERICAN > 60; GFR NON-AFRICAN AMERICAN > 60
[2017-05-19 12:42] LABS: LYMPH # 0.7 K/uL (1.0-4.3); MONO # 0.2 K/uL (0.0-0.8); NEUT # 5.4 K/uL (1.8-7.0)
--- NOTE | 2017-05-19 13:21 | RAD ---
HISTORY: anemia COMPARISON: Chest x-ray performed 07/27/16 TECHNIQUE: Chest, one view. FINDINGS: Emanation limited by habitus. LUNGS: No focal consolidation. Please note that chest x-ray has limited sensitivity for the detection of pulmonary masses. PLEURA: No significant pleural effusion identified. No definite pneumothorax . CARDIOVASCULAR: Heart size appears within normal limits. Atherosclerotic calcifications of the aortic knob. OSSEOUS STRUCTURES: Degenerative changes of the spine. VISUALIZED UPPER ABDOMEN: Unremarkable. OTHER FINDINGS: None. IMPRESSION: No focal consolidation identified.
--- NOTE | 2017-05-19 15:46 | CP.PCM.HP ---
History of Present Illness - History of Present Illness History of Present Illness: PGY1 H + P for Dr. Tyson Spann Patient is a 71 year old female with a with PMHx PVD, DM, HTN, HLD and anemia who presented to the emergency room at the request of her primary care physician. Patient's daughter is at bedside and translated for the patient. Patient was told her Hgb was 6 and that she needed to go to the emergency room. She was very surprised when she was told that she needed to come to the hospital to get a blood transfusion. Patient reports a raspy voice for approximately two weeks but otherwise feels completely normal. Patient reports intermittent numbness in her feet below the level of the malleous b/l. Patient denies fevers, chills, nausea, vomiting, diarrhea, constipation, chest pain, shortness of breath, palpitations, abdominal pain, vaginal bleeding, lightheadedness, dizziness, headaches, black or bloody stools. PMHx: DM, HTN, PVD, HLD, anemia PSHx: Bilateral lower extremity stents. Per EMR, also coronary stents Allergies: NKDA Social hx: Quit smoking in May of 2016 but has recently smoked two cigarettes daily up until 2 weeks ago when her voice got raspy and she quit again. Previously smoked 1/2 ppd for 53 years, drinks alcohol occasionally, and denied drug use. 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 Family hx: denies PMD: Dr. Carballo Present on Admission - Present on Admission Any Indicators Present on Admission: No Review of Systems - Review of Systems All systems: reviewed and no additional remarkable complaints except (as per hpi ) Past Patient History - Past Medical History & Family History Past Medical History?: Yes - Past Social History Smoking Status: Former Smoker - CARDIAC Hx Hypertension: Yes Hx Peripheral Edema: Yes - PULMONARY Hx Bronchitis: Yes - NEUROLOGICAL Hx Neurological Disorder: No Hx Dizziness: No - HEENT Hx HEENT Problems: Yes Other/Comment: wear eyeglasses for reading - RENAL Hx Chronic Kidney Disease: No - ENDOCRINE/METABOLIC Hx Diabetes Mellitus Type 2: Yes - HEMATOLOGICAL/ONCOLOGICAL Hx Anemia: Yes - INTEGUMENTARY Hx Dermatological Problems: No - MUSCULOSKELETAL/RHEUMATOLOGICAL Hx Arthritis: Yes - GASTROINTESTINAL Hx Gastrointestinal Disorders: No - GENITOURINARY/GYNECOLOGICAL Hx Genitourinary Disorders: No - PSYCHIATRIC Hx Substance Use: No - SURGICAL HISTORY Hx Coronary Stent: Yes - ANESTHESIA Hx Anesthesia: Yes Hx Anesthesia Reactions: No Hx Malignant Hyperthermia: No Meds Allergies/Adverse Reactions: Allergies Allergy/AdvReac Type Severity Reaction Status Date / Time No Known Allergies Allergy Verified 05/19/17 11:59 Physical Exam - Constitutional Appears: Well, Non-toxic, No Acute Distress - Head Exam Head Exam: ATRAUMATIC, NORMOCEPHALIC - Eye Exam Eye Exam: EOMI, Normal appearance - ENT Exam ENT Exam: Mucous Membranes Moist - Respiratory Exam Respiratory Exam: Clear to Auscultation Bilateral, NORMAL BREATHING PATTERN. absent: Accessory Muscle Use, Rales, Rhonchi, Wheezes, Respiratory Distress - Cardiovascular Exam Cardiovascular Exam: REGULAR RHYTHM, +S1, +S2 - GI/Abdominal Exam GI & Abdominal Exam: Normal Bowel Sounds, Soft. absent: Distended, Firm, Guarding, Rigid, Tenderness - Rectal Exam Rectal Exam: Deferred (performed by ED physician) - Extremities Exam Extremities exam: Positive for: pedal pulses present (slightly weaker than radial, but present b/l). Negative for: calf tenderness, pedal edema Additional comments: good cap refill (2-3 seconds) in UE and LE b/l. fungal infection in select toenails of feet b/l - Neurological Exam Neurological exam: Alert, Oriented x3 - Psychiatric Exam Psychiatric exam: Normal Affect, Normal Mood - Skin Skin Exam: Dry, Warm Results - Vital Signs Recent Vital Signs: Last Vital Signs Temp 98.5 F 05/19/17 15:23 Pulse 89 05/19/17 15:23 Resp 18 05/19/17 15:23 BP 158/58 H 05/19/17 15:23 Pulse Ox 100 05/19/17 15:23 - Labs Result Diagrams: 05/19/17 12:02 05/19/17 12:02 Labs: Laboratory Results - last 24 hr 05/19/17 05/19/17 05/19/17 12:02 12:02 12:02 WBC 6.3 RBC 3.82 Hgb 6.4 L* Hct 21.5 L MCV 56.3 L D MCH 16.9 L MCHC 30.0 L RDW 22.8 H Plt Count 429 H MPV 8.8 Neut % (Auto) 85.0 H Lymph % (Auto) 11.0 L [place] % (Auto) 4.0 Eos % (Auto) 0.0 Baso % (Auto) 0.0 Neut # (Auto) 5.4 Lymph # (Auto) 0.7 L [place] # (Auto) 0.2 Eos # (Auto) 0.0 Baso # (Auto) 0.0 Sodium 138 Potassium 3.8 Chloride 102 Carbon Dioxide 22 Anion Gap 18 BUN 14 Creatinine 0.5 L Est GFR ( Amer) > 60 Est GFR (Non-Af Amer) > 60 Random Glucose 210 H Calcium 9.1 Total Bilirubin 0.2 AST 35 ALT 18 Alkaline Phosphatase 61 Total Protein 7.6 Albumin 4.1 Globulin 3.5 Albumin/Globulin Ratio 1.2 Blood Type A POSITIVE Antibody Screen Negative Assessment & Plan - Assessment and Plan (Free Text) Plan: Anemia Dr. Tenorio consulted, help appreciated Hemoglobin 6.4 Heme positive from rectal exam per ED - Dr. Francis consulted, help appreciated - Stool was brown, bright red blood on glove, external hemorrhoid, per ED note. - Patient refused upper EGD and colonoscopy. The risks were explained to the patient by Dr. Francis and Dr. Giacomo Spann and patient continue to refuse to have procedures performed. Type and screen ordered. Patient transferred two unit of pRBCs f/u anemia work-up * Iron * TIBC * %Iron Sat * Ferritin * Folate * Bilirubin (direct) * Homocysteine * LDH * Vitamin B12 * Haptoglobin * Hemoglobinopathy * Intrinsic Factor * Methylmalonic Acid * Parietal Cell AB * HgB Electrophoresis History of Peripheral Vascular Disease Restarted home meds: Aspirin 81 mg PO daily - on hold until cleared by Heme and GI Plavix 75 mg PO daily - on hold until cleared by Heme and GI Crestor 10 mg PO HS History of Diabetes Restarted home meds: Pioglitazone 30 mg PO daily Crestor 10 mg PO HS Held home Amaryl and instead added Regular ISS f/u Hemoglobin A1C f/u TSH/free T4 History of Hypertension Restarted home meds: Amlodipine 5mg PO daily Benazepril 20mg PO daily History of Hyperlipidemia Restarted home meds: Crestor 10 mg PO HS f/u Lipid Panel Horseness of Voice Patient willing to be evaluated with laryngoscopy as out patient. Will provide contact information for ENT, Dr. Donis, upon discharge. Cepacol throat lozenge Prophylactic Measure Restarted home meds: Klonopin 0.5 mg PO daily ARTURO Cymbalta 30 mg PO BID Gabapentin 600 mg PO TID Protonix 40mg PO daily DVT ppx contra due to current anemia SCDs Clear liquid diet Case discussed with Dr. Giacomo Glynn Tamra PGY1
[2017-05-19 15:59] LABS: FERRITIN 4.2 ng/mL
[2017-05-19] MEDS ORDERED: Peg-Electrolyte Oral Soln 4L (Golytely) PO ONE (16:06)
[2017-05-19] MEDS ORDERED: Dextrose 50% SYRINGE Inj (50 ml) IV PRN (16:08)
[2017-05-19] MEDS ORDERED: Glucagon Recombinant 1 mg Inj IM PRN (16:08)
[2017-05-19 16:29] LABS: FOLATE 14.5 ng/mL
[2017-05-19 17:04] LABS: IRON 16 ug/dL (37-170)
[2017-05-19 17:13] LABS: HDL CHOLESTEROL 50 mg/dL (30-70)
[2017-05-19 17:14] LABS: % IRON SATURATION 3 (20-55); TOTAL IRON BINDING CAPACITY 457 ug/dL (250-450)
[2017-05-19 17:25] LABS: LDL CHOLESTEROL 59 mg/dL (0-129)
[2017-05-19 17:58] LABS: BILIRUBIN,DIRECT 0.1 mg/dL (0.0-0.4)
[2017-05-19] MEDS: Benzocaine/Menthol (Cepacol) Lozenge MT SCH ×2 (18:02→21:20)
[2017-05-19] MEDS ORDERED: (Novolin R) Insulin Human Regular 100 units/ml vial ONE (18:06)
[2017-05-19] MEDS: (Novolin R) Insulin Human Regular 100 units/ml vial SC SCH ×2 (18:12→21:46)
[2017-05-19 18:26] LABS: INR 0.9; PROTHROMBIN TIME 10.4 SECONDS (9.7-12.2)
[2017-05-19 20:32] VITALS: RESP 20; O2SAT 97
[2017-05-19] MEDS: Sucralfate 1 gm/10 ml Oral Susp UD PO SCH (22:35)
[2017-05-20] MEDS ORDERED: Benzocaine/Menthol (Cepacol) Lozenge MT PRN (00:01)
[2017-05-20] MEDS: (Novolin R) Insulin Human Regular 100 units/ml vial SC SCH ×2 (07:42→11:59)
[2017-05-20 07:55] VITALS: PULSE 75; TEMP 98.1
[2017-05-20 08:03] LABS: EOS # 0.1 K/uL (0.0-0.7); MEAN CORPUSCULAR HEMOGLOBIN 21.1 pg (27.0-31.0); NRBC % 0.2 % (0.0-2.0)
[2017-05-20 08:08] LABS: BASO % 0.7 % (0.0-2.0); EOS % 1.2 % (0.0-4.0); LYMPH # 2.7 K/uL (1.0-4.3); LYMPH % 36.6 % (20.0-40.0); MEAN CORPUSCULAR HGB CONC 32.5 g/dL (33.0-37.0); MEAN PLATELET VOLUME 9.3 fL (7.2-11.7); MONO # 0.6 K/uL (0.0-0.8); MONO % 7.5 % (0.0-10.0); RBC 4.97 Mil/uL (3.80-5.20); RED CELL DISTRIBUTION WIDTH 32.3 % (11.5-14.5); WHITE BLOOD COUNT 7.4 K/uL (4.8-10.8)
[2017-05-20 08:16] LABS: HEMOGLOBIN 10.5 g/dL (11.0-16.0); MEAN CELL VOLUME 64.8 fL (81.0-99.0)
[2017-05-20] MEDS: Sucralfate 1 gm/10 ml Oral Susp UD PO SCH (08:30)
[2017-05-20] MEDS ORDERED: Pantoprazole 40 mg EC Tab PO SCH (10:00)
[2017-05-20 10:05] VITALS: BP 154/72
[2017-05-20] MEDS ORDERED: Ferric Sodium Gluconat Complex 62.5 mg/5 ml Vial IVPB SCH (11:30)
--- NOTE | 2017-05-20 11:49 | CP.PCM.CON ---
History of Present Illness - History of Present Illness History of Present Illness: 71 year old female with a history of HTN, DM, PVD, admitted with anemia. The patient was found to have a hgb of 6 by her PMD and told to come to the hospital. She deneis abnormal bleeding and bruising. She has never had a colonoscopy and reports she does not want one. She has been more fatigued with dyspnea on exertion for the past 1-2 weeks. She is currently s/p 2U PRBC and reports to feeling better. Past medical history: HTN, DM, HL, PVD Past surgical history: ?vascular surgery Family history: Denies hematologic and oncologic problems Social history: Former tobacco abuse Allergies: NKA Review of systems: All remaining review of systems including HEENT, cardiovascular, respiratory, gastrointestinal, genitourinary, musculoskeletal, dermatologic, neurologic, and psychiatric are negative unless mentioned in the HPI. Past Patient History - Past Medical History & Family History Past Medical History?: Yes - Past Social History Smoking Status: Former Smoker - CARDIAC Hx Hypertension: Yes Hx Peripheral Edema: Yes - PULMONARY Hx Bronchitis: Yes - NEUROLOGICAL Hx Neurological Disorder: No - HEENT Hx HEENT Problems: Yes Other/Comment: wear eyeglasses for reading - RENAL Hx Chronic Kidney Disease: No - ENDOCRINE/METABOLIC Hx Diabetes Mellitus Type 2: Yes - HEMATOLOGICAL/ONCOLOGICAL Hx Anemia: Yes - INTEGUMENTARY Hx Dermatological Problems: No - MUSCULOSKELETAL/RHEUMATOLOGICAL Hx Arthritis: Yes Hx Falls: No - GASTROINTESTINAL Hx Gastrointestinal Disorders: No - GENITOURINARY/GYNECOLOGICAL Hx Genitourinary Disorders: No - PSYCHIATRIC Hx Substance Use: No - SURGICAL HISTORY Hx Coronary Stent: Yes Hx Tubal Ligation: Yes - ANESTHESIA Hx Anesthesia: Yes Hx Anesthesia Reactions: No Hx Malignant Hyperthermia: No Meds Allergies/Adverse Reactions: Allergies Allergy/AdvReac Type Severity Reaction Status Date / Time No Known Allergies Allergy Verified 05/19/17 11:59 - Medications Medications: Current Medications Amlodipine Besylate (Norvasc) 5 mg PO DAILY [facility] Last Admin: 05/20/17 10:04 Dose: 5 mg Aspirin (Aspirin Chewable) 81 mg PO DAILY [facility] Benzocaine/Menthol (Cepacol Sore Throat) 1 danilo MT Q4H PRN PRN Reason: Sore Throat Last Admin: 05/19/17 21:25 Dose: 1 danilo Clonazepam (Klonopin) 0.5 mg PO DAILY [facility] Last Admin: 05/20/17 10:04 Dose: 0.5 mg Clopidogrel Bisulfate (Plavix) 75 mg PO DAILY [facility] Dextrose (Dextrose 50% Inj) 0 ml IV STAT PRN; Protocol PRN Reason: Hypoglycemia Protocol Dextrose (Glutose 15) 0 gm PO ONCE PRN; Protocol PRN Reason: Hypoglycemia Protocol Duloxetine HCl (Cymbalta) 30 mg PO BID [facility] Last Admin: 05/20/17 10:04 Dose: 30 mg Enalapril Maleate (Vasotec) 10 mg PO DAILY [facility] Last Admin: 05/20/17 10:04 Dose: 10 mg Ferric Sodium Gluconate Complex (Ferrlecit) 125 mg IVPB DAILY [facility] Stop: 05/28/17 11:31 Gabapentin (Neurontin) 600 mg PO TID [facility] Last Admin: 05/20/17 10:03 Dose: 600 mg Glucagon (Glucagen Diagnostic Kit) 0 mg IM STAT PRN; Protocol PRN Reason: Hypoglycemia Protocol Dextrose (Dextrose 5% In Water 1000 Ml) 1,000 mls @ 0 mls/hr IV .Q0M PRN; Protocol; Per Protocol PRN Reason: Hypoglycemia Protocol Insulin Human Regular (Novolin R) 0 unit SC ACHS [facility] PRN Reason: Protocol Last Admin: 05/20/17 07:42 Dose: Not Given Pantoprazole Sodium (Protonix Ec Tab) 40 mg PO DAILY [facility] Last Admin: 05/20/17 10:03 Dose: 40 mg Pioglitazone HCl (Actos) 30 mg PO DAILY [facility] Last Admin: 05/20/17 10:03 Dose: 30 mg Rosuvastatin Calcium (Crestor) 5 mg PO HS [facility] Last Admin: 05/19/17 21:45 Dose: 5 mg Sucralfate (Carafate Oral Susp) 1 gm PO ACBHS [facility] Last Admin: 05/20/17 08:30 Dose: 1 gm Physical Exam - Head Exam Head Exam: ATRAUMATIC - Eye Exam Eye Exam: Normal appearance - ENT Exam ENT Exam: Mucous Membranes Dry - Respiratory Exam Respiratory Exam: NORMAL BREATHING PATTERN - Cardiovascular Exam Cardiovascular Exam: +S1, +S2 - GI/Abdominal Exam GI & Abdominal Exam: Normal Bowel Sounds Results - Vital Signs Recent Vital Signs: Last Vital Signs Temp 98.1 F 05/20/17 07:51 Pulse 75 05/20/17 07:51 Resp 20 05/20/17 07:51 BP 154/72 H 05/20/17 10:04 Pulse Ox 97 05/20/17 07:51 - Labs Result Diagrams: 05/20/17 07:41 05/19/17 12:02 Labs: Laboratory Results - last 24 hr 05/19/17 05/19/17 05/19/17 12:02 12:02 12:02 WBC 6.3 RBC 3.82 Hgb 6.4 L* Hct 21.5 L MCV 56.3 L D MCH 16.9 L MCHC 30.0 L RDW 22.8 H Plt Count 429 H MPV 8.8 Neut % (Auto) 85.0 H Lymph % (Auto) 11.0 L [place] % (Auto) 4.0 Eos % (Auto) 0.0 Baso % (Auto) 0.0 Neut # (Auto) 5.4 Lymph # (Auto) 0.7 L [place] # (Auto) 0.2 Eos # (Auto) 0.0 Baso # (Auto) 0.0 Retic Count PT INR APTT Sodium 138 Potassium 3.8 Chloride 102 Carbon Dioxide 22 Anion Gap 18 BUN 14 Creatinine 0.5 L Est GFR ( Amer) > 60 Est GFR (Non-Af Amer) > 60 POC Glucose (mg/dL) Random Glucose 210 H Hemoglobin A1c Calcium 9.1 Iron TIBC % Saturation Ferritin Total Bilirubin 0.2 Direct Bilirubin AST 35 ALT 18 Alkaline Phosphatase 61 Lactate Dehydrogenase Total Protein 7.6 Albumin 4.1 Globulin 3.5 Albumin/Globulin Ratio 1.2 Triglycerides Cholesterol LDL Cholesterol Direct HDL Cholesterol Alpha Fetoprotein Carcinoembryonic Ag CA 19-9 Antigen CA 125 Antigen Vitamin B12 Folate Homocysteine Free T4 TSH 3rd Generation Blood Type A POSITIVE Antibody Screen Negative 05/19/17 05/19/17 05/19/17 15:04 15:04 15:18 WBC RBC Hgb Hct MCV MCH MCHC RDW Plt Count MPV Neut % (Auto) Lymph % (Auto) [place] % (Auto) Eos % (Auto) Baso % (Auto) Neut # (Auto) Lymph # (Auto) [place] # (Auto) Eos # (Auto) Baso # (Auto) Retic Count 2.6 H D PT INR APTT Sodium Potassium Chloride Carbon Dioxide Anion Gap BUN Creatinine Est GFR ( Amer) Est GFR (Non-Af Amer) POC Glucose (mg/dL) Random Glucose Hemoglobin A1c Calcium Iron 16 L TIBC 457 H % Saturation 3 L Ferritin 4.2 Total Bilirubin Direct Bilirubin 0.1 AST ALT Alkaline Phosphatase Lactate Dehydrogenase 491 Total Protein Albumin Globulin Albumin/Globulin Ratio Triglycerides Cholesterol LDL Cholesterol Direct HDL Cholesterol Alpha Fetoprotein Carcinoembryonic Ag CA 19-9 Antigen CA 125 Antigen Vitamin B12 287 Folate 14.5 Homocysteine 8.7 Free T4 TSH 3rd Generation Blood Type Antibody Screen 05/19/17 05/19/17 05/19/17 17:03 17:03 17:05 WBC RBC Hgb Hct MCV MCH MCHC RDW Plt Count MPV Neut % (Auto) Lymph % (Auto) [place] % (Auto) Eos % (Auto) Baso % (Auto) Neut # (Auto) Lymph # (Auto) [place] # (Auto) Eos # (Auto) Baso # (Auto) Retic Count PT INR APTT Sodium Potassium Chloride Carbon Dioxide Anion Gap BUN Creatinine Est GFR ( Amer) Est GFR (Non-Af Amer) POC Glucose (mg/dL) Random Glucose Hemoglobin A1c 8.0 H Calcium Iron TIBC % Saturation Ferritin Total Bilirubin Direct Bilirubin AST ALT Alkaline Phosphatase Lactate Dehydrogenase Total Protein Albumin Globulin Albumin/Globulin Ratio Triglycerides 103 Cholesterol 134 LDL Cholesterol Direct 59 HDL Cholesterol 50 Alpha Fetoprotein 2.6 Carcinoembryonic Ag 2.2 CA 19-9 Antigen 4.7 CA 125 Antigen < 5.5 Vitamin B12 Folate Homocysteine Free T4 TSH 3rd Generation 1.29 Blood Type Antibody Screen 05/19/17 05/19/17 05/19/17 17:05 18:00 18:13 WBC RBC Hgb Hct MCV MCH MCHC RDW Plt Count MPV Neut % (Auto) Lymph % (Auto) [place] % (Auto) Eos % (Auto) Baso % (Auto) Neut # (Auto) Lymph # (Auto) [place] # (Auto) Eos # (Auto) Baso # (Auto) Retic Count PT 10.4 INR 0.9 APTT 25 Sodium Potassium Chloride Carbon Dioxide Anion Gap BUN Creatinine Est GFR ( Amer) Est GFR (Non-Af Amer) POC Glucose (mg/dL) 239 H Random Glucose Hemoglobin A1c Calcium Iron TIBC % Saturation Ferritin Total Bilirubin Direct Bilirubin AST ALT Alkaline Phosphatase Lactate Dehydrogenase Total Protein Albumin Globulin Albumin/Globulin Ratio Triglycerides Cholesterol LDL Cholesterol Direct HDL Cholesterol Alpha Fetoprotein Carcinoembryonic Ag CA 19-9 Antigen CA 125 Antigen Vitamin B12 Folate Homocysteine Free T4 0.94 TSH 3rd Generation Blood Type Antibody Screen 05/19/17 05/20/17 05/20/17 21:14 07:09 07:41 WBC 7.4 RBC 4.97 Hgb 10.5 L D Hct 32.2 L MCV 64.8 L D MCH 21.1 L MCHC 32.5 L RDW 32.3 H Plt Count 380 MPV 9.3 Neut % (Auto) 54.0 Lymph % (Auto) 36.6 [place] % (Auto) 7.5 Eos % (Auto) 1.2 Baso % (Auto) 0.7 Neut # (Auto) 4.0 Lymph # (Auto) 2.7 [place] # (Auto) 0.6 Eos # (Auto) 0.1 Baso # (Auto) 0.0 Retic Count PT INR APTT Sodium Potassium Chloride Carbon Dioxide Anion Gap BUN Creatinine Est GFR ( Amer) Est GFR (Non-Af Amer) POC Glucose (mg/dL) 151 H 102 Random Glucose Hemoglobin A1c Calcium Iron TIBC % Saturation Ferritin Total Bilirubin Direct Bilirubin AST ALT Alkaline Phosphatase Lactate Dehydrogenase Total Protein Albumin Globulin Albumin/Globulin Ratio Triglycerides Cholesterol LDL Cholesterol Direct HDL Cholesterol Alpha Fetoprotein Carcinoembryonic Ag CA 19-9 Antigen CA 125 Antigen Vitamin B12 Folate Homocysteine Free T4 TSH 3rd Generation Blood Type Antibody Screen 05/20/17 11:37 WBC RBC Hgb Hct MCV MCH MCHC RDW Plt Count MPV Neut % (Auto) Lymph % (Auto) [place] % (Auto) Eos % (Auto) Baso % (Auto) Neut # (Auto) Lymph # (Auto) [place] # (Auto) Eos # (Auto) Baso # (Auto) Retic Count PT INR APTT Sodium Potassium Chloride Carbon Dioxide Anion Gap BUN Creatinine Est GFR ( Amer) Est GFR (Non-Af Amer) POC Glucose (mg/dL) 141 H Random Glucose Hemoglobin A1c Calcium Iron TIBC % Saturation Ferritin Total Bilirubin Direct Bilirubin AST ALT Alkaline Phosphatase Lactate Dehydrogenase Total Protein Albumin Globulin Albumin/Globulin Ratio Triglycerides Cholesterol LDL Cholesterol Direct HDL Cholesterol Alpha Fetoprotein Carcinoembryonic Ag CA 19-9 Antigen CA 125 Antigen Vitamin B12 Folate Homocysteine Free T4 TSH 3rd Generation Blood Type Antibody Screen Assessment & Plan (1) Anemia Assessment and Plan: work up consistent with iron deficiency s/p PRBC transfusion will give IV ferrlecit deferred GI w/u outpatient f/u Thank you for this interesting consult. Status: Acute
--- NOTE | 2017-05-20 12:04 | CARD ---
APPROVED REPORT EKG Measurement Heart [id number] <Conclusion> Normal sinus rhythm Low voltage QRS Borderline ECG
--- NOTE | 2017-05-20 14:04 | CP.PCM.DIS ---
<Renard Barboza - Last Filed: 05/20/17 13:54> Provider - Provider Date of Admission: 05/19/17 14:50 Attending physician: Tyson Spann MD Consults: Dr. Coby Donis Time Spent in preparation of Discharge (in minutes): 30 Hospital Course - Lab Results Lab Results: Most Recent Lab Values WBC 7.4 K/uL (4.8-10.8) 05/20/17 07:41 RBC 4.97 Mil/uL (3.80-5.20) 05/20/17 07:41 Hgb 10.5 g/dL (11.0-16.0) L D 05/20/17 07:41 Hct 32.2 % (34.0-47.0) L 05/20/17 07:41 MCV 64.8 fL (81.0-99.0) L D 05/20/17 07:41 MCH 21.1 pg (27.0-31.0) L 05/20/17 07:41 MCHC 32.5 g/dL (33.0-37.0) L 05/20/17 07:41 RDW 32.3 % (11.5-14.5) H 05/20/17 07:41 Plt Count 380 K/uL (130-400) 05/20/17 07:41 MPV 9.3 fL (7.2-11.7) 05/20/17 07:41 Neut % (Auto) 54.0 % (50.0-75.0) 05/20/17 07:41 Lymph % (Auto) 36.6 % (20.0-40.0) 05/20/17 07:41 Traill % (Auto) 7.5 % (0.0-10.0) 05/20/17 07:41 Eos % (Auto) 1.2 % (0.0-4.0) 05/20/17 07:41 Baso % (Auto) 0.7 % (0.0-2.0) 05/20/17 07:41 Neut # (Auto) 4.0 K/uL (1.8-7.0) 05/20/17 07:41 Lymph # (Auto) 2.7 K/uL (1.0-4.3) 05/20/17 07:41 Traill # (Auto) 0.6 K/uL (0.0-0.8) 05/20/17 07:41 Eos # (Auto) 0.1 K/uL (0.0-0.7) 05/20/17 07:41 Baso # (Auto) 0.0 K/uL (0.0-0.2) 05/20/17 07:41 Retic Count 2.6 % (0.5-1.5) H D 05/19/17 15:18 PT 10.4 SECONDS (9.7-12.2) 05/19/17 18:13 INR 0.9 05/19/17 18:13 APTT 25 SECONDS (21-34) 05/19/17 18:13 Sodium 138 mmol/L (132-148) 05/19/17 12:02 Potassium 3.8 mmol/L (3.6-5.2) 05/19/17 12:02 Chloride 102 mmol/L (98-107) 05/19/17 12:02 Carbon Dioxide 22 mmol/L (22-30) 05/19/17 12:02 Anion Gap 18 (10-20) 05/19/17 12:02 BUN 14 mg/dL (7-17) 05/19/17 12:02 Creatinine 0.5 mg/dL (0.7-1.2) L 05/19/17 12:02 Est GFR ( Amer) > 60 05/19/17 12:02 Est GFR (Non-Af Amer) > 60 05/19/17 12:02 POC Glucose (mg/dL) 141 mg/dL (65-110) H 05/20/17 11:37 Random Glucose 210 mg/dL (65-105) H 05/19/17 12:02 Hemoglobin A1c 8.0 % (4.2-6.5) H 05/19/17 17:03 Calcium 9.1 mg/dl (8.6-10.4) 05/19/17 12:02 Iron 16 ug/dL (37-170) L 05/19/17 15:04 TIBC 457 ug/dL (250-450) H 05/19/17 15:04 % Saturation 3 (20-55) L 05/19/17 15:04 Ferritin 4.2 ng/mL 05/19/17 15:04 Total Bilirubin 0.2 mg/dL (0.2-1.3) 05/19/17 12:02 Direct Bilirubin 0.1 mg/dL (0.0-0.4) 05/19/17 15:04 AST 35 U/L (14-36) 05/19/17 12:02 ALT 18 U/L (9-52) 05/19/17 12:02 Alkaline Phosphatase 61 U/L (38-126) 05/19/17 12:02 Lactate Dehydrogenase 491 U/L (313-618) 05/19/17 15:04 Total Protein 7.6 g/dL (6.3-8.3) 05/19/17 12:02 Albumin 4.1 g/dL (3.5-5.0) 05/19/17 12:02 Globulin 3.5 gm/dL (2.2-3.9) 05/19/17 12:02 Albumin/Globulin Ratio 1.2 (1.0-2.1) 05/19/17 12:02 Triglycerides 103 mg/dL (0-149) 05/19/17 17:03 Cholesterol 134 mg/dL (0-199) 05/19/17 17:03 LDL Cholesterol Direct 59 mg/dL (0-129) 05/19/17 17:03 HDL Cholesterol 50 mg/dL (30-70) 05/19/17 17:03 Alpha Fetoprotein 2.6 ng/mL (0.0-7.5) 05/19/17 17:05 Carcinoembryonic Ag 2.2 ng/mL (0-3.0) 05/19/17 17:03 CA 19-9 Antigen 4.7 U/mL (0-37) 05/19/17 17:03 CA 125 Antigen < 5.5 U/mL (0-35) 05/19/17 17:03 Vitamin B12 287 pg/mL (239-931) 05/19/17 15:04 Folate 14.5 ng/mL 05/19/17 15:04 Homocysteine 8.7 umol/L (4.7-12.6) 05/19/17 15:04 Free T4 0.94 ng/dL (0.78-2.19) 05/19/17 17:05 TSH 3rd Generation 1.29 mIU/L (0.46-4.68) 05/19/17 17:03 Blood Type A POSITIVE 05/19/17 12:02 Antibody Screen Negative 05/19/17 12:02 - Hospital Course Hospital Course: As per admission documentation, Patient is a 71 year old female with a with PMHx PVD, DM, HTN, HLD and anemia who presented to the emergency room at the request of her primary care physician. Patient's daughter is at bedside and translated for the patient. Patient was told her Hgb was 6 and that she needed to go to the emergency room. She was very surprised when she was told that she needed to come to the hospital to get a blood transfusion. Patient reports a raspy voice for approximately two weeks but otherwise feels completely normal. Patient reports intermittent numbness in her feet below the level of the malleous b/l. Patient denies fevers, chills, nausea, vomiting, diarrhea, constipation, chest pain, shortness of breath, palpitations, abdominal pain, vaginal bleeding, lightheadedness, dizziness, headaches, black or bloody stools. Hospital Course, Patient was admitted to the hospital for anemia of unknown cause with a Hgb of 6.4. Dr. Tenorio, hematology, was consulted. Patient was found to a large external hemorrhoid and have bright red blood on glove with a rectal exam while in the ED. Dr. Francis, GI, was consulted. Patient refused upper EGD and colonoscopy. The risks were explained to the patient by Dr. Francis and Dr. Giacomo Spann, but patient continue to refuse to have procedures performed. The patient was transfused 2 units of pRBCs on 05/19/17. An anemia work-up was started including (Iron, TIBC, %Iron Sat, Ferritin, Folate, Bilirubin (direct), Homocysteine, LDH, Vitamin B12, Haptoglobin, Hemoglobinopathy, Intrinsic Factor , Methylmalonic Acid, Parietal Cell AB, HgB Electrophoresis). The following day , 05/20/17, the patient requested to be discharged as she did not want to be here any longer. The patient stated she has always felt fine and has no complains. She stated if it was not for her primary care physician, Dr. Carballo, calling her and telling her to come to the hospital, should would not have come. The patient was stable throughout her hospital stay. Discharge Instructions, Patient is to be discharged home per Dr. Tyson Spann. During the hospital stay, the patient refused an Upper GI endoscopy as well as a Colonoscopy. Although the patient refused, we still highly recommend that these get done as soon as possible as there may been an underlying cancer that is the cause of the patient's long standing anemia. Patient was given a referral to a [employer] (GI) physician, Dr. Francis, if she is to change her mind. The patient was instructed by the [employer] (blood doctor), Dr. Tenorio, to call and follow up in his office. His phone number is [phone]. As per Dr. Tenorio's request, please call and set up an appointment on either 05/23 or Tuesday05/25/17. The importance of continued follow up with Dr. Tenorio was stressed to the patient. The patient was instructed to follow up with the Ears, Nose and Throat (ENT) physician, Dr. Mcdowell, for further evaluation of the patient's sore/hoarseness in her throat. Dr. Mcdowell stated that he will perform an office laryngoscopy on the patient. Please contact Dr. Mcdowell's office at [phone] to schedule an appointment. It is highly recommend the patient follows up with her primary care physician, Dr. Carballo, to up date them on her condition, as well as the services rendered during her hospital stay. The patient is to continue taking her medications as directed by her primary care physician. She stated today that she has all of her medication and does not need any prescriptions at this time. The patient was not prescribed any new medications during this visit and was not discharged with any medications. If the patient experiences any new, worsening or concerning symptoms, please go to the nearest emergency facility. This is just a brief summary of the events during the patient's hospital stay. For a complete detailed description of the patient's hospital course, please see EMR. - Constitutional Appears: Well, Non-toxic, No Acute Distress - Head Exam Head Exam: ATRAUMATIC, NORMOCEPHALIC - Eye Exam Eye Exam: EOMI, Normal appearance - ENT Exam ENT Exam: Mucous Membranes Moist - Respiratory Exam Respiratory Exam: Clear to Auscultation Bilateral, NORMAL BREATHING PATTERN. absent: Accessory Muscle Use, Rales, Rhonchi, Wheezes, Respiratory Distress - Cardiovascular Exam Cardiovascular Exam: REGULAR RHYTHM, +S1, +S2 - GI/Abdominal Exam GI & Abdominal Exam: Normal Bowel Sounds, Soft. absent: Distended, Firm, Guarding, Rigid, Tenderness - Rectal Exam Rectal Exam: Deferred (performed by ED physician) - Extremities Exam Extremities exam: Positive for: pedal pulses present (slightly weaker than radial, but present b/l). Negative for: calf tenderness, pedal edema Additional comments: good cap refill (2-3 seconds) in UE and LE b/l. fungal infection in select toenails of feet b/l - Neurological Exam Neurological exam: Alert, Oriented x3 - Psychiatric Exam Psychiatric exam: Normal Affect, Normal Mood - Skin Skin Exam: Dry, Warm Discharge Exam - Head Exam Head Exam: ATRAUMATIC, NORMOCEPHALIC Discharge Plan - Follow Up Plan Condition: FAIR Disposition: HOME/ ROUTINE Instructions: Normocytic Normochromic Anemia (DC) Additional Instructions: Patient is to be discharged home per Dr. Tyson Spann. During the hospital stay, the patient refused an Upper GI endoscopy as well as a Colonoscopy. Although the patient refused, we still highly recommend that these get done as soon as possible as there may been an underlying cancer that is the cause of the patient's long standing anemia. Patient was given a referral to a [employer] (GI) physician, Dr. Francis, if she is to change her mind. The patient was instructed by the [employer] (blood doctor), Dr. Tenorio, to call and follow up in his office. His phone number is [phone]. As per Dr. Tenorio's request, please call and set up an appointment on either 05/23 or Tuesday05/25/17. The importance of continued follow up with Dr. Tenorio was stressed to the patient. The patient was instructed to follow up with the Ears, Nose and Throat (ENT) physician, Dr. Mcdowell, for further evaluation of the patient's sore/hoarseness in her throat. Dr. Mcdowell stated that he will perform an office laryngoscopy on the patient. Please contact Dr. Mcdowell's office at [phone] to schedule an appointment. It is highly recommend the patient follows up with her primary care physician, Dr. Carballo, to up date them on her condition, as well as the services rendered during her hospital stay. The patient is to continue taking her medications as directed by her primary care physician. She stated today that she has all of her medication and does not need any prescriptions at this time. The patient was not prescribed any new medications during this visit and was not discharged with any medications. If the patient experiences any new, worsening or concerning symptoms, please go to the nearest emergency facility. Referrals: Jac Tenorio MD [Staff Provider] - Carlton Donis MD [Staff Provider] - Cristino Francis [Staff Provider] - Lesley Carballo MD [Staff Provider] - <Tyson Spann - Last Filed: 05/20/17 18:55> Provider - Provider Date of Admission: 05/19/17 14:50 Attending physician: Tyson Spann MD Hospital Course - Lab Results Lab Results: Most Recent Lab Values WBC 7.4 K/uL (4.8-10.8) 05/20/17 07:41 RBC 4.97 Mil/uL (3.80-5.20) 05/20/17 07:41 Hgb 10.5 g/dL (11.0-16.0) L D 05/20/17 07:41 Hct 32.2 % (34.0-47.0) L 05/20/17 07:41 MCV 64.8 fL (81.0-99.0) L D 05/20/17 07:41 MCH 21.1 pg (27.0-31.0) L 05/20/17 07:41 MCHC 32.5 g/dL (33.0-37.0) L 05/20/17 07:41 RDW 32.3 % (11.5-14.5) H 05/20/17 07:41 Plt Count 380 K/uL (130-400) 05/20/17 07:41 MPV 9.3 fL (7.2-11.7) 05/20/17 07:41 Neut % (Auto) 54.0 % (50.0-75.0) 05/20/17 07:41 Lymph % (Auto) 36.6 % (20.0-40.0) 05/20/17 07:41 Traill % (Auto) 7.5 % (0.0-10.0) 05/20/17 07:41 Eos % (Auto) 1.2 % (0.0-4.0) 05/20/17 07:41 Baso % (Auto) 0.7 % (0.0-2.0) 05/20/17 07:41 Neut # (Auto) 4.0 K/uL (1.8-7.0) 05/20/17 07:41 Lymph # (Auto) 2.7 K/uL (1.0-4.3) 05/20/17 07:41 Traill # (Auto) 0.6 K/uL (0.0-0.8) 05/20/17 07:41 Eos # (Auto) 0.1 K/uL (0.0-0.7) 05/20/17 07:41 Baso # (Auto) 0.0 K/uL (0.0-0.2) 05/20/17 07:41 Retic Count 2.6 % (0.5-1.5) H D 05/19/17 15:18 PT 10.4 SECONDS (9.7-12.2) 05/19/17 18:13 INR 0.9 05/19/17 18:13 APTT 25 SECONDS (21-34) 05/19/17 18:13 Sodium 138 mmol/L (132-148) 05/19/17 12:02 Potassium 3.8 mmol/L (3.6-5.2) 05/19/17 12:02 Chloride 102 mmol/L (98-107) 05/19/17 12:02 Carbon Dioxide 22 mmol/L (22-30) 05/19/17 12:02 Anion Gap 18 (10-20) 05/19/17 12:02 BUN 14 mg/dL (7-17) 05/19/17 12:02 Creatinine 0.5 mg/dL (0.7-1.2) L 05/19/17 12:02 Est GFR ( Amer) > 60 05/19/17 12:02 Est GFR (Non-Af Amer) > 60 05/19/17 12:02 POC Glucose (mg/dL) 141 mg/dL (65-110) H 05/20/17 11:37 Random Glucose 210 mg/dL (65-105) H 05/19/17 12:02 Hemoglobin A1c 8.0 % (4.2-6.5) H 05/19/17 17:03 Calcium 9.1 mg/dl (8.6-10.4) 05/19/17 12:02 Iron 16 ug/dL (37-170) L 05/19/17 15:04 TIBC 457 ug/dL (250-450) H 05/19/17 15:04 % Saturation 3 (20-55) L 05/19/17 15:04 Ferritin 4.2 ng/mL 05/19/17 15:04 Total Bilirubin 0.2 mg/dL (0.2-1.3) 05/19/17 12:02 Direct Bilirubin 0.1 mg/dL (0.0-0.4) 05/19/17 15:04 AST 35 U/L (14-36) 05/19/17 12:02 ALT 18 U/L (9-52) 05/19/17 12:02 Alkaline Phosphatase 61 U/L (38-126) 05/19/17 12:02 Lactate Dehydrogenase 491 U/L (313-618) 05/19/17 15:04 Total Protein 7.6 g/dL (6.3-8.3) 05/19/17 12:02 Albumin 4.1 g/dL (3.5-5.0) 05/19/17 12:02 Globulin 3.5 gm/dL (2.2-3.9) 05/19/17 12:02 Albumin/Globulin Ratio 1.2 (1.0-2.1) 05/19/17 12:02 Triglycerides 103 mg/dL (0-149) 05/19/17 17:03 Cholesterol 134 mg/dL (0-199) 05/19/17 17:03 LDL Cholesterol Direct 59 mg/dL (0-129) 05/19/17 17:03 HDL Cholesterol 50 mg/dL (30-70) 05/19/17 17:03 Alpha Fetoprotein 2.6 ng/mL (0.0-7.5) 05/19/17 17:05 Carcinoembryonic Ag 2.2 ng/mL (0-3.0) 05/19/17 17:03 CA 19-9 Antigen 4.7 U/mL (0-37) 05/19/17 17:03 CA 125 Antigen < 5.5 U/mL (0-35) 05/19/17 17:03 Vitamin B12 287 pg/mL (239-931) 05/19/17 15:04 Folate 14.5 ng/mL 05/19/17 15:04 Homocysteine 8.7 umol/L (4.7-12.6) 05/19/17 15:04 Free T4 0.94 ng/dL (0.78-2.19) 05/19/17 17:05 TSH 3rd Generation 1.29 mIU/L (0.46-4.68) 05/19/17 17:03 Blood Type A POSITIVE 05/19/17 12:02 Antibody Screen Negative 05/19/17 12:02 Attending/Attestation - Attestation I have personally seen and examined this patient.: Yes I have fully participated in the care of the patient.: Yes I have reviewed all pertinent clinical information, including history, physical exam and plan: Yes Notes (Text): 05/20/17 18:54 Please note that ENT Dr. Donis has NOT evaluated the patient. Follow up with him as an outpatient and performance of laryngyscope is a recommendation of the Medicine Team. Exam, assessment and plan, and discharge instructions were gone over with the resident. Tyson Spann D.O.
--- NOTE | 2017-05-20 18:06 | PN ---
DATE: LOCATION: [facility], bed B. SUBJECTIVE: This is a 71-year-old female seen for GI consultation with Dr. Spann in the emergency room on 05/19/2017 as requested by the admitting medical team, re-examined again today without any significant clinical changes. The patient is seen with [place] spoken nursing personnel. No reported abdominal pain. It has to be mentioned that the patient had been refusing upper and lower endoscopy even yesterday, witnessed by Dr. Spann. No chest pain, palpitation, or reported hematemesis or significant shortness of breath. The patient received 2 units of blood transfusion and today his hemoglobin is 10.5, hematocrit 32.2, with low indices highly suggestive of hypochromic microcytic anemia. Blood glucose level 141 with low iron 16. All the reported cancer marker values are within normal limits. PHYSICAL EXAMINATION: GENERAL: A 71-year-old female, afebrile with pulse of 74, respiratory rate 20 to 22, blood pressure of 150/74. HEENT: Showed pale, dry oral mucous membranes. Nonicteric sclerae. LUNGS: Few scattered crepitation, decreased air entry at bases. HEART: Positive S1 and S2. ABDOMEN: Soft. Bowel sounds are present with slight generalized tenderness. No mass or organomegaly. No rebound tenderness or guarding. RECTAL: The patient refused. EXTREMITIES: Slight lower extremity edematous changes. No clubbing or cyanosis. NEUROLOGIC: No reported new neurological deficits, sensory or motor. IMPRESSION: 1. Severe anemia of unclear etiology to rule out gastrointestinal blood loss upper verses lower. 2. Upper gastrointestinal malignancy. 3. Known history of, but not limited to hypertension, diabetes mellitus, and ostearthritis with recurrent bronchitis. 4. Coronary artery disease with status post cardiac stent insertion by history. SUGGESTIONS: 1. Continue current management. 2. Barium enema to be followed by upper GI with small bowel follow through as the patient refused any endoscopic evaluation of the GI tract. 3. Further recommendation to follow. Cristino Guaman MD
[2017-05-21 03:15] LABS: MCH 20.2 pg (27.0-33.0); MCV 69.2 fL (80.0-100.0)
--- NOTE | 2017-05-21 05:58 | CON ---
DATE: 05/19/2017 I was called for GI consultation by the admitting MD, Dr. Marcello Spann, as well as ER staff. The patient seen and fully examined on 05/19/2017 in the present of Dr. Marcello Spann. The entire chart is reviewed including, but not limited to, the most recent lab and radiological results, current and the previous medication list, current and the previous medical events, allergy to medication list, as well as all the available current and the previous medical records. Case discussed at length with the staff in the emergency room. HISTORY OF PRESENT ILLNESS: This is a 71-year-old female who was admitted to the hospital through the emergency room due to very low hemoglobin measured about 6 as outpatient by the primary MD. The patient denied any recent history of active bleeding, nausea, or vomiting. No melena, no chest pain or palpitation, and no reported shortness of breath. No chills or fever as per the patient's statement. It has to be mentioned that the patient speaks Kiny[place] and through a renal social worker most of the information was obtained as well as from the medical record. PAST MEDICAL HISTORY: Including, but not limited to, 1. Hypertension. 2. Diabetes mellitus. 3. Recurrent bronchitis. 4. Osteoarthritis. 5. Reported peripheral edema syndrome. 6. History of mild anemia. 7. Known history of coronary artery disease with status post cardiac stent insertion. FAMILY HISTORY: Unknown. CURRENT MEDICATIONS: Medication list reviewed. SOCIAL HISTORY: Positive for cigarette smoking. ALLERGIES: ALLERGY TO MEDICATION UNCLEAR. After being in the emergent room, the patient was found to have hemoglobin of 6.4, hematocrit 21.5 with thrombocytosis of 429 with low creatinine of 0.5, increased blood glucose level to 210. Chest x-ray reported to be normal. PHYSICAL EXAMINATION: GENERAL: A 71-year-old female, appeared to be pale, receiving blood transfusions in the emergency room, awake, alert, and oriented. VITAL SIGNS: Afebrile with pulse of 96, respiratory rate 20 to 22 with normal blood pressure. HEENT: Showed pale dry oral mucous membrane. Nonicteric sclerae. LYMPH NODES: No lymphadenitis or lymphadenopathy. LUNGS: A few scattered mild crepitation. Breathing sounds are present bilaterally. No rales. HEART: Positive S1 and S2 with increased rate. ABDOMEN: Soft without mass or organomegaly. No rebound tenderness or guarding. Bowel sounds are present. RECTAL: The patient refused. EXTREMITIES: With lower extremities mild edematous changes. No clubbing or cyanosis. NEUROLOGIC: No reported new focal neurological deficits, sensory or motor. No new reported focal deficits. Peripheral pulses are present bilaterally but weak. IMPRESSION: 1. Severe anemia of unclear etiology to rule out upper versus lower gastrointestinal blood loss, to rule out occult gastrointestinal malignancy. 2. Multiple past medical history including, but not limited, to hypertension, coronary artery disease, status post cardiac stent insertion, diabetes mellitus, peripheral edema syndrome. 3. Known history of osteoarthritis with bronchitis . SUGGESTIONS: 1. Agree with your plan. 2. Blood transfusion to give hemoglobin around 10 gm percent. 3. Proton pump inhibitors IV. 4. Upper and lower endoscopy , the patient strongly refused. 5. Cancer markers including CEA. 6. Sectional abdominal and pelvic CAT scan. 7. Oncology/Hematology consult. Dr. Spann was present when the patient refused any aggressive gastrointestinal procedure. Further recommendation to follow. We will contact the family regarding the patient's decision to refuse any endoscopic evaluation of the gastrointestinal tract. Thank you for letting me to participate in your patient's case management. Cristino Guaman MD
== END 2017-05-20 14:28 | disposition home or self-care (01) | DRG 812 ==
LOC: C.ER 10:56 → C.9E 14:50 → C.3T 19:01
PROVIDERS: ADMIT Family Medicine; ATTEND Family Medicine
DX: D64.9 Anemia, unspecified (principal); E11.51 Type 2 diabetes mellitus with diabetic peripheral angiopathy without gangrene; D58.2 Other hemoglobinopathies; E61.1 Iron deficiency; I25.10 Atherosclerotic heart disease of native coronary artery without angina pectoris; E78.5 Hyperlipidemia, unspecified; F17.210 Nicotine dependence, cigarettes, uncomplicated; I10 Essential (primary) hypertension; Z95.5 Presence of coronary angioplasty implant and graft

== ENCOUNTER 2017-10-19 14:15 | Inpatient (IN) | payer MEDICARE, MEDICAID ==
[2017-10-19 14:15] VITALS: BMI 21.4
[2017-10-19] MEDS ORDERED: Oxycodone/Acetaminophen 5/325 mg Tab PO STA (15:02)
--- NOTE | 2017-10-19 15:10 | C.PDOC ---
History Of Present Illness 72 y/o female with history of DM and HTN presents to ED sent by Dr. Valdivia for further evaluation and possible admission of right 2nd toe infection. Patient reports fever and denies chest pain, sob, drainage or any other complaints at this time. Time Seen by Provider: 10/19/17 14:47 Chief Complaint (Nursing): Lower Extremity Problem/Injury History Per: Patient History/Exam Limitations: no limitations Onset/Duration Of Symptoms: Days Current Symptoms Are (Timing): Still Present Past Medical History Reviewed: Historical Data, Nursing Documentation, Vital Signs Vital Signs: Last Vital Signs Temp 98.2 F 10/19/17 14:24 Pulse 90 10/19/17 14:24 Resp 16 10/19/17 14:24 BP 139/83 10/19/17 14:24 Pulse Ox 98 10/19/17 15:14 - Medical History PMH: Anemia, Arthritis, Bronchitis, Diabetes, HTN, Peripheral Edema Surgical History: Coronary Stent - [facility] Procedures DILATION OF LEFT FEMORAL ARTERY, OPEN APPROACH (07/29/16) DILATION OF R FEM ART WITH DRUG-ELUT INTRA, PERC APPROACH (06/09/16) DILATION OF RIGHT PERONEAL ARTERY, PERCUTANEOUS APPROACH (06/09/16) DRAINAGE OF NECK SKIN, EXTERNAL APPROACH (11/17/16) EXTIRPATION OF MATTER FROM L FEM ART, OPEN APPROACH (07/29/16) EXTIRPATION OF MATTER FROM R FEM ART, PERC APPROACH (06/09/16) EXTIRPATION OF MATTER FROM R PERONEAL ART, PERC APPROACH (06/09/16) SUPPLEMENT LEFT FEMORAL ARTERY WITH SYNTH SUB, OPEN APPROACH (07/29/16) Family History: States: No Known Family Hx - Social History Hx Tobacco Use: Yes (Quit last year) Hx Alcohol Use: No Hx Substance Use: No - Immunization History Hx Tetanus Toxoid Vaccination: Yes Hx Influenza Vaccination: Yes Hx Pneumococcal Vaccination: Yes Review Of Systems Constitutional: Positive for: Fever. Negative for: Chills Cardiovascular: Negative for: Chest Pain Respiratory: Negative for: Shortness of Breath Musculoskeletal: Positive for: Foot Pain Skin: Negative for: Rash Neurological: Negative for: Numbness Physical Exam - Physical Exam Appears: Non-toxic, No Acute Distress Skin: Warm, Dry, No Rash, Other (cellulitis to right 2nd toe, erythema noted) Head: Atraumatic, Normacephalic Eye(s): bilateral: Normal Inspection Oral Mucosa: Moist Cardiovascular: Rhythm Regular Respiratory: Normal Breath Sounds, No Rales, No Rhonchi, No Wheezing Extremity: Tenderness (chronic wound on right 2nd toe), Capillary Refill (<2 seconds), No Deformity Pulses: Left Dorsalis Pedis: Normal, Right Dorsalis Pedis: Absent Neurological/Psych: Oriented x3, Normal Motor, Normal Sensation ED Course And Treatment - Laboratory Results Result Diagrams: 10/19/17 15:08 10/19/17 15:08 Lab Interpretation: Abnormal (K+ 5.7) O2 Sat by Pulse Oximetry: 98 (RA) Pulse Ox Interpretation: Normal - Physician Consult Information Physician Contacted: Vince Christianson Outcome Of Conversation: Patient to be admitted for cellulitis with peripheral vascular disease. Consults with podiatry and Dr Castillo requested. Disposition - Disposition Disposition: HOSPITALIZED Disposition Time: 15:48 Condition: STABLE - POA Present On Arrival: None - Clinical Impression Clinical Impression: Cellulitis of toe, right, Diabetes, Peripheral vascular disease - Scribe Statement The provider has reviewed the documentation as recorded by the Scribefrain Adames All medical record entries made by the Sandhyaibefrain were at my direction and personally dictated by me. I have reviewed the chart and agree that the record accurately reflects my personal performance of the history, physical exam, medical decision making, and the department course for this patient. I have also personally directed, reviewed, and agree with the discharge instructions and disposition.
[2017-10-19 15:16] LABS: BASO # 0.1 K/uL (0.0-0.2); BASO % 0.9 % (0.0-2.0); EOS # 0.1 K/uL (0.0-0.7); EOS % 1.4 % (0.0-4.0); LYMPH # 1.5 K/uL (1.0-4.3); LYMPH % 27.1 % (20.0-40.0); MEAN CORPUSCULAR HEMOGLOBIN 26.2 pg (27.0-31.0); MEAN CORPUSCULAR HGB CONC 33.4 g/dL (33.0-37.0); MEAN PLATELET VOLUME 8.6 fL (7.2-11.7); MONO # 0.4 K/uL (0.0-0.8); MONO % 7.8 % (0.0-10.0); NEUT # 3.5 K/uL (1.8-7.0); NEUT % 62.8 % (50.0-75.0); RBC 5.1 Mil/uL (3.80-5.20); RED CELL DISTRIBUTION WIDTH 15.6 % (11.5-14.5); WHITE BLOOD COUNT 5.5 K/uL (4.8-10.8)
[2017-10-19 15:18] LABS: HEMOGLOBIN 13.3 g/dL (11.0-16.0); MEAN CELL VOLUME 78.3 fL (81.0-99.0)
[2017-10-19] MEDS ORDERED: Oxycodone/Acetaminophen 5/325 mg Tab ONE (15:33)
[2017-10-19 15:35] LABS: CALCIUM 9.3 mg/dl (8.6-10.4); GFR AFRICAN-AMERICAN > 60; GFR NON-AFRICAN AMERICAN > 60
[2017-10-19 15:38] LABS: ALB/GLOB RATIO 1.3 (1.0-2.1); ALBUMIN 4.7 g/dL (3.5-5.0); ALT/SGPT 23 U/L (9-52); AST/SGOT 45 U/L (14-36); BLOOD UREA NITROGEN 13 mg/dL (7-17)
[2017-10-19 16:52] LABS: PROTHROMBIN TIME 10.7 SECONDS (9.7-12.2)
[2017-10-19] MEDS: Piperacill/Tazo 3.375gm in Dex 3.375 GM/50 ML BAG IVPB SCH ×2 (18:09→23:59)
[2017-10-19] MEDS: Vancomycin 1 gm/NS 200 ml 1 GM/200 ML BAG IVPB SCH (19:30)
[2017-10-19] MEDS: Oxycodone/Acetaminophen 5/325 mg Tab PO PRN (21:15)
[2017-10-19] MEDS: (Novolin R) Insulin Human Regular 100 units/ml vial SC SCH (21:19)
--- NOTE | 2017-10-19 23:57 | CP.PCM.HP ---
History of Present Illness - History of Present Illness History of Present Illness: CC: right 2nd and 3rd toe infection History Of Present Illness 72 y/o female with history of DM and HTN presents to ED sent by Dr. Valdivia for further evaluation and possible admission of right 2nd toe infection. Patient reports fever and denies chest pain, sob, drainage or any other complaints at this time. Present on Admission - Present on Admission Any Indicators Present on Admission: Yes Review of Systems - Review of Systems Systems not reviewed;Unavailable: Acuity of Condition - Constitutional Constitutional: Fatigue, Lethargy, Weakness - EENT Eyes: absent: As Per HPI, Blind Spots, Blurred Vision, Change in Vision, Decreased Night Vision, Diplopia, Discharge, Dry Eye, Exophthalmos, Floaters, Irritation, Itchy Eyes, Loss of Peripheral Vision, Pain, Photophobia, Requires Corrective Lenses, Sees Flashes, Spots in Vision, Tunnel Vision, Other Visual Disturbances, Loss of Vision, Other - Cardiovascular Cardiovascular: absent: As Per HPI, Acrocyanosis, Chest Pain, Chest Pain at Rest , Chest Pain with Activity, Claudication, Diaphoresis, Dyspnea, Dyspnea on Exertion, Edema, Irregular Heart Rhythm, Pain Radiating to Arm/Neck/Jaw, Leg Edema, Leg Ulcers, Lightheadedness, Orthopnea, Palpitations, Paroxysmal Nocturnal Dyspnea, Pedal Edema, Radiating Pain, Rapid Heart Rate, Slow Heart Rate, Syncope, Other - Respiratory Respiratory: absent: As Per HPI, Cough, Dyspnea, Hemoptysis, Dyspnea on Exertion , Wheezing, Snoring, Stridor, Pain on Inspiration, Chest Congestion, Excessive Mucous Production, Change in Mucous Color, Pain with Coughing, Other - Gastrointestinal Gastrointestinal: absent: As Per HPI, Abdominal Pain, Belching, Bloating, Change in Bowel Habits, Change in Stool Character, Coffee Ground Emesis, Constipation, Cramping, Diarrhea, Dyspepsia, Dysphagia, Early Satiety, Excessive Flatus, Fecal Incontinence, Heartburn, Hematemesis, Hematochezia, Loose Stools, Melena, Nausea, Odynophagia, Temesmus, Vomiting, Other - Musculoskeletal Musculoskeletal: Joint Swelling, Muscle Weakness, Myalgias, Stiffness - Integumentary Integumentary: Erythema, New Lesions, Skin Pain Past Patient History - Past Medical History & Family History Past Medical History?: Yes - Past Social History Smoking Status: Current Some Days Smoker - CARDIAC Hx Hypertension: Yes Hx Peripheral Edema: Yes - PULMONARY Hx Bronchitis: Yes - NEUROLOGICAL Hx Neurological Disorder: No - HEENT Hx HEENT Problems: Yes Other/Comment: wear eyeglasses for reading - RENAL Hx Chronic Kidney Disease: No - ENDOCRINE/METABOLIC Hx Diabetes Mellitus Type 2: Yes - HEMATOLOGICAL/ONCOLOGICAL Hx Anemia: Yes - INTEGUMENTARY Hx Dermatological Problems: No - MUSCULOSKELETAL/RHEUMATOLOGICAL Hx Arthritis: Yes Hx Falls: No - GASTROINTESTINAL Hx Gastrointestinal Disorders: No - GENITOURINARY/GYNECOLOGICAL Hx Genitourinary Disorders: No - PSYCHIATRIC Hx Substance Use: No - SURGICAL HISTORY Hx Coronary Stent: Yes - ANESTHESIA Hx Anesthesia: Yes Hx Anesthesia Reactions: No Hx Malignant Hyperthermia: No Meds Allergies/Adverse Reactions: Allergies Allergy/AdvReac Type Severity Reaction Status Date / Time No Known Allergies Allergy Verified 10/19/17 14:26 Physical Exam - Constitutional Appears: No Acute Distress - Eye Exam Eye Exam: EOMI, Normal appearance, PERRL Pupil Exam: NORMAL ACCOMODATION, PERRL - ENT Exam ENT Exam: Mucous Membranes Moist, Normal Exam - Cardiovascular Exam Cardiovascular Exam: REGULAR RHYTHM - GI/Abdominal Exam GI & Abdominal Exam: Normal Bowel Sounds, Soft. absent: Tenderness Results - Vital Signs Recent Vital Signs: Last Vital Signs Temp 97.8 F 10/19/17 17:14 Pulse 67 10/19/17 17:14 Resp 18 10/19/17 17:14 BP 171/76 H 10/19/17 17:14 Pulse Ox 99 10/19/17 17:14 - Labs Result Diagrams: 10/20/17 05:19 10/20/17 05:19 Labs: Laboratory Results - last 24 hr 10/19/17 10/19/17 10/19/17 15:08 15:08 16:27 WBC 5.5 RBC 5.10 Hgb 13.3 D Hct 39.9 MCV 78.3 L D MCH 26.2 L MCHC 33.4 RDW 15.6 H Plt Count 291 MPV 8.6 Neut % (Auto) 62.8 Lymph % (Auto) 27.1 [place] % (Auto) 7.8 Eos % (Auto) 1.4 Baso % (Auto) 0.9 Neut # (Auto) 3.5 Lymph # (Auto) 1.5 [place] # (Auto) 0.4 Eos # (Auto) 0.1 Baso # (Auto) 0.1 PT 10.7 INR 1.0 APTT 30 Sodium 142 Potassium 5.7 H Chloride 104 Carbon Dioxide 26 Anion Gap 18 BUN 13 Creatinine 0.5 L Est GFR ( Amer) > 60 Est GFR (Non-Af Amer) > 60 POC Glucose (mg/dL) Random Glucose 128 H Calcium 9.3 Total Bilirubin 0.7 AST 45 H D ALT 23 Alkaline Phosphatase 53 Total Protein 8.3 Albumin 4.7 Globulin 3.5 Albumin/Globulin Ratio 1.3 10/19/17 21:55 WBC RBC Hgb Hct MCV MCH MCHC RDW Plt Count MPV Neut % (Auto) Lymph % (Auto) [place] % (Auto) Eos % (Auto) Baso % (Auto) Neut # (Auto) Lymph # (Auto) [place] # (Auto) Eos # (Auto) Baso # (Auto) PT INR APTT Sodium Potassium Chloride Carbon Dioxide Anion Gap BUN Creatinine Est GFR ( Amer) Est GFR (Non-Af Amer) POC Glucose (mg/dL) 199 H Random Glucose Calcium Total Bilirubin AST ALT Alkaline Phosphatase Total Protein Albumin Globulin Albumin/Globulin Ratio Assessment & Plan (1) Cellulitis of toe, right Assessment and Plan: vascular and podiatry eval Status: Acute (2) Diabetes Status: Acute (3) Peripheral vascular disease Status: Acute
[2017-10-20 00:09] VITALS: RESP 20
[2017-10-20] MEDS: Piperacill/Tazo 3.375gm in Dex 3.375 GM/50 ML BAG IVPB SCH ×3 (04:59→18:46)
[2017-10-20 05:24] LABS: HEMOGLOBIN 11.8 g/dL (11.0-16.0); MEAN CELL VOLUME 78.2 fL (81.0-99.0); MEAN CORPUSCULAR HEMOGLOBIN 25.3 pg (27.0-31.0); MEAN CORPUSCULAR HGB CONC 32.4 g/dL (33.0-37.0); MEAN PLATELET VOLUME 8.5 fL (7.2-11.7); RBC 4.67 Mil/uL (3.80-5.20); RED CELL DISTRIBUTION WIDTH 15.2 % (11.5-14.5); WHITE BLOOD COUNT 4.4 K/uL (4.8-10.8)
[2017-10-20] MEDS: Vancomycin 1 gm/NS 200 ml 1 GM/200 ML BAG IVPB SCH ×2 (06:13→19:57)
[2017-10-20 06:43] LABS: BLOOD UREA NITROGEN 12 mg/dL (7-17); CALCIUM 7.9 mg/dl (8.6-10.4); GFR AFRICAN-AMERICAN > 60; GFR NON-AFRICAN AMERICAN > 60
[2017-10-20] MEDS: (Novolin R) Insulin Human Regular 100 units/ml vial SC SCH ×4 (07:48→21:56)
--- NOTE | 2017-10-20 09:33 | CP.PCM.CON ---
History of Present Illness - History of Present Illness History of Present Illness: Vascular Surgery Consult Note for Dr. Castillo 72F w/ PMH of DM and HTN, seen and evaluated in the ED at bedside presenting with right foot pain particularly in the 1st and 2nd toes. These symptoms have been going on for a few days and progressively worsened. She is unable to describe the pain but says it radiates to superiorly up to the mid-calf. She has experiences pain ambulating because of the pain, but can still ambulate on her own. She denies trauma to the area. Denies f/c, n/v/d, SOB, CP, or urinary symptoms. PMH: see above PSH: Coronary Stents ALL: NKDA Soc: Denies t/a/d Review of Systems - Constitutional Constitutional: absent: Chills, Fever - EENT Eyes: absent: Blurred Vision, Change in Vision Nose/Mouth/Throat: absent: Nasal Congestion, Nasal Discharge - Cardiovascular Cardiovascular: absent: Chest Pain, Dyspnea - Respiratory Respiratory: Cough. absent: Dyspnea - Gastrointestinal Gastrointestinal: absent: Abdominal Pain, Diarrhea, Nausea, Vomiting - Genitourinary Genitourinary: absent: Difficulty Urinating, Dysuria - Musculoskeletal Musculoskeletal: Myalgias, Radiating Pain into Limb - Integumentary Integumentary: Changing Lesions, Erythema, New Lesions, Non-Healing Lesions, Skin Pain, Swelling, Wounds - Neurological Neurological: absent: Dizziness, Numbness - Psychiatric Psychiatric: absent: Anxiety, Depression Past Patient History - Past Medical History & Family History Past Medical History?: Yes - Past Social History Smoking Status: Current Some Days Smoker - CARDIAC Hx Hypertension: Yes Hx Peripheral Edema: Yes - PULMONARY Hx Bronchitis: Yes - NEUROLOGICAL Hx Neurological Disorder: No - HEENT Hx HEENT Problems: Yes Other/Comment: wear eyeglasses for reading - RENAL Hx Chronic Kidney Disease: No - ENDOCRINE/METABOLIC Hx Diabetes Mellitus Type 2: Yes - HEMATOLOGICAL/ONCOLOGICAL Hx Anemia: Yes - INTEGUMENTARY Hx Dermatological Problems: No - MUSCULOSKELETAL/RHEUMATOLOGICAL Hx Arthritis: Yes Hx Falls: No - GASTROINTESTINAL Hx Gastrointestinal Disorders: No - GENITOURINARY/GYNECOLOGICAL Hx Genitourinary Disorders: No - PSYCHIATRIC Hx Substance Use: No - SURGICAL HISTORY Hx Coronary Stent: Yes - ANESTHESIA Hx Anesthesia: Yes Hx Anesthesia Reactions: No Hx Malignant Hyperthermia: No Meds Allergies/Adverse Reactions: Allergies Allergy/AdvReac Type Severity Reaction Status Date / Time No Known Allergies Allergy Verified 10/19/17 14:26 - Medications Medications: Current Medications Amlodipine Besylate (Norvasc) 5 mg PO DAILY [facility] Aspirin (Aspirin Chewable) 81 mg PO DAILY [facility] Clonazepam (Klonopin) 0.5 mg PO DAILY [facility] Last Admin: 10/19/17 18:00 Dose: 0.5 mg Clopidogrel Bisulfate (Plavix) 75 mg PO DAILY [facility] Duloxetine HCl (Cymbalta) 30 mg PO BID [facility] Last Admin: 10/19/17 18:09 Dose: 30 mg Enalapril Maleate (Vasotec) 10 mg PO DAILY [facility] Enoxaparin Sodium (Lovenox) 40 mg SC DAILY [facility] Gabapentin (Neurontin) 600 mg PO TID [facility] Last Admin: 10/19/17 18:09 Dose: 600 mg Glimepiride (Amaryl) 4 mg PO DAILY [facility] Piperacillin Sod/Tazobactam Sod (Zosyn 3.375 Gm Iv Premix) 3.375 gm in 50 mls @ 100 mls/hr IVPB Q6H [facility] PRN Reason: Protocol Last Admin: 10/20/17 04:59 Dose: 100 mls/hr Vancomycin/Sodium Chloride (Vancomycin 1 Gm/Ns 200 Ml) 1 gm in 200 mls @ 133 mls/hr IVPB Q12H [facility] PRN Reason: Protocol Stop: 10/24/17 19:01 Last Admin: 10/20/17 06:13 Dose: 133 mls/hr Insulin Human Regular (Novolin R) 0 unit SC ACHS [facility] PRN Reason: Protocol Last Admin: 10/20/17 07:48 Dose: Not Given Morphine Sulfate (Morphine) 2 mg IVP Q4 PRN PRN Reason: Pain, moderate (4-7) Oxycodone/Acetaminophen (Percocet 5/325 Mg Tab) 1 tab PO Q4H PRN PRN Reason: Pain, moderate (4-7) Stop: 10/22/17 20:13 Last Admin: 10/19/17 21:15 Dose: 1 tab Rosuvastatin Calcium (Crestor) 5 mg PO [facility] Last Admin: 10/19/17 21:13 Dose: 5 mg Physical Exam - Constitutional Appears: Well, Non-toxic, No Acute Distress - Head Exam Head Exam: ATRAUMATIC, NORMAL INSPECTION, NORMOCEPHALIC - Eye Exam Eye Exam: EOMI, Normal appearance - Respiratory Exam Respiratory Exam: Clear to Auscultation Bilateral, NORMAL BREATHING PATTERN - Cardiovascular Exam Cardiovascular Exam: REGULAR RHYTHM, +S1, +S2. absent: Systolic Murmur - GI/Abdominal Exam GI & Abdominal Exam: Normal Bowel Sounds, Soft. absent: Tenderness - Rectal Exam Rectal Exam: Deferred - Extremities Exam Additional comments: Right 1st and 2nd toe nonpitting edema, erythema, warmth and tenderness to palpation No visible ulcerations or excoriations No active drainage of purulent fluid or blood - Neurological Exam Neurological exam: Alert, Oriented x3 - Psychiatric Exam Psychiatric exam: Normal Affect, Normal Mood - Skin Skin Exam: Erythema, Intact, Warm Results - Vital Signs Recent Vital Signs: Last Vital Signs Temp 97.6 F 10/20/17 08:00 Pulse 77 10/20/17 08:00 Resp 20 10/20/17 08:00 BP 180/79 H 10/20/17 08:00 Pulse Ox 96 10/20/17 08:00 - Labs Result Diagrams: 10/20/17 05:19 10/20/17 05:19 Labs: Laboratory Results - last 24 hr 10/19/17 10/19/17 10/19/17 15:08 15:08 16:27 WBC 5.5 RBC 5.10 Hgb 13.3 D Hct 39.9 MCV 78.3 L D MCH 26.2 L MCHC 33.4 RDW 15.6 H Plt Count 291 MPV 8.6 Neut % (Auto) 62.8 Lymph % (Auto) 27.1 [place] % (Auto) 7.8 Eos % (Auto) 1.4 Baso % (Auto) 0.9 Neut # (Auto) 3.5 Lymph # (Auto) 1.5 [place] # (Auto) 0.4 Eos # (Auto) 0.1 Baso # (Auto) 0.1 PT 10.7 INR 1.0 APTT 30 Sodium 142 Potassium 5.7 H Chloride 104 Carbon Dioxide 26 Anion Gap 18 BUN 13 Creatinine 0.5 L Est GFR ( Amer) > 60 Est GFR (Non-Af Amer) > 60 POC Glucose (mg/dL) Random Glucose 128 H Calcium 9.3 Total Bilirubin 0.7 AST 45 H D ALT 23 Alkaline Phosphatase 53 Total Protein 8.3 Albumin 4.7 Globulin 3.5 Albumin/Globulin Ratio 1.3 10/19/17 10/20/17 10/20/17 21:55 05:19 05:19 WBC 4.4 L RBC 4.67 Hgb 11.8 Hct 36.5 MCV 78.2 L MCH 25.3 L MCHC 32.4 L RDW 15.2 H Plt Count 250 MPV 8.5 Neut % (Auto) Lymph % (Auto) [place] % (Auto) Eos % (Auto) Baso % (Auto) Neut # (Auto) Lymph # (Auto) [place] # (Auto) Eos # (Auto) Baso # (Auto) PT INR APTT Sodium 140 Potassium 4.2 Chloride 103 Carbon Dioxide 27 Anion Gap 15 BUN 12 Creatinine 0.6 L Est GFR ( Amer) > 60 Est GFR (Non-Af Amer) > 60 POC Glucose (mg/dL) 199 H Random Glucose 146 H Calcium 7.9 L Total Bilirubin AST ALT Alkaline Phosphatase Total Protein Albumin Globulin Albumin/Globulin Ratio 10/20/17 07:27 WBC RBC Hgb Hct MCV MCH MCHC RDW Plt Count MPV Neut % (Auto) Lymph % (Auto) [place] % (Auto) Eos % (Auto) Baso % (Auto) Neut # (Auto) Lymph # (Auto) [place] # (Auto) Eos # (Auto) Baso # (Auto) PT INR APTT Sodium Potassium Chloride Carbon Dioxide Anion Gap BUN Creatinine Est GFR ( Amer) Est GFR (Non-Af Amer) POC Glucose (mg/dL) 142 H Random Glucose Calcium Total Bilirubin AST ALT Alkaline Phosphatase Total Protein Albumin Globulin Albumin/Globulin Ratio Assessment & Plan - Assessment and Plan (Free Text) Assessment: 72F w/ right 1st and 2nd toe swelling/pain Plan: Angiogram tomorrow 1pm NPO, IVF c/w pain management Afebrile, vitals stable, labs wnl - will continue to monitor Podiatry Consult further recs per Dr. Anna Canchola PGY1
[2017-10-20] MEDS ORDERED: Enoxaparin 40 mg Syringe SC SCH (10:00)
--- NOTE | 2017-10-20 11:12 | RAD ---
Date of service: 10/20/2017 PROCEDURE: Right Foot Radiographs. HISTORY: right 2nd digit infx r/o OM COMPARISON: None. FINDINGS: BONES: No acute fracture. No periosteal reaction. Tiny ossicle lateral to the 5th proximal interphalangeal joint. JOINTS: Unremarkable SOFT TISSUES: Soft tissue defect at the distal end of the 2nd digit. OTHER FINDINGS: Small Achilles enthesophyte. Small inferior plantar calcaneal spur. IMPRESSION: No demonstrated fracture, dislocation or evidence of periosteal reaction.
[2017-10-20] MEDS ORDERED: DiphenhydrAMINE 50 mg/ml Inj ONE (12:59)
[2017-10-20] MEDS ORDERED: Heparin 0 ML IV ONE (13:58)
[2017-10-20] MEDS ORDERED: Lidocaine 2% MPF (5 ml) Inj ONE (13:59)
[2017-10-20] MEDS ORDERED: Iodixanol 320 MG/ML 200 ML BOTTLE IV ONE (14:15)
[2017-10-20] MEDS ORDERED: Iodixanol 320 MG/ML 100 ML BOTTLE IV ONE (14:16)
--- NOTE | 2017-10-20 16:28 | PCM.SURG1 ---
Surgeon's Initial Post Op Note - Surgeon's Notes Surgeon: martine Demolition Worker: 0 Type of Anesthesia: IV Sedation Anesthesia Administered By: robert Pre-Operative Diagnosis: reest pain right foot. occluded stents Operative Findings: occluded stents on right 2 vessel run off. sfa disease on left. external iliac and [employer]IAN disease on left Post-Operative Diagnosis: same Operation Performed: aortofemoral angiogram via left groin. selective catherization of right femoral arery. parthway atherectomy. drug coated balloon angioplasty. 6x4 stent proximal right sfa Specimen/Specimens Removed: 0 Estimated Blood Loss: EBL {In ML}: 100 Blood Products Given: N/A Drains Used: No Drains Post-Op Condition: Good Date of Surgery/Procedure: 10/20/17 Time of Surgery/Procedure: 16:29
[2017-10-20] MEDS: Sodium Chloride 0.45% 1,000 ML IV SCH (17:00)
--- NOTE | 2017-10-20 21:05 | CON ---
DATE: 10/20/2017 This is a 72-year-old female who was seen in the office yesterday with significant pain about her second digit of the right foot. The patient was seen a week earlier in the office, and no palpable pulses were attained. So at that time, the patient was directed to the office of Dr. Castillo. The patient stated yesterday that there were some tests done. The patient did not know the outcome. So due to the clinical presentation, the amount of discomfort of the pain she was experiencing, it was suggested to the patient to be admitted to the ER at [facility]. The patient was seen today at bedside. Alert, and oriented x3. Again, no palpable pulses. The patient is scheduled for angiogram with potential stenting by Dr. Castillo this morning. The patient is on an appropriate IV antibiotic protocol. We will do imaging to assess any osteomyelitic prosthesis about the distal aspect of the second digit. For now, IV antibiotics and revascularization and bed rest. We will know later the vascular status of her right lower extremity. Sanchez Quezada DPM
[2017-10-20] MEDS: Oxycodone/Acetaminophen 5/325 mg Tab PO PRN (22:04)
--- NOTE | 2017-10-20 23:19 | CP.PCM.PN ---
Subjective - Date & Time of Evaluation Date of Evaluation: 10/20/17 Time of Evaluation: 21:45 - Subjective Subjective: Pt seen and examined at bedside s/p ortofemoral angiogram via left groin. selective catherization of right femoral arery. parthway atherectomy. drug coated balloon angioplasty. 6x4 stent proximal right sfa Objective - Vital Signs/Intake and Output Vital Signs (last 24 hours): Temp Pulse Resp BP Pulse Ox 97.6 F 77 20 180/79 H 96 10/20/17 08:00 10/20/17 08:00 10/20/17 08:00 10/20/17 08:00 10/20/17 08:00 Intake and Output: 10/20/17 10/21/17 18:59 06:59 Intake Total 600 Balance 600 - Medications Medications: Current Medications Amlodipine Besylate (Norvasc) 5 mg PO DAILY [facility] Last Admin: 10/20/17 10:21 Dose: Not Given Aspirin (Aspirin Chewable) 81 mg PO DAILY [facility] Last Admin: 10/20/17 10:21 Dose: Not Given Clonazepam (Klonopin) 0.5 mg PO DAILY [facility] Last Admin: 10/20/17 10:21 Dose: Not Given Clopidogrel Bisulfate (Plavix) 75 mg PO DAILY [facility] Clopidogrel Bisulfate (Plavix) 75 mg PO DAILY [facility] Duloxetine HCl (Cymbalta) 30 mg PO BID [facility] Last Admin: 10/20/17 18:55 Dose: 30 mg Enalapril Maleate (Vasotec) 10 mg PO DAILY [facility] Last Admin: 10/20/17 10:22 Dose: Not Given Enoxaparin Sodium (Lovenox) 40 mg SC DAILY [facility] Gabapentin (Neurontin) 600 mg PO TID [facility] Last Admin: 10/20/17 18:55 Dose: 600 mg Glimepiride (Amaryl) 4 mg PO DAILY [facility] Last Admin: 10/20/17 10:21 Dose: Not Given Piperacillin Sod/Tazobactam Sod (Zosyn 3.375 Gm Iv Premix) 3.375 gm in 50 mls @ 100 mls/hr IVPB Q6H [facility] PRN Reason: Protocol Last Admin: 10/20/17 18:46 Dose: 100 mls/hr Vancomycin/Sodium Chloride (Vancomycin 1 Gm/Ns 200 Ml) 1 gm in 200 mls @ 133 mls/hr IVPB Q12H [facility] PRN Reason: Protocol Stop: 10/24/17 19:01 Last Admin: 10/20/17 19:57 Dose: 133 mls/hr Sodium Chloride (Sodium Chloride 0.45%) 1,000 mls @ 50 mls/hr IV .Q20H [facility] Last Admin: 10/20/17 17:00 Dose: 50 mls/hr Insulin Human Regular (Novolin R) 0 unit SC ACHS [facility] PRN Reason: Protocol Last Admin: 10/20/17 21:56 Dose: Not Given Morphine Sulfate (Morphine) 2 mg IVP Q4 PRN PRN Reason: Pain, moderate (4-7) Oxycodone/Acetaminophen (Percocet 5/325 Mg Tab) 1 tab PO Q4H PRN PRN Reason: Pain, moderate (4-7) Stop: 10/22/17 20:13 Last Admin: 10/20/17 22:04 Dose: 1 tab Rosuvastatin Calcium (Crestor) 5 mg PO HS [facility] Last Admin: 10/20/17 22:05 Dose: 5 mg - Labs Labs: 10/20/17 05:19 10/20/17 05:19 PT 10.7 SECONDS (9.7-12.2) 10/19/17 16:27 INR 1.0 10/19/17 16:27 APTT 30 SECONDS (21-34) 10/19/17 16:27
[2017-10-21] MEDS: Piperacill/Tazo 3.375gm in Dex 3.375 GM/50 ML BAG IVPB SCH ×2 (00:02→06:03)
[2017-10-21] MEDS: Oxycodone/Acetaminophen 5/325 mg Tab PO PRN (05:50)
[2017-10-21 06:48] LABS: HEMOGLOBIN 11.3 g/dL (11.0-16.0); MEAN CELL VOLUME 78.2 fL (81.0-99.0); MEAN CORPUSCULAR HEMOGLOBIN 25.8 pg (27.0-31.0); MEAN CORPUSCULAR HGB CONC 32.9 g/dL (33.0-37.0); MEAN PLATELET VOLUME 8.8 fL (7.2-11.7); PLATELET COUNT 238 K/uL (130-400); RBC 4.38 Mil/uL (3.80-5.20); WHITE BLOOD COUNT 6.8 K/uL (4.8-10.8)
[2017-10-21] MEDS: Vancomycin 1 gm/NS 200 ml 1 GM/200 ML BAG IVPB SCH (07:00)
[2017-10-21] MEDS: (Novolin R) Insulin Human Regular 100 units/ml vial SC SCH ×2 (07:47→11:17)
--- NOTE | 2017-10-21 08:17 | CP.PCM.PN ---
Subjective - Date & Time of Evaluation Date of Evaluation: 10/21/17 Time of Evaluation: 08:15 - Subjective Subjective: Surgery: Dr. Castillo Pt seen and examined. Resting comfortably in bed. No complaints at this time. Objective - Vital Signs/Intake and Output Vital Signs (last 24 hours): Temp Pulse Resp BP Pulse Ox 99.1 F 81 20 125/64 95 10/21/17 02:00 10/21/17 02:00 10/21/17 02:00 10/21/17 02:00 10/21/17 02:00 Intake and Output: 10/21/17 10/21/17 06:59 18:59 Intake Total 1250 Balance 1250 - Medications Medications: Current Medications Amlodipine Besylate (Norvasc) 5 mg PO DAILY [facility] Last Admin: 10/20/17 10:21 Dose: Not Given Aspirin (Aspirin Chewable) 81 mg PO DAILY [facility] Last Admin: 10/20/17 10:21 Dose: Not Given Clonazepam (Klonopin) 0.5 mg PO DAILY [facility] Last Admin: 10/20/17 10:21 Dose: Not Given Clopidogrel Bisulfate (Plavix) 75 mg PO DAILY [facility] Clopidogrel Bisulfate (Plavix) 75 mg PO DAILY [facility] Duloxetine HCl (Cymbalta) 30 mg PO BID [facility] Last Admin: 10/20/17 18:55 Dose: 30 mg Enalapril Maleate (Vasotec) 10 mg PO DAILY [facility] Last Admin: 10/20/17 10:22 Dose: Not Given Enoxaparin Sodium (Lovenox) 40 mg SC DAILY [facility] Gabapentin (Neurontin) 600 mg PO TID [facility] Last Admin: 10/20/17 18:55 Dose: 600 mg Glimepiride (Amaryl) 4 mg PO DAILY [facility] Last Admin: 10/20/17 10:21 Dose: Not Given Piperacillin Sod/Tazobactam Sod (Zosyn 3.375 Gm Iv Premix) 3.375 gm in 50 mls @ 100 mls/hr IVPB Q6H [facility] PRN Reason: Protocol Last Admin: 10/21/17 06:03 Dose: 100 mls/hr Vancomycin/Sodium Chloride (Vancomycin 1 Gm/Ns 200 Ml) 1 gm in 200 mls @ 133 mls/hr IVPB Q12H [facility] PRN Reason: Protocol Stop: 10/24/17 19:01 Last Admin: 10/21/17 07:00 Dose: 133 mls/hr Sodium Chloride (Sodium Chloride 0.45%) 1,000 mls @ 50 mls/hr IV .Q20H [facility] Last Admin: 10/20/17 17:00 Dose: 50 mls/hr Insulin Human Regular (Novolin R) 0 unit SC ACHS [facility] PRN Reason: Protocol Last Admin: 10/21/17 07:47 Dose: Not Given Morphine Sulfate (Morphine) 2 mg IVP Q4 PRN PRN Reason: Pain, moderate (4-7) Oxycodone/Acetaminophen (Percocet 5/325 Mg Tab) 1 tab PO Q4H PRN PRN Reason: Pain, moderate (4-7) Stop: 10/22/17 20:13 Last Admin: 10/21/17 05:50 Dose: 1 tab Rosuvastatin Calcium (Crestor) 5 mg PO HS [facility] Last Admin: 10/20/17 22:05 Dose: 5 mg - Labs Labs: 10/21/17 06:36 10/20/17 05:19 PT 10.7 SECONDS (9.7-12.2) 10/19/17 16:27 INR 1.0 10/19/17 16:27 APTT 30 SECONDS (21-34) 10/19/17 16:27 - Constitutional Appears: Non-toxic, No Acute Distress - Head Exam Head Exam: ATRAUMATIC, NORMOCEPHALIC - Eye Exam Eye Exam: EOMI - ENT Exam ENT Exam: Mucous Membranes Moist - Neck Exam Neck Exam: Full ROM - Respiratory Exam Respiratory Exam: NORMAL BREATHING PATTERN. absent: Accessory Muscle Use, Respiratory Distress - GI/Abdominal Exam GI & Abdominal Exam: Soft. absent: Tenderness - Extremities Exam Additional comments: RLE, distal pulses palpable, foot warm to touch, no tenderness - Neurological Exam Neurological Exam: Alert, Awake, Oriented x3 - Skin Skin Exam: Dry, Warm Assessment and Plan - Assessment and Plan (Free Text) Assessment: 72F w. PVD, s/p angio w. artherectomy, angioplasty, and stent placement of R SFA , POD#1 -No further surgical intervention at this time -please reconsult as needed -d/w attending Jose PGY4
[2017-10-21 08:34] LABS: BLOOD UREA NITROGEN 15 mg/dL (7-17); CALCIUM 8.4 mg/dl (8.6-10.4); GFR AFRICAN-AMERICAN > 60; GFR NON-AFRICAN AMERICAN > 60
[2017-10-21 08:46] VITALS: BP 126/66; PULSE 77; TEMP 98.1; O2SAT 96
--- NOTE | 2017-10-21 09:18 | CP.PCM.PN ---
Subjective - Date & Time of Evaluation Date of Evaluation: 10/21/17 Time of Evaluation: 09:18 - Subjective Subjective: Podiatry Progress Note - Dr. Garber 72 year old female patient seen and examined this AM regarding painful right 2nd digit. Patient 1 day s/p angio with artherectomy, angioplasty, and stent placement of R SFA. No acute events overnight. Patient reports pain in right 2nd digit is improving. No new complaints. Denies N/V/F/D/C/SOB. Objective - Vital Signs/Intake and Output Vital Signs (last 24 hours): Temp Pulse Resp BP Pulse Ox 98.1 F 77 20 126/66 96 10/21/17 08:00 10/21/17 08:00 10/21/17 08:00 10/21/17 08:00 10/21/17 08:00 Intake and Output: 10/21/17 10/21/17 06:59 18:59 Intake Total 1250 Balance 1250 - Medications Medications: Current Medications Amlodipine Besylate (Norvasc) 5 mg PO DAILY [facility] Last Admin: 10/20/17 10:21 Dose: Not Given Aspirin (Aspirin Chewable) 81 mg PO DAILY [facility] Last Admin: 10/20/17 10:21 Dose: Not Given Clonazepam (Klonopin) 0.5 mg PO DAILY [facility] Last Admin: 10/20/17 10:21 Dose: Not Given Clopidogrel Bisulfate (Plavix) 75 mg PO DAILY [facility] Clopidogrel Bisulfate (Plavix) 75 mg PO DAILY [facility] Duloxetine HCl (Cymbalta) 30 mg PO BID [facility] Last Admin: 10/20/17 18:55 Dose: 30 mg Enalapril Maleate (Vasotec) 10 mg PO DAILY [facility] Last Admin: 10/20/17 10:22 Dose: Not Given Enoxaparin Sodium (Lovenox) 40 mg SC DAILY [facility] Gabapentin (Neurontin) 600 mg PO TID [facility] Last Admin: 10/20/17 18:55 Dose: 600 mg Glimepiride (Amaryl) 4 mg PO DAILY [facility] Last Admin: 10/20/17 10:21 Dose: Not Given Piperacillin Sod/Tazobactam Sod (Zosyn 3.375 Gm Iv Premix) 3.375 gm in 50 mls @ 100 mls/hr IVPB Q6H [facility] PRN Reason: Protocol Last Admin: 10/21/17 06:03 Dose: 100 mls/hr Vancomycin/Sodium Chloride (Vancomycin 1 Gm/Ns 200 Ml) 1 gm in 200 mls @ 133 mls/hr IVPB Q12H [facility] PRN Reason: Protocol Stop: 10/24/17 19:01 Last Admin: 10/21/17 07:00 Dose: 133 mls/hr Sodium Chloride (Sodium Chloride 0.45%) 1,000 mls @ 50 mls/hr IV .Q20H [facility] Last Admin: 10/20/17 17:00 Dose: 50 mls/hr Insulin Human Regular (Novolin R) 0 unit SC ACHS [facility] PRN Reason: Protocol Last Admin: 10/21/17 07:47 Dose: Not Given Morphine Sulfate (Morphine) 2 mg IVP Q4 PRN PRN Reason: Pain, moderate (4-7) Oxycodone/Acetaminophen (Percocet 5/325 Mg Tab) 1 tab PO Q4H PRN PRN Reason: Pain, moderate (4-7) Stop: 10/22/17 20:13 Last Admin: 10/21/17 05:50 Dose: 1 tab Rosuvastatin Calcium (Crestor) 5 mg PO HS [facility] Last Admin: 10/20/17 22:05 Dose: 5 mg - Labs Labs: 10/21/17 06:36 10/21/17 06:36 PT 10.7 SECONDS (9.7-12.2) 10/19/17 16:27 INR 1.0 10/19/17 16:27 APTT 30 SECONDS (21-34) 10/19/17 16:27 - Constitutional Appears: Well, Non-toxic, No Acute Distress - Extremities Exam Additional comments: RLE focused physical exam: VASC: DP and PT pulses weakly palpable 1/4 b/l. CFT delayed x5. Temperature gradient warm to warm. Minimal nonpitting edema present. NEURO: Gross sensation intact. DERM: No open lesions noted. No erythema present. ORTHO: Pain on palpation noted to 2nd digit. Pain upon 2nd digit ROM. Muscle strength 5/5 for all dorsiflexors, plantarflexors, inverters, and everters. - Neurological Exam Neurological Exam: Alert, Awake, Oriented x3 - Psychiatric Exam Psychiatric exam: Normal Affect, Normal Mood Assessment and Plan - Assessment and Plan (Free Text) Assessment: 72F with right 2nd digit pain likely 2/2 ischemia Plan: Patient seen and evaluated Discussed with attending, Dr. Garber VSS, WBC 6.8 Continue abx - Vancomycin, Zosyn Pain control per primary team Pain in 2nd digit improving Stable for dc per podiatry standpoint Patient to follow up with Dr. Garber in office within 1 week of discharge
[2017-10-21 10:46] LABS: ANISOCYTOSIS SLIGHT; HYPOCHROMIC SLIGHT; LYMPHOCYTE 8 % (20-40); MONOCYTE 11 % (0-10); NEUTROPHIL 81 % (50-75); PLATELET ESTIMATE NORMAL (NORMAL); TOTAL CELLS COUNTED 100
[2017-10-21 10:47] LABS: POLYCHROMIC SLIGHT
[2017-10-21] MEDS: Sodium Chloride 0.45% 1,000 ML IV SCH (13:33)
--- NOTE | 2017-10-21 14:19 | CP.PCM.PN ---
Subjective - Date & Time of Evaluation Date of Evaluation: 10/21/17 Time of Evaluation: 11:20 - Subjective Subjective: Patient seen today, denies any chest pain, sob, numbness / tinglings to LE, pain r toe improved , oob ambulating the hallway, states wants to go home s/p angio w. artherectomy, angioplasty, and stent placement of R SFA, POD#1 Objective - Vital Signs/Intake and Output Vital Signs (last 24 hours): Temp Pulse Resp BP Pulse Ox 98.1 F 77 20 126/66 96 10/21/17 08:00 10/21/17 08:00 10/21/17 08:00 10/21/17 09:31 10/21/17 08:00 Intake and Output: 10/21/17 10/21/17 06:59 18:59 Intake Total 1250 640 Balance 1250 640 - Medications Medications: Current Medications Amlodipine Besylate (Norvasc) 5 mg PO DAILY [facility] Last Admin: 10/21/17 09:31 Dose: 5 mg Aspirin (Aspirin Chewable) 81 mg PO DAILY [facility] Last Admin: 10/21/17 09:31 Dose: 81 mg Clonazepam (Klonopin) 0.5 mg PO DAILY [facility] Last Admin: 10/21/17 09:31 Dose: 0.5 mg Clopidogrel Bisulfate (Plavix) 75 mg PO DAILY [facility] Clopidogrel Bisulfate (Plavix) 75 mg PO DAILY [facility] Last Admin: 10/21/17 09:31 Dose: 75 mg Duloxetine HCl (Cymbalta) 30 mg PO BID [facility] Last Admin: 10/21/17 09:31 Dose: 30 mg Enalapril Maleate (Vasotec) 10 mg PO DAILY [facility] Last Admin: 10/21/17 09:31 Dose: 10 mg Enoxaparin Sodium (Lovenox) 40 mg SC DAILY [facility] Gabapentin (Neurontin) 600 mg PO TID [facility] Last Admin: 10/21/17 13:32 Dose: 600 mg Glimepiride (Amaryl) 4 mg PO DAILY [facility] Last Admin: 10/21/17 09:31 Dose: 4 mg Piperacillin Sod/Tazobactam Sod (Zosyn 3.375 Gm Iv Premix) 3.375 gm in 50 mls @ 100 mls/hr IVPB Q6H [facility] PRN Reason: Protocol Last Admin: 10/21/17 06:03 Dose: 100 mls/hr Vancomycin/Sodium Chloride (Vancomycin 1 Gm/Ns 200 Ml) 1 gm in 200 mls @ 133 mls/hr IVPB Q12H [facility] PRN Reason: Protocol Stop: 10/24/17 19:01 Last Admin: 10/21/17 07:00 Dose: 133 mls/hr Sodium Chloride (Sodium Chloride 0.45%) 1,000 mls @ 50 mls/hr IV .Q20H [facility] Last Admin: 10/21/17 13:33 Dose: Not Given Insulin Human Regular (Novolin R) 0 unit SC ACHS [facility] PRN Reason: Protocol Last Admin: 10/21/17 11:17 Dose: Not Given Morphine Sulfate (Morphine) 2 mg IVP Q4 PRN PRN Reason: Pain, moderate (4-7) Oxycodone/Acetaminophen (Percocet 5/325 Mg Tab) 1 tab PO Q4H PRN PRN Reason: Pain, moderate (4-7) Stop: 10/22/17 20:13 Last Admin: 10/21/17 05:50 Dose: 1 tab Rosuvastatin Calcium (Crestor) 5 mg PO HS [facility] Last Admin: 10/20/17 22:05 Dose: 5 mg - Labs Labs: 10/21/17 06:36 10/21/17 06:36 PT 10.7 SECONDS (9.7-12.2) 10/19/17 16:27 INR 1.0 10/19/17 16:27 APTT 30 SECONDS (21-34) 10/19/17 16:27 Assessment and Plan - Assessment and Plan (Free Text) Assessment: A/P 72 y/o female with history of DM and HTN admitted for right 2nd toe pain / PVD s/p angio w. artherectomy, angioplasty, and stent placement of R SFA, POD#[address] Castillo ,No further surgical intervention at this time D/w Podiatry team, cleared fro podiatry standpoint for discharge home today and f/u with Dr. Wyatt office in 1 week D/W Dr. Christianson, cleared for discharge home otday and f/u with Dr. Christianson office in 1 week Discharge savannah discussed with patient , who understands and agrees with plan
--- NOTE | 2017-10-21 14:41 | VAS ---
DATE: 10/20/2017 OPERATIVE ANGIOGRAM REPORT PREOPERATIVE DIAGNOSES: Peripheral vascular disease; rest pain, right foot. PROCEDURES CARRIED OUT: 1. Aortofemoral angiogram via left groin with selective catheterization of right femoral artery, pathway atherectomy of the right superficial femoral artery occluded stents. 2. Deployment of a 6 mm stent in the proximal portion of the previously stented superficial femoral artery on the right side. INDICATIONS: The patient is a 72-year-old woman, smoking, diabetic, with severe peripheral vascular disease, multiple interventions on both legs including catheterization, problems in leg groin which required placement of a patch. OPERATIVE FINDINGS: The aorta and renal arteries were free of any significant occlusive disease. Common iliac arteries were free of any significant occlusive disease. On the left side, the external iliac artery had approximately 50-60% stenosis and there was diffuse disease at the patch segment of the common femoral artery. Below this, the profunda femoris was widely patent. The superficial femoral artery diseased with stenosis of up to 50% in multiple segments just above Tim's canal. Below this, there was runoff via the anterior tibial and peroneal arteries. On the right side, which was the treated side today, the previously implanted stents were completely occluded, the profunda was widely patent. The popliteal artery reconstituted just above the knee joint and a 2-vessel runoff via the anterior tibial and peroneal; however, distally, there was no named vessel in the foot. Subsequent to the performance of the diagnostic arteriogram, a stiff-angled guidewire was advanced over the aortic bifurcation and a 7-Tamazight sheath positioned at the distal portion of the common femoral artery. Using road mapping lesion was crossed, a filter wire was deployed and then the atherectomy device was brought through the occluded stents in the superficial femoral artery. The final results showed that there was a high-grade residual stenosis at the proximal portion recalcifying even after we had atherectomized the stents and ballooned it. We then deployed another stent here, a 6 mm stent, which should result in cosmetic improvement. From hereon, we had excellent flow through the stent and good flow into the hoopa popliteal artery. Pressure was then applied to the left groin and the procedure was terminated. Most likely, the patient will require intervention on the left external iliac common femoral region in the near future. Cody Castillo Jr., MD [facility] # [id number]
--- NOTE | 2017-10-22 14:23 | CP.PCM.DIS ---
Provider - Provider Date of Admission: 10/19/17 15:07 Attending physician: Vince Christianson MD Time Spent in preparation of Discharge (in minutes): 45 Hospital Course - Lab Results Lab Results: Most Recent Lab Values WBC 6.8 K/uL (4.8-10.8) D 10/21/17 06:36 RBC 4.38 Mil/uL (3.80-5.20) 10/21/17 06:36 Hgb 11.3 g/dL (11.0-16.0) 10/21/17 06:36 Hct 34.3 % (34.0-47.0) 10/21/17 06:36 MCV 78.2 fL (81.0-99.0) L 10/21/17 06:36 MCH 25.8 pg (27.0-31.0) L 10/21/17 06:36 MCHC 32.9 g/dL (33.0-37.0) L 10/21/17 06:36 RDW 15.0 % (11.5-14.5) H 10/21/17 06:36 Plt Count 238 K/uL (130-400) 10/21/17 06:36 MPV 8.8 fL (7.2-11.7) 10/21/17 06:36 Neut % (Auto) 62.8 % (50.0-75.0) 10/19/17 15:08 Lymph % (Auto) 27.1 % (20.0-40.0) 10/19/17 15:08 [place] % (Auto) 7.8 % (0.0-10.0) 10/19/17 15:08 Eos % (Auto) 1.4 % (0.0-4.0) 10/19/17 15:08 Baso % (Auto) 0.9 % (0.0-2.0) 10/19/17 15:08 Neut # (Auto) 3.5 K/uL (1.8-7.0) 10/19/17 15:08 Lymph # (Auto) 1.5 K/uL (1.0-4.3) 10/19/17 15:08 [place] # (Auto) 0.4 K/uL (0.0-0.8) 10/19/17 15:08 Eos # (Auto) 0.1 K/uL (0.0-0.7) 10/19/17 15:08 Baso # (Auto) 0.1 K/uL (0.0-0.2) 10/19/17 15:08 Neutrophils % (Manual) 81 % (50-75) H 10/21/17 06:36 Lymphocytes % (Manual) 8 % (20-40) L 10/21/17 06:36 Monocytes % (Manual) 11 % (0-10) H 10/21/17 06:36 Platelet Estimate Normal (NORMAL) 10/21/17 06:36 Polychromasia Slight 10/21/17 06:36 Hypochromasia (manual) Slight 10/21/17 06:36 Anisocytosis (manual) Slight 10/21/17 06:36 ESR 7 mm/hr (0-20) 10/20/17 05:19 PT 10.7 SECONDS (9.7-12.2) 10/19/17 16:27 INR 1.0 10/19/17 16:27 APTT 30 SECONDS (21-34) 10/19/17 16:27 Sodium 139 mmol/L (132-148) 10/21/17 06:36 Potassium 3.7 mmol/L (3.6-5.2) 10/21/17 06:36 Chloride 106 mmol/L (98-107) 10/21/17 06:36 Carbon Dioxide 21 mmol/L (22-30) L 10/21/17 06:36 Anion Gap 16 (10-20) 10/21/17 06:36 BUN 15 mg/dL (7-17) 10/21/17 06:36 Creatinine 0.6 mg/dL (0.7-1.2) L 10/21/17 06:36 Est GFR ( Amer) > 60 10/21/17 06:36 Est GFR (Non-Af Amer) > 60 10/21/17 06:36 POC Glucose (mg/dL) 102 mg/dL (65-110) 10/21/17 11:07 Random Glucose 107 mg/dL (65-105) H 10/21/17 06:36 Calcium 8.4 mg/dl (8.6-10.4) L 10/21/17 06:36 Total Bilirubin 0.7 mg/dL (0.2-1.3) 10/19/17 15:08 AST 45 U/L (14-36) H D 10/19/17 15:08 ALT 23 U/L (9-52) 10/19/17 15:08 Alkaline Phosphatase 53 U/L (38-126) 10/19/17 15:08 Total Protein 8.3 g/dL (6.3-8.3) 10/19/17 15:08 Albumin 4.7 g/dL (3.5-5.0) 10/19/17 15:08 Globulin 3.5 gm/dL (2.2-3.9) 10/19/17 15:08 Albumin/Globulin Ratio 1.3 (1.0-2.1) 10/19/17 15:08 - Hospital Course Hospital Course: Patient seen today, denies any chest pain, sob, numbness / tinglings to LE, pain r toe improved , oob ambulating the hallway, states wants to go home s/p angio w. artherectomy, angioplasty, and stent placement of R SFA, POD#1 A/P 72 y/o female with history of DM and HTN admitted for right 2nd toe pain / PVD s/p angio w. artherectomy, angioplasty, and stent placement of R SFA, POD#[address] Castillo ,No further surgical intervention at this time D/w Podiatry team, cleared fro podiatry standpoint for discharge home today and f/u with Dr. Wyatt office in 1 week cleared for discharge home TOday and f/u with me in office in 1 week Discharge plan discussed with patient , who understands and agrees with plan Discharge Exam - Head Exam Head Exam: ATRAUMATIC, NORMOCEPHALIC Discharge Plan - Follow Up Plan Condition: STABLE Disposition: HOME/ ROUTINE Instructions: Peripheral Vascular (Arterial) Disease (DC), Cellulitis (Skin Infection), Adult (DC) Additional Instructions: Please f/u with DR. Christianson office in 1 week Please f/u with Dr. Silva (foot doctor) in 1- 2 weeks- call and make appointment Continue all medication as per med. rec. Referrals: Sanchez Garber DPM [Doctor Podiatric Medicine] - Vince Christianson MD [Staff Provider] -
== END 2017-10-21 15:09 | disposition home or self-care (01) | DRG 272 ==
LOC: C.ER 14:15 → C.9E 15:07 → C.3T 17:54
PROVIDERS: ADMIT Internal Medicine; ATTEND Internal Medicine
PROC: 047K3DZ Dilation of Right Femoral Artery with Intraluminal Device, Percutaneous Approach (ICD-10-PCS; 2017-10-20)
PROC: 04CK3ZZ Extirpation of Matter from Right Femoral Artery, Percutaneous Approach (ICD-10-PCS; principal; 2017-10-20 13:00)
DX: E11.51 Type 2 diabetes mellitus with diabetic peripheral angiopathy without gangrene (principal); L03.031 Cellulitis of right toe; F17.200 Nicotine dependence, unspecified, uncomplicated; I10 Essential (primary) hypertension; I70.8 Atherosclerosis of other arteries

== ENCOUNTER 2017-11-29 09:31 | Observation (INO) | payer MEDICARE, MEDICAID ==
[2017-11-18 08:19] VITALS: BMI 24.7
[2017-11-29 11:16] LABS: BASO % 0.5 % (0.0-2.0); EOS # 0.2 K/uL (0.0-0.7); EOS % 2.5 % (0.0-4.0); HEMOGLOBIN 12.2 g/dL (11.0-16.0); LYMPH # 1.9 K/uL (1.0-4.3); LYMPH % 30.8 % (20.0-40.0); MEAN CELL VOLUME 77.7 fL (81.0-99.0); MEAN CORPUSCULAR HGB CONC 33.4 g/dL (33.0-37.0); MONO # 0.5 K/uL (0.0-0.8); MONO % 7.6 % (0.0-10.0); NEUT # 3.5 K/uL (1.8-7.0); NEUT % 58.6 % (50.0-75.0); RBC 4.68 Mil/uL (3.80-5.20); RED CELL DISTRIBUTION WIDTH 15.4 % (11.5-14.5)
[2017-11-29 11:26] LABS: PROTHROMBIN TIME 10.4 SECONDS (9.7-12.2)
[2017-11-29 11:27] LABS: CALCIUM 9.2 mg/dl (8.6-10.4); GFR NON-AFRICAN AMERICAN > 60
[2017-11-29 11:32] LABS: BLOOD UREA NITROGEN 19 mg/dL (7-17)
[2017-11-29] MEDS ORDERED: Midazolam 2 MG/2 ML VIAL ONE ×2 (14:23→14:40)
[2017-11-29] MEDS ORDERED: Lidocaine 2% MPF (5 ml) Inj ONE (14:34)
--- NOTE | 2017-11-29 15:36 | PCM.SURG1 ---
Surgeon's Initial Post Op Note - Surgeon's Notes Surgeon: martine Technical Project Manager: 0 Type of Anesthesia: IV Sedation Anesthesia Administered By: patito Pre-Operative Diagnosis: left leg claudication Operative Findings: 2 tandem 90% stenosis in proximal third of left sfa Post-Operative Diagnosis: same Operation Performed: aortofemoral angiogram. selective catherization of left femoral artery. dcb angioplasty of left sfa. manual compression right groin Specimen/Specimens Removed: 0 Estimated Blood Loss: EBL {In ML}: 25 Blood Products Given: N/A Drains Used: No Drains Post-Op Condition: Good Date of Surgery/Procedure: 11/29/17 Time of Surgery/Procedure: 15:38
[2017-11-29 20:42] VITALS: RESP 20
--- NOTE | 2017-11-30 06:37 | OP ---
Copied To: Cody Castillo Jr., MD Attending MD: Cody Castillo Jr., MD PROCEDURE DATE: 11/29/2017 ANGIOGRAM REPORT PREOPERATIVE DIAGNOSIS: Left common and superficial femoral stenosis. POSTOPERATIVE DIAGNOSIS: Left common and superficial femoral stenosis. PROCEDURE CARRIED OUT: 1. Aortofemoral angiogram via right groin with selective catheterization of left femoral artery. 2. Drug-coated balloon angioplasty of the left superficial femoral artery. SURGEON: Cody Castillo Jr., MD PROCUREMENT MANAGER: None. ANESTHESIOLOGIST: ANESTHESIA: Local sedation. FINDINGS: Aorta and renal arteries are free of significant occlusive disease. Both common and internal iliac arteries were widely patent. Both external iliac arteries had some minor degree of stenosis. There were previously placed stents on the right side, which were widely patent and limited runoff via the tibial vessels primarily the posterior tibial and perirenal. Only the patient's left side was the affected side. There were two focal in the proximal portion of the SFA, and there were no previously placed stents. , there were some atherosclerotic changes in the proximal and distal portions of the SFA, but the posterior tibial and perineal were widely patent down to the mid calf, and the trifurcation showed occlusion of the anterior tibial. Subsequent to the performance of the diagnostic arteriogram, a stiff-angled Glidewire was advanced into the aortic bifurcation. . Heparin was given. coated balloon angioplasty using a 5-mm x2 with the final result being excellent. did not show any significant stenosis in the residual portion of the SFA, common femoral and external iliac arteries. Initially, we attempted to deploy Perclose device in the right groin . Blood loss during the procedure is 25 mL. PROCEDURE CARRIED OUT: Aortofemoral angiogram with selective catheterization of left femoral artery and then balloon angioplasty of the left superficial femoral artery using a 5-mm drug-coated balloon. Cody Castillo Jr., MD
[2017-11-30 08:09] VITALS: BP 116/74; PULSE 97; TEMP 98.5; O2SAT 96
[2017-11-30] MEDS ORDERED: Enoxaparin 40 mg Syringe SC SCH (10:00)
[2017-11-30] MEDS: ROSUVASTATIN 5MG PO SCH ×2 (10:18→10:22)
== END 2017-11-30 11:53 | disposition home or self-care (01) ==
LOC: C.SPRAD 09:31 → C.9S 19:07 → C.3T 20:15
PROVIDERS: ADMIT Surgery Vascular Surgery; ATTEND Surgery Vascular Surgery
DX: I73.9 Peripheral vascular disease, unspecified (principal); I70.202 Unspecified atherosclerosis of native arteries of extremities, left leg
CPT/HCPCS: 36247; 36415; 37224; 75625; 75716; 75774; 76936; 76937; 80048; 82948; 85025; 85610; 85730; C1760; C1766; C1769; C2623; G0378; J1644; J2250; J3010

== ENCOUNTER 2018-04-11 10:37 | Outpatient (CLI) | payer MEDICARE, MEDICAID | END 2018-04-11 10:38 | disposition home or self-care (01) | LOC: C.LAB 10:37 ==

== ENCOUNTER 2018-04-18 10:41 | Outpatient (CLI) | payer MEDICARE, MEDICAID | END 2018-04-18 10:42 | disposition home or self-care (01) | LOC: C.PAT 10:41 | DX: I73.9 Peripheral vascular disease, unspecified (principal) ==

== ENCOUNTER 2018-04-20 09:20 | Day surgery (SDC) | payer MEDICARE, MEDICAID ==
[2018-04-18 11:10] VITALS: BMI 22.8
[2018-04-20] MEDS ORDERED: Lidocaine 2% MPF (5 ml) Inj ONE (10:16)
[2018-04-20] MEDS ORDERED: Iodixanol 320 MG/ML 200 ML BOTTLE IV ONE (10:16)
[2018-04-20] MEDS ORDERED: Midazolam 2 MG/2 ML VIAL ONE ×2 (11:57)
[2018-04-20] MEDS ORDERED: ePHEDrine 50 mg/ml Inj ONE (12:46)
--- NOTE | 2018-04-20 13:43 | PCM.SURG1 ---
Surgeon's Initial Post Op Note - Surgeon's Notes Surgeon: martine Photographic Hand Developer: 0 Type of Anesthesia: General IV, IV Sedation Anesthesia Administered By: roberto Pre-Operative Diagnosis: rest pain right foot Operative Findings: sfa stents occluded from groin to knee. single peroneal runoff on right Post-Operative Diagnosis: same Operation Performed: aortofemoral angiogram via left groin. selective catherization right femoral artery. pathway atherectomy right sfqa. dcb 5mm balloon angioplasty. manual closure left groin Specimen/Specimens Removed: 0 Estimated Blood Loss: EBL {In ML}: 25 Blood Products Given: N/A Drains Used: No Drains Post-Op Condition: Good Date of Surgery/Procedure: 04/20/18 Time of Surgery/Procedure: 13:43
--- NOTE | 2018-04-20 19:17 | OP ---
PROCEDURE DATE: 04/20/2018 PREOPERATIVE DIAGNOSIS: Rest pain, right foot, occluded stents. PROCEDURE CARRIED OUT: Aortofemoral angiogram via left groin with selective catheterization of right femoral artery, pathway atherectomy, drug-coated balloon angioplasty using 5 and 6 mm balloon to the right superficial femoral artery. Manual closure, left groin. SURGEON: Cody Castillo Jr., MD PHYSICALLY IMPAIRED TEACHER: None. ANESTHESIOLOGIST: Vane Mcbride CRNA INDICATIONS: The patient is a woman, who has had multiple interventions in the past, continues to smoke, presents with a severe pain in the right foot, imaging confirmed the presence of SFA occlusion in the area of the previous stents. OPERATIVE FINDINGS: Stents were occluded from the origin of the right SFA down to the popliteal artery. The aortorenal arteries, iliac arteries were free of significant occlusive disease, but there were atherosclerotic changes. Subsequent to the performance of diagnostic arteriogram, but the left side was widely patent. A stiff-angle guidewire was inserted down through the area of the occluded stents. This was exchanged for a filter wire which was deployed at this location at the knee joint and atherectomy device was then put this through this area after heparin had been given. The final result was discussed and medically acceptable. We then deployed 5 mm trocar balloons and 6 mm balloon in the groin at the very top of it. The results were satisfactory with excellent brisk blood flow. The runoff distally in leg was primarily with the perineal artery and the other vessels were not named, but there were scattered multiple collaterals. Pressure was then applied to the groin. The procedure was terminated. Operation carried out, aortofemoral angiogram via left groin with selective catheterization of right femoral artery. Pathway atherectomy of the right superficial femoral artery with balloon angioplasties and drug-coated balloons. Cody Castillo Jr., MD cc: Sanchez Quezada DPM
== END 2018-04-20 18:00 | disposition home or self-care (01) ==
LOC: C.SPRAD 09:20
PROVIDERS: ATTEND Surgery Vascular Surgery
DX: T82.858A Stenosis of other vascular prosthetic devices, implants and grafts, initial encounter (principal); I73.9 Peripheral vascular disease, unspecified; E11.9 Type 2 diabetes mellitus without complications; I10 Essential (primary) hypertension; F17.200 Nicotine dependence, unspecified, uncomplicated
CPT/HCPCS: 36247; 37225; 75625; 75716; 75774; 76937; C1724; C1725; C1766; C1769; C1884; C1887; C2623; J1644; J2250; J3010; Q9966